=== PATIENT | female | born 1960 | race Caucasian/White ===

== ENCOUNTER 2018-02-11 14:58 | Inpatient (IN) | payer OTHER ==
--- NOTE | 2018-02-11 15:11 | PDOC ---
Rapid Medical Evaluation Time Seen by Provider: 02/11/18 15:01 Medical Evaluation: Allergies Allergy/AdvReac Type Severity Reaction Status Date / Time Latex, Natural Rubber Allergy Verified 02/11/18 15:00 02/11/18 15:01 I have performed a brief in-person evaluation of this patient. The patient presents with a chief complaint of: abdominal pain with nausea and diarrhea. Sent by pmd for admission for pancreatitits. Pertinent physical exam findings are NAD even and unlabored breathing +llqq tenderness I have ordered the following: labs ordered The patient will proceed to Ed for further evaluation Discharge Disposition - Referrals Referrals: Jessica Watts MD [Primary Care Provider] - - Patient Instructions - Post Discharge Activity
[2018-02-11 15:49] LABS: BASO % 0.9 % (0-2.0); EOS % 1.2 % (0-4.5); HEMOGLOBIN 18.5 GM/dL (10.7-15.3); LYMPH % 28.2 % (8-40); MCH 31.9 pg (25.7-33.7); MCHC 34.2 g/dl (32.0-36.0); MEAN CELL VOLUME 93.3 fl (80-96); MEAN PLT VOLUME 9.9 fl (7.5-11.1); MONO % 6.8 % (3.8-10.2); NEUT % 62.9 % (42.8-82.8); PLATELET COUNT 353 K/MM3 (134-434); RBC 5.79 M/mm3 (3.60-5.2); RDW 13.7 % (11.6-15.6); WHITE BLOOD COUNT 19.4 K/mm3 (4.0-10.0)
--- NOTE | 2018-02-11 16:01 | PDOC ---
History of Present Illness - General Chief Complaint: Pain, Acute Stated Complaint: SENT BY PCP Time Seen by Provider: 02/11/18 15:01 - History of Present Illness Initial Comments: 02/11/18 16:01 Pt is a 57 y/o lady with an extensive past medical history of fibromyalgia, Chiari 1 malformation, sciatica, multiple disc herniations, stent placement, COPD, osteoarthritis, ruptured ectopic , PUD, and DM. Pt presents today to [facility] c/o severe left flank pain that has been occurring for 2-3 days. Pain is a 10/10 in severity, sharp in nature, and radiates to pt's left groin and across her entire lower abdomen. Pain was constant until this morning but is now intermittent. Pt endorses nausea and vomiting since the onset of her pain. Has tried pepto-bismol and TUMS with no relief. Pt noted a BS level of 269 at home last night and a BP reading of 196/157. Endorses a 70 lb weight loss in the past year attributed to stress. Denies chest pain, shortness of breath, dizziness, or changes in vision. FH- Father (Lung CA, Rheumatoid arthritis), Mother(NHL, Lung CA) soc Past History - Past Medical History Allergies/Adverse Reactions: Allergies Allergy/AdvReac Type Severity Reaction Status Date / Time Latex, Natural Rubber Allergy Verified 02/11/18 15:00 Home Medications: Ambulatory Orders Simvastatin [Zocor -] 40 mg PO HS 03/25/12 Diazepam 10 mg PO HS 09/28/15 Enalapril Maleate 2.5 mg PO DAILY 09/28/15 Metoprolol Succinate [Toprol XL -] 50 mg PO DAILY 09/28/15 Montelukast Na [Singulair -] 10 mg PO HS PRN 09/28/15 Omeprazole 20 mg PO DAILY 09/28/15 Tizanidine HCl 4 mg PO DAILY PRN 09/28/15 Anemia: No Asthma: Yes Cancer: No Cardiac Disorders: Yes COPD: No CHF: No Diabetes: Yes GI Disorders: Yes (GERD, GB sludge) HTN: Yes Hypercholesterolemia: Yes - Surgical History Appendectomy: Yes Cardiac Surgery: Yes (stent RCA 09/09) Orthopedic Surgery: Yes (ARTHROSCOPY RT.KNEE) - Suicide/Smoking/Psychosocial Hx Smoking Status: Yes Smoking History: Current every day smoker Have you smoked in the past 12 months: Yes Number of Cigarettes Smoked Daily: 10 Information on smoking cessation initiated: No 'Breaking Loose' booklet given: 03/24/17 Hx Alcohol Use: No Drug/Substance Use Hx: Yes Substance Use Type: Opiates Hx Substance Use Treatment: Yes *Physical Exam - Vital Signs Last Vital Signs Temp Pulse Resp BP Pulse Ox 98 F 131 H 22 131/90 95 02/11/18 15:06 02/11/18 15:06 02/11/18 15:06 02/11/18 15:06 02/11/18 15:06 - Physical Exam Comments: 02/11/18 18:46 GEN NAD, AAOx3 HEENT MMM NC/AT RS- CTA B/L CVS RRR NT ND No HSM ABD TTP throughout abdomen, max pain in LLQ. + CVA tenderness left flank. EXT No CCE Pelvic Exam- No discharge, odor, or erythema of cervix. ED Treatment Course - LABORATORY CBC & Chemistry Diagram: 02/11/18 15:28 02/11/18 15:28 - ADDITIONAL ORDERS Additional order review: 02/11/18 15:28 RBC 5.79 H MCV 93.3 MCHC 34.2 RDW 13.7 MPV 9.9 Neutrophils % 62.9 Lymphocytes % 28.2 D Monocytes % 6.8 Eosinophils % 1.2 Basophils % 0.9 Medical Decision Making - Medical Decision Making 02/11/18 16:14 ddx: PUD, Ureterolithiasis, Diverticulitis, Pancreatitis 02/11/18 17:21 Morphine, IVF with LR hydration, zofran for nausea labs and lytes with leukocytosis 19.4 , LFTs normal; lipase WNL Will admit to Medicine. 02/11/18 17:32 Will perform Pelvic Exam with Nurse to r/o PID 02/11/18 18:24 Pelvic examination performed with Nurse Thania. Cervical cultures taken and sent to lab. 02/11/18 18:[address] Floyd, will admit. 02/11/18 18:43 Abd/Pelvis CT w/o contrast-- No acute pathology. *DC/Admit/Observation/Transfer Diagnosis at time of Disposition: Acute abdominal pain, Acute abdomen - Referrals Referrals: Jessica Watts MD [Primary Care Provider] - - Patient Instructions - Post Discharge Activity
[2018-02-11 16:12] LABS: ALBUMIN 4.3 g/dl (3.4-5.0); ALK PHOS 91 U/L (45-117); ANION GAP 9 MMOL/L (8-16); BILIRUBIN,TOTAL 0.6 mg/dL (0.2-1); BLOOD UREA NITROGEN 15 mg/dL (7-18); CHLORIDE 109 mmol/L (98-107); CO2 21 mmol/L (21-32); CREATININE 0.8 mg/dL (0.55-1.3); GLUCOSE,RANDOM 127 mg/dL (74-106); POTASSIUM 4.4 mmol/L (3.5-5.1); SGOT/AST 13 U/L (15-37); SGPT/ALT 17 U/L (13-61); SODIUM 139 mmol/L (136-145); TOT PROT 8.3 g/dl (6.4-8.2)
[2018-02-11] MEDS ORDERED: ACETAMINOPHEN 1000 MG/100 ML VIAL (NON FORMULARY) IVPB ONE (16:12)
--- NOTE | 2018-02-11 16:28 | PDOC ---
Attending Attestation - Resident Resident Name: Derek Cardenas - ED Attending Attestation I have performed the following: I have examined & evaluated the patient, The case was reviewed & discussed with the resident, I agree w/resident's findings & plan - HPI HPI: 02/11/18 16:27 57 y/o lady with an extensive past medical history of fibromyalgia, Chiari 1 malformation, sciatica, multiple disc herniations, stent placement, COPD, osteoarthritis, ruptured ectopic , PUD, and DM presenting with acute worsening of left flank and LLQ pain, nausea and vomiting x [address] Watts. - Physicial Exam PE: 02/11/18 17:35 NAD, well appearing, MMM, nl conjunctiva, anicteric; neck supple. lungs clear, RRR, +abdomen soft, Epigastric and diffuse abdominal tenderness. Left CVAT.. ALEGRIA x4, no focal neuro deficits. No peripheral edema. normal color for ethnicity , WWP. - Medical Decision Making 02/11/18 16:30 57 y/o lady with an extensive past medical history of fibromyalgia, Chiari 1 malformation, sciatica, multiple disc herniations, stent placement, COPD, osteoarthritis, ruptured ectopic , PUD, and DM presenting with acute worsening of left flank and LLQ pain, nausea and vomiting x 2 days. DDx abdominal pain: GERD, PUD, esophageal spasm, pancreatitis, hepatitis, constipation, colitis, gastroenteritis, renal colic, cholecystitis, UTI, pyelonephritis, ileus, SBO, medication side effect, hernia, biliary colic, diverticulitis, mesenteric ischemia. ED course: given analgesia, IVF with LR hydration, zofran labs and lytes with leukocytosis 19K, LFTs normal; lipase normal coags_ normal. trop neg. H/H appears hemoconcentrated, so given IVF hydration getting lactic rectal temp and reeval. blood cx pending. CT a/p pending final results. considering IV abx for suspected intra abdominal infection. dispo: admit to medicine for further management. Dr. Watts primary doctor, admit to hospitalist in evening. 02/11/18 17:38
[2018-02-11] MEDS ORDERED: LACTATED RINGERS SOLUTION 1000 ML INFUS.BAG IV ONE (16:30)
[2018-02-11] MEDS ORDERED: ONDANSETRON 4 MG/2 ML VIAL IVPUSH ONE (16:31)
[2018-02-11 16:46] LABS: INR 1.13 (0.83-1.09); PROTHROMBIN TIME (PATIENT) 12.8 SEC (9.7-13.0)
[2018-02-11 16:48] LABS: ACTIVATED PTT 41.9 SECONDS (25.2-36.5)
[2018-02-11] MEDS ORDERED: morphine CARPU-JECT 4 MG/1 ML DISP.SYRIN IVPUSH ONE (16:50)
[2018-02-11] MEDS ORDERED: MORPHINE SULFATE 2 MG/ML VIAL ONE (16:58)
[2018-02-11] MEDS ORDERED: ONDANSETRON 4 MG/2 ML VIAL ONE ×2 (16:58→20:58)
[2018-02-11] MEDS ORDERED: SODIUM CHLORIDE 0.9% 1000 ML INFUS.BAG IV STA (17:23)
[2018-02-11 17:32] LABS: URINE APPEARANCE CLOUDY; URINE BILIRUBIN NEGATIVE (<2.0 mg/dL); URINE COLOR AMBER; URINE GLUCOSE (UA) NEGATIVE (NEGATIVE); URINE KETONE TRACE (NEGATIVE); URINE NITRITE NEGATIVE (NEGATIVE); URINE UROBILINOGEN NEGATIVE mg/dL (0.2-1.0)
[2018-02-11 17:47] LABS: URINE LEUK ESTERASE 1+ (NEGATIVE); URINE PROTEIN 1+ (NEGATIVE)
[2018-02-11 17:56] LABS: EPI CELLS MODERATE /HPF (FEW); URINE MUCUS MANY
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
[2018-02-11] MEDS ORDERED: morphine SULFATE 4 MG/ML VIAL ONE (20:58)
[2018-02-11] MEDS: ONDANSETRON 4 MG/2 ML VIAL IVPUSH PRN (20:59)
[2018-02-11] MEDS: MORPHINE SULFATE 2 MG/ML VIAL IVPUSH PRN (21:00)
[2018-02-11] MEDS: DEXTROSE 5%-0.45% SALINE 1,000 ML IV SCH (21:05)
[2018-02-11] MEDS ORDERED: HEPARIN NA (PORCINE) 5,000 UNITS/ML 1ML VIAL ONE (22:11)
[2018-02-11] MEDS: HEPARIN NA (PORCINE) 5,000 UNITS/ML 1ML VIAL SQ SCH (22:24)
[2018-02-12] MEDS ORDERED: MORPHINE SULFATE 2 MG/ML VIAL ONE (02:00)
[2018-02-12] MEDS ORDERED: MORPHINE SULFATE 2 MG/ML VIAL IVPUSH ONE (02:00)
[2018-02-12 05:14] VITALS: BMI 31.1
[2018-02-12] MEDS ORDERED: CEFTRIAXONE 1 GM in DEXTROSE 5%-WATER - 50 ML IVPB ONE (08:00)
--- NOTE | 2018-02-12 08:05 | EKG ---
Test Reason : Blood Pressure : / mmHG Vent. Rate : 120 BPM Atrial Rate : 120 BPM P-R Int : 142 ms QRS Dur : 074 ms QT Int : 328 ms P-R-T Axes : 081 -44 066 degrees QTc Int : 463 ms SINUS TACHYCARDIA WITH PREMATURE SUPRAVENTRICULAR COMPLEXES POSSIBLE LEFT ATRIAL ENLARGEMENT LEFT AXIS DEVIATION PULMONARY DISEASE PATTERN ABNORMAL ECG WHEN COMPARED WITH ECG OF 27-MAR-2015 15:22, PREMATURE SUPRAVENTRICULAR COMPLEXES ARE NOW PRESENT VENT. RATE HAS INCREASED BY 60 BPM NONSPECIFIC T WAVE ABNORMALITY NO LONGER EVIDENT IN INFERIOR LEADS Confirmed by BRE VERMA, SUNNY ([id number]) on 02/12/2018 8:05:34 AM Referred By: Confirmed By:SUNNY DÍAZ MD
[2018-02-12] MEDS ORDERED: cefTRIAXone SODIUM 1 GM VIAL ONE (08:22)
[2018-02-12] MEDS ORDERED: DEXTROSE 5%-WATER - 50 ML IVPB ONE (08:22)
[2018-02-12] MEDS: MORPHINE SULFATE 2 MG/ML VIAL IVPUSH PRN (08:26)
[2018-02-12] MEDS: ONDANSETRON 4 MG/2 ML VIAL IVPUSH PRN (08:28)
[2018-02-12] MEDS: HEPARIN NA (PORCINE) 5,000 UNITS/ML 1ML VIAL SQ SCH ×4 (09:02→21:52)
[2018-02-12] MEDS: ENALAPRIL MALEATE 2.5 MG TABLET (FP) PO SCH (09:11)
[2018-02-12 09:17] LABS: BASO % 1.2 % (0-2.0); EOS % 4.7 % (0-4.5); HEMATOCRIT 46.6 % (32.4-45.2); HEMOGLOBIN 15.5 GM/dL (10.7-15.3); LYMPH % 40.5 % (8-40); MCH 31.6 pg (25.7-33.7); MCHC 33.3 g/dl (32.0-36.0); MEAN PLT VOLUME 9.5 fl (7.5-11.1); MONO % 6.6 % (3.8-10.2); PLATELET COUNT 243 K/MM3 (134-434); RDW 13.7 % (11.6-15.6); WHITE BLOOD COUNT 10.6 K/mm3 (4.0-10.0)
--- NOTE | 2018-02-12 09:37 | PN ---
Progress Note (short form) - Note Progress Note: ID consult dictated imp/reccd 57 yo female didnot feel well Thu/- by Thursday had stomach pain and elevated sugars ate a little breakfast and lunch later developed nonbloody diarrhea times 3- with chills no vomiting, +dry heaves no fever no travel no sick contacts came to ED with the above complaints on Thursday- has not eaten since Thursday diarrhea has stopped sexually active no travel no sick contacts post menopausa reports no discomfort with pelvic exam in ED ct scan in ED-pelvic fluid in the culdesac otherwise normal studay no dysuria leukocytosis to 20k still with abdominal pain unclear source of abdominal pain and leukocytosis ?transient gastroenteritis with self resolving diarrhea on rocephin, continue until cultures are back ?ulcer disease, ?uti recently started percocet and meloxicam consider GI evaluation Problem List - Problems (1) Leukocytosis Code(s): D72.829 - ELEVATED WHITE BLOOD CELL COUNT, UNSPECIFIED (2) Acute abdominal pain Code(s): R10.9 - UNSPECIFIED ABDOMINAL PAIN
[2018-02-12 09:44] LABS: ANION GAP 6 MMOL/L (8-16); BLOOD UREA NITROGEN 15 mg/dL (7-18); CALCIUM 9.4 mg/dL (8.5-10.1); CHLORIDE 110 mmol/L (98-107); CO2 25 mmol/L (21-32); CREATININE 0.7 mg/dL (0.55-1.3); GLUCOSE,RANDOM 136 mg/dL (74-106); POTASSIUM 3.9 mmol/L (3.5-5.1); SODIUM 142 mmol/L (136-145)
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
--- NOTE | 2018-02-12 11:32 | PN ---
Progress Note, Physician Chief Complaint: AWAKE ALERT MODERATE DISTRESS ABD PAIN CONTINUES - Current Medication List Current Medications: Active Medications Enalapril Maleate (Vasotec -) 2.5 mg PO DAILY [facility] Last Admin: 02/12/18 09:11 Dose: Not Given Heparin Sodium (Porcine) (Heparin -) 5,000 unit SQ BID [facility] Last Admin: 02/12/18 09:02 Dose: 5,000 unit Dextrose/Sodium Chloride (D5-1/2ns -) 1,000 mls @ 83 mls/hr IV ASDIR [facility] Last Admin: 02/11/18 21:05 Dose: 83 mls/hr Ceftriaxone Sodium 1 gm/ (Dextrose) 50 mls @ 100 mls/hr IVPB DAILY [facility]; Protocol Metoprolol Succinate (Toprol Xl -) 50 mg PO DAILY [facility] Last Admin: 02/12/18 09:11 Dose: Not Given Morphine Sulfate (Morphine Sulfate) 2 mg IVPUSH Q6H PRN PRN Reason: PAIN LEVEL 7 - 10 Last Admin: 02/12/18 08:26 Dose: 2 mg Ondansetron HCl (Zofran Injection) 4 mg IVPUSH Q6H PRN PRN Reason: NAUSEA AND/OR VOMITING Last Admin: 02/12/18 08:28 Dose: 4 mg - Objective Vital Signs: Vital Signs Temperature 97.9 F 02/12/18 08:35 Pulse Rate 60 02/12/18 08:35 Respiratory Rate 16 02/12/18 08:35 Blood Pressure 114/58 L 02/12/18 08:35 O2 Sat by Pulse Oximetry (%) 97 02/11/18 19:28 Constitutional: Yes: Moderate Distress Eyes: Yes: WNL HENT: Yes: WNL Neck: Yes: WNL Cardiovascular: Yes: WNL Respiratory: Yes: WNL Gastrointestinal: Yes: Tenderness Genitourinary: Yes: WNL Musculoskeletal: Yes: Muscle Pain Extremities: Yes: WNL Edema: No Peripheral Pulses WNL: Yes Integumentary: Yes: WNL Wound/Incision: Yes: Clean/Dry Neurological: Yes: Pre-Existing Deficit ...Motor Strength: RUE Psychiatric: Yes: WNL Labs: CBC, BMP 02/12/18 09:03 02/12/18 09:03 INR, PTT INR 1.13 (0.83-1.09) H 02/11/18 15:28 Problem List - Problems (1) Acute abdominal pain Code(s): R10.9 - UNSPECIFIED ABDOMINAL PAIN (2) COPD (chronic obstructive pulmonary disease) Code(s): J44.9 - CHRONIC OBSTRUCTIVE PULMONARY DISEASE, UNSPECIFIED (3) Diabetes mellitus Code(s): E11.9 - TYPE 2 DIABETES MELLITUS WITHOUT COMPLICATIONS (4) Fibromyalgia Code(s): M79.7 - FIBROMYALGIA (5) Leukocytosis Code(s): D72.829 - ELEVATED WHITE BLOOD CELL COUNT, UNSPECIFIED (6) Osteoarthritis Code(s): M19.90 - UNSPECIFIED OSTEOARTHRITIS, UNSPECIFIED SITE (7) PUD (peptic ulcer disease) Code(s): K27.9 - PEPTIC ULC, SITE UNSP, UNSP AC OR CHR, W/O HEMOR OR PERF Assessment/Plan D/W GI DR PRECIADO TO HAVE EGD TODAY KEEP NPO SURGERY FOLLOW UP IV ABX PAIN CONTROL PPI DVT PROPHYLAXIS
[2018-02-12] MEDS ORDERED: PANTOPRAZOLE SODIUM 40 MG VIAL IVPUSH SCH (11:45)
[2018-02-12] MEDS: morphine SULFATE 4 MG/ML VIAL IVPUSH PRN ×3 (13:09→23:23)
--- NOTE | 2018-02-12 13:38 | CONSULT ---
- Consultation REQUESTING PROVIDER: Ronald Doe CONSULT REQUEST: We have been asked to surgically evaluate this patient for an acute surgical abdomen PCP:Jessica Watts HISTORY OF PRESENT ILLNESS: 24-36 hours of generalized ? abdominal pain associated with n/v; not improved w/OTC measures ;s he was referred to the ED by her PCP after office evaluation; she has NOC; pain has improved since admission and dx. w/u was done. 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 Pain statrted after eating cereal. PMHx: nth; asthma; CAD, NIDDM; recent single vessel coronary stenting PSHx: appendectomy and ruptured ectopic. Home Medications Medication Instructions Recorded Simvastatin [Zocor -] 40 mg PO HS 03/25/12 Diazepam 10 mg PO HS 09/28/15 Enalapril Maleate 2.5 mg PO DAILY 09/28/15 Metoprolol Succinate [Toprol XL -] 50 mg PO DAILY 09/28/15 Montelukast Na [Singulair -] 10 mg PO HS PRN 09/28/15 Omeprazole 20 mg PO DAILY PRN 09/28/15 Tizanidine HCl 4 mg PO BID 09/28/15 Albuterol Sulfate Inhaler - 2 puff IH Q4H PRN 02/12/18 [Ventolin HFA Inhaler -] Aspirin [Adult Aspirin] 81 mg PO DAILY 02/12/18 Clopidogrel Bisulfate [Plavix] 75 mg PO DAILY 02/12/18 Ibuprofen 800 mg PO BID PRN 02/12/18 Meloxicam 7.5 mg PO BID 02/12/18 Metformin HCl [Glucophage] 500 mg PO BIDAC 02/12/18 Allergies Allergy/AdvReac Type Severity Reaction Status Date / Time Latex, Natural Rubber Allergy Verified 02/11/18 15:00 PHYSICAL EXAM: GENERAL: Awake, alert, and fully oriented, in no acute distress. HEAD: Normal with no signs of trauma. EYES: PERRL, sclera anicteric, conjunctiva clear. NECK: Normal ROM, supple without lymphadenopathy, JVD, or masses. ABDOMEN: Soft, nontender, not distended, normoactive bowel sounds, no guarding, no rebound, no masses. No organomegaly. No hernias. MUSCULOSKELETAL: Normal ROM at all joints. No bony deformities or tenderness. No CVA tenderness. UPPER EXTREMITIES: 2+ pulses, warm, well-perfused. No cyanosis. Cap refill <2 seconds. No peripheral edema. LOWER EXTREMITIES: 2+ pulses, warm, well-perfused. No calf tenderness. No peripheral edema. NEUROLOGICAL: Normal speech, gait not observed. PSYCH: Cooperative. Good eye contact. Appropriate mood and affect. SKIN: Warm, dry, normal turgor, no rashes or lesions noted. Lipoma over right deltoid ~ 6.0 cm. Vital Signs Temperature 97.9 F 02/12/18 08:35 Pulse Rate 60 02/12/18 08:35 Respiratory Rate 16 02/12/18 08:35 Blood Pressure 114/58 L 02/12/18 08:35 O2 Sat by Pulse Oximetry (%) 97 02/11/18 19:28 Lab Results WBC 10.6 K/mm3 (4.0-10.0) H 02/12/18 09:03 RBC 4.90 M/mm3 (3.60-5.2) 02/12/18 09:03 Hgb 15.5 GM/dL (10.7-15.3) H 02/12/18 09:03 Hct 46.6 % (32.4-45.2) H 02/12/18 09:03 MCV 95.0 fl (80-96) 02/12/18 09:03 MCHC 33.3 g/dl (32.0-36.0) 02/12/18 09:03 RDW 13.7 % (11.6-15.6) 02/12/18 09:03 Plt Count 243 K/MM3 (134-434) D 02/12/18 09:03 Sodium 142 mmol/L (136-145) 02/12/18 09:03 Potassium 3.9 mmol/L (3.5-5.1) 02/12/18 09:03 Chloride 110 mmol/L (98-107) H 02/12/18 09:03 Carbon Dioxide 25 mmol/L (21-32) 02/12/18 09:03 Anion Gap 6 MMOL/L (8-16) L 02/12/18 09:03 BUN 15 mg/dL (7-18) 02/12/18 09:03 Creatinine 0.7 mg/dL (0.55-1.3) 02/12/18 09:03 Random Glucose 136 mg/dL (74-106) H 02/12/18 09:03 Calcium 9.4 mg/dL (8.5-10.1) 02/12/18 09:03 INR 1.13 (0.83-1.09) H 02/11/18 15:28 Imaging w/u to date reviewed IMP: No evidence of an acute surgical abdomen PLAN: As per primary care team. Rajan Montes MD FACS
--- NOTE | 2018-02-12 14:43 | CON.GI ---
Consult Consult Specialty:: GI Reason for Consultation:: epigastric abdomina pain x 3 days - History of Present Illness History of Present Illness: Chart reviewed. A 57F with epigastric, deep, continious, non-radiating, up to 10 /10, deep pain w/o alleviating, or aggravating factors. Onset 3 days ago as mild , non-specific abdominal discomfort w/o any other symptoms. Became severe by Thursday and developed small volume, brown loose stools. No dysphagia, odynophagia, chest pain, SOB, nausea, or vomiting, No melena, or hematochezia. No fever, or jaundice. No history of upper GI inflammatory states. Had incomplete (poor prep) colonoscopy in 2016. Overall, reports no changes in stool caliper, or weight loss. Takes small dose ASA. Denies other chronic NSAIDs , alcohol. [id number] CT/ABDOMEN & PELVIS CT W/O CONTR HISTORY PROVIDED: Rule out pancreatitis TECHNIQUE: Sequential axial images were obtained from the domes of the diaphragm through the symphysis pubis. The study is limited without the use of any contrast material. The lung bases are clear. The pancreas is normal in size and texture with no pancreatic masses identified. There is no evidence of peripancreatic inflammatory changes or fluid collections suspicious for acute/chronic pancreatitis. The liver, spleen, pancreas, adrenal glands and kidneys demonstrate no significant abnormalities. The gallbladder is slightly distended, but clear. There is no evidence of intra-abdominal or retroperitoneal lymphadenopathy or fluid collections. There is no evidence of pneumoperitoneum, bowel obstruction or intra-abdominal abscess. There is no CT evidence of acute appendicitis or diverticulitis. Examination of the pelvis demonstrates no evidence of pelvic masses, fluid collections or lymphadenopathy. Free fluid is identified within the cul-de-sac. IMPRESSION: 1. Normal noncontrast CT scan of the pancreas with no evidence of masses or acute/chronic pancreatitis. 2. Free pelvic fluid, no acute pathology within the abdomen or pelvis. Please see above discussion. CBCD WBC 10.6 K/mm3 (4.0-10.0) H 02/12/18 09:03 RBC 4.90 M/mm3 (3.60-5.2) 02/12/18 09:03 Hgb 15.5 GM/dL (10.7-15.3) H 02/12/18 09:03 Hct 46.6 % (32.4-45.2) H 02/12/18 09:03 MCV 95.0 fl (80-96) 02/12/18 09:03 MCHC 33.3 g/dl (32.0-36.0) 02/12/18 09:03 RDW 13.7 % (11.6-15.6) 02/12/18 09:03 Plt Count 243 K/MM3 (134-434) D 02/12/18 09:03 MPV 9.5 fl (7.5-11.1) 02/12/18 09:03 CMP Sodium 142 mmol/L (136-145) 02/12/18 09:03 Potassium 3.9 mmol/L (3.5-5.1) 02/12/18 09:03 Chloride 110 mmol/L (98-107) H 02/12/18 09:03 Carbon Dioxide 25 mmol/L (21-32) 02/12/18 09:03 Anion Gap 6 MMOL/L (8-16) L 02/12/18 09:03 BUN 15 mg/dL (7-18) 02/12/18 09:03 Creatinine 0.7 mg/dL (0.55-1.3) 02/12/18 09:03 Creat Clearance w eGFR > 60 (>60) 02/12/18 09:03 Calcium 9.4 mg/dL (8.5-10.1) 02/12/18 09:03 Total Bilirubin 0.6 mg/dL (0.2-1) 02/11/18 15:28 AST 13 U/L (15-37) L 02/11/18 15:28 ALT 17 U/L (13-61) 02/11/18 15:28 Alkaline Phosphatase 91 U/L (45-117) 02/11/18 15:28 Total Protein 8.3 g/dl (6.4-8.2) H 02/11/18 15:28 Albumin 4.3 g/dl (3.4-5.0) 02/11/18 15:28 Home Medication List Medication Instructions Recorded Confirmed Type Simvastatin [Zocor -] 40 mg PO HS 03/25/12 02/12/18 History Diazepam 10 mg PO HS 09/28/15 02/12/18 History Enalapril Maleate 2.5 mg PO DAILY 09/28/15 02/12/18 History Metoprolol Succinate [Toprol XL -] 50 mg PO DAILY 09/28/15 02/12/18 History Montelukast Na [Singulair -] 10 mg PO HS PRN 09/28/15 02/11/18 History Omeprazole 20 mg PO DAILY PRN 09/28/15 02/11/18 History Tizanidine HCl 4 mg PO BID 09/28/15 02/12/18 History Albuterol Sulfate Inhaler - 2 puff IH Q4H PRN 02/12/18 02/12/18 History [Ventolin HFA Inhaler -] Aspirin [Adult Aspirin] 81 mg PO DAILY 02/12/18 02/12/18 History Clopidogrel Bisulfate [Plavix] 75 mg PO DAILY 02/12/18 02/12/18 History Ibuprofen 800 mg PO BID PRN 02/12/18 02/12/18 History Meloxicam 7.5 mg PO BID 02/12/18 02/12/18 History Metformin HCl [Glucophage] 500 mg PO BIDAC 02/12/18 02/12/18 History Active Medications Generic Name Dose Route Start Last Admin Trade Name Freq PRN Reason Stop Dose Admin Enalapril Maleate 2.5 mg 02/12/18 10:00 02/12/18 09:11 Vasotec - PO Not Given DAILY [facility] Heparin Sodium (Porcine) 5,000 unit 02/11/18 22:00 02/12/18 10:07 Heparin - SQ Not Given BID [facility] Dextrose/Sodium Chloride 1,000 mls @ 83 mls/hr 02/11/18 19:30 02/11/18 21:05 D5-1/2ns - IV 83 mls/hr ASDIR [facility] Administration Ceftriaxone Sodium 1 gm/ 50 mls @ 100 mls/hr 02/13/18 10:00 Dextrose IVPB DAILY [facility] Protocol Metoprolol Succinate 50 mg 02/12/18 10:00 02/12/18 09:11 Toprol Xl - PO Not Given DAILY [facility] Morphine Sulfate 2 mg 02/11/18 20:52 02/12/18 08:26 Morphine Sulfate IVPUSH 2 mg Q6H PRN Administration PAIN LEVEL 7 - 10 Morphine Sulfate 4 mg 02/12/18 11:32 02/12/18 13:09 Morphine Sulfate IVPUSH 4 mg Q4H PRN Administration PAIN LEVEL 7 - 10 Ondansetron HCl 4 mg 02/11/18 20:53 02/12/18 08:28 Zofran Injection IVPUSH 4 mg Q6H PRN Administration NAUSEA AND/OR VOMITING Pantoprazole Sodium 40 mg 02/12/18 11:45 02/12/18 13:09 Protonix Iv IVPUSH 40 mg DAILY [facility] Administration - History Source History Provided By: Patient, Medical Record - Past Medical History ...LMP: 03/25/12 ...: No - Alcohol/Substance Use Hx Alcohol Use: Yes (rare drink) - Smoking History Smoking history: Current every day smoker Have you smoked in the past 12 months: Yes Aproximately how many cigarettes per day: 10 Home Medications - Allergies Allergies/Adverse Reactions: Allergies Allergy/AdvReac Type Severity Reaction Status Date / Time Latex, Natural Rubber Allergy Verified 02/11/18 15:00 - Home Medications Home Medications: Ambulatory Orders Simvastatin [Zocor -] 40 mg PO HS 03/25/12 Diazepam 10 mg PO HS 09/28/15 Enalapril Maleate 2.5 mg PO DAILY 09/28/15 Metoprolol Succinate [Toprol XL -] 50 mg PO DAILY 09/28/15 Montelukast Na [Singulair -] 10 mg PO HS PRN 09/28/15 Omeprazole 20 mg PO DAILY PRN 09/28/15 Tizanidine HCl 4 mg PO BID 09/28/15 Albuterol Sulfate Inhaler - [Ventolin HFA Inhaler -] 2 puff IH Q4H PRN 02/12/18 Aspirin [Adult Aspirin] 81 mg PO DAILY 02/12/18 Clopidogrel Bisulfate [Plavix] 75 mg PO DAILY 02/12/18 Ibuprofen 800 mg PO BID PRN 02/12/18 Meloxicam 7.5 mg PO BID 02/12/18 Metformin HCl [Glucophage] 500 mg PO BIDAC 02/12/18 Family Disease History - Family Disease History Family Disease History: Other: Mother (gastric ulcer, perforated) Review of Systems Findings/Remarks: as per hPI, ED, H&P Physical Exam-GI Vital Signs: Vital Signs Temperature 98.3 F 02/12/18 14:27 Pulse Rate 56 L 02/12/18 14:27 Respiratory Rate 16 02/12/18 14:27 Blood Pressure 128/63 02/12/18 14:27 O2 Sat by Pulse Oximetry (%) 97 02/11/18 19:28 Constitutional: Yes: Well Nourished, Calm, Anxious, Mild Distress Eyes: Yes: Conjunctiva Clear HENT: Yes: Atraumatic Neck: Yes: Supple Cardiovascular: Yes: Regular Rate and Rhythm Respiratory: Yes: Regular Gastrointestinal Inspection: No: Ascites, Distention ...Palpate: Yes: Guarding, Soft, Tenderness, Epigastium. No: Firm/Rigid Neurological: Yes: Alert, Oriented Labs: CBC, BMP 02/12/18 09:03 02/12/18 09:03 INR, PTT INR 1.13 (0.83-1.09) H 02/11/18 15:28 Laboratory Last Values WBC 10.6 K/mm3 (4.0-10.0) H 02/12/18 09:03 RBC 4.90 M/mm3 (3.60-5.2) 02/12/18 09:03 Hgb 15.5 GM/dL (10.7-15.3) H 02/12/18 09:03 Hct 46.6 % (32.4-45.2) H 02/12/18 09:03 MCV 95.0 fl (80-96) 02/12/18 09:03 MCH 31.6 pg (25.7-33.7) 02/12/18 09:03 MCHC 33.3 g/dl (32.0-36.0) 02/12/18 09:03 RDW 13.7 % (11.6-15.6) 02/12/18 09:03 Plt Count 243 K/MM3 (134-434) D 02/12/18 09:03 MPV 9.5 fl (7.5-11.1) 02/12/18 09:03 Absolute Neuts (auto) 5.0 K/mm3 (1.5-8.0) 02/12/18 09:03 Neutrophils % 47.0 % (42.8-82.8) D 02/12/18 09:03 Lymphocytes % 40.5 % (8-40) H D 02/12/18 09:03 Monocytes % 6.6 % (3.8-10.2) 02/12/18 09:03 Eosinophils % 4.7 % (0-4.5) H D 02/12/18 09:03 Basophils % 1.2 % (0-2.0) 02/12/18 09:03 Nucleated RBC % 0 % (0-0) 02/12/18 09:03 PT with INR 12.80 SEC (9.7-13.0) 02/11/18 15:28 INR 1.13 (0.83-1.09) H 02/11/18 15:28 PTT (Actin FS) 41.9 SECONDS (25.2-36.5) H 02/11/18 15:28 Sodium 142 mmol/L (136-145) 02/12/18 09:03 Potassium 3.9 mmol/L (3.5-5.1) 02/12/18 09:03 Chloride 110 mmol/L (98-107) H 02/12/18 09:03 Carbon Dioxide 25 mmol/L (21-32) 02/12/18 09:03 Anion Gap 6 MMOL/L (8-16) L 02/12/18 09:03 BUN 15 mg/dL (7-18) 02/12/18 09:03 Creatinine 0.7 mg/dL (0.55-1.3) 02/12/18 09:03 Creat Clearance w eGFR > 60 (>60) 02/12/18 09:03 Random Glucose 136 mg/dL (74-106) H 02/12/18 09:03 Lactic Acid 1.2 mmol/L (0.4-2.0) 02/11/18 17:06 Calcium 9.4 mg/dL (8.5-10.1) 02/12/18 09:03 Total Bilirubin 0.6 mg/dL (0.2-1) 02/11/18 15:28 AST 13 U/L (15-37) L 02/11/18 15:28 ALT 17 U/L (13-61) 02/11/18 15:28 Alkaline Phosphatase 91 U/L (45-117) 02/11/18 15:28 Troponin I < 0.02 ng/ml (0.00-0.05) 02/11/18 15:28 Total Protein 8.3 g/dl (6.4-8.2) H 02/11/18 15:28 Albumin 4.3 g/dl (3.4-5.0) 02/11/18 15:28 Lipase 254 U/L (73-393) 02/11/18 16:15 Urine Color Kate 02/11/18 17:12 Urine Appearance Cloudy 02/11/18 17:12 Urine pH 5.0 (5.0-8.0) D 02/11/18 17:12 Ur Specific [place] 1.024 (1.001-1.035) 02/11/18 17:12 Urine Protein 1+ (NEGATIVE) H 02/11/18 17:12 Urine Glucose (UA) Negative (NEGATIVE) 02/11/18 17:12 Urine Ketones Trace (NEGATIVE) H 02/11/18 17:12 Urine Blood Negative (NEGATIVE) 02/11/18 17:12 Urine Nitrite Negative (NEGATIVE) 02/11/18 17:12 Urine Bilirubin Negative (<2.0 mg/dL) 02/11/18 17:12 Urine Urobilinogen Negative mg/dL (0.2-1.0) 02/11/18 17:12 Ur Leukocyte Esterase 1+ (NEGATIVE) H 02/11/18 17:12 Urine WBC (Auto) 21 /hpf (3-5) 02/11/18 17:12 Urine RBC (Auto) 4 /hpf (0-3) 02/11/18 17:12 Ur Epithelial Cells Moderate /HPF (FEW) 02/11/18 17:12 Urine Mucus Many 02/11/18 17:12 Imaging - Results Cat Scan: Report Reviewed Problem List - Problems (1) Leukocytosis Code(s): D72.829 - ELEVATED WHITE BLOOD CELL COUNT, UNSPECIFIED (2) Acute abdominal pain Code(s): R10.9 - UNSPECIFIED ABDOMINAL PAIN Assessment/Plan A 57F with the above presentation and findings. R/o Ulcer disease, gastritis, duodenitis, esophagitis. Doubt pancreatico-biliary etiology at this time. Agree with the initial management. Plan EGD today. The patient is aware she is overdue for screening colonoscopy and should have it done now
--- NOTE | 2018-02-12 15:12 | PROC ---
Endoscopy Procedure Endoscopy procedure completed. Please see scanned procedure report. Mild duodenitis, gastritis and small hiatal hernia w/o evidence of esophagitis noted. Gastric antrum, body and proximal small bowel biopsied. 2 shallow, acute, non-bleeding ulcers were noted in the gastric body and biopsied. lactose free diet as tolerated Carafate 1 gm po qid x 15 days Protonic 40 mg po qam Follow biopsies and stool microbiology Colonoscopy as OP
[2018-02-12] MEDS: SUCRALFATE 1 GM/10 ML UNIT DOSE CUPS PO SCH ×2 (18:15→21:37)
[2018-02-12] MEDS: DEXTROSE 5%-0.45% SALINE 1,000 ML IV SCH (21:39)
[2018-02-13] MEDS: DEXTROSE 5%-0.45% SALINE 1,000 ML IV SCH ×2 (04:11→21:40)
[2018-02-13] MEDS: morphine SULFATE 4 MG/ML VIAL IVPUSH PRN ×4 (05:50→21:39)
[2018-02-13 07:30] LABS: HEMATOCRIT 44.1 % (32.4-45.2); HEMOGLOBIN 14.7 GM/dL (10.7-15.3); MCH 31.6 pg (25.7-33.7); MCHC 33.3 g/dl (32.0-36.0); MEAN CELL VOLUME 94.9 fl (80-96); PLATELET COUNT 225 K/MM3 (134-434); RBC 4.65 M/mm3 (3.60-5.2); RDW 13.5 % (11.6-15.6); WHITE BLOOD COUNT 9.3 K/mm3 (4.0-10.0)
[2018-02-13 08:17] LABS: ALBUMIN 3.2 g/dl (3.4-5.0); ALK PHOS 68 U/L (45-117); ANION GAP 5 MMOL/L (8-16); BILIRUBIN,TOTAL 0.4 mg/dL (0.2-1); BLOOD UREA NITROGEN 8 mg/dL (7-18); CALCIUM 8.7 mg/dL (8.5-10.1); CHLORIDE 110 mmol/L (98-107); CO2 28 mmol/L (21-32); CREATININE 0.6 mg/dL (0.55-1.3); GLUCOSE,RANDOM 133 mg/dL (74-106); POTASSIUM 4.6 mmol/L (3.5-5.1); SGOT/AST 37 U/L (15-37); SGPT/ALT 30 U/L (13-61); SODIUM 142 mmol/L (136-145); TOT PROT 6.4 g/dl (6.4-8.2)
[2018-02-13] MEDS ORDERED: cefTRIAXone SODIUM 1 GM VIAL ONE (08:49)
[2018-02-13] MEDS ORDERED: PT OWN MED DRAWER 7, Y5N ONE (08:49)
[2018-02-13] MEDS ORDERED: DEXTROSE 5%-WATER - 50 ML IVPB ONE (08:50)
[2018-02-13] MEDS: HEPARIN NA (PORCINE) 5,000 UNITS/ML 1ML VIAL SQ SCH ×2 (09:03→21:38)
[2018-02-13] MEDS: SUCRALFATE 1 GM/10 ML UNIT DOSE CUPS PO SCH ×4 (09:03→21:38)
[2018-02-13] MEDS: ENALAPRIL MALEATE 2.5 MG TABLET (FP) PO SCH (09:06)
[2018-02-13] MEDS: PANTOPRAZOLE 40 MG TABLET (FP) PO SCH (09:06)
[2018-02-13] MEDS ORDERED: CEFTRIAXONE 1 GM in DEXTROSE 5%-WATER - 50 ML IVPB SCH (10:00)
--- NOTE | 2018-02-13 14:42 | PN ---
Progress Note (short form) - Note Progress Note: endoscopy shows 2 nonbleeding ulcers still some abdominal discomfort Vital Signs Period Temp Pulse Resp BP Sys/Khanna Pulse Ox Last 24 Hr 97.6 F-98.3 F 52-88 16-20 107-153/61-82 95-100 cor-rrr lungs clear abd soft,mild epigastric pain to palpation ext no edema CBC, BMP 02/13/18 06:00 02/13/18 06:00 Microbiology 02/11/18 17:12 Urine - Urine Clean Catch Urine Culture - Final NO GROWTH OBTAINED 02/11/18 17:30 Blood - Peripheral Venous Blood Culture - Preliminary NO GROWTH OBTAINED AFTER 24 HOURS, INCUBATION TO CONTINUE FOR 4 DAYS. 02/11/18 17:30 Blood - Peripheral Venous Blood Culture - Preliminary NO GROWTH OBTAINED AFTER 24 HOURS, INCUBATION TO CONTINUE FOR 4 DAYS. a/p ulcers leukocytosis resolved no diarrhea cultures negative d/c rocephin Problem List - Problems (1) Leukocytosis Code(s): D72.829 - ELEVATED WHITE BLOOD CELL COUNT, UNSPECIFIED (2) Acute abdominal pain Code(s): R10.9 - UNSPECIFIED ABDOMINAL PAIN
[2018-02-13] MEDS ORDERED: MONTELUKAST NA 10 MG TABLET PO PRN (18:31)
--- NOTE | 2018-02-13 18:34 | PN ---
Progress Note, Physician Chief Complaint: Epigastric pain History of Present Illness: NAD Abdominal pain improved had EGD done yesterday: Mild duodenitis, gastritis and small hiatal hernia w/o evidence of esophagitis noted. Gastric antrum, body and proximal small bowel biopsied. 2 shallow, acute, non-bleeding ulcers were noted in the gastric body and biopsied. - Current Medication List Current Medications: Active Medications Enalapril Maleate (Vasotec -) 2.5 mg PO DAILY [facility] Last Admin: 02/13/18 09:06 Dose: 2.5 mg Heparin Sodium (Porcine) (Heparin -) 5,000 unit SQ BID [facility] Last Admin: 02/13/18 09:03 Dose: 5,000 unit Dextrose/Sodium Chloride (D5-1/2ns -) 1,000 mls @ 83 mls/hr IV ASDIR [facility] Last Admin: 02/13/18 04:11 Dose: 83 mls/hr Metoprolol Succinate (Toprol Xl -) 50 mg PO DAILY [facility] Last Admin: 02/13/18 09:06 Dose: 50 mg Morphine Sulfate (Morphine Sulfate) 2 mg IVPUSH Q6H PRN PRN Reason: PAIN LEVEL 7 - 10 Last Admin: 02/12/18 08:26 Dose: 2 mg Morphine Sulfate (Morphine Sulfate) 4 mg IVPUSH Q4H PRN PRN Reason: PAIN LEVEL 7 - 10 Last Admin: 02/13/18 16:41 Dose: 4 mg Ondansetron HCl (Zofran Injection) 4 mg IVPUSH Q6H PRN PRN Reason: NAUSEA AND/OR VOMITING Last Admin: 02/12/18 08:28 Dose: 4 mg Pantoprazole Sodium (Protonix -) 40 mg PO DAILY [facility] Last Admin: 02/13/18 09:06 Dose: 40 mg Sucralfate (Carafate Oral Suspension -) 1 gm PO QID [facility] Last Admin: 02/13/18 17:39 Dose: 1 gm - Objective Vital Signs: Vital Signs Temperature 98.3 F 02/13/18 14:51 Pulse Rate 69 02/13/18 14:51 Respiratory Rate 20 02/13/18 14:51 Blood Pressure 126/74 02/13/18 14:51 O2 Sat by Pulse Oximetry (%) 95 02/13/18 10:00 Constitutional: Yes: Well Nourished, No Distress, Calm Cardiovascular: Yes: Regular Rate and Rhythm Respiratory: Yes: Regular Gastrointestinal: Yes: Normal Bowel Sounds, Soft, Tenderness, Epigastrium Musculoskeletal: Yes: WNL Extremities: Yes: WNL Edema: No Peripheral Pulses WNL: Yes Neurological: Yes: Alert, Oriented Psychiatric: Yes: Alert, Oriented Labs: CBC, BMP 02/13/18 06:00 02/13/18 06:00 INR, PTT INR 1.13 (0.83-1.09) H 02/11/18 15:28 Problem List - Problems (1) Acute abdominal pain Assessment/Plan: -Seen by GI -EGD: Mild duodenitis, gastritis and small hiatal hernia w/o evidence of esophagitis noted. Gastric antrum, body and proximal small bowel biopsied. 2 shallow, acute, non-bleeding ulcers were noted in the gastric body and biopsied. -Carafate 1 gm qid -lactose free diet Code(s): R10.9 - UNSPECIFIED ABDOMINAL PAIN (2) Fibromyalgia Code(s): M79.7 - FIBROMYALGIA (3) PUD (peptic ulcer disease) Assessment/Plan: -Seen by GI -EGD: Mild duodenitis, gastritis and small hiatal hernia w/o evidence of esophagitis noted. Gastric antrum, body and proximal small bowel biopsied. 2 shallow, acute, non-bleeding ulcers were noted in the gastric body and biopsied. -Carafate 1 gm qid -lactose free diet Code(s): K27.9 - PEPTIC ULC, SITE UNSP, UNSP AC OR CHR, W/O HEMOR OR PERF (4) Unintentional weight loss Assessment/Plan: -Plan for colonoscopy Thursday -Clear liquid diet -Prep ordered for tomorrow Code(s): R63.4 - ABNORMAL WEIGHT LOSS Assessment/Plan see problem list
[2018-02-13] MEDS: ATORVASTATIN CA 40 MG TABLET (FP) PO SCH (21:38)
[2018-02-14] MEDS: morphine SULFATE 4 MG/ML VIAL IVPUSH PRN ×5 (01:51→22:18)
[2018-02-14 08:06] LABS: BASO % 0.6 % (0-2.0); EOS % 3.2 % (0-4.5); HEMATOCRIT 43.7 % (32.4-45.2); HEMOGLOBIN 14.8 GM/dL (10.7-15.3); LYMPH % 42.3 % (8-40); MCH 32.1 pg (25.7-33.7); MEAN CELL VOLUME 94.5 fl (80-96); MONO % 7.2 % (3.8-10.2); NEUT % 46.7 % (42.8-82.8); PLATELET COUNT 236 K/MM3 (134-434); RBC 4.62 M/mm3 (3.60-5.2); RDW 13.4 % (11.6-15.6); WHITE BLOOD COUNT 9.5 K/mm3 (4.0-10.0)
[2018-02-14 08:30] LABS: ANION GAP 8 MMOL/L (8-16); BLOOD UREA NITROGEN 8 mg/dL (7-18); CALCIUM 9.5 mg/dL (8.5-10.1); CHLORIDE 108 mmol/L (98-107); CO2 27 mmol/L (21-32); CREATININE 0.6 mg/dL (0.55-1.3); GLUCOSE,RANDOM 129 mg/dL (74-106); POTASSIUM 4.1 mmol/L (3.5-5.1); SODIUM 143 mmol/L (136-145)
[2018-02-14] MEDS: ENALAPRIL MALEATE 2.5 MG TABLET (FP) PO SCH (09:36)
[2018-02-14] MEDS: MORPHINE SULFATE 2 MG/ML VIAL IVPUSH PRN (09:36)
[2018-02-14] MEDS: SUCRALFATE 1 GM/10 ML UNIT DOSE CUPS PO SCH ×4 (09:36→21:05)
[2018-02-14] MEDS: CLOPIDOGREL BISULFATE 75 MG TABLET (FP) PO SCH (09:36)
[2018-02-14] MEDS: HEPARIN NA (PORCINE) 5,000 UNITS/ML 1ML VIAL SQ SCH ×2 (09:36→21:05)
[2018-02-14] MEDS: PANTOPRAZOLE 40 MG TABLET (FP) PO SCH (09:36)
--- NOTE | 2018-02-14 12:26 | PN ---
Progress Note, Physician Chief Complaint: Epigastric pain History of Present Illness: NAD Abdominal pain improved had EGD done yesterday: Mild duodenitis, gastritis and small hiatal hernia w/o evidence of esophagitis noted. Gastric antrum, body and proximal small bowel biopsied. 2 shallow, acute, non-bleeding ulcers were noted in the gastric body and biopsied. Colonoscopy in AM - Current Medication List Current Medications: Active Medications Atorvastatin Calcium (Lipitor -) 40 mg PO HS [facility] Last Admin: 02/13/18 21:38 Dose: 40 mg Bisacodyl (Dulcolax -) 20 mg PO ONCE ONE Stop: 02/14/18 15:01 Clopidogrel Bisulfate (Plavix -) 75 mg PO DAILY [facility] Last Admin: 02/14/18 09:36 Dose: 75 mg Enalapril Maleate (Vasotec -) 2.5 mg PO DAILY [facility] Last Admin: 02/14/18 09:36 Dose: 2.5 mg Heparin Sodium (Porcine) (Heparin -) 5,000 unit SQ BID [facility] Last Admin: 02/14/18 09:36 Dose: 5,000 unit Dextrose/Sodium Chloride (D5-1/2ns -) 1,000 mls @ 83 mls/hr IV ASDIR [facility] Last Admin: 02/13/18 21:40 Dose: 83 mls/hr Metoprolol Succinate (Toprol Xl -) 50 mg PO DAILY [facility] Last Admin: 02/14/18 09:54 Dose: 50 mg Montelukast Sodium (Singulair -) 10 mg PO HS PRN PRN Reason: breathing Morphine Sulfate (Morphine Sulfate) 2 mg IVPUSH Q6H PRN PRN Reason: PAIN LEVEL 7 - 10 Last Admin: 02/14/18 09:36 Dose: 2 mg Morphine Sulfate (Morphine Sulfate) 4 mg IVPUSH Q4H PRN PRN Reason: PAIN LEVEL 7 - 10 Last Admin: 02/14/18 06:28 Dose: 4 mg Ondansetron HCl (Zofran Injection) 4 mg IVPUSH Q6H PRN PRN Reason: NAUSEA AND/OR VOMITING Last Admin: 02/12/18 08:28 Dose: 4 mg Pantoprazole Sodium (Protonix -) 40 mg PO DAILY [facility] Last Admin: 02/14/18 09:36 Dose: 40 mg Sucralfate (Carafate Oral Suspension -) 1 gm PO QID [facility] Last Admin: 02/14/18 09:36 Dose: 1 gm - Objective Vital Signs: Vital Signs Temperature 98.0 F 02/14/18 05:20 Pulse Rate 59 L 02/14/18 05:20 Respiratory Rate 18 02/14/18 05:20 Blood Pressure 144/64 02/14/18 05:20 O2 Sat by Pulse Oximetry (%) 94 L 02/13/18 21:00 Constitutional: Yes: Well Nourished, No Distress, Calm Cardiovascular: Yes: Regular Rate and Rhythm Respiratory: Yes: Regular Gastrointestinal: Yes: Normal Bowel Sounds, Soft Musculoskeletal: Yes: WNL Extremities: Yes: WNL Neurological: Yes: Alert, Oriented Psychiatric: Yes: Alert, Oriented Labs: CBC, BMP 02/14/18 06:00 02/14/18 06:00 INR, PTT INR 1.13 (0.83-1.09) H 02/11/18 15:28 Problem List - Problems (1) Acute abdominal pain Assessment/Plan: -Seen by GI -EGD: Mild duodenitis, gastritis and small hiatal hernia w/o evidence of esophagitis noted. Gastric antrum, body and proximal small bowel biopsied. 2 shallow, acute, non-bleeding ulcers were noted in the gastric body and biopsied. -Carafate 1 gm qid -lactose free diet Code(s): R10.9 - UNSPECIFIED ABDOMINAL PAIN (2) Fibromyalgia Code(s): M79.7 - FIBROMYALGIA (3) PUD (peptic ulcer disease) Assessment/Plan: -Seen by GI -EGD: Mild duodenitis, gastritis and small hiatal hernia w/o evidence of esophagitis noted. Gastric antrum, body and proximal small bowel biopsied. 2 shallow, acute, non-bleeding ulcers were noted in the gastric body and biopsied. -Carafate 1 gm qid -lactose free diet Code(s): K27.9 - PEPTIC ULC, SITE UNSP, UNSP AC OR CHR, W/O HEMOR OR PERF (4) Unintentional weight loss Assessment/Plan: -Plan for colonoscopy Thursday -Clear liquid diet -Prep ordered Code(s): R63.4 - ABNORMAL WEIGHT LOSS Assessment/Plan see problem list
[2018-02-14] MEDS ORDERED: BISACODYL 5 MG TABLET.DR (FP) PO ONE (15:00)
[2018-02-14] MEDS ORDERED: PEG3350/SOD SULF,BICARB,CL/KCL 4,000 ML SOLN.RECON PO ONE (17:00)
[2018-02-14] MEDS: DEXTROSE 5%-0.45% SALINE 1,000 ML IV SCH ×2 (17:39→21:05)
[2018-02-14] MEDS: ATORVASTATIN CA 40 MG TABLET (FP) PO SCH (21:05)
[2018-02-15] MEDS: morphine SULFATE 4 MG/ML VIAL IVPUSH PRN ×5 (03:31→19:06)
[2018-02-15] MEDS: DEXTROSE 5%-0.45% SALINE 1,000 ML IV SCH ×2 (04:24→21:12)
[2018-02-15] MEDS ORDERED: PT OWN MED DRAWER 7, Y5N ONE (08:52)
--- NOTE | 2018-02-15 08:54 | PN ---
Progress Note, Physician - Current Medication List Current Medications: Active Medications Atorvastatin Calcium (Lipitor -) 40 mg PO HS [facility] Last Admin: 02/14/18 21:05 Dose: 40 mg Clopidogrel Bisulfate (Plavix -) 75 mg PO DAILY [facility] Last Admin: 02/14/18 09:36 Dose: 75 mg Enalapril Maleate (Vasotec -) 2.5 mg PO DAILY [facility] Last Admin: 02/14/18 09:36 Dose: 2.5 mg Heparin Sodium (Porcine) (Heparin -) 5,000 unit SQ BID [facility] Last Admin: 02/14/18 21:05 Dose: 5,000 unit Dextrose/Sodium Chloride (D5-1/2ns -) 1,000 mls @ 83 mls/hr IV ASDIR [facility] Last Admin: 02/15/18 04:24 Dose: 83 mls/hr Metoprolol Succinate (Toprol Xl -) 50 mg PO DAILY [facility] Last Admin: 02/14/18 09:54 Dose: 50 mg Montelukast Sodium (Singulair -) 10 mg PO HS PRN PRN Reason: breathing Morphine Sulfate (Morphine Sulfate) 2 mg IVPUSH Q6H PRN PRN Reason: PAIN LEVEL 7 - 10 Last Admin: 02/14/18 09:36 Dose: 2 mg Morphine Sulfate (Morphine Sulfate) 4 mg IVPUSH Q4H PRN PRN Reason: PAIN LEVEL 7 - 10 Last Admin: 02/15/18 04:23 Dose: 4 mg Ondansetron HCl (Zofran Injection) 4 mg IVPUSH Q6H PRN PRN Reason: NAUSEA AND/OR VOMITING Last Admin: 02/12/18 08:28 Dose: 4 mg Pantoprazole Sodium (Protonix -) 40 mg PO DAILY [facility] Last Admin: 02/14/18 09:36 Dose: 40 mg Sucralfate (Carafate Oral Suspension -) 1 gm PO QID [facility] Last Admin: 02/14/18 21:05 Dose: 1 gm - Objective Vital Signs: Vital Signs Temperature 98.0 F 02/14/18 21:00 Pulse Rate 62 02/15/18 05:25 Respiratory Rate 20 02/15/18 05:25 Blood Pressure 121/73 02/15/18 05:25 O2 Sat by Pulse Oximetry (%) 97 02/14/18 21:00 Cardiovascular: Yes: Regular Rate and Rhythm Respiratory: Yes: Regular, CTA Bilaterally Gastrointestinal: Yes: Normal Bowel Sounds, Soft Labs: CBC, BMP 02/14/18 06:00 02/14/18 06:00 INR, PTT INR 1.13 (0.83-1.09) H 02/11/18 15:28 Assessment/Plan - Problems (1) Acute abdominal pain Assessment/Plan: -Seen by GI -EGD: Mild duodenitis, gastritis and small hiatal hernia w/o evidence of esophagitis noted. Gastric antrum, body and proximal small bowel biopsied. 2 shallow, acute, non-bleeding ulcers were noted in the gastric body and biopsied. -Carafate 1 gm qid -lactose free diet Code(s): R10.9 - UNSPECIFIED ABDOMINAL PAIN (2) Fibromyalgia Code(s): M79.7 - FIBROMYALGIA (3) PUD (peptic ulcer disease) Assessment/Plan: -Seen by GI -EGD: Mild duodenitis, gastritis and small hiatal hernia w/o evidence of esophagitis noted. Gastric antrum, body and proximal small bowel biopsied. 2 shallow, acute, non-bleeding ulcers were noted in the gastric body and biopsied. -Carafate 1 gm qid -lactose free diet Code(s): K27.9 - PEPTIC ULC, SITE UNSP, UNSP AC OR CHR, W/O HEMOR OR PERF (4) Unintentional weight loss Assessment/Plan: -Plan for colonoscopy Today -Npo -Prep ordered Code(s): R63.4 - ABNORMAL WEIGHT LOSS
[2018-02-15] MEDS: SUCRALFATE 1 GM/10 ML UNIT DOSE CUPS PO SCH ×4 (09:02→21:12)
[2018-02-15] MEDS: HEPARIN NA (PORCINE) 5,000 UNITS/ML 1ML VIAL SQ SCH ×2 (09:02→21:12)
[2018-02-15] MEDS: PANTOPRAZOLE 40 MG TABLET (FP) PO SCH (09:02)
[2018-02-15] MEDS: CLOPIDOGREL BISULFATE 75 MG TABLET (FP) PO SCH (09:03)
[2018-02-15] MEDS: ENALAPRIL MALEATE 2.5 MG TABLET (FP) PO SCH (09:03)
--- NOTE | 2018-02-15 12:18 | PROC ---
Endoscopy Procedure Endoscopy procedure completed. Please see scanned procedure report. 2 small polyps were found and removed. Otherwise normal colonoscopy. Resume previous diet. Repeat screening colonoscopy in 3-5 years, or as per pathology results.
[2018-02-15] MEDS: ATORVASTATIN CA 40 MG TABLET (FP) PO SCH (21:12)
[2018-02-16] MEDS: morphine SULFATE 4 MG/ML VIAL IVPUSH PRN ×2 (00:28→07:31)
[2018-02-16 05:08] VITALS: PULSE 66
[2018-02-16] MEDS: HEPARIN NA (PORCINE) 5,000 UNITS/ML 1ML VIAL SQ SCH (09:12)
--- NOTE | 2018-02-16 09:12 | DS ---
Physical Examination Vital Signs: Vital Signs Temperature 98.1 F 02/16/18 05:00 Pulse Rate 66 02/16/18 05:00 Respiratory Rate 18 02/16/18 05:00 Blood Pressure 128/71 02/16/18 05:00 O2 Sat by Pulse Oximetry (%) 95 02/15/18 20:28 Constitutional: Yes: No Distress Eyes: Yes: WNL HENT: Yes: WNL Neck: Yes: WNL Cardiovascular: Yes: WNL Respiratory: Yes: WNL Gastrointestinal: Yes: WNL Musculoskeletal: Yes: Back Pain, Muscle Weakness Extremities: Yes: WNL Edema: No Peripheral Pulses WNL: Yes Integumentary: Yes: WNL Wound/Incision: Yes: Clean/Dry Neurological: Yes: Numbness, Paresthesia, Pre-Existing Deficit ...Motor Strength: LLE, RLE Psychiatric: Yes: Other Labs: CBC, BMP 02/14/18 06:00 02/14/18 06:00 Discharge Summary Reason For Visit: ABD DISCOMFORT IN LEFT FLANK,ACUTE ABDOMEN Current Active Problems Acute abdomen (Acute) Acute abdominal pain (Acute) COPD (chronic obstructive pulmonary disease) (Acute) Diabetes mellitus (Acute) Fibromyalgia (Acute) Leukocytosis (Acute) Leukocytosis (Acute) Osteoarthritis (Acute) PUD (peptic ulcer disease) (Acute) Pyelonephritis (Acute) Sepsis (Acute) Unintentional weight loss (Acute) Procedures: Principal: endoscopy Hospital Course: having multiple gi ulcers and polyps, will need to stop all nsaids and asa, f/u pathology - Instructions Diet, Activity, Other Instructions: stop all NSAIDS see dr broussard to d/w ia about pathology results Referrals: Jessica Broussard MD [Primary Care Provider] - Disposition: HOME - Home Medications Comprehensive Discharge Medication List: Ambulatory Orders Simvastatin [Zocor -] 40 mg PO HS 03/25/12 Diazepam 10 mg PO HS 09/28/15 Enalapril Maleate 2.5 mg PO DAILY 09/28/15 Metoprolol Succinate [Toprol XL -] 50 mg PO DAILY 09/28/15 Montelukast Na [Singulair -] 10 mg PO HS PRN 09/28/15 Tizanidine HCl 4 mg PO BID 09/28/15 Albuterol Sulfate Inhaler - [Ventolin HFA Inhaler -] 2 puff IH Q4H PRN 02/12/18 Clopidogrel Bisulfate [Plavix] 75 mg PO DAILY 02/12/18 Metformin HCl [Glucophage] 500 mg PO BIDAC 02/12/18 Enalapril Maleate [Vasotec -] 2.5 mg PO DAILY tablet 02/16/18 Metoprolol Succinate [Toprol XL -] 50 mg PO DAILY tab.sr.24h 02/16/18 Montelukast Na [Singulair -] 10 mg PO HS PRN tablet 02/16/18 Pantoprazole Sodium [Protonix -] 40 mg PO DAILY #30 tablet.ec 02/16/18 Sucralfate Oral Suspension [Carafate Oral Suspension -] 1 gm PO QID 14 Days #64 ml 02/16/18
[2018-02-16] MEDS: SUCRALFATE 1 GM/10 ML UNIT DOSE CUPS PO SCH ×2 (09:13→13:12)
[2018-02-16] MEDS: PANTOPRAZOLE 40 MG TABLET (FP) PO SCH (09:14)
[2018-02-16] MEDS: CLOPIDOGREL BISULFATE 75 MG TABLET (FP) PO SCH (11:00)
[2018-02-16] MEDS: ENALAPRIL MALEATE 2.5 MG TABLET (FP) PO SCH (11:00)
[2018-02-16 11:24] VITALS: BP 128/88; TEMP 98.6
--- NOTE | 2018-02-16 13:37 | PATH ---
Surgical Pathology Report Patient Name: JONE HOPE [facility]. Rec. #: [id number] /Age/Gender: 1960 (Age: 57) / F Account: [id number] Location: 4 PEDS/ADOL Taken: 02/12/2018 Received: 02/15/2018 Reported: 02/16/2018 Physicians: Elver Lynn M.D. Specimen(s) Received A: BX 2ND PORTION DUODENUM B: BX ANTRUM AND BODY C: BX GASTRIC BODY ULCER Clinical History Epigastric pain Postoperative diagnosis: Duodenitis, gastritis, gastric ulcer Final Diagnosis A. DUODENUM, SECOND PORTION, BIOPSY: DUODENAL MUCOSA WITH MILD CHRONIC DUODENITIS AND PRESERVED VILLOUS ARCHITECTURE. B. STOMACH, ANTRUM AND BODY, BIOPSY: GASTRIC ANTRAL AND BODY MUCOSA WITH MILD CHRONIC GASTRITIS. IMMUNOHISTOCHEMICAL STAIN FOR H. PYLORI IS NEGATIVE. C. STOMACH, BODY, BIOPSY: GASTRIC BODY MUCOSA WITH MILD CHRONIC GASTRITIS AND FOCAL DILATED GLANDS. IMMUNOHISTOCHEMICAL STAIN FOR H. PYLORI IS NEGATIVE. Electronically Signed Pepper Grider M.D. Gross Description A. Received in formalin, labeled "second portion duodenum" is a gomez, irregular portion of soft tissue measuring 0.3 cm. in greatest dimension. The specimen is submitted in toto in one cassette. B. Received in formalin, labeled "antrum and body" are 3 gomez, irregular portions of soft tissue measuring 0.2 and 0.1 cm. in greatest dimension. The specimens are submitted in toto in one cassette. C. Received in formalin, labeled "BX body ulcer" are 2 gomez, irregular portions of soft tissue measuring 0.2 and 0.3 cm. in greatest dimension. The specimens are submitted in toto in one cassette. MLSZ/02/15/2018 sanml/02/15/2018
--- NOTE | 2018-02-19 10:15 | PATH ---
Surgical Pathology Report Patient Name: JONE HOPE [facility]. Rec. #: [id number] /Age/Gender: 1960 (Age: 57) / F Account: [id number] Location: 4 SO PEDS/ADOL Taken: 02/15/2018 Received: 02/15/2018 Reported: 02/19/2018 Physicians: Elver Lynn M.D. Specimen(s) Received A: BX ASCENDING COLON POLYP B: BX TRANSVERSE COLON POLYP Clinical History Unexplained abdominal pain Postoperative diagnosis: Colon polyps, internal hemorrhoids Final Diagnosis A. ASCENDING COLON, POLYP, BIOPSY: SESSILE SERRATED POLYP. B. TRANSVERSE COLON, POLYP, BIOPSY: SESSILE SERRATED POLYP. Electronically Signed Kate Castillo M.D. Gross Description A. Received in formalin, labeled " ascending colon polyp" are 2 gomez, irregular portions of soft tissue each measuring 0.3 cm. in greatest dimension. The specimens are submitted in toto in one cassette. B. Received in formalin, labeled "transverse colon polyp" are 5 gomez, irregular portions of soft tissue ranging in size from 0.1-0.2 cm. in greatest dimension. The specimens are submitted in toto in one cassette. MLCarylZ/02/15/2018 jose/02/15/2018
== END 2018-02-16 14:59 | disposition home or self-care (01) | DRG 383 ==
LOC: JER 14:58 → JERBED 17:45 → J4S 02-12 03:31
PROVIDERS: ADMIT Internal Medicine; ATTEND Family Medicine
PROC: 0DB68ZX Excision of Stomach, Via Natural or Artificial Opening Endoscopic, Diagnostic (ICD-10-PCS; 2018-02-12)
PROC: 0DB98ZX Excision of Duodenum, Via Natural or Artificial Opening Endoscopic, Diagnostic (ICD-10-PCS; principal; 2018-02-12 15:45)
PROC: 0DBK8ZX Excision of Ascending Colon, Via Natural or Artificial Opening Endoscopic, Diagnostic (ICD-10-PCS; 2018-02-15)
PROC: 0DBL8ZX Excision of Transverse Colon, Via Natural or Artificial Opening Endoscopic, Diagnostic (ICD-10-PCS; 2018-02-15)
DX: K25.9 Gastric ulcer, unspecified as acute or chronic, without hemorrhage or perforation (principal); G93.5 Compression of brain; M79.7 Fibromyalgia; M54.30 Sciatica, unspecified side; J44.9 Chronic obstructive pulmonary disease, unspecified; E11.9 Type 2 diabetes mellitus without complications; K44.9 Diaphragmatic hernia without obstruction or gangrene; K29.60 Other gastritis without bleeding; K29.80 Duodenitis without bleeding; R63.4 Abnormal weight loss; K64.8 Other hemorrhoids; Z79.84 Long term (current) use of oral hypoglycemic drugs
CPT/HCPCS: 36415; 71045-TC-FY; 74176-TC; 80048; 80053; 81003; 81015; 82378; 82962; 83036; 83605; 83690; 84484; 85025; 85027; 85610; 85730; 87040; 87081; 87086; 87491; 87591; 88305-TC; 93005; 93010; 99284-25; J1644; J7030

== ENCOUNTER 2018-07-29 10:22 | Day surgery (SDC) | payer OTHER ==
[2018-07-23 12:07] VITALS: BMI 31.8
[2018-07-29] MEDS ORDERED: MIDAZOLAM HCL 2 MG/2 ML SINGLE DOSE VIAL ONE ×2 (12:05→12:24)
[2018-07-29] MEDS ORDERED: BUPIVACAINE HCL/PF 0.5% (5MG/ML) 10 ML VIAL ONE (12:22)
[2018-07-29] MEDS ORDERED: LIDOCAINE HCL 1%, 10 MG/ML (20ML VIAL) ONE (12:22)
[2018-07-29] MEDS ORDERED: BUPIVACAINE HCL/PF (5 MG/ML) 30 ML VIAL IJ ONE (12:30)
[2018-07-29] MEDS ORDERED: LIDOCAINE HCL 1%, 10 MG/ML (50 mL VIAL) IJ ONE (12:30)
[2018-07-29] MEDS ORDERED: ONDANSETRON 4 MG/2 ML VIAL IVPUSH PRN (12:56)
[2018-07-29] MEDS ORDERED: oxyCODONE HCL 5 MG TABLET PO PRN ×2 (12:56)
[2018-07-29] MEDS ORDERED: LACTATED RINGERS SOLUTION 1,000 ML IV SCH (13:00)
[2018-07-29] MEDS ORDERED: oxyCODONE HCL 10 MG SUSTAINED ACTING TABLET ONE (14:01)
--- NOTE | 2018-07-29 14:21 | OP ---
Operative Note - Note: Operative Date: 07/29/18 Pre-Operative Diagnosis: Right Upper arm lipoma Operation: excison of right upper arm lipoma Post-Operative Diagnosis: Same as Pre-op Surgeon: Rajan Montes Squaring Machine Operator: Kate Dillard Anesthesiologist/ACCOUNTING INSTRUCTOR: Lacho Pedroza Anesthesia: Local, MAC (sedation) Specimens Removed: lipoma Estimated Blood Loss (mls): 10 Operative Report Dictated: Yes
--- NOTE | 2018-07-29 14:24 | SURG ---
Surgery Bleach Mixer Note Bleach Mixer: Kate Dillard PA-C Date of Service: 07/29/18 Diagnosis: right upper arm lipoma Procedure: excision of right upper arm lipoma I was present for the entirety of the operative procedure. For further detail, please refer to operative report.
[2018-07-29 15:31] VITALS: BP 117/63; PULSE 60; TEMP 97.8
--- NOTE | 2018-07-30 10:18 | OP ---
DATE OF OPERATION: 07/29/2018 PREOPERATIVE DIAGNOSIS: Lipoma, right upper arm. POSTOPERATIVE DIAGNOSIS: Lipoma, right upper arm. PROCEDURE: Excision of lipoma of right upper arm. SURGEON: Rajan Montes MD CHAIRMAN OF THE BOARD: Kate Dillard PA-C ANESTHESIA: Local with IV sedation. OPERATIVE FINDINGS: Lipoma just at the deltoid region of the right upper extremity. The mass was approximately 7 cm in greatest dimension and partially subfascial. The rest of the findings were unremarkable. PROCEDURE: The patient was placed on the operating room table in supine position with the right arm adducted at the patient's right side. The area over the palpable mass, which was previously marked, was prepped with ChloraPrep and draped in sterile fashion. A timeout was taken, and incision mapped out, and the operative field infiltrated with 1% xylocaine and 0.5% Marcaine in equal concentration. An incision was made with a scalpel and taken down through skin and subcutaneous tissue. The mass was mobilized using blunt dissection and electrocautery down to its pedicle originating below the fascia just at the deltoid. The pedicle was clamped, the mass excised, and sent for pathological exam. The pedicle was ligated with 2-0 Vicryl suture. Hemostasis was checked for and noted to be good and the wound copiously irrigated with sterile saline. The incision was closed in layers with interrupted 2-0 Vicryl for the deep dermis, and 4-0 Monocryl in a subcuticular continuous fashion to reapproximate the skin edges. Steri-Strips, dry dressings, and Tegaderm were placed. The procedure terminated at this point, and the patient transferred to the postanesthesia care unit in stable condition awake and alert. ESTIMATED BLOOD LOSS: 10 mL. REPLACEMENTS: Crystalloid. DRAINS: None. SPECIMENS: Lipoma to Pathology. I, Rajan Montes MD, was physically present in the operating room from the time the patient was placed on the operating room table until she was transferred to the postanesthesia care unit in my accompaniment. MD BELKIS Montalvo/[id number] MTDD
--- NOTE | 2018-08-03 13:58 | PATH ---
Surgical Pathology Report Patient Name: JONE HOPE [facility]. Rec. #: [id number] /Age/Gender: 1960 (Age: 58) / F Account: [id number] Location: [facility] SURGICAL Taken: 07/29/2018 Received: 07/30/2018 Reported: 08/03/2018 Physicians: Rajan Montes MD Specimen(s) Received LIPOMA RIGHT UPPER ARM Clinical History Soft tissue mass right upper arm Final Diagnosis UPPER ARM, RIGHT, LIPOMA, EXCISION: MATURE FIBROADIPOSE TISSUE CONSISTENT WITH LIPOMA. Electronically Signed Pepper Grider M.D. Gross Description Received in formalin labeled "lipoma right upper arm," is a 6.1 x 5.0 x 1.6 cm portion of yellow, lobulated adipose tissue. Sectioning reveals homogeneous yellow, smooth fat. No areas of hemorrhage or necrosis are identified. Grinder Machine Setter sections are submitted in 3 cassettes. /08/02/2018 saudi/08/02/2018
== END 2018-07-29 15:58 | disposition home or self-care (01) ==
LOC: JASU-SURG 10:22
PROVIDERS: ATTEND Surgery
PROC: 0JBD0ZZ Excision of Right Upper Arm Subcutaneous Tissue and Fascia, Open Approach (ICD-10-PCS; principal; 2018-07-29 12:00)
DX: D17.21 Benign lipomatous neoplasm of skin and subcutaneous tissue of right arm (principal)
CPT/HCPCS: 82962; 88304-TC

== ENCOUNTER 2018-08-03 08:00 | Inpatient (IN) | payer OTHER ==
[2018-08-24 10:12] VITALS: BMI 30.2
[2018-08-26] MEDS ORDERED: GENTAMICIN SO4 80 MG/2 ML VIAL ONE ×2 (07:25→07:35)
[2018-08-26] MEDS ORDERED: BENZOIN TINCTURE SWABSTICK TP ONE (07:25)
[2018-08-26] MEDS ORDERED: THROMBIN (BOVINE) 20,000 UNIT VIAL TP ONE ×2 (07:25→07:35)
[2018-08-26] MEDS ORDERED: BUPIVACAINE HCL/PF 0.5% (5MG/ML) 10 ML VIAL ONE (07:35)
[2018-08-26] MEDS ORDERED: LIDOCAINE 1%-EPI 1:100,000 30 ML MDV IJ ONE (07:35)
[2018-08-26] MEDS ORDERED: BACITRACIN 15 GM TUBE TOPICAL OINTMENT ONE (07:35)
[2018-08-26] MEDS ORDERED: LIDOCAINE 1%/EPI 1:100000 (50 ML MULTI DOSE VIAL) INF ONE (08:20)
--- NOTE | 2018-08-26 08:21 | HP ---
History & Physical Update - History History: No Change - Physical Physical: No Change - Assessment Assessment: No Change - Plan Plan: No Change (Full H&P on 08/16/18 in the chart)
[2018-08-26] MEDS ORDERED: PROPOFOL 20 ML ONE ×2 (08:30→08:47)
[2018-08-26] MEDS ORDERED: MIDAZOLAM HCL 2 MG/2 ML SINGLE DOSE VIAL ONE (08:30)
[2018-08-26] MEDS ORDERED: ROCURONIUM BROMIDE 50 MG/5 ML VIAL ONE (08:30)
[2018-08-26] MEDS ORDERED: LIDOCAINE HCL/PF 2% SDV 5ML VIAL ONE (08:42)
[2018-08-26] MEDS ORDERED: ceFAZolin SODIUM 1 GM VIAL ONE (08:50)
[2018-08-26] MEDS ORDERED: SODIUM CHLORIDE 0.9% P/F 10 ML VIAL IJ ONE ×2 (08:50→08:54)
[2018-08-26] MEDS ORDERED: ceFAZolin SODIUM 1 GM VIAL IVPB ONE (08:52)
[2018-08-26] MEDS ORDERED: VANCOMYCIN 1,000 MG VIAL (RESTRICTED TO ID ONLY) ONE (08:54)
[2018-08-26] MEDS ORDERED: ONDANSETRON 4 MG/2 ML VIAL ONE ×2 (08:57→10:27)
[2018-08-26] MEDS ORDERED: DEXAMETHASONE SOD PHOSPHATE 4 MG/1 ML VIAL ONE (08:57)
[2018-08-26] MEDS ORDERED: VANCOMYCIN 1,000 MG VIAL (RESTRICTED TO ID ONLY) IVPB ONE (08:57)
[2018-08-26] MEDS ORDERED: NEOSTIGMINE METHYLSULFATE 0.5 MG/1 ML - 10 ML MDV ONE (10:01)
[2018-08-26] MEDS ORDERED: GLYCOPYRROLATE 0.2 MG/1 ML VIAL ONE (10:01)
[2018-08-26] MEDS ORDERED: PROMETHAZINE HCL 25 MG/1 ML VIAL IVPB PRN (10:38)
[2018-08-26] MEDS ORDERED: DEXAMETHASONE SOD PHOSPHATE 4 MG/1 ML VIAL IVPUSH PRN (10:38)
[2018-08-26] MEDS ORDERED: ONDANSETRON 4 MG/2 ML VIAL IVPUSH PRN (10:38)
[2018-08-26] MEDS ORDERED: diphenhydrAMINE HCL 25 MG CAPSULE (FP) PO PRN (10:40)
[2018-08-26] MEDS ORDERED: HYDROmorphone *PCA* 10MG/50ML DISP.SYRIN PCA SCH ×2 (10:45→14:03)
[2018-08-26] MEDS ORDERED: LACTATED RINGERS SOLUTION 1,000 ML IV SCH (10:45)
[2018-08-26] MEDS ORDERED: LACTATED RINGERS SOLUTION 1,000 ML/1,000 ML INFUS.BAG IV SCH (10:45)
[2018-08-26] MEDS ORDERED: ALBUTEROL SO4 8 GM HFA INHALER IH PRN (10:46)
[2018-08-26] MEDS ORDERED: diazePAM 5 MG TABLET PO PRN (10:46)
--- NOTE | 2018-08-26 11:13 | OP ---
Operative Note - Note: Operative Date: 08/26/18 Pre-Operative Diagnosis: Spinal instabilities, cervical region Operation: C6 corpectomy, Lordosis voodoo, reconstruction with Peek cage and anterior plate Post-Operative Diagnosis: Same as Pre-op Surgeon: Erasmo Solano Escalator Mechanic: Jose Velez Anesthesiologist/AIRCRAFT SEAT UPHOLSTERER: Meet Carlos Anesthesia: General Estimated Blood Loss (mls): 25 Operative Report Dictated: Yes
[2018-08-26] MEDS: DOCUSATE SODIUM 100 MG CAPSULE (FP) PO SCH ×2 (16:57→21:53)
--- NOTE | 2018-08-26 17:14 | CONSULT ---
Consult - History of Present Illness Chief Complaint: came in for neck surgwry History of Present Illness: - - History Source History Provided By: Patient - Past Medical History ...LMP: 03/25/12 ...: No - Alcohol/Substance Use Hx Alcohol Use: Yes (rare drink) - Smoking History Smoking history: Current every day smoker Have you smoked in the past 12 months: Yes Aproximately how many cigarettes per day: 12 Home Medications - Allergies Allergies/Adverse Reactions: Allergies Allergy/AdvReac Type Severity Reaction Status Date / Time NSAIDS (Non-Steroidal Allergy Severe STOMACH Verified 08/26/18 07:40 Anti-Inflamma ULCERS Latex, Natural Rubber Allergy Mild Rash Verified 08/26/18 07:40 lactase [From Lactaid] Allergy Verified 08/26/18 07:40 - Home Medications Home Medications: Ambulatory Orders Simvastatin [Zocor -] 20 mg PO HS 03/25/12 Diazepam 10 mg PO HS PRN 09/28/15 Albuterol Sulfate Inhaler - [Ventolin HFA Inhaler -] 2 puff IH Q4H PRN 02/12/18 Metformin HCl [Glucophage] 500 mg PO BIDAC 02/12/18 Enalapril Maleate [Vasotec -] 2.5 mg PO DAILY tablet 02/16/18 Metoprolol Succinate [Toprol XL -] 50 mg PO DAILY tab.sr.24h 02/16/18 Aspirin 81 mg PO DAILY 07/23/18 Cetirizine HCl 10 mg PO HS 07/23/18 Clopidogrel Bisulfate [Clopidogrel] 75 mg PO DAILY 07/23/18 Duloxetine HCl [Cymbalta -] 20 mg PO BID 07/23/18 Gabapentin 300 mg PO BID 07/23/18 Oxycodone HCl 15 mg PO QID 07/23/18 Sucralfate Oral Suspension [Carafate Oral Suspension -] 1 gm PO BID 07/23/18 Tiotropium Br/Olodaterol HCl [Stiolto Respimat Inhal [place]] 4 gm IH DAILY Calcium Carbonate [Calcium] 500 mg PO DAILY 08/24/18 Ciprofloxacin HCl [Cipro] 500 mg PO BID 08/24/18 Fluticasone Propionate [Flonase Allergy Relief] 9.9 ml NS PRN 08/24/18 [place]-3S/Dha/Epa/Fish Oil [[place]-3 Fish Oil 1,000 mg Sfgl] 1 each PO DAILY 08/24 Family Disease History - Family Disease History Family Disease History: Other: Mother (gastric ulcer, perforated) Physical Exam Vital Signs: Vital Signs Temperature 97.3 F L 08/26/18 16:42 Pulse Rate 52 L 08/26/18 16:42 Respiratory Rate 18 08/26/18 16:42 Blood Pressure 117/61 08/26/18 16:42 O2 Sat by Pulse Oximetry (%) 99 08/26/18 16:38 Problem List - Problems (1) S/P neck surgery, follow-up exam Assessment/Plan: - Note: Operative Date: 08/26/18 Pre-Operative Diagnosis: Spinal instabilities, cervical region Operation: C6 corpectomy, Lordosis mandaen, reconstruction with Peek cage and anterior plate Post-Operative Diagnosis: Same as Pre-op Surgeon: Erasmo Solano Baker Chef: Jose Velez Anesthesiologist/CARDIOLOGY PHYSICIAN ASSISTANT: Meet Carlos Anesthesia: General Estimated Blood Loss (mls): 25 Operative Report Dictated: Yes STONEY on board neck collar pain control Code(s): Z09 - ENCNTR FOR F/U EXAM AFT TRTMT FOR COND OTH THAN MALIG NEOPLM (2) COPD (chronic obstructive pulmonary disease) Assessment/Plan: broncbhodilators Code(s): J44.9 - CHRONIC OBSTRUCTIVE PULMONARY DISEASE, UNSPECIFIED (3) CAD (coronary artery disease) Assessment/Plan: COTNIUE aspirin lipitor plavix abd vasotec Code(s): I25.10 - ATHSCL HEART DISEASE OF [place] CORONARY ARTERY W/O ANG PCTRS
[2018-08-26] MEDS: CEFAZOLIN 1 GM/D5W 1 GM/50 ML BAG IVPB SCH (18:47)
[2018-08-26] MEDS: metFORMIN HCL 500 MG TABLET (FP) PO SCH (18:48)
[2018-08-26] MEDS: GABAPENTIN 300 MG CAPSULE (FP) PO SCH (21:53)
[2018-08-26] MEDS: SUCRALFATE 1 GM/10 ML UNIT DOSE CUPS PO SCH (21:53)
[2018-08-26] MEDS: DULoxetine HCL 20 MG CAPSULE.DR (FP) PO SCH (22:00)
[2018-08-26] MEDS ORDERED: LORATADINE 10 MG TABLET PO SCH (22:00)
[2018-08-26] MEDS ORDERED: ATORVASTATIN CA 10 MG TABLET (FP) PO SCH (22:00)
[2018-08-26] MEDS: HEPARIN NA (PORCINE) 5,000 UNITS/ML 1ML VIAL SQ SCH (22:01)
[2018-08-27] MEDS: CEFAZOLIN 1 GM/D5W 1 GM/50 ML BAG IVPB SCH ×2 (01:32→10:42)
[2018-08-27] MEDS: DOCUSATE SODIUM 100 MG CAPSULE (FP) PO SCH (05:35)
[2018-08-27] MEDS: HEPARIN NA (PORCINE) 5,000 UNITS/ML 1ML VIAL SQ SCH (05:35)
[2018-08-27] MEDS: metFORMIN HCL 500 MG TABLET (FP) PO SCH (06:47)
[2018-08-27 07:08] LABS: HEMOGLOBIN 14.6 GM/dL (10.7-15.3); MCH 29.6 pg (25.7-33.7); MCHC 32.4 g/dl (32.0-36.0); MEAN CELL VOLUME 91.2 fl (80-96); MEAN PLT VOLUME 9.3 fl (7.5-11.1); PLATELET COUNT 327 K/MM3 (134-434); RBC 4.94 M/mm3 (3.60-5.2); RDW 15.7 % (11.6-15.6); WHITE BLOOD COUNT 19.2 K/mm3 (4.0-10.0)
[2018-08-27 07:39] LABS: BLOOD UREA NITROGEN 15 mg/dL (7-18); CHLORIDE 104 mmol/L (98-107); CO2 29 mmol/L (21-32); CREATININE 0.6 mg/dL (0.55-1.3); GLUCOSE,RANDOM 125 mg/dL (74-106); POTASSIUM 4.2 mmol/L (3.5-5.1); SODIUM 140 mmol/L (136-145)
[2018-08-27 07:43] LABS: ANION GAP 8 MMOL/L (8-16)
--- NOTE | 2018-08-27 09:12 | PN ---
Progress Note (short form) - Note Progress Note: POD 2, s/p C6 corpectomy, Lordosis oriental orthodox, reconstruction with Peek cage and anterior plate Pt seen and examined. States she is not doing well as her pain has not been controlled by the AUTOMOTIVE DISMANTLER all night. Reports she feels the AUTOMOTIVE DISMANTLER dosage administered is decreasing with each push of the button. Discussed how AUTOMOTIVE DISMANTLER works with pt, pt continues to insist AUTOMOTIVE DISMANTLER dosage is decreasing with administration. Reuesting PO/ IV meds. Tolerating PO. Has been oob to restroom without issue. Voiding. Denies cp/sob, n/v/d, calf pain/edema, decreased motor/sensory. Vital Signs Temp 97.8 F 08/27/18 08:25 Pulse 63 08/27/18 08:25 Resp 18 08/27/18 08:25 BP 131/73 08/27/18 08:25 Pulse Ox 99 08/26/18 21:00 Intake & Output 08/26/18 08/27/18 08/27/18 23:59 11:59 23:59 Intake Total 1175 1555 50 Output Total 825 20 Balance 350 1535 50 Intake: IV 925 875 LACTATED RINGERS SOLUTION 500 875 1,000 ml In 1,000 ml @ 125 mls/hr IV ASDIR MARIE Rx#:[id number] IVPB 50 50 50 Oral 200 630 Output: Drainage 25 20 Anterior Neck 25 20 Urine 800 Void 800 Other: Voiding Method Toilet Toilet # Unmeasured Voids Void 2 1 CBC, BMP 08/27/18 06:00 08/27/18 06:00 Gen: awake, alert, nad, sitting in chair Neck: [place] J intact, removed for examination. Dressing c/d/i, no hematoma, no ecchymosis or edema noted. JULES intact with <5ml serosanguinous drainage in reservoir. Drain stripped. Resp: Unlabored on RA Neuro: B/L UE cab starter strength 5/5, biceps/triceps/deltoids 5/5 b/l. B/L LE 5/5 dorsiflexion/plantarflexion, knee ext/flex, hip flex. SILT b/l UE/LE. A/P: 58 y/o F w/ Cervical instability, now s/p C6 corpectomy, Lordosis oriental orthodox, reconstruction with Peek cage and anterior plate. Afebrile, VSS. Labs with leuk 19.2k likely due to surgery/intra-op steroid administration. Returned at 1400 for Jules removal. JULES taken off of suction, removed without issue. Tip intact, pt tolerated well. -Anesthesia contacted for d/c AUTOMOTIVE DISMANTLER and new pain regimen -Keep collar in place, may remove for 1 hr per day -OOb ad natalio -Plan for d/c later today d/w attending Dr Lees
--- NOTE | 2018-08-27 09:39 | PN ---
HC Provider Note Provider Note: Pt seen post op day one. Ambulating well, denies n/v, tolerating po well. Reports ADMITTING INTERVIEWER not controlling pain well and expresses desire to be converted to po meds. We had a discussion about doses and ultimately the pain is going to follow up with her outside provider to optimize her meds. D/c ADMITTING INTERVIEWER today Ren Marquez M.D.
[2018-08-27] MEDS ORDERED: CLOPIDOGREL BISULFATE 75 MG TABLET (FP) PO SCH (10:00)
[2018-08-27] MEDS ORDERED: CALCIUM (OYSTER SHELL) 500 MG TABLET (FP) PO SCH (10:00)
[2018-08-27] MEDS ORDERED: FERROUS SO4 325 MG TABLET (FP) PO SCH (10:00)
[2018-08-27] MEDS ORDERED: TIOTROPIUM/OLODATEROL HCL (STIOLTO) 4 GM INHALER IH SCH (10:00)
[2018-08-27] MEDS ORDERED: ASPIRIN 81 MG CHEWABLE TABLETS PO SCH (10:00)
[2018-08-27] MEDS ORDERED: FOLIC ACID 1 MG TABLET (FP) PO SCH (10:00)
[2018-08-27] MEDS ORDERED: OMEGA-3 ACID ETHYL ESTERS (FATTY-ACIDS) 1 GM CAPSULE (FP) PO SCH (10:00)
[2018-08-27] MEDS ORDERED: ENALAPRIL MALEATE 2.5 MG TABLET (FP) PO SCH (10:00)
[2018-08-27] MEDS ORDERED: PT OWN MED DRAWER 7, Y5N ONE (10:35)
[2018-08-27] MEDS: SUCRALFATE 1 GM/10 ML UNIT DOSE CUPS PO SCH (10:40)
[2018-08-27] MEDS: DULoxetine HCL 20 MG CAPSULE.DR (FP) PO SCH (10:40)
[2018-08-27] MEDS: GABAPENTIN 300 MG CAPSULE (FP) PO SCH (10:45)
--- NOTE | 2018-08-27 10:49 | PN ---
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 wants to switch to oral meds - Current Medication List Current Medications: Active Medications Albuterol Sulfate (Ventolin Hfa Inhaler -) 2 puff IH Q4H PRN PRN Reason: SHORT OF BREATH/WHEEZING Aspirin (Asa -) 81 mg PO DAILY [facility] Last Admin: 08/27/18 10:39 Dose: 81 mg Atorvastatin Calcium (Lipitor -) 10 mg PO HS [facility] Last Admin: 08/26/18 21:53 Dose: 10 mg Calcium Carbonate (Os-Joo 500mg -) 500 mg PO DAILY [facility] Last Admin: 08/27/18 10:41 Dose: 500 mg Clopidogrel Bisulfate (Plavix -) 75 mg PO DAILY [facility] Last Admin: 08/27/18 10:45 Dose: 75 mg Dexamethasone Sodium Phosphate (Decadron Injection -) 4 mg IVPUSH ONCE PRN PRN Reason: NAUSEA AND/OR VOMITING Diazepam (Valium -) 10 mg PO HS PRN PRN Reason: ANXIETY Last Admin: 08/27/18 05:35 Dose: 10 mg Diphenhydramine HCl (Benadryl Injection -) 12.5 mg IVPUSH ONCE PRN PRN Reason: FOR ITCHING Diphenhydramine HCl (Benadryl -) 25 mg PO Q6H PRN PRN Reason: FOR ITCHING Docusate Sodium (Colace -) 100 mg PO TID [facility] Last Admin: 08/27/18 05:35 Dose: 100 mg Duloxetine HCl (Cymbalta -) 20 mg PO BID [facility] Last Admin: 08/27/18 10:40 Dose: 20 mg Enalapril Maleate (Vasotec -) 2.5 mg PO DAILY [facility] Last Admin: 08/27/18 10:43 Dose: 2.5 mg Ferrous Sulfate (Feosol -) 325 mg PO DAILY [facility] Last Admin: 08/27/18 10:45 Dose: 325 mg Folic Acid (Folic Acid -) 1 mg PO DAILY [facility] Last Admin: 08/27/18 10:45 Dose: 1 mg Gabapentin (Neurontin -) 300 mg PO BID [facility] Last Admin: 08/27/18 10:45 Dose: 300 mg Heparin Sodium (Porcine) (Heparin -) 5,000 unit SQ TID [facility] Last Admin: 08/27/18 05:35 Dose: 5,000 unit Lactated Ringer's (Lactated Ringers Solution) 1,000 mls @ 125 mls/hr IV ASDIR [facility] Last Admin: 08/26/18 12:00 Dose: 425 mls Cefazolin Sodium (Ancef 1 Gm Premixed Ivpb -) 1 gm in 50 mls @ 100 mls/hr IVPB Q8H-IV [facility] Last Admin: 08/27/18 10:42 Dose: 100 mls/hr Loratadine (Claritin -) 10 mg PO HS [facility] Last Admin: 08/26/18 21:53 Dose: 10 mg Metformin HCl (Glucophage -) 500 mg PO BIDAC [facility] Last Admin: 08/27/18 06:47 Dose: 500 mg Metoprolol Succinate (Toprol Xl -) 50 mg PO DAILY [facility] Last Admin: 08/27/18 10:41 Dose: 50 mg Non-Formulary Medication (Fluticasone Propionate [Flonase Allergy Relief]) 9.9 ml NS PRN [facility] Zrsso-5-Fydx Ethyl Esters (Lovaza -) 1 gm PO DAILY [facility] Last Admin: 08/27/18 10:40 Dose: 1 gm Ondansetron HCl (Zofran Injection) 4 mg IVPUSH Q4H PRN PRN Reason: NAUSEA AND/OR VOMITING Promethazine HCl (Phenergan Injection -) 12.5 mg IVPB Q6H PRN PRN Reason: NAUSEA AND/OR VOMITING Sucralfate (Carafate Oral Suspension -) 1 gm PO BID [facility] Last Admin: 08/27/18 10:40 Dose: 1 gm Tiotropium [place]/Olodaterol (Stiolto Respimat Inhal [place]) 2 puff IH DAILY [facility] - Objective Vital Signs: Vital Signs Temperature 98.1 F 08/27/18 06:17 Pulse Rate 72 08/27/18 06:17 Respiratory Rate 20 08/27/18 06:17 Blood Pressure 142/72 08/27/18 06:17 O2 Sat by Pulse Oximetry (%) 99 08/26/18 21:00 Constitutional: Yes: Calm Neck: Yes: Other (anterior incision drain with serosanginous discharge neck collar) Cardiovascular: Yes: Regular Rate and Rhythm, S1, S2 Respiratory: Yes: CTA Bilaterally Gastrointestinal: Yes: Normal Bowel Sounds, Soft Edema: No Neurological: Yes: Alert, Oriented Labs: CBC, BMP 08/27/18 06:00 08/27/18 06:00 Problem List - Problems (1) S/P neck surgery, follow-up exam Assessment/Plan: - Note: Operative Date: 08/26/18 Pre-Operative Diagnosis: Spinal instabilities, cervical region Operation: C6 corpectomy, Lordosis orthodox, reconstruction with Peek cage and anterior plate Post-Operative Diagnosis: Same as Pre-op Surgeon: Erasmo Solano Coating Engineer: Jose Velez Anesthesiologist/DRIP BOX TENDER: Meet Carlos Anesthesia: General Estimated Blood Loss (mls): 25 Operative Report Dictated: Yes STONEY on board neck collar pain control- stop chief warden pump start oral meds Code(s): Z09 - ENCNTR FOR F/U EXAM AFT TRTMT FOR COND OTH THAN MALIG NEOPLM (2) COPD (chronic obstructive pulmonary disease) Assessment/Plan: broncbhodilators Code(s): J44.9 - CHRONIC OBSTRUCTIVE PULMONARY DISEASE, UNSPECIFIED (3) CAD (coronary artery disease) Assessment/Plan: COTNIUE aspirin lipitor plavix abd vasotec Code(s): I25.10 - ATHSCL HEART DISEASE OF [place] CORONARY ARTERY W/O ANG PCTRS (4) Diabetes mellitus Assessment/Plan: metformin twice a day Code(s): E11.9 - TYPE 2 DIABETES MELLITUS WITHOUT COMPLICATIONS Qualifiers: Diabetes mellitus type: type 2
[2018-08-27 13:36] VITALS: BP 131/73; PULSE 63; TEMP 97.8
== END 2018-08-27 14:45 | disposition home or self-care (01) | DRG 472 ==
LOC: JSAMEDAYSX 08-26 06:23 → J8W 08-26 15:48
PROVIDERS: ADMIT Neurological Surgery; ATTEND Neurological Surgery
PROC: 0RG2070 Fusion of 2 or more Cervical Vertebral Joints with Autologous Tissue Substitute, Anterior Approach, Anterior Column, Open Approach (ICD-10-PCS; 2018-08-26)
PROC: 0RB30ZZ Excision of Cervical Vertebral Disc, Open Approach (ICD-10-PCS; 2018-08-26)
PROC: 00NW0ZZ Release Cervical Spinal Cord, Open Approach (ICD-10-PCS; 2018-08-26)
PROC: B01BZZZ Fluoroscopy of Spinal Cord (ICD-10-PCS; 2018-08-26)
PROC: 4A10X4G Monitoring of Central Nervous Electrical Activity, Intraoperative, External Approach (ICD-10-PCS; 2018-08-26)
PROC: 0RG20A0 Fusion of 2 or more Cervical Vertebral Joints with Interbody Fusion Device, Anterior Approach, Anterior Column, Open Approach (ICD-10-PCS; principal; 2018-08-26 08:00)
DX: M53.2X2 Spinal instabilities, cervical region (principal); M47.12 Other spondylosis with myelopathy, cervical region; M40.40 Postural lordosis, site unspecified; M25.78 Osteophyte, vertebrae; J44.9 Chronic obstructive pulmonary disease, unspecified; I25.10 Atherosclerotic heart disease of native coronary artery without angina pectoris; E11.9 Type 2 diabetes mellitus without complications
CPT/HCPCS: 36415; 72125-TC; 76000-TC-FY; 80048; 82962; 85027; 86850; 86900; 86901; 94010; 94760; 97116-GP; 97161-GP; J1644; J3535

== ENCOUNTER 2018-09-29 12:14 | Inpatient (IN) | payer OTHER ==
--- NOTE | 2018-09-29 14:02 | PDOC ---
History of Present Illness - General Chief Complaint: Pain Stated Complaint: ABD PAIN, NAUSEA/VOMITTING Time Seen by Provider: 09/29/18 13:45 Past History - Past Medical History Allergies/Adverse Reactions: Allergies Allergy/AdvReac Type Severity Reaction Status Date / Time NSAIDS (Non-Steroidal Allergy Severe STOMACH Verified 08/26/18 07:40 Anti-Inflamma ULCERS Latex, Natural Rubber Allergy Mild Rash Verified 08/26/18 07:40 lactase [From Lactaid] Allergy Verified 08/26/18 07:40 Home Medications: Ambulatory Orders Simvastatin [Zocor -] 20 mg PO HS 03/25/12 Diazepam 10 mg PO HS PRN 09/28/15 Albuterol Sulfate Inhaler - [Ventolin HFA Inhaler -] 2 puff IH Q4H PRN 02/12/18 Metformin HCl [Glucophage] 500 mg PO BIDAC 02/12/18 Enalapril Maleate [Vasotec -] 2.5 mg PO DAILY tablet 02/16/18 Metoprolol Succinate [Toprol XL -] 50 mg PO DAILY tab.sr.24h 02/16/18 Aspirin 81 mg PO DAILY 07/23/18 Cetirizine HCl 10 mg PO HS 07/23/18 Clopidogrel Bisulfate [Clopidogrel] 75 mg PO DAILY 07/23/18 Duloxetine HCl [Cymbalta -] 20 mg PO BID 07/23/18 Sucralfate Oral Suspension [Carafate Oral Suspension -] 1 gm PO BID 07/23/18 Tiotropium Br/Olodaterol HCl [Stiolto Respimat Inhal [place]] 4 gm IH DAILY Calcium Carbonate [Calcium] 500 mg PO DAILY 08/24/18 Fluticasone Propionate [Flonase Allergy Relief] 9.9 ml NS PRN 08/24/18 [place]-3S/Dha/Epa/Fish Oil [[place]-3 Fish Oil 1,000 mg Sfgl] 1 each PO DAILY 08/24 Gabapentin 300 mg PO BID #30 capsule 08/27/18 Oxycodone HCl 15 mg PO QID PRN #10 tablet MDD 4 08/27/18 Anemia: No Asthma: Yes Cancer: No Cardiac Disorders: Yes (SC, 1 stent) CVA: No COPD: Yes CHF: No Dementia: No Diabetes: Yes GI Disorders: Yes (GERD, GB sludge) Disorders: No HTN: Yes Hypercholesterolemia: Yes Liver Disease: (2 STOMACH ULCERS FROM [facility] [place]) Seizures: No Thyroid Disease: No - Surgical History Appendectomy: Yes Cardiac Surgery: Yes (stent RCA 09/09) Neurologic Surgery: Yes (CERVICAL SPINE SURGERY) Orthopedic Surgery: Yes (ARTHROSCOPY RT.KNEE) - Immunization History Immunization Up to Date: Yes - Suicide/Smoking/Psychosocial Hx Smoking Status: Yes Smoking History: Current every day smoker Have you smoked in the past 12 months: Yes Number of Cigarettes Smoked Daily: 8 Information on smoking cessation initiated: Yes 'Breaking Loose' booklet given: 08/24/18 Hx Alcohol Use: No Drug/Substance Use Hx: Yes (MARIJUANA) Substance Use Type: Marijuana Hx Substance Use Treatment: Yes *Physical Exam - Vital Signs Last Vital Signs Temp Pulse Resp BP Pulse Ox 98.3 F 100 H 16 126/90 91 L 09/29/18 12:59 09/29/18 12:59 09/29/18 12:59 09/29/18 12:59 09/29/18 12:59 ED Treatment Course - LABORATORY CBC & Chemistry Diagram: 09/29/18 14:21 09/29/18 15:35 *DC/Admit/Observation/Transfer Diagnosis at time of Disposition: Epigastric pain Nausea & vomiting Qualifiers: Vomiting type: unspecified Vomiting Intractability: non-intractable Qualified Code(s): R11.2 - Nausea with vomiting, unspecified - Discharge Dispostion Condition at time of disposition: Stable Decision to Admit order: Yes - Referrals Referrals: Jessica Watts MD [Primary Care Provider] - - Patient Instructions - Post Discharge Activity
[2018-09-29] MEDS ORDERED: ACETAMINOPHEN 1000 MG/100 ML VIAL (NON FORMULARY) IVPB ONE (14:10)
[2018-09-29] MEDS ORDERED: LACTATED RINGERS SOLUTION 1000 ML INFUS.BAG IV ONE ×2 (14:10→17:01)
[2018-09-29] MEDS ORDERED: ACETAMINOPHEN INJECTION 100 ML IVPB ONE (14:12)
[2018-09-29 14:28] LABS: BASO % 1.4 % (0-2.0); EOS % 0.3 % (0-4.5); HEMATOCRIT 53.7 % (32.4-45.2); HEMOGLOBIN 18.3 GM/dL (10.7-15.3); LYMPH % 27.6 % (8-40); MCH 30.5 pg (25.7-33.7); MCHC 34.1 g/dl (32.0-36.0); MEAN CELL VOLUME 89.5 fl (80-96); MEAN PLT VOLUME 9.1 fl (7.5-11.1); MONO % 8.3 % (3.8-10.2); NEUT % 62.4 % (42.8-82.8); PLATELET COUNT 372 K/MM3 (134-434); RDW 15.4 % (11.6-15.6); WHITE BLOOD COUNT 14.5 K/mm3 (4.0-10.0)
--- NOTE | 2018-09-29 15:36 | EKG ---
Test Reason : Blood Pressure : / mmHG Vent. Rate : 073 BPM Atrial Rate : 073 BPM P-R Int : 136 ms QRS Dur : 084 ms QT Int : 426 ms P-R-T Axes : 048 005 041 degrees QTc Int : 469 ms NORMAL SINUS RHYTHM WITH SINUS ARRHYTHMIA POSSIBLE LEFT ATRIAL ENLARGEMENT BORDERLINE ECG WHEN COMPARED WITH ECG OF 11-FEB-2018 15:07, PREMATURE SUPRAVENTRICULAR COMPLEXES ARE NO LONGER PRESENT VENT. RATE HAS DECREASED BY 47 BPM Confirmed by SUNNY DÍAZ MD ([id number]) on 09/29/2018 3:35:54 PM Referred By: Confirmed By:SUNNY DÍAZ MD
[2018-09-29 16:30] LABS: ALBUMIN 3.7 g/dl (3.4-5.0); BILIRUBIN,TOTAL 0.7 mg/dL (0.2-1); CALCIUM 9.7 mg/dL (8.5-10.1); CREATININE 0.6 mg/dL (0.55-1.3); POTASSIUM 4.3 mmol/L (3.5-5.1); TOT PROT 7.9 g/dl (6.4-8.2)
[2018-09-29] MEDS ORDERED: morphine CARPU-JECT 4 MG/1 ML DISP.SYRIN IVPUSH ONE (16:48)
[2018-09-29] MEDS ORDERED: morphine SULFATE 4 MG/ML VIAL ONE (17:05)
--- NOTE | 2018-09-29 17:14 | PDOC ---
Documentation entered by Gail Javier SCRIBE, acting as scribe for Wilfredo Becerra MD. Wilfredo Becerra MD: This documentation has been prepared by the Yaya oliver Victoria, SCRIBE, under my direction and personally reviewed by me in its entirety. I confirm that the documentation accurately reflects all work, treatment, procedures, and medical decision making performed by me. Attending Attestation - Resident Resident Name: [place] - ED Attending Attestation I have performed the following: I have examined & evaluated the patient, The case was reviewed & discussed with the resident, I agree w/resident's findings & plan, Exceptions are as noted - HPI HPI: 09/29/18 14:43 The patient is a 58 year old female with past medical history of hypertension, CAD s/p stenting, history of gastric ulcers, gastritis, hiatal hernia, s/p cervical neck surgery, s/p EGD and colonoscopy Jan (2017) who presents to the ED with 1 week of progressive nausea, vomiting and epigastric abdominal pain. Patient reports multiple episodes of non-bilious, non-bloody emesis, and one episode of loose stools. She reports decreased appetite and inability to hold down any solid foods or water for the last week. She denies any recent sick contacts or recent travel. Denies headache, focal weakness/numbness. Denies any fevers, chills, cough, SOB, chest pain, or urinary complaints. - Physicial Exam PE: 09/29/18 17:07 GENERAL: Awake, alert, and fully oriented, in no acute distress EYES: PERRLA, EOMI, sclera anicteric, conjunctiva clear ENT: ropharynx clear without exudates. Dry MM NECK: Normal ROM, supple, no lymphadenopathy, JVD, or masses LUNGS: Breath sounds equal, clear to auscultation bilaterally. No wheezes, and no crackles HEART: Regular rate and rhythm, normal S1 and S2, no murmurs, rubs or gallops ABDOMEN: Soft, nondistended, diffuse abd ttp, mostly in RUQ and suprapubic areas No guarding, no rebound. No masses. No CVAT EXTREMITIES: Normal range of motion, no edema. No cords, erythema, or tenderness NEUROLOGICAL: Normal speech, cranial nerves intact, equal strength and sensation b/l SKIN: Warm, Dry, normal turgor, no rashes or lesions noted. - Medical Decision Making 09/29/18 15:55 Abdominal Ultrasound as reviewed by Dr. Aleman reports normal gallbladder and biliary tree, mild diffuse fatty infiltration of the liver. 09/29/18 16:29 Chest X-ray as reviewed by Dr. Zapata reports interval postop hardware in the included lower cervical spine. No acute cardiopulmonary disease 09/29/18 17:09 58yo F hx hypertension, CAD s/p stenting, history of gastric ulcers, gastritis, hiatal hernia, s/p cervical neck surgery, s/p EGD and colonoscopy Jan (2017) who presents to the ED with 1 week of progressive nausea, vomiting and epigastric abdominal pain. Vitals unremarkable (inital low O2 sat 91) but on immediate repeat, O2 sat 98% on RA. Exam with diffuse abd ttp. DDx includes cholecystitis vs pancreatitis vs gastroenteritis vs gastritis vs UTI vs appendicitis. Plan -labs -US -CTAP -Symptom control -IVF as pt appears dehydrated Heart Score/ECG Review #1 09/29/18 17:08 Twelve-lead EKG was performed and reviewed by me. Normal sinus rhythm, rate 73. Normal axis. No ST elevations or T-wave inversions.
[2018-09-29] MEDS ORDERED: SODIUM CHLORIDE 1,000 ML IV SCH (17:45)
[2018-09-29] MEDS ORDERED: PATIENT'S OWN MEDICATION (NON-FORMULARY) (Oxycodone Hcl [Oxycodone Hcl] 15 MG) PO PRN (17:46)
[2018-09-29] MEDS ORDERED: ONDANSETRON 4 MG/2 ML VIAL IVPB PRN (17:48)
--- NOTE | 2018-09-29 18:03 | HP ---
Admitting History and Physical - Primary Care Physician PCP: Jessica Watts - Admission Chief Complaint: Epigastric pain with nausea and vomiting History of Present Illness: Patient is a 58 y/o female with past medical history HTN, CAD s/p stenting, Hx of Gastric Ulcers diagnosed on endoscopy 01/2018, gastritis, hiatal hernia, s/p neck cervical surgery. Patient presented to ER complaints of sharp epigastric pain accompanied with nausea, vomiting, and poor appetite. Patient states pain was exacerbated by food and vomitus was bile in color. Denies SOB, chest pain, diarrhea, constipation, blood in stool. History Source: Patient Limitations to Obtaining History: No Limitations - Past Medical History Cardiovascular: Yes: CAD (s/p stent), HTN Gastrointestinal: Yes: Gastritis, Hiatal Hernia ...LMP: 03/25/12 - Past Surgical History Past Surgical History: Yes: Laminectomy - Smoking History Smoking history: Current every day smoker Have you smoked in the past 12 months: Yes Aproximately how many cigarettes per day: 8 - Alcohol/Substance Use Hx Alcohol Use: No - Social History Usual Living Arrangement: Yes: Alone ADL: Independent History of Recent Travel: No Home Medications - Allergies Allergies/Adverse Reactions: Allergies Allergy/AdvReac Type Severity Reaction Status Date / Time NSAIDS (Non-Steroidal Allergy Severe STOMACH Verified 08/26/18 07:40 Anti-Inflamma ULCERS Latex, Natural Rubber Allergy Mild Rash Verified 08/26/18 07:40 lactase [From Lactaid] Allergy Verified 08/26/18 07:40 - Home Medications Home Medications: Ambulatory Orders Simvastatin [Zocor -] 20 mg PO HS 03/25/12 Diazepam 10 mg PO HS PRN 09/28/15 Albuterol Sulfate Inhaler - [Ventolin HFA Inhaler -] 2 puff IH Q4H PRN 02/12/18 Metformin HCl [Glucophage] 500 mg PO BIDAC 02/12/18 Enalapril Maleate [Vasotec -] 2.5 mg PO DAILY tablet 02/16/18 Metoprolol Succinate [Toprol XL -] 50 mg PO DAILY tab.sr.24h 02/16/18 Aspirin 81 mg PO DAILY 07/23/18 Cetirizine HCl 10 mg PO HS 07/23/18 Clopidogrel Bisulfate [Clopidogrel] 75 mg PO DAILY 07/23/18 Duloxetine HCl [Cymbalta -] 20 mg PO BID 07/23/18 Sucralfate Oral Suspension [Carafate Oral Suspension -] 1 gm PO BID 07/23/18 Tiotropium Br/Olodaterol HCl [Stiolto Respimat Inhal [place]] 4 gm IH DAILY Calcium Carbonate [Calcium] 500 mg PO DAILY 08/24/18 Fluticasone Propionate [Flonase Allergy Relief] 9.9 ml NS PRN 08/24/18 [place]-3S/Dha/Epa/Fish Oil [[place]-3 Fish Oil 1,000 mg Sfgl] 1 each PO DAILY 08/24 Gabapentin 300 mg PO BID #30 capsule 08/27/18 Oxycodone HCl 15 mg PO QID PRN #10 tablet MDD 4 08/27/18 Family Disease History - Family Disease History Family Disease History: Other: Mother (gastric ulcer, perforated) Review of Systems - Review of Systems Constitutional: reports: Loss of Appetite, Weakness Eyes: reports: No Symptoms HENT: reports: Throat Pain Neck: reports: No Symptoms Cardiovascular: reports: No Symptoms Respiratory: reports: No Symptoms Gastrointestinal: reports: Abdominal Pain, Nausea, Vomiting Genitourinary: reports: No Symptoms Breasts: reports: No Symptoms Reported Musculoskeletal: reports: No Symptoms Integumentary: reports: No Symptoms Neurological: reports: No Symptoms Endocrine: reports: No Symptoms Hematology/Lymphatic: reports: No Symptoms Psychiatric: reports: No Symptoms Physical Examination Vital Signs: Vital Signs Temperature 98.3 F 09/29/18 12:59 Pulse Rate 68 09/29/18 16:04 Respiratory Rate 20 09/29/18 16:04 Blood Pressure 143/68 09/29/18 16:04 O2 Sat by Pulse Oximetry (%) 99 09/29/18 16:04 Constitutional: Yes: No Distress, Calm Eyes: Yes: Conjunctiva Clear HENT: Yes: Atraumatic Neck: Yes: Supple, Other (scar noted) Cardiovascular: Yes: Regular Rate and Rhythm Respiratory: Yes: Regular, CTA Bilaterally Gastrointestinal: Yes: Normal Bowel Sounds, Soft, Tenderness, Epigastrium Musculoskeletal: Yes: WNL Extremities: Yes: WNL Edema: No Neurological: Yes: Alert, Oriented Psychiatric: Yes: Alert, Oriented Labs: CBC, BMP 09/29/18 14:21 09/29/18 15:35 Imaging - Results Ultrasound: Report Reviewed Problem List - Problems (1) Acute abdominal pain Assessment/Plan: -GI consult -IV hydration -Pantoprazole BID -zofran prn for nausea -clear liquid diet -Abdomen/Pelvic CT scan -Abd US reviewed normal gallbladder and biliary tree, mild diffuse fatty infiltration of liver Code(s): R10.9 - UNSPECIFIED ABDOMINAL PAIN (2) CAD (coronary artery disease) Assessment/Plan: -continue Plavix and Aspirin Code(s): I25.10 - ATHSCL HEART DISEASE OF [place] CORONARY ARTERY W/O ANG PCTRS (3) COPD (chronic obstructive pulmonary disease) Assessment/Plan: -Stiolto -O2 via [place] -bronchodilator -keep SpO2 >90% Code(s): J44.9 - CHRONIC OBSTRUCTIVE PULMONARY DISEASE, UNSPECIFIED (4) Diabetes mellitus Assessment/Plan: -BGM ACHS -Metformin + ISS -HgA1c Code(s): E11.9 - TYPE 2 DIABETES MELLITUS WITHOUT COMPLICATIONS Qualifiers: Diabetes mellitus type: type 2 (5) Leukocytosis Assessment/Plan: -ID on board -WBC 14.5 -UA and UC ordered -CXR unremarkable Code(s): D72.829 - ELEVATED WHITE BLOOD CELL COUNT, UNSPECIFIED Assessment/Plan see problem list dvt ppx
[2018-09-29 20:39] LABS: URINE APPEARANCE CLEAR; URINE BILIRUBIN NEGATIVE (NEGATIVE); URINE COLOR YELLOW; URINE GLUCOSE (UA) NEGATIVE (NEGATIVE)
[2018-09-29 20:40] LABS: PH,URINE 7.5 (5.0-8.0); URINE KETONE NEGATIVE (NEGATIVE); URINE LEUK ESTERASE NEGATIVE (NEGATIVE); URINE NITRITE NEGATIVE (NEGATIVE); URINE PROTEIN NEGATIVE (NEGATIVE); URINE UROBILINOGEN 0.2 mg/dL (0.2-1.0)
[2018-09-29] MEDS ORDERED: ONDANSETRON 4 MG/2 ML VIAL ONE (21:07)
[2018-09-29] MEDS ORDERED: oxyCODONE HCL 5 MG TABLET ONE (22:07)
[2018-09-29] MEDS: ATORVASTATIN CA 10 MG TABLET (FP) PO SCH (22:51)
[2018-09-29] MEDS: DULoxetine HCL 20 MG CAPSULE.DR (FP) PO SCH (22:51)
[2018-09-29] MEDS: GABAPENTIN 300 MG CAPSULE (FP) PO SCH (22:51)
[2018-09-29] MEDS: INSULIN SLIDING SCALE (NOVOLOG) 1 VIAL SQ SCH (22:52)
[2018-09-29] MEDS ORDERED: LORATADINE 10 MG TABLET ONE (22:54)
[2018-09-29] MEDS ORDERED: PANTOPRAZOLE SODIUM 40 MG/100 ML BAG IVPB ONE (22:55)
[2018-09-29] MEDS: LORATADINE 10 MG TABLET PO SCH (23:01)
[2018-09-29] MEDS: PANTOPRAZOLE SODIUM 40 MG VIAL IVPUSH SCH (23:01)
[2018-09-30] MEDS ORDERED: PATIENT'S OWN MEDICATION (NON-FORMULARY) (Diazepam [Diazepam] 10 MG) PO PRN (00:02)
[2018-09-30] MEDS: diazePAM 5 MG TABLET PO PRN ×2 (00:25→21:58)
[2018-09-30] MEDS ORDERED: diazePAM 5 MG TABLET ONE (00:27)
[2018-09-30] MEDS ORDERED: MORPHINE SULFATE 10 MG/1 ML *VIAL ONE (03:36)
[2018-09-30] MEDS: morphine SULFATE 4 MG/ML VIAL IVPUSH PRN ×4 (03:45→20:42)
[2018-09-30] MEDS ORDERED: SUCRALFATE 1 GM/10 ML UNIT DOSE CUPS PO SCH (07:00)
[2018-09-30 07:14] LABS: BASO % 0.8 % (0-2.0); EOS % 1.2 % (0-4.5); HEMATOCRIT 45.1 % (32.4-45.2); HEMOGLOBIN 14.9 GM/dL (10.7-15.3); LYMPH % 45.5 % (8-40); MCH 29.9 pg (25.7-33.7); MEAN CELL VOLUME 90.5 fl (80-96); MEAN PLT VOLUME 8.9 fl (7.5-11.1); MONO % 8.2 % (3.8-10.2); NEUT % 44.3 % (42.8-82.8); PLATELET COUNT 312 K/MM3 (134-434); RBC 4.98 M/mm3 (3.60-5.2); RDW 14.7 % (11.6-15.6); WHITE BLOOD COUNT 11.4 K/mm3 (4.0-10.0)
[2018-09-30 07:33] LABS: ALBUMIN 3.1 g/dl (3.4-5.0); BILIRUBIN,TOTAL 0.7 mg/dL (0.2-1); CALCIUM 8.6 mg/dL (8.5-10.1); CREATININE 0.6 mg/dL (0.55-1.3); MAGNESIUM 2.1 mg/dL (1.8-2.4); PHOSPHOROUS 4.5 mg/dL (2.5-4.9); POTASSIUM 3.8 mmol/L (3.5-5.1); TOT PROT 6.1 g/dl (6.4-8.2)
[2018-09-30] MEDS ORDERED: metFORMIN HCL 500 MG TABLET (FP) ONE (08:59)
[2018-09-30] MEDS ORDERED: SUCRALFATE 1 GM TABLET (FP) ONE (08:59)
[2018-09-30] MEDS: metFORMIN HCL 500 MG TABLET (FP) PO SCH ×2 (09:00→17:10)
[2018-09-30] MEDS: INSULIN SLIDING SCALE (NOVOLOG) 1 VIAL SQ SCH ×4 (09:04→21:53)
[2018-09-30] MEDS ORDERED: morphine SULFATE 4 MG/ML VIAL ONE (09:14)
[2018-09-30] MEDS ORDERED: FLUTICASONE PROP 0.05% 16 GM NASAL SPRAY NS PRN (10:00)
[2018-09-30 10:01] LABS: URINE APPEARANCE CLEAR; URINE BILIRUBIN NEGATIVE (NEGATIVE); URINE COLOR YELLOW; URINE GLUCOSE (UA) NEGATIVE (NEGATIVE); URINE KETONE NEGATIVE (NEGATIVE); URINE LEUK ESTERASE 2+ (NEGATIVE); URINE NITRITE NEGATIVE (NEGATIVE); URINE PROTEIN NEGATIVE (NEGATIVE); URINE UROBILINOGEN 0.2 mg/dL (0.2-1.0)
[2018-09-30] MEDS: CLOPIDOGREL BISULFATE 75 MG TABLET (FP) PO SCH (10:23)
[2018-09-30] MEDS: OMEGA-3 ACID ETHYL ESTERS (FATTY-ACIDS) 1 GM CAPSULE (FP) PO SCH (10:23)
[2018-09-30] MEDS: DULoxetine HCL 20 MG CAPSULE.DR (FP) PO SCH ×2 (10:23→21:52)
[2018-09-30] MEDS: CALCIUM (OYSTER SHELL) 500 MG TABLET (FP) PO SCH (10:23)
[2018-09-30] MEDS: ASPIRIN 81 MG CHEWABLE TABLETS PO SCH (10:23)
[2018-09-30] MEDS: GABAPENTIN 300 MG CAPSULE (FP) PO SCH ×2 (10:23→21:52)
[2018-09-30] MEDS: PANTOPRAZOLE SODIUM 40 MG VIAL IVPUSH SCH (10:24)
[2018-09-30] MEDS: ENALAPRIL MALEATE 2.5 MG TABLET (FP) PO SCH (10:24)
[2018-09-30 10:45] LABS: EPI CELLS 3.2 /HPF (0-5/HPF); URINE BACTERIA 71.8 /hpf (NEGATIVE); URINE RBC 0.8 /hpf (0-4); URINE WBC 13.4 /hpf (0-5)
[2018-09-30 10:46] LABS: URINE CASTS 0.73 /lpf (0-8)
[2018-09-30] MEDS: TIOTROPIUM/OLODATEROL HCL (STIOLTO) 4 GM INHALER IH SCH (11:30)
--- NOTE | 2018-09-30 13:20 | PN ---
Progress Note, Physician Chief Complaint: patient seen and examined says teodora helping for nausea complains of epigasrti pain when she tried to take clears today complaining pain on swallowing - Current Medication List Current Medications: Active Medications Aspirin (Asa -) 81 mg PO DAILY [facility] Last Admin: 09/30/18 10:23 Dose: 81 mg Atorvastatin Calcium (Lipitor -) 10 mg PO HS [facility] Last Admin: 09/29/18 22:51 Dose: 10 mg Calcium Carbonate (Os-Joo 500mg -) 500 mg PO DAILY [facility] Last Admin: 09/30/18 10:23 Dose: 500 mg Clopidogrel Bisulfate (Plavix -) 75 mg PO DAILY [facility] Last Admin: 09/30/18 10:23 Dose: 75 mg Diazepam (Valium -) 10 mg PO HS PRN PRN Reason: ANXIETY Last Admin: 09/30/18 00:25 Dose: 10 mg Duloxetine HCl (Cymbalta -) 20 mg PO BID [facility] Last Admin: 09/30/18 10:23 Dose: 20 mg Enalapril Maleate (Vasotec -) 2.5 mg PO DAILY [facility] Last Admin: 09/30/18 10:24 Dose: 2.5 mg Fluticasone Propionate (Flonase -) 1 spray NS DAILY PRN PRN Reason: NASAL CONGESTION Gabapentin (Neurontin -) 300 mg PO BID [facility] Last Admin: 09/30/18 10:23 Dose: 300 mg Sodium Chloride (Normal Saline -) 1,000 mls @ 50 mls/hr IV ASDIR [facility] Stop: 09/30/18 17:43 Last Admin: 09/29/18 20:15 Dose: 50 mls/hr Insulin Aspart (Novolog Vial Sliding Scale -) 1 vial SQ ACHS [facility]; Protocol Last Admin: 09/30/18 11:30 Dose: Not Given Loratadine (Claritin -) 10 mg PO HS [facility] Last Admin: 09/29/18 23:01 Dose: 10 mg Metformin HCl (Glucophage -) 500 mg PO BIDAC [facility] Last Admin: 09/30/18 09:00 Dose: 500 mg Metoprolol Succinate (Toprol Xl -) 50 mg PO DAILY [facility] Last Admin: 09/30/18 10:24 Dose: 50 mg Morphine Sulfate (Morphine Sulfate) 2 mg IVPUSH Q4H PRN PRN Reason: PAIN LEVEL 7 - 10 Last Admin: 09/30/18 09:26 Dose: 2 mg Non-Formulary Medication (Oxycodone Hcl [Oxycodone Hcl]) 15 mg PO QID PRN PRN Reason: PAIN Last Admin: 09/29/18 22:13 Dose: 15 mg [place]-0-Qm[place] Ethyl Esters (Lovaza -) 1 gm PO DAILY [facility] Last Admin: 09/30/18 10:23 Dose: 1 gm Ondansetron HCl (Zofran Injection) 4 mg IVPB Q8H PRN PRN Reason: NAUSEA Last Admin: 09/29/18 21:18 Dose: 4 mg Pantoprazole Sodium (Protonix Iv) 40 mg IVPUSH BID [facility] Last Admin: 09/30/18 10:24 Dose: 40 mg Sucralfate (Carafate Oral Suspension -) 1 gm PO BIDAC [facility] Last Admin: 09/30/18 09:00 Dose: 1 gm Tiotropium [place]/Olodaterol (Stiolto Respimat Inhal [place]) 2 puff IH DAILY [facility] Last Admin: 09/30/18 11:30 Dose: 2 puff - Objective Vital Signs: Vital Signs Temperature 98.5 F 09/30/18 12:06 Pulse Rate 57 L 09/30/18 12:06 Respiratory Rate 18 09/30/18 12:06 Blood Pressure 121/72 09/30/18 12:06 O2 Sat by Pulse Oximetry (%) 94 L 09/30/18 12:06 Constitutional: Yes: Calm HENT: Yes: Thrush Cardiovascular: Yes: Regular Rate and Rhythm, S1, S2 Respiratory: Yes: CTA Bilaterally Gastrointestinal: Yes: Normal Bowel Sounds, Soft, Tenderness, Epigastrium Edema: No Neurological: Yes: Alert, Oriented Labs: CBC, BMP 09/30/18 06:30 09/30/18 06:30 INR, PTT INR Cancelled 09/29/18 14:21 Problem List - Problems (1) Epigastric pain Assessment/Plan: protnix bid carafate GI eval Code(s): R10.13 - EPIGASTRIC PAIN (2) Nausea & vomiting Assessment/Plan: ct scan reviwed no SBO or diverticultits clear liqids Code(s): R11.2 - NAUSEA WITH VOMITING, UNSPECIFIED Qualifiers: Vomiting type: unspecified Vomiting Intractability: non-intractable Qualified Code(s): R11.2 - Nausea with vomiting, unspecified (3) Thrush, oral Assessment/Plan: nystatin Code(s): B37.0 - CANDIDAL STOMATITIS (4) Bradycardia Assessment/Plan: cardiology evaluation stop metoprolol dose for now Code(s): R00.1 - BRADYCARDIA, UNSPECIFIED (5) Diabetes mellitus Assessment/Plan: metofrmin bid hgba1c 7.2 Code(s): E11.9 - TYPE 2 DIABETES MELLITUS WITHOUT COMPLICATIONS Qualifiers: Diabetes mellitus type: type 2 (6) Leukocytosis Assessment/Plan: trending down ID conuslt urine culture pending maybe related to stress of vomitting repeat UA noted negative leukocyte esterase Code(s): D72.829 - ELEVATED WHITE BLOOD CELL COUNT, UNSPECIFIED (7) CAD (coronary artery disease) Assessment/Plan: will decrase meotprolol dose continue plavix and statin and low dose ACEI Code(s): I25.10 - ATHSCL HEART DISEASE OF [place] CORONARY ARTERY W/O ANG PCTRS
[2018-09-30] MEDS ORDERED: oxyCODONE HCL 5 MG TABLET PO PRN (15:07)
--- NOTE | 2018-09-30 15:48 | CON.GI ---
Consult Consult Specialty:: GI Referred by:: Dr. Watts Reason for Consultation:: Abdominal pain - History of Present Illness Chief Complaint: Abdominal pain History of Present Illness: 58F admitted for inability to eat for 1 week. Also described abdominal pain in multiple areas. Associated nausea. HAD EGD/Colonoscopy performed by Dr. Champion 02/09. Endoscopy revealed multiple antral erosions and duodenitis. Biopsies were negative for h. pylori and celiac disease. Colonoscopy led to the removal of two 5mm serrated adenomas in the right and transverse colon. No assciated diarrhea, rectal bleeding, fevers/chills. Contrast CT scan of the abdomen was unrevealing. Abdominal US unrevealing. It revealed a normal appearing gallbladder without stones. Liver chemistries wnl and amylase/lipase normal. Found sitting up in chair in no distress. She recently underwent C-Spine surgery and is still recovering and using a neck brace. - Past Medical History Cardio/Vascular: Yes: CAD (s/p stent), HTN, Hyperlipdemia Gastrointestinal: Yes: Gastritis, Hiatal Hernia ...LMP: 03/25/12 Endocrine: Yes: Diabetes Mellitus (DM II) - Past Surgical History Past Surgical History: Yes: Appendectomy, Laminectomy Additional Surgical History: Cardiac stent, removal of ectopic - Alcohol/Substance Use Hx Alcohol Use: Yes (in 80's) History of Substance Use: reports: Cocaine (intranasal, in 80's) - Smoking History Smoking history: Current every day smoker Have you smoked in the past 12 months: Yes Aproximately how many cigarettes per day: 8 - Social History ADL: Independent Occupation: Unemployed Place of : [facility] History of Recent Travel: No Home Medications - Allergies Allergies/Adverse Reactions: Allergies Allergy/AdvReac Type Severity Reaction Status Date / Time NSAIDS (Non-Steroidal Allergy Severe STOMACH Verified 08/26/18 07:40 Anti-Inflamma ULCERS Latex, Natural Rubber Allergy Mild Rash Verified 08/26/18 07:40 lactase [From Lactaid] Allergy Verified 08/26/18 07:40 - Home Medications Home Medications: Ambulatory Orders Simvastatin [Zocor -] 20 mg PO HS 03/25/12 Diazepam 10 mg PO HS PRN 09/28/15 Albuterol Sulfate Inhaler - [Ventolin HFA Inhaler -] 2 puff IH Q4H PRN 09/21/18 Metformin HCl [Glucophage] 500 mg PO BIDAC 02/12/18 Enalapril Maleate [Vasotec -] 2.5 mg PO DAILY tablet 02/16/18 Metoprolol Succinate [Toprol XL -] 50 mg PO DAILY tab.sr.24h 02/16/18 Aspirin 81 mg PO DAILY 07/23/18 Cetirizine HCl 10 mg PO HS 07/23/18 Clopidogrel Bisulfate [Clopidogrel] 75 mg PO DAILY 07/23/18 Duloxetine HCl [Cymbalta -] 20 mg PO BID 07/23/18 Sucralfate Oral Suspension [Carafate Oral Suspension -] 1 gm PO BID 07/23/18 Tiotropium Br/Olodaterol HCl [Stiolto Respimat Inhal [place]] 4 gm IH DAILY Calcium Carbonate [Calcium] 500 mg PO DAILY 08/24/18 Fluticasone Propionate [Flonase Allergy Relief] 9.9 ml NS PRN 08/24/18 [place]-3S/Dha/Epa/Fish Oil [[place]-3 Fish Oil 1,000 mg Sfgl] 1 each PO DAILY 08/24 Gabapentin 300 mg PO BID #30 capsule 08/27/18 Oxycodone HCl 15 mg PO QID PRN #10 tablet MDD 4 08/27/18 Family Disease History - Family Disease History Family Disease History: Other: Father (Alive), Mother (: NHL, Lung cancer. h /o gastric ulcer, perforated), Brother (1, does not keep in touch), Sister (1, does not keep in touch) Other Family History: No children Review of Systems - Review of Systems Constitutional: denies: Chills Cardiovascular: denies: Chest Pain Respiratory: denies: SOB Gastrointestinal: reports: Abdominal Pain, Bloating, Nausea. denies: Constipation, Rectal Bleeding, Vomiting Physical Exam-GI Vital Signs: Vital Signs Temperature 97.9 F 09/30/18 14:00 Pulse Rate 54 L 09/30/18 14:00 Respiratory Rate 18 09/30/18 14:00 Blood Pressure 119/66 09/30/18 14:00 O2 Sat by Pulse Oximetry (%) 94 L 09/30/18 12:06 Constitutional: Yes: Calm Eyes: No: Sclera Icterus Cardiovascular: Yes: Bradycardia. No: Murmur Respiratory: Yes: CTA Bilaterally Gastrointestinal Inspection: No: Distention ...Auscultate: Yes: Normoactive Bowel Sounds ...Palpate: Yes: Soft, Tenderness (TTP RUQ > LUQ with + morgan's sign. + TTP upon palpation of left lower ribs) ...Percussion: No: Tympanitic ...Rectal Exam: Yes: Deferred Edema: No Neurological: Yes: Alert Labs: CBC, BMP 09/30/18 06:30 09/30/18 06:30 INR, PTT INR Cancelled 09/29/18 14:21 Hepatic Panel Total Bilirubin 0.7 mg/dL (0.2-1) 09/30/18 06:30 AST 26 U/L (15-37) 09/30/18 06:30 ALT 24 U/L (13-61) 09/30/18 06:30 Alkaline Phosphatase 65 U/L (45-117) 09/30/18 06:30 Albumin 3.1 g/dl (3.4-5.0) L 09/30/18 06:30 Problem List - Problems (1) Abdominal pain Assessment/Plan: Unclear etiology of her various abdominal pain complaints. TTP RUQ with morgan's , however normal appearing gallbladder on US / CT scan Ordered HIDA Ordered UGIS (in setting of recent C-Spine surgery, attempt to avoid interventions that could require manipulation of her neck such as upper endoscopy) Protonix 40mg once daily Evaluation of left sided rib pain per primary team Clear liquids for now Advised smoking cessation Code(s): R10.9 - UNSPECIFIED ABDOMINAL PAIN
[2018-09-30 16:12] VITALS: BMI 31.1
--- NOTE | 2018-09-30 16:18 | CON.CARD ---
Consult Consult Specialty:: cardiology Referred by:: Dr. Barajas Reason for Consultation:: h/o cad, bradycardia - History of Present Illness Chief Complaint: abd pain, nausea, vomiting History of Present Illness: 58 year old woman with pmh HTN, smoker, Gi ulcers, gastritis, hernia, cervical spine surgery, CAD s/p reported stent 08/2017 admitted with abd pain, nausea, vomiting. Pt noted to have mild sinus bradycardia. Pt seen and examined today in nad. denies any chest pain, sob, palpitations, lightheadedness, dizziness, syncope, or near syncope. states her GI symptoms are improving, she is able to tolerate po meds now. - History Source History Provided By: Patient, Medical Record Limitations to Obtaining History: No Limitations - Past Medical History Cardio/Vascular: Yes: CAD (s/p stent), HTN, Hyperlipdemia Gastrointestinal: Yes: Gastritis, Hiatal Hernia ...LMP: 03/25/12 Endocrine: Yes: Diabetes Mellitus (DM II) - Past Surgical History Past Surgical History: Yes: Appendectomy, Laminectomy Additional Surgical History: Cardiac stent, removal of ectopic - Alcohol/Substance Use Hx Alcohol Use: Yes (in 80's) History of Substance Use: reports: Cocaine (intranasal, in 80's) - Smoking History Smoking history: Current every day smoker Have you smoked in the past 12 months: Yes Aproximately how many cigarettes per day: 8 - Social History ADL: Independent Occupation: Unemployed History of Recent Travel: No Home Medications - Allergies Allergies/Adverse Reactions: Allergies Allergy/AdvReac Type Severity Reaction Status Date / Time NSAIDS (Non-Steroidal Allergy Severe STOMACH Verified 08/26/18 07:40 Anti-Inflamma ULCERS Latex, Natural Rubber Allergy Mild Rash Verified 08/26/18 07:40 lactase [From Lactaid] Allergy Verified 08/26/18 07:40 - Home Medications Home Medications: Ambulatory Orders Simvastatin [Zocor -] 20 mg PO HS 03/25/12 Diazepam 10 mg PO HS PRN 09/28/15 Albuterol Sulfate Inhaler - [Ventolin HFA Inhaler -] 2 puff IH Q4H PRN 02/12/18 Metformin HCl [Glucophage] 500 mg PO BIDAC 02/12/18 Enalapril Maleate [Vasotec -] 2.5 mg PO DAILY tablet 02/16/18 Metoprolol Succinate [Toprol XL -] 50 mg PO DAILY tab.sr.24h 02/16/18 Aspirin 81 mg PO DAILY 07/23/18 Cetirizine HCl 10 mg PO HS 07/23/18 Clopidogrel Bisulfate [Clopidogrel] 75 mg PO DAILY 07/23/18 Duloxetine HCl [Cymbalta -] 20 mg PO BID 07/23/18 Sucralfate Oral Suspension [Carafate Oral Suspension -] 1 gm PO BID 07/23/18 Tiotropium Br/Olodaterol HCl [Stiolto Respimat Inhal [place]] 4 gm IH DAILY Calcium Carbonate [Calcium] 500 mg PO DAILY 08/24/18 Fluticasone Propionate [Flonase Allergy Relief] 9.9 ml NS PRN 08/24/18 [place]-3S/Dha/Epa/Fish Oil [[place]-3 Fish Oil 1,000 mg Sfgl] 1 each PO DAILY 08/24 Gabapentin 300 mg PO BID #30 capsule 08/27/18 Oxycodone HCl 15 mg PO QID PRN #10 tablet MDD 4 08/27/18 Family Disease History - Family Disease History Family Disease History: Other: Father (Alive), Mother (: NHL, Lung cancer. h /o gastric ulcer, perforated), Brother (1, does not keep in touch), Sister (1, does not keep in touch) Other Family History: No children Review of Systems - Review of Systems Constitutional: denies: No Symptoms, Chills, Diaphoresis, Fever, Lethargy, Loss of Appetite, Malaise, Night Sweats, Unintentional Wgt. Loss, Weakness, Other Eyes: denies: No Symptoms, Blind Spots, Blurred Vision, Double Vision, Eye Pain , Floaters, Photophobia, Recent Change in Vision, Other HENT: denies: No Symptoms, Difficult Swallowing, Ear Discharge, Ear Pain, Epistaxis, Gingival Bleeding, Hearing Loss, Mouth Swelling, Nasal Congestion, Ocular Prosthesis, Throat Pain, Toothache, Ringing in Ears, Other Neck: denies: No Symptoms, Decreased ROM, Lumps, Pain on Movement, Stiffness, Swollen Glands, Tenderness, Other Cardiovascular: denies: No Symptoms, Chest Pain, Edema, Palpitations, Shortness of Breath, Other Respiratory: denies: No Symptoms, Cough, Exercise Intolerance, Hemoptysis, Orthopnea, PND, Snoring, SOB, SOB on Exertion, Wheezing, Other Gastrointestinal: reports: Abdominal Pain, Nausea, Vomiting. denies: No Symptoms, Bloating, Constipation, Diarrhea, Dysphagia, Indigestion, Melena, Rectal Bleeding, Vomiting Blood, Other Genitourinary: denies: No Symptoms, Burning, Discharge, Dysuria, Flank Pain, Frequency, Hematuria, Incontinence, Lesions, Menses, Pain, Testicular Mass, Testicular Pain, Testicular Swelling, Urgency, Vaginal Bleeding, Other Breasts: denies: No Symptoms Reported, See HPI, Breast Implants, Discharge from Nipple, Lumps, Pain, Skin Changes, Other Musculoskeletal: denies: No Symptoms, Back Pain, Crepitus, Decreased ROM, Extremity Pain, Joint Pain, Joint Swelling, Muscle Pain, Muscle Cramps, Muscle Weakness, Other Integumentary: denies: No Symptoms, Blister, Bruising, Change in Color, Eczema, Erythema, Incision, Lesions, Lump, Pallor, Pruritis, Rash, Wound, Other Neurological: denies: No Symptoms, Change in LOC, Change in Speech, Confusion, Dizziness, Headache, Incoordination, Numbness, Parasthesia, Pre-Existing Deficit , Seizure, Syncope, Tremors, Unsteady Gait, Weakness, Other Endocrine: denies: No Symptoms, Excessive Sweating, Flushing, Increased Hunger, Increased Thirst, Intolerance to Cold, Intolerance to Heat, Unexplained Weight Gain, Unexplained Weight Loss, Other Hematology/Lymphatic: denies: No Symptoms, Easily Bruised, Excessive Bleeding, Swollen Glands, Other Psychiatric: denies: No Symptoms, Altered Sleep Pattern, Anxiety, Depression, Hallucinations, Panic, Paranoia, Suicidal, Other - Risk Factors Known Risk Factors: Yes: Hypercholesterolemia, Hypertension Vital Signs: Vital Signs Temperature 97.9 F 09/30/18 14:00 Pulse Rate 54 L 09/30/18 14:00 Respiratory Rate 18 09/30/18 14:00 Blood Pressure 119/66 09/30/18 14:00 O2 Sat by Pulse Oximetry (%) 94 L 09/30/18 12:06 Constitutional: Yes: No Distress, Calm Eyes: Yes: Conjunctiva Clear, EOM Intact, PERRL HENT: Yes: Atraumatic, Normocephalic Neck: Yes: Supple, Trachea Midline Respiratory: Yes: Regular, CTA Bilaterally. No: Rales, Rhonchi, SOB, Wheezes Gastrointestinal: Yes: Normal Bowel Sounds, Soft, Tenderness. No: Distention Cardiovascular: Yes: Regular Rate and Rhythm. No: Bradycardia, Tachycardia, Pulse Irregular, Gallop, Rub, Varicosities JVD: No Carotid Bruit: No PMI: Non-Displaced Heart Sounds: Yes: S1, S2. No: Split S2, S3, S4, Clicks, Gallop, Rub, Bruit Murmur: No: Systolic Murmur, Diastolic Murmur Extremities: Yes: WNL Edema: No Peripheral Pulses WNL: Yes Neurological: Yes: Alert, Oriented Psychiatric: Yes: Alert, Oriented - Other Data Labs, Other Data: CBC, BMP 09/30/18 06:30 09/30/18 06:30 INR, PTT INR Cancelled 09/29/18 14:21 ekg 09/29/18-nsr 73bpm with sinus arrhythmia Imaging - Results Chest X-ray: Report Reviewed, Image Reviewed EKG: Report Reviewed, Image Reviewed Other: Report Reviewed, Image Reviewed Assessment/Plan 58 y/o female with past medical history HTN, CAD s/p stenting, Hx of Gastric Ulcers diagnosed on endoscopy 01/2018, gastritis, hiatal hernia, s/p neck cervical surgery. Patient presented to ER complaints of sharp epigastric pain accompanied with nausea, vomiting, and poor appetite. Patient states pain was exacerbated by food and vomitus was bile in color. Denies SOB, chest pain, diarrhea, constipation, blood in stool. Sinus bradycardia-mild and asymptomatic -was on Toprol 50mg daily at home which has been held -may also be mildly nickie due to increased vagal tone from GI symptoms -ok to hold metoprolol for now but can be resumed either prior to discharge or on outpatient fup. Can restart at lower dose of 25mg daily and can be titrated as needed as outpatient -no other work up needed at this time CAD-reported stent 08/2017 -no concerning symptoms -on ASA and Plavix and statin -[facility] outpatient fup to determine duration needed of dual anti-platelet therapy as she is >1 year after PCI with stent likely only needs ASA 81mg daily No other inpatient cardiac work up needed at this time. Please call with any additional questions.
[2018-09-30] MEDS: NYSTATIN 500,000 UNITS/5 ML SUSPENSION PO SCH ×2 (17:11→23:31)
[2018-09-30] MEDS ORDERED: NYSTATIN 500,000 UNITS/5 ML SUSPENSION PO SCH (18:00)
[2018-09-30] MEDS: LORATADINE 10 MG TABLET PO SCH (21:52)
[2018-09-30] MEDS: ATORVASTATIN CA 10 MG TABLET (FP) PO SCH (21:52)
[2018-10-01] MEDS: morphine SULFATE 4 MG/ML VIAL IVPUSH PRN ×5 (01:18→21:44)
[2018-10-01] MEDS ORDERED: PT OWN MED DRAWER 7, Y5N ONE ×2 (05:05→12:57)
[2018-10-01] MEDS: NYSTATIN 500,000 UNITS/5 ML SUSPENSION PO SCH ×3 (05:55→18:31)
[2018-10-01] MEDS: metFORMIN HCL 500 MG TABLET (FP) PO SCH ×2 (06:02→17:23)
[2018-10-01] MEDS: INSULIN SLIDING SCALE (NOVOLOG) 1 VIAL SQ SCH ×4 (06:02→22:00)
[2018-10-01] MEDS: TIOTROPIUM/OLODATEROL HCL (STIOLTO) 4 GM INHALER IH SCH (13:02)
[2018-10-01] MEDS: CALCIUM (OYSTER SHELL) 500 MG TABLET (FP) PO SCH (13:04)
[2018-10-01] MEDS: DULoxetine HCL 20 MG CAPSULE.DR (FP) PO SCH ×2 (13:04→21:53)
[2018-10-01] MEDS: CLOPIDOGREL BISULFATE 75 MG TABLET (FP) PO SCH (13:04)
[2018-10-01] MEDS: PANTOPRAZOLE 40 MG TABLET (FP) PO SCH (13:04)
[2018-10-01] MEDS: GABAPENTIN 300 MG CAPSULE (FP) PO SCH ×2 (13:04→21:44)
[2018-10-01] MEDS: ASPIRIN 81 MG CHEWABLE TABLETS PO SCH (13:05)
[2018-10-01] MEDS: ENALAPRIL MALEATE 2.5 MG TABLET (FP) PO SCH (13:05)
[2018-10-01] MEDS: OMEGA-3 ACID ETHYL ESTERS (FATTY-ACIDS) 1 GM CAPSULE (FP) PO SCH (13:05)
--- NOTE | 2018-10-01 16:37 | PN ---
Progress Note, Physician Chief Complaint: Epigastric Pain History of Present Illness: Previous notes and events reviewed awake and alert NAD sts abdominal pain is same and nausea and vomiting have subsided HIDA scan done - Current Medication List Current Medications: Active Medications Aspirin (Asa -) 81 mg PO DAILY [facility] Last Admin: 10/01/18 13:05 Dose: 81 mg Atorvastatin Calcium (Lipitor -) 10 mg PO HS [facility] Last Admin: 09/30/18 21:52 Dose: 10 mg Calcium Carbonate (Os-Joo 500mg -) 500 mg PO DAILY [facility] Last Admin: 10/01/18 13:04 Dose: 500 mg Clopidogrel Bisulfate (Plavix -) 75 mg PO DAILY [facility] Last Admin: 10/01/18 13:04 Dose: 75 mg Diazepam (Valium -) 10 mg PO HS PRN PRN Reason: ANXIETY Last Admin: 09/30/18 21:58 Dose: 10 mg Duloxetine HCl (Cymbalta -) 20 mg PO BID [facility] Last Admin: 10/01/18 13:04 Dose: 20 mg Enalapril Maleate (Vasotec -) 2.5 mg PO DAILY [facility] Last Admin: 10/01/18 13:05 Dose: 2.5 mg Fluticasone Propionate (Flonase -) 1 spray NS DAILY PRN PRN Reason: NASAL CONGESTION Gabapentin (Neurontin -) 300 mg PO BID [facility] Last Admin: 10/01/18 13:04 Dose: 300 mg Insulin Aspart (Novolog Vial Sliding Scale -) 1 vial SQ ACHS [facility]; Protocol Last Admin: 10/01/18 13:05 Dose: Not Given Loratadine (Claritin -) 10 mg PO HS [facility] Last Admin: 09/30/18 21:52 Dose: 10 mg Metformin HCl (Glucophage -) 500 mg PO BIDAC [facility] Last Admin: 10/01/18 06:02 Dose: Not Given Morphine Sulfate (Morphine Sulfate) 4 mg IVPUSH Q4H PRN PRN Reason: PAIN LEVEL 7 - 10 Last Admin: 10/01/18 13:06 Dose: 4 mg Nystatin (Nystatin Oral Suspension -) 500,000 units PO Q6HPO [facility] Last Admin: 10/01/18 13:02 Dose: 500,000 units Efocc-0-Danb Ethyl Esters (Lovaza -) 1 gm PO DAILY [facility] Last Admin: 10/01/18 13:05 Dose: 1 gm Ondansetron HCl (Zofran Injection) 4 mg IVPB Q8H PRN PRN Reason: NAUSEA Last Admin: 09/29/18 21:18 Dose: 4 mg Oxycodone HCl (Roxicodone -) 15 mg PO QID PRN PRN Reason: PAIN LEVEL 1-6 Pantoprazole Sodium (Protonix -) 40 mg PO DAILY [facility] Last Admin: 10/01/18 13:04 Dose: 40 mg Tiotropium [place]/Olodaterol (Stiolto Respimat Inhal [place]) 2 puff IH DAILY [facility] Last Admin: 10/01/18 13:02 Dose: 2 puff - Objective Vital Signs: Vital Signs Temperature 98.4 F 10/01/18 13:55 Pulse Rate 62 10/01/18 13:55 Respiratory Rate 16 10/01/18 13:55 Blood Pressure 120/67 10/01/18 13:55 O2 Sat by Pulse Oximetry (%) 94 L 09/30/18 21:00 Constitutional: Yes: No Distress, Calm Eyes: Yes: Conjunctiva Clear HENT: Yes: Atraumatic Cardiovascular: Yes: Regular Rate and Rhythm Respiratory: Yes: Regular, CTA Bilaterally Gastrointestinal: Yes: Normal Bowel Sounds, Soft, Tenderness (diffuse) Musculoskeletal: Yes: WNL Extremities: Yes: WNL Edema: No Neurological: Yes: Alert, Oriented Psychiatric: Yes: Alert, Oriented Labs: CBC, BMP 09/30/18 06:30 09/30/18 06:30 INR, PTT INR Cancelled 09/29/18 14:21 Microbiology 09/29/18 19:02 Urine - Urine Clean Catch Urine Culture - Final Contaminated: Please Repeat 09/29/18 19:02 Urine - Urine Clean Catch Urine Culture - Final Contaminated: Please Repeat Problem List - Problems (1) Acute abdominal pain Assessment/Plan: -GI on board -Pantoprazole daily -zofran prn for nausea -clear liquid diet -Abdomen/Pelvic CT scan shows few diverticula in colon without evidence of acute diverticulitis, gallbladder is adequately distended without gross intraluminal stones or wall thickening -Abd US reviewed normal gallbladder and biliary tree, mild diffuse fatty infiltration of liver -HIDA scan performed Code(s): R10.9 - UNSPECIFIED ABDOMINAL PAIN (2) CAD (coronary artery disease) Assessment/Plan: -continue Plavix and Aspirin Code(s): I25.10 - ATHSCL HEART DISEASE OF [place] CORONARY ARTERY W/O ANG PCTRS (3) COPD (chronic obstructive pulmonary disease) Assessment/Plan: -Stiolto -O2 via NC -bronchodilator -keep SpO2 >90% Code(s): J44.9 - CHRONIC OBSTRUCTIVE PULMONARY DISEASE, UNSPECIFIED (4) Diabetes mellitus Assessment/Plan: -BGM ACHS -Metformin + ISS -HgA1c 7.2 Code(s): E11.9 - TYPE 2 DIABETES MELLITUS WITHOUT COMPLICATIONS Qualifiers: Diabetes mellitus type: type 2 (5) Leukocytosis Assessment/Plan: -ID on board -WBC 11.4 -afebrile -UA and UC neg -CXR unremarkable Code(s): D72.829 - ELEVATED WHITE BLOOD CELL COUNT, UNSPECIFIED Assessment/Plan see problem list dvt ppx
--- NOTE | 2018-10-01 17:18 | PN.GI ---
GI Progress Note Subjective: Complains of left sided and right sided flank pain Tolerating clears. HIDA negative: gallbladder fills, delayed biliary/enteric tracer transit time - Objective Vital Signs: Vital Signs Temperature 98.4 F 10/01/18 13:55 Pulse Rate 62 10/01/18 13:55 Respiratory Rate 16 10/01/18 13:55 Blood Pressure 120/67 10/01/18 13:55 O2 Sat by Pulse Oximetry (%) 94 L 09/30/18 21:00 Constitutional: Calm Eyes: No: Sclera Icterus Cardiovascular: Yes: Bradycardia Respiratory: Yes: CTA Bilaterally Gastrointestinal Inspection: No: Distention ...Auscultate: Yes: Normoactive Bowel Sounds ...Palpate: Yes: Soft, Tenderness (RUQ / upper abdomen / LUQ) ...Percussion: No: Tympanitic Musculoskeletal: Yes: Other (tenderness upon palpation of the left and right lower posterior aspect of ribs and back / paravertebrals.) Labs: CBC, BMP 09/30/18 06:30 09/30/18 06:30 INR, PTT INR Cancelled 09/29/18 14:21 Problem List - Problems (1) Abdominal pain Assessment/Plan: No vomiting, negative HIDA. Delayed biliary to enteric transit time however the patient is on opiate analgesia and LFT's are normal Tenderness elicited upon palpation of ribs and back bilaterally. ? etiology. ? if neurogenic secondary to thoracic spine discogenic disease. W/U per PMD Was going to advance diet, however, still requiring opiate analgesia Q4 hours. Keep on clears. Code(s): R10.9 - UNSPECIFIED ABDOMINAL PAIN
[2018-10-01] MEDS: ATORVASTATIN CA 10 MG TABLET (FP) PO SCH (21:44)
[2018-10-01] MEDS: LORATADINE 10 MG TABLET PO SCH (21:44)
[2018-10-02] MEDS: diazePAM 5 MG TABLET PO PRN ×2 (02:20→22:14)
[2018-10-02] MEDS: morphine SULFATE 4 MG/ML VIAL IVPUSH PRN ×6 (02:24→23:33)
[2018-10-02] MEDS: NYSTATIN 500,000 UNITS/5 ML SUSPENSION PO SCH ×5 (02:26→23:33)
[2018-10-02] MEDS: metFORMIN HCL 500 MG TABLET (FP) PO SCH ×2 (06:13→17:09)
[2018-10-02 07:17] LABS: HEMATOCRIT 46.5 % (32.4-45.2); HEMOGLOBIN 15.3 GM/dL (10.7-15.3); MCH 29.8 pg (25.7-33.7); MCHC 32.9 g/dl (32.0-36.0); MEAN CELL VOLUME 90.6 fl (80-96); MEAN PLT VOLUME 9.2 fl (7.5-11.1); PLATELET COUNT 289 K/MM3 (134-434); RBC 5.13 M/mm3 (3.60-5.2); RDW 14.8 % (11.6-15.6); WHITE BLOOD COUNT 10.7 K/mm3 (4.0-10.0)
[2018-10-02 07:43] LABS: ALBUMIN 3.1 g/dl (3.4-5.0); BILIRUBIN,TOTAL 0.5 mg/dL (0.2-1); CALCIUM 8.8 mg/dL (8.5-10.1); CREATININE 0.7 mg/dL (0.55-1.3); POTASSIUM 3.7 mmol/L (3.5-5.1); TOT PROT 6.2 g/dl (6.4-8.2)
[2018-10-02] MEDS: PANTOPRAZOLE 40 MG TABLET (FP) PO SCH (10:53)
[2018-10-02] MEDS: CALCIUM (OYSTER SHELL) 500 MG TABLET (FP) PO SCH (10:53)
[2018-10-02] MEDS: GABAPENTIN 300 MG CAPSULE (FP) PO SCH ×3 (10:53→22:14)
[2018-10-02] MEDS: CLOPIDOGREL BISULFATE 75 MG TABLET (FP) PO SCH (10:53)
[2018-10-02] MEDS: ASPIRIN 81 MG CHEWABLE TABLETS PO SCH (10:53)
[2018-10-02] MEDS: DULoxetine HCL 20 MG CAPSULE.DR (FP) PO SCH ×2 (10:54→22:13)
[2018-10-02] MEDS: OMEGA-3 ACID ETHYL ESTERS (FATTY-ACIDS) 1 GM CAPSULE (FP) PO SCH (10:54)
[2018-10-02] MEDS: ENALAPRIL MALEATE 2.5 MG TABLET (FP) PO SCH (10:55)
[2018-10-02] MEDS: TIOTROPIUM/OLODATEROL HCL (STIOLTO) 4 GM INHALER IH SCH (10:55)
--- NOTE | 2018-10-02 12:11 | PN ---
Progress Note, Physician Chief Complaint: Abdominal pain History of Present Illness: NAD c/o epigastric and RUQ tenderness, only on palpation Hx of GI ulcers - Current Medication List Current Medications: Active Medications Aspirin (Asa -) 81 mg PO DAILY [facility] Last Admin: 10/02/18 10:53 Dose: 81 mg Atorvastatin Calcium (Lipitor -) 10 mg PO HS [facility] Last Admin: 10/01/18 21:44 Dose: 10 mg Calcium Carbonate (Os-Joo 500mg -) 500 mg PO DAILY [facility] Last Admin: 10/02/18 10:53 Dose: 500 mg Clopidogrel Bisulfate (Plavix -) 75 mg PO DAILY [facility] Last Admin: 10/02/18 10:53 Dose: 75 mg Diazepam (Valium -) 10 mg PO HS PRN PRN Reason: ANXIETY Last Admin: 10/02/18 02:20 Dose: 10 mg Duloxetine HCl (Cymbalta -) 20 mg PO BID [facility] Last Admin: 10/02/18 10:54 Dose: 20 mg Enalapril Maleate (Vasotec -) 2.5 mg PO DAILY [facility] Last Admin: 10/02/18 10:55 Dose: 2.5 mg Fluticasone Propionate (Flonase -) 1 spray NS DAILY PRN PRN Reason: NASAL CONGESTION Gabapentin (Neurontin -) 300 mg PO BID [facility] Last Admin: 10/02/18 10:53 Dose: 300 mg Insulin Aspart (Novolog Vial Sliding Scale -) 1 vial SQ ACHS [facility]; Protocol Last Admin: 10/01/18 22:00 Dose: Not Given Loratadine (Claritin -) 10 mg PO HS [facility] Last Admin: 10/01/18 21:44 Dose: 10 mg Metformin HCl (Glucophage -) 500 mg PO BIDAC [facility] Last Admin: 10/02/18 06:13 Dose: 500 mg Morphine Sulfate (Morphine Sulfate) 4 mg IVPUSH Q4H PRN PRN Reason: PAIN LEVEL 7 - 10 Last Admin: 10/02/18 10:58 Dose: 4 mg Nystatin (Nystatin Oral Suspension -) 500,000 units PO Q6HPO [facility] Last Admin: 10/02/18 11:02 Dose: 500,000 units Rkajt-1-Civq Ethyl Esters (Lovaza -) 1 gm PO DAILY [facility] Last Admin: 10/02/18 10:54 Dose: 1 gm Ondansetron HCl (Zofran Injection) 4 mg IVPB Q8H PRN PRN Reason: NAUSEA Last Admin: 09/29/18 21:18 Dose: 4 mg Oxycodone HCl (Roxicodone -) 15 mg PO QID PRN PRN Reason: PAIN LEVEL 1-6 Pantoprazole Sodium (Protonix -) 40 mg PO DAILY [facility] Last Admin: 10/02/18 10:53 Dose: 40 mg Tiotropium [place]/Olodaterol (Stiolto Respimat Inhal [place]) 2 puff IH DAILY [facility] Last Admin: 10/02/18 10:55 Dose: Not Given - Objective Vital Signs: Vital Signs Temperature 98.2 F 10/02/18 10:50 Pulse Rate 51 L 10/02/18 10:50 Respiratory Rate 18 10/02/18 10:50 Blood Pressure 120/62 10/02/18 10:50 O2 Sat by Pulse Oximetry (%) 94 L 09/30/18 21:00 Constitutional: Yes: Well Nourished, No Distress, Calm Cardiovascular: Yes: Regular Rate and Rhythm Respiratory: Yes: Regular Gastrointestinal: Yes: Normal Bowel Sounds, Soft, Tenderness (RUQ), Tenderness, Epigastrium Genitourinary: Yes: WNL Musculoskeletal: Yes: Back Pain (chronic) Extremities: Yes: WNL Edema: No Peripheral Pulses WNL: Yes Neurological: Yes: Alert, Oriented Psychiatric: Yes: Alert, Oriented Labs: CBC, BMP 10/02/18 06:59 10/02/18 06:59 INR, PTT INR Cancelled 09/29/18 14:21 Problem List - Problems (1) Chronic back pain Assessment/Plan: -On oxycodone_ Diazepam+ gabapentin -Increase gabapentin to 300 mg po tid -Add lidoderm patch Code(s): M54.9 - DORSALGIA, UNSPECIFIED; G89.29 - OTHER CHRONIC PAIN Assessment/Plan (1) Acute abdominal pain Assessment/Plan: -GI on board -Pantoprazole daily -zofran prn for nausea -Advance diet to full liquids -Abdomen/Pelvic CT scan shows few diverticula in colon without evidence of acute diverticulitis, gallbladder is adequately distended without gross intraluminal stones or wall thickening -Abd US reviewed normal gallbladder and biliary tree, mild diffuse fatty infiltration of liver -HIDA scan Negative Code(s): R10.9 - UNSPECIFIED ABDOMINAL PAIN (2) CAD (coronary artery disease) Assessment/Plan: -continue Plavix and Aspirin Code(s): I25.10 - ATHSCL HEART DISEASE OF [place] CORONARY ARTERY W/O ANG PCTRS (3) COPD (chronic obstructive pulmonary disease) Assessment/Plan: -Stiolto -O2 via [place] -bronchodilator -keep SpO2 >90% Code(s): J44.9 - CHRONIC OBSTRUCTIVE PULMONARY DISEASE, UNSPECIFIED (4) Diabetes mellitus Assessment/Plan: -BGM ACHS -Metformin + ISS -HgA1c 7.2 Code(s): E11.9 - TYPE 2 DIABETES MELLITUS WITHOUT COMPLICATIONS Qualifiers: Diabetes mellitus type: type 2 (5) Leukocytosis Assessment/Plan: -ID on board -WBC 11.4 -afebrile -UA and UC neg -CXR unremarkable Code(s): D72.829 - ELEVATED WHITE BLOOD CELL COUNT, UNSPECIFIED
[2018-10-02] MEDS: INSULIN SLIDING SCALE (NOVOLOG) 1 VIAL SQ SCH ×3 (12:19→22:19)
[2018-10-02] MEDS: LIDOCAINE 5% TOPICAL PATCH TP SCH (12:58)
[2018-10-02] MEDS ORDERED: LIDOCAINE PATCH REMOVAL MC SCH (22:00)
[2018-10-02] MEDS: LORATADINE 10 MG TABLET PO SCH (22:13)
[2018-10-02] MEDS: ATORVASTATIN CA 10 MG TABLET (FP) PO SCH (22:13)
[2018-10-03] MEDS: morphine SULFATE 4 MG/ML VIAL IVPUSH PRN ×3 (03:47→13:02)
[2018-10-03] MEDS: GABAPENTIN 300 MG CAPSULE (FP) PO SCH ×2 (06:35→14:29)
[2018-10-03] MEDS: INSULIN SLIDING SCALE (NOVOLOG) 1 VIAL SQ SCH ×2 (06:35→11:44)
[2018-10-03] MEDS: NYSTATIN 500,000 UNITS/5 ML SUSPENSION PO SCH ×2 (06:35→11:41)
[2018-10-03] MEDS: metFORMIN HCL 500 MG TABLET (FP) PO SCH (06:35)
[2018-10-03] MEDS ORDERED: PT OWN MED DRAWER 7, Y5N ONE ×2 (09:56→10:23)
[2018-10-03] MEDS: CALCIUM (OYSTER SHELL) 500 MG TABLET (FP) PO SCH (10:03)
[2018-10-03] MEDS: DULoxetine HCL 20 MG CAPSULE.DR (FP) PO SCH (10:03)
[2018-10-03] MEDS: LIDOCAINE 5% TOPICAL PATCH TP SCH (10:04)
[2018-10-03] MEDS: PANTOPRAZOLE 40 MG TABLET (FP) PO SCH (10:04)
[2018-10-03] MEDS: OMEGA-3 ACID ETHYL ESTERS (FATTY-ACIDS) 1 GM CAPSULE (FP) PO SCH (10:04)
[2018-10-03] MEDS: CLOPIDOGREL BISULFATE 75 MG TABLET (FP) PO SCH (10:04)
[2018-10-03] MEDS: ASPIRIN 81 MG CHEWABLE TABLETS PO SCH (10:04)
[2018-10-03] MEDS: ENALAPRIL MALEATE 2.5 MG TABLET (FP) PO SCH (10:04)
[2018-10-03] MEDS: TIOTROPIUM/OLODATEROL HCL (STIOLTO) 4 GM INHALER IH SCH (11:36)
[2018-10-03] MEDS ORDERED: methylPREDNISolone NA SUCC 40 MG/1 ML VIAL IVPUSH ONE (12:11)
--- NOTE | 2018-10-03 12:33 | PN ---
Progress Note, Physician Chief Complaint: Abdominal pain History of Present Illness: NAD c/o lower back pain Hx of GI ulcers Wants to go home - Current Medication List Current Medications: Active Medications Aspirin (Asa -) 81 mg PO DAILY [facility] Last Admin: 10/03/18 10:04 Dose: 81 mg Atorvastatin Calcium (Lipitor -) 10 mg PO HS [facility] Last Admin: 10/02/18 22:13 Dose: 10 mg Calcium Carbonate (Os-Joo 500mg -) 500 mg PO DAILY [facility] Last Admin: 10/03/18 10:03 Dose: 500 mg Clopidogrel Bisulfate (Plavix -) 75 mg PO DAILY [facility] Last Admin: 10/03/18 10:04 Dose: 75 mg Diazepam (Valium -) 10 mg PO HS PRN PRN Reason: ANXIETY Last Admin: 10/02/18 22:14 Dose: 10 mg Duloxetine HCl (Cymbalta -) 20 mg PO BID [facility] Last Admin: 10/03/18 10:03 Dose: 20 mg Enalapril Maleate (Vasotec -) 2.5 mg PO DAILY [facility] Last Admin: 10/03/18 10:04 Dose: 2.5 mg Fluticasone Propionate (Flonase -) 1 spray NS DAILY PRN PRN Reason: NASAL CONGESTION Gabapentin (Neurontin -) 300 mg PO TID [facility] Last Admin: 10/03/18 06:35 Dose: 300 mg Insulin Aspart (Novolog Vial Sliding Scale -) 1 vial SQ [facility]; Protocol Last Admin: 10/03/18 11:44 Dose: Not Given Lidocaine (Lidoderm Patch -) 1 patch TP DAILY [facility] Last Admin: 10/03/18 10:04 Dose: 1 patch Loratadine (Claritin -) 10 mg PO HS [facility] Last Admin: 10/02/18 22:13 Dose: 10 mg Metformin HCl (Glucophage -) 500 mg PO BIDAC [facility] Last Admin: 10/03/18 06:35 Dose: 500 mg Miscellaneous (Lidoderm Patch Removal) 1 each MC DAILY@2200 [facility] Last Admin: 10/02/18 22:14 Dose: 1 each Morphine Sulfate (Morphine Sulfate) 4 mg IVPUSH Q4H PRN PRN Reason: PAIN LEVEL 7 - 10 Last Admin: 10/03/18 08:30 Dose: 4 mg Nystatin (Nystatin Oral Suspension -) 500,000 units PO Q6HPO [facility] Last Admin: 10/03/18 11:41 Dose: 500,000 units [id number] Ethyl Esters (Lovaza -) 1 gm PO DAILY [facility] Last Admin: 10/03/18 10:04 Dose: 1 gm Ondansetron HCl (Zofran Injection) 4 mg IVPB Q8H PRN PRN Reason: NAUSEA Last Admin: 09/29/18 21:18 Dose: 4 mg Oxycodone HCl (Roxicodone -) 15 mg PO QID PRN PRN Reason: PAIN LEVEL 1-6 Pantoprazole Sodium (Protonix -) 40 mg PO DAILY [facility] Last Admin: 10/03/18 10:04 Dose: 40 mg Tiotropium Treichlers/Olodaterol (Stiolto Respimat Inhal [place]) 2 puff IH DAILY [facility] Last Admin: 10/03/18 11:36 Dose: 2 puff - Objective Vital Signs: Vital Signs Temperature 98.1 F 10/03/18 08:22 Pulse Rate 77 10/03/18 10:00 Respiratory Rate 20 10/03/18 10:00 Blood Pressure 114/61 10/03/18 10:00 O2 Sat by Pulse Oximetry (%) 100 10/02/18 21:00 Constitutional: Yes: No Distress, Calm, Other (c/o lower back pain) Cardiovascular: Yes: Regular Rate and Rhythm Respiratory: Yes: Regular Gastrointestinal: Yes: Normal Bowel Sounds, Soft Genitourinary: Yes: WNL Musculoskeletal: Yes: Back Pain (chronic) Extremities: Yes: WNL Edema: No Peripheral Pulses WNL: Yes Neurological: Yes: Alert, Oriented Psychiatric: Yes: Alert, Oriented Labs: CBC, BMP 10/02/18 06:59 10/02/18 06:59 INR, PTT INR Cancelled 09/29/18 14:21 Problem List - Problems (1) Chronic back pain Assessment/Plan: -On oxycodone+Diazepam+ gabapentin -Increase gabapentin to 300 mg po tid -Add lidoderm patch -Solumedrol 40 mg IVP once Code(s): M54.9 - DORSALGIA, UNSPECIFIED; G89.29 - OTHER CHRONIC PAIN Assessment/Plan (1) Acute abdominal pain Assessment/Plan: -GI on board -Pantoprazole daily -zofran prn for nausea -Advance diet to full liquids -Abdomen/Pelvic CT scan shows few diverticula in colon without evidence of acute diverticulitis, gallbladder is adequately distended without gross intraluminal stones or wall thickening -Abd US reviewed normal gallbladder and biliary tree, mild diffuse fatty infiltration of liver -HIDA scan Negative Code(s): R10.9 - UNSPECIFIED ABDOMINAL PAIN (2) CAD (coronary artery disease) Assessment/Plan: -continue Plavix and Aspirin Code(s): I25.10 - ATHSCL HEART DISEASE OF [place] CORONARY ARTERY W/O ANG PCTRS (3) COPD (chronic obstructive pulmonary disease) Assessment/Plan: -Stiolto -O2 via NC -bronchodilator -keep SpO2 >90% Code(s): J44.9 - CHRONIC OBSTRUCTIVE PULMONARY DISEASE, UNSPECIFIED (4) Diabetes mellitus Assessment/Plan: -BGM ACHS -Metformin + ISS -HgA1c 7.2 Code(s): E11.9 - TYPE 2 DIABETES MELLITUS WITHOUT COMPLICATIONS Qualifiers: Diabetes mellitus type: type 2 (5) Leukocytosis Assessment/Plan: -ID on board -afebrile -UA and UC neg -CXR unremarkable Code(s): D72.829 - ELEVATED WHITE BLOOD CELL COUNT, UNSPECIFIED
[2018-10-03 14:41] VITALS: BP 108/64; PULSE 72; TEMP 98.7
== END 2018-10-03 15:20 | disposition home or self-care (01) | DRG 392 ==
LOC: JER 12:14 → JERBED 18:51 → J5S 09-30 13:47
PROVIDERS: ADMIT Family Medicine; ATTEND Family Medicine
DX: R10.13 Epigastric pain (principal); B37.0 Candidal stomatitis; I25.10 Atherosclerotic heart disease of native coronary artery without angina pectoris; J44.9 Chronic obstructive pulmonary disease, unspecified; I25.2 Old myocardial infarction; K21.9 Gastro-esophageal reflux disease without esophagitis; E11.9 Type 2 diabetes mellitus without complications; I10 Essential (primary) hypertension; K44.9 Diaphragmatic hernia without obstruction or gangrene; K29.70 Gastritis, unspecified, without bleeding; F17.210 Nicotine dependence, cigarettes, uncomplicated; D72.829 Elevated white blood cell count, unspecified; R00.1 Bradycardia, unspecified; E78.5 Hyperlipidemia, unspecified; M54.9 Dorsalgia, unspecified
CPT/HCPCS: 36415; 71045-TC-FY; 74177-TC; 76705-TC; 78226-TC; 80053; 81003; 82150; 82962; 83036; 83605; 83690; 83735; 84100; 84436; 84443; 84484; 85025; 85027; 87086; 93005; 93010; 99285-25; A9537; J3535; J7030

== ENCOUNTER 2018-10-13 13:07 | Emergency (ER) | payer OTHER ==
--- NOTE | 2018-10-13 13:13 | PDOC ---
Rapid Medical Evaluation Time Seen by Provider: 10/13/18 13:10 Medical Evaluation: Allergies Allergy/AdvReac Type Severity Reaction Status Date / Time NSAIDS (Non-Steroidal Allergy Severe STOMACH Verified 08/26/18 07:40 Anti-Inflamma ULCERS Latex, Natural Rubber Allergy Mild Rash Verified 08/26/18 07:40 lactase [From Lactaid] Allergy Verified 08/26/18 07:40 10/13/18 13:10 I have performed a brief in-person evaluation of this patient. The patient presents with a chief complaint of: R knee pain and swelling, s/p fall "my knee gave out on me and i fell on it" - hx of surgery in 1994, denies fever/NVD Pertinent physical exam findings: +warmth, +edema, +mild ecchymosis to R knee, decreased ROM secondary to pain I have ordered the following: labs, x-ray The patient will proceed to the ED for further evaluation.
[2018-10-13 13:16] VITALS: BP 110/61; PULSE 82; TEMP 98.5; BMI 30.2
--- NOTE | 2018-10-13 15:00 | PDOC ---
History of Present Illness - General Chief Complaint: Pain, Acute Stated Complaint: RT KNEE INJURY Time Seen by Provider: 10/13/18 13:10 - History of Present Illness Initial Comments: 58 year old female with past medical history HTN, CAD s/p stenting, Hx of Gastric Ulcers diagnosed on endoscopy 01/2018, gastritis, hiatal hernia, s/p neck cervical surgery, and right knee arthroscopy (89 years old) with one week of knee pain and swelling after it buckled underneath her. Denies any bony deformity but has swelling despite ice, rest, and elevation. She spoke to her PCP (Dr. Watts) and he suggested she come to the clinic or go to the ER so she chose the ER. She is able to wak with pain and assistance of a doyle. Denies fevers, chills, nausea, vomiting, diarrhea, or other symptoms. 10/13/18 15:33 Past History - Past Medical History Allergies/Adverse Reactions: Allergies Allergy/AdvReac Type Severity Reaction Status Date / Time NSAIDS (Non-Steroidal Allergy Severe STOMACH Verified 10/13/18 13:11 Anti-Inflamma ULCERS Latex, Natural Rubber Allergy Mild Rash Verified 10/13/18 13:11 lactase [From Lactaid] Allergy Verified 10/13/18 13:11 Home Medications: Ambulatory Orders Simvastatin [Zocor -] 20 mg PO HS 03/25/12 Diazepam 10 mg PO HS PRN 09/28/15 Albuterol Sulfate Inhaler - [Ventolin HFA Inhaler -] 2 puff IH Q4H PRN 02/12/18 Metformin HCl [Glucophage] 500 mg PO BIDAC 02/12/18 Enalapril Maleate [Vasotec -] 2.5 mg PO DAILY tablet 02/16/18 Metoprolol Succinate [Toprol XL -] 50 mg PO DAILY tab.sr.24h 02/16/18 Aspirin 81 mg PO DAILY 07/23/18 Cetirizine HCl 10 mg PO HS 07/23/18 Clopidogrel Bisulfate [Clopidogrel] 75 mg PO DAILY 07/23/18 Duloxetine HCl [Cymbalta -] 20 mg PO BID 07/23/18 Sucralfate Oral Suspension [Carafate Oral Suspension -] 1 gm PO BID 07/23/18 Tiotropium Br/Olodaterol HCl [Stiolto Respimat Inhal [place]] 4 gm IH DAILY Calcium Carbonate [Calcium] 500 mg PO DAILY 08/24/18 Fluticasone Propionate [Flonase Allergy Relief] 9.9 ml NS PRN 08/24/18 [place]-3S/Dha/Epa/Fish Oil [[place]-3 Fish Oil 1,000 mg Sfgl] 1 each PO DAILY 08/24 Gabapentin 300 mg PO BID #30 capsule 08/27/18 Oxycodone HCl 15 mg PO QID PRN #10 tablet MDD 4 08/27/18 Diazepam [Valium] 10 mg PO HS PRN tablet MDD 2 10/03/18 Anemia: No Asthma: Yes Cancer: No Cardiac Disorders: Yes (CA, 1 stent) CVA: No COPD: Yes CHF: No Dementia: No Diabetes: Yes GI Disorders: Yes (GERD, GB sludge) Disorders: No HTN: Yes Hypercholesterolemia: Yes Liver Disease: (2 STOMACH ULCERS FROM [facility] 01/2018) Seizures: No Thyroid Disease: No - Surgical History Appendectomy: Yes Cardiac Surgery: Yes (stent RCA 09/09) Neurologic Surgery: Yes (CERVICAL SPINE SURGERY) Orthopedic Surgery: Yes (ARTHROSCOPY RT.KNEE) - Immunization History Immunization Up to Date: Yes - Suicide/Smoking/Psychosocial Hx Smoking Status: Yes Smoking History: Current every day smoker Have you smoked in the past 12 months: Yes Number of Cigarettes Smoked Daily: 10 Information on smoking cessation initiated: No 'Breaking Loose' booklet given: 09/30/18 Hx Alcohol Use: No Drug/Substance Use Hx: No Substance Use Type: None Hx Substance Use Treatment: No Review of Systems - Review of Systems Constitutional: No: Chills, Diaphoresis HEENTM: No: Eye Pain, Blurred Vision, Tearing Respiratory: No: Cough, Orthopnea, Shortness of Breath Cardiac (ROS): No: Chest Pain, Edema, Irregular Heart Rate ABD/GI: No: Diarrhea, Nausea, Vomiting : No: Burning Musculoskeletal: Yes: Back Pain, Joint Pain, Joint Swelling, Joint Stiffness Integumentary: No: Bruising, Erythema Neurological: No: Numbness, Paresthesia Psychiatric: No: Anxiety, Depression Hematologic/Lymphatic: No: Anemia, Blood Clots, Easy Bleeding *Physical Exam - Vital Signs Last Vital Signs Temp Pulse Resp BP Pulse Ox 98.5 F 82 17 110/61 97 10/13/18 13:11 10/13/18 13:11 10/13/18 13:11 10/13/18 13:11 10/13/18 13:11 - Physical Exam General Appearance: Yes: Nourished, Appropriately Dressed. No: Apparent Distress HEENT: positive: EOMI, ESME, Normal ENT Inspection, Normal Voice Neck: positive: Trachea midline, Normal Thyroid, Supple. negative: Tender, Rigid Respiratory/Chest: positive: Lungs Clear, Normal Breath Sounds. negative: Chest Tender, Respiratory Distress, Accessory Muscle Use Cardiovascular: positive: Regular Rhythm, Regular Rate Gastrointestinal/Abdominal: positive: Normal Bowel Sounds, Flat, Soft. negative : Tender Lymphatic: negative: Adenopathy, Tenderness Musculoskeletal: negative: Normal Inspection (Stiff and swollen right knee without bony deformity. Tender over knee cap. Slightly decreased extension and flexion due to pain), Decreased Range of Motion Extremity: positive: Normal Capillary Refill, Normal Inspection, Normal Range of Motion. negative: Tender Integumentary: positive: Normal Color, Dry, Warm Neurologic: positive: Fully Oriented, Alert, Normal Mood/Affect, Normal Response , Motor Strength 5/5 Medical Decision Making - Medical Decision Making 58 year old female with right knee pain after a hyperextension 6 days prior. States that she has rest, iced, and elevated without great relief. Knee XR not showing fracture but this may be a soft tissue injury (ACL tear vs. capsular stretch). Pain and ability to ambulate drastically improved with knee immobilizer and cane. Will DC with follow up with Dr. Mullins as he has already set up follow up with her. 10/13/18 17:27 *DC/Admit/Observation/Transfer Diagnosis at time of Disposition: Knee pain Qualifiers: Chronicity: acute Laterality: right Qualified Code(s): M25.561 - Pain in right knee - Discharge Dispostion Disposition: HOME Condition at time of disposition: Stable - Referrals Referrals: Edmundo Mullins MD [Staff Physician] - Jessica Watts MD [Primary Care Provider] - - Patient Instructions Printed Discharge Instructions: DI for Knee Pain Additional Instructions: Thank you for coming in to the ER Please be sure to follow up with your PMD and Dr Mullins Return to the ER Please use the knee immobilizer as needed, it can be removed Please also use a cane when walking Return to the ER for any worsening pain, swelling, new injury - Post Discharge Activity
--- NOTE | 2018-10-13 16:53 | PDOC ---
Documentation entered by George Stein SCRIBE, acting as scribe for Nano Levy MD. Nano Levy MD: This documentation has been prepared by the Sarita oliver Nirvannie, SCRIBE, under my direction and personally reviewed by me in its entirety. I confirm that the documentation accurately reflects all work, treatment, procedures, and medical decision making performed by me. Attending Attestation - Resident Resident Name: Anthony Ventura - ED Attending Attestation I have performed the following: I have examined & evaluated the patient, The case was reviewed & discussed with the resident, I agree w/resident's findings & plan - HPI HPI: 10/13/18 16:36 The patient is a 58 year old female, with a significant past medical history of HTN, CAD (s/p cardiac stenting), Gastric Ulcers,gastritis, hiatal hernia, s/p neck cervical surgery, and right knee arthroscopy (89) who presents to the emergency department with, 1 week of right knee pain. Patient notes pain onset after her knee buckled under her. Patient has a pending appointment with Dr. Mullins (planned to have right knee replacement). She denies recent fevers, chills, headache or dizziness. She denies recent nausea, vomit, diarrhea or constipation. She denies recent dysuria, frequency, urgency or hematuria. She denies recent chest pain or shortness of breath. Primary Care Physician: Dr. Watts Orthopedist: Dr. Mullins - Physicial Exam PE: 10/13/18 16:37 GENERAL: The patient is in no acute distress. HEAD: Normal with no signs of trauma. LUNGS: Breath sounds equal, clear to auscultation bilaterally. No wheezes, and no crackles. HEART:Regular rate and rhythm, normal S1 and S2 without murmur, rub or gallop. ABDOMEN: Soft, nontender, normoactive bowel sounds. No guarding, no rebound. No masses palpable. EXTREMITIES: Normal range of motion, no edema. Right knee swelling, no deformities, stable to varus/valgus stress NEUROLOGICAL: Cranial nerves II through XII grossly intact. Normal speech. No focal neurological deficits. MUSCULOSKELETAL: see above SKIN: Warm, Dry, normal turgor, no rashes or lesions noted. - Medical Decision Making 10/13/18 16:43 58 yo f presenting with knee pain Pt has a h/o arthritis of the knee Plan is for knee replacement by Dr Mullins (pt pending Medical clearance) Pt felt her knee buckle on thursday and she fell Unable to tell me how she got up to standing pt had had knee pain since then Is concerned about a fracture Xray demonstrates no fracture or dislocation (+) arthritis (+) suprapatellar joint effusion Placed in knee immobilized Will discharge to home *DC/Admit/Observation/Transfer Diagnosis at time of Disposition: Knee pain Qualifiers: Chronicity: acute Laterality: right Qualified Code(s): M25.561 - Pain in right knee - Discharge Dispostion Disposition: HOME Condition at time of disposition: Stable Decision to Admit order: No - Referrals Referrals: Jessica Watts MD [Primary Care Provider] - Edmundo Mullins MD [Staff Physician] - - Patient Instructions Printed Discharge Instructions: DI for Knee Pain Additional Instructions: Thank you for coming in to the ER Please be sure to follow up with your PMD and Dr Mullins Return to the ER Please use the knee immobilizer as needed, it can be removed Please also use a cane when walking Return to the ER for any worsening pain, swelling, new injury - Post Discharge Activity
== END 2018-10-13 17:48 | disposition home or self-care (01) ==
LOC: JER 13:07
PROC: 2W3QX1Z Immobilization of Right Lower Leg using Splint (ICD-10-PCS; principal; 2018-10-13)
DX: M25.561 Pain in right knee (principal); W18.39XA Other fall on same level, initial encounter; Y93.89 Activity, other specified; Y92.89 Other specified places as the place of occurrence of the external cause; F17.210 Nicotine dependence, cigarettes, uncomplicated; I10 Essential (primary) hypertension; J44.9 Chronic obstructive pulmonary disease, unspecified; I25.2 Old myocardial infarction; J45.909 Unspecified asthma, uncomplicated; K21.9 Gastro-esophageal reflux disease without esophagitis
CPT/HCPCS: 29515; 73562-TC-RT-FY; 99281-25

== ENCOUNTER 2020-02-18 16:14 | Emergency (ER) | payer OTHER ==
[2020-02-18 16:33] VITALS: BP 123/78; PULSE 100; TEMP 98.4; BMI 32.7
--- OUTSIDE RECORDS SUMMARY | 2020-02-18 16:45 | XMS ---
:1960 Author Organization [facility] Care Team Providers Name Role Phone Mac Unavailable [phone] Mac Unavailable [phone] Mac Unavailable [phone] Mac Unavailable [phone] Mac Unavailable [phone] Mac Unavailable [phone] Mac Unavailable [phone] Mac Unavailable [phone] Mac Unavailable [phone] Mac Unavailable [phone] Mac Unavailable [phone] Mac Unavailable [phone] [facility] Unavailable [phone] Mac Unavailable [phone] Mac Unavailable [phone] Mac Unavailable [phone] Re-disclosure Warning The records that you are about to access may contain information from federally- assisted alcohol or drug abuse programs. If such information is present, then the following federally mandated warning applies: This information has been disclosed to you from records protected by federal confidentiality rules (42 CFR part 2). The federal rules prohibit you from making any further disclosure of this information unless further disclosure is expressly permitted by the written consent of the person to whom it pertains or as otherwise permitted by 42 CFR part 2. A general authorization for the release of medical or other information is NOT sufficient for this purpose. The Federal rules restrict any use of the information to criminally investigate or prosecute any alcohol or drug abuse patient.The records that you are about to access may contain highly sensitive health information, the redisclosure of which is protected by Article 27-F of the [place] Public Health law. If you continue you may haveaccess to information: Regarding HIV / AIDS; Provided by facilities licensed or operated by the [facility] Office of Mental Health; or Provided by the [facility] Office for People With Developmental Disabilities. If such information is present, then the following [facility] mandated warning applies: This information has been disclosed to you from confidential records which are protected by state law. State law prohibits you from making any further disclosure of this information without the specific written consent of the person to whom it pertains, or as otherwise permitted by law. Any unauthorized further disclosure in violation of state law may result in a fine or residential sentence or both. A general authorization for the release of medical or other information is NOT sufficient authorization for further disclosure. Encounters Encounter Providers Location Date Indications Data Source(s ) Attender: [facility] 01/02/2020 MEDGEN (A mmir Mac 12:00:00 AM EDCarter Watts Ph ysician) [facility] 12:00:00 AM E DT MEDGEN (Ammir Mac Physician) Office Attender: mir Mac 01/02/2020 12:00:00 AM E DT MEDGEN (Ammir Mac Physician) Office Attender: Ammir Mac 01/02/2020 12:00:00 AM E DT MEDGEN (Ammir Mac Physician) Office Attender: Ammir Mac 01/02/2020 12:00:00 AM E DT MEDGEN (Ammir Mac Physician) Office Attender: mir Mac 01/02/2020 12:00:00 AM E DT MEDGEN (Ammir Mac Physician) Office Attender: Ammir Mac 01/02/2020 12:00:00 AM E DT MEDGEN (Ammir Mac Physician) Office Attender: Ammir Mac 01/02/2020 12:00:00 AM E DT MEDGEN (Ammir Mac Physician) Office Attender: Ammir Mac 01/02/2020 12:00:00 AM E DT MEDGEN (Ammir Mac Physician) Office Attender: Ammir Mac 01/02/2020 12:00:00 AM E DT MEDGEN (Ammir Mac Physician) Office Immunizations Vaccine Date Status Description Data Source(s) New in 2011. IIV4 02/10/2019 12:00:00 completed ME DGEN (Ammir Mac AM EDT Physician) Medications Medication Brand Start Product Dose Route [facility] Indications Reaction Description Data Name Date Form Instructions Instructions Source(s) Metformin METFOR 11/23/ TABLET 180 complet METFOR MIN MEDGEN hydrochlori MIN:86 2019 ed (Ammir de 1000 MG 1004 12:00: Mac Oral Tablet 00 AM Physici an) METFORMIN:8 EDT 82207 FREESTYLE 11/16/ 270 complet FREESTYLE MEDGEN LITE TEST 2019 ed LITE TEST IN (A mmir IN VITRO 12:00: VITRO STRIP Ra badi STRIP: 00 AM Physician) EDT SOLIQUA 11/15/ SOLUTION 30 complet SOLIQUA MEDGEN 100/33:1859 2019 ed 100/33 (Ammir 000 12:00: Mac 00 AM Physician) EDT PEN NEEDLES complet PEN NEED LES MEDGEN MISCELLANEO 2019 ed MISCELLANEOU (Ammir US: 12:00: S Mac 00 AM Physician) EDT FREESTYLE complet FREESTYLE MEDGEN FREEDOM KIT 2019 ed FREEDOM KIT ( Ammir W/METER, 12:00: W/METER, Rabad i W/TEST 00 AM W/TEST Physician) STRIP(S): EDT STRIP(S) 24 HR METOPR 08/09/ TABLET, 90 complet METOPROLO L MEDGEN metoprolol OLOL 2019 EXTENDED ed SUCCINATE ER (Ammir succinate SUCCIN 12:00: RELEASE Rab jared 50 MG ATE 00 AM Physician) Extended ER:866 EDT Release 436 Oral Tablet METOPROLOL SUCCINATE ER:[id number] Losartan LOSART 08/09/ TABLET 45 complet LOSARTA N MEDGEN Potassium AN:979 2019 ed (Ammir 25 MG Oral 485 12:00: Mac Tablet 00 AM Physician) LOSARTAN:97 EDT 9485 Aspirin 81 ASPIRI 04/26/ DELAYED 90 complet ASPI RIN MEDGEN MG Delayed N 2019 RELEASE ed ADULT LOW ( Ammir Release ADULT 12:00: TABLET STRENGTH Rab jared Oral Tablet LOW 00 AM Physici an) ASPIRIN STRENG EST ADULT LOW TH:308 STRENGTH:30 416 8416 Simvastatin SIMVAS 04/26/ TABLET 90 complet SIMV ASTATIN MEDGEN 20 MG Oral TATIN: 2019 ed (Ammir Tablet 433803 12:00: Mac SIMVASTATIN 00 AM Physici an) :[id number] EST Enalapril ENALAP 04/26/ TABLET 90 complet ENALAP RIL MEDGEN Maleate 2.5 RIL 2019 ed MALEATE (Ammi r MG Oral MALEAT 12:00: Mac Tablet E:8588 00 AM Physician) ENALAPRIL 04 EST MALEATE:858 804 clopidogrel CLOPID 04/26/ TABLET 90 complet CLOP IDOGREL MEDGEN 75 MG Oral OGREL: 2019 ed (Ammir Tablet 168091 12:00: Mac CLOPIDOGREL 00 AM Physici an) :[id number] EST TRELEGY 02/10/ POWDER 1 complet TRELEGY ME DGEN ELLIPTA:194 2018 ed ELLIPTA (Ammi r 5044 12:00: Mac 00 AM Physician) EDT cetirizine ZYRTEC 01/20/ TABLET 90 complet ZYRTE C MEDGEN hydrochlori :70250 2018 ed (Ammir de 10 MG 26 12:00: Mac Oral Tablet 00 AM Physici an) [Zyrtec] EDT ZYRTEC:1020 026 200 ACTUAT ALBUTE 01/20/ AEROSOL 1 complet ALBU TEROL MEDGEN Albuterol ROL 2018 ed SULFATE HFA (Am darby 0.09 SULFAT 12:00: Mac MG/ACTUAT E 00 AM Physician ) Metered HFA:74 EDT Dose 5679 Inhaler ALBUTEROL SULFATE HFA:006046 Calcium CALCIU 01/20/ TABLET 30 complet CALCIUM + MEDGEN Carbonate M + 2018 ed VITAMIN D (Ammi r 1500 MG / VITAMI 12:00: Mac Cholecalcif N 00 AM Physici an) long 200 D:8095 EDT UNT Oral 33 Tablet CALCIUM + VITAMIN D:128322 gabapentin NEURON 01/20/ CAPSULE 180 complet NEUR ONTIN MEDGEN 300 MG Oral TIN:10 2018 ed (Ammir Capsule 5029 12:00: Mac [Neurontin] 00 AM Physici an) NEURONTIN:1 EDT 46504 Nitroglycer NITROS 07/23/ TABLET 1 complet NITR OSTAT MEDGEN in 0.4 MG TAT:2017 ed (Ammir Sublingual 8039 12:00: Mac Tablet 00 AM Physician) NITROSTAT:1 EST 32034 Insurance Providers Payer name Policy type Policy ID Covered Covered libertarian's Policy P naif / Coverage libertarian ID relationship to [employer] ormation type ramirez AEPOLA [id number] SP [id number] MEDICARE IME MEDICARE [id number] ISSA [id number] SP [id number] MEDICARE Problems, Conditions, and Diagnoses Code Display Name Description Problem Effective Data Type Dates Source(s) D50.9 Iron deficiency IRON DEFICIENCY Problem 11/16/2019 MEDG EN (Ammir anemia, unspecified ANEMIA, UNSPECIFIED 12:00:0 0 AM Mac EDT Physician) R30.0 Dysuria DYSURIA Problem 11/16/2019 MEDGEN (Ammir 12:00:00 AM Mac EDT Physician) R16.0 Hepatomegaly, not HEPATOMEGALY, NOT Problem 11/16/2019 MEDGEN (Ammir elsewhere classified ELSEWHERE 12:00:00 AM Rab jared CLASSIFIED EDT Physician) R53.82 Chronic fatigue, CHRONIC FATIGUE, Problem 10/18/2019 ME DGEN (Ammir unspecified UNSPECIFIED 12:00:00 AM Mac EDT Physician) R00.0 Tachycardia, TACHYCARDIA, Problem 10/18/2019 MEDGEN (Am darby unspecified UNSPECIFIED 12:00:00 AM Mac EDT Physician) F17.210 Nicotine dependence, NICOTINE Problem 04/26/2019 MEDG EN (Ammir cigarettes, DEPENDENCE, 12:00:00 AM Mac uncomplicated CIGARETTES, EST Physician) UNCOMPLICATED L98.9 Disorder of the skin DISORDER OF THE Problem 02/10/2019 MEDGEN (Ammir and subcutaneous SKIN AND 12:00:00 AM Mac tissue, unspecified SUBCUTANEOUS EDT Phy sician) TISSUE, UNSPECIFIED D72.829 Elevated white blood ELEVATED WHITE Problem 02/10/2019 MEDGEN (Ammir cell count, BLOOD CELL COUNT, 12:00:00 AM Rabad i unspecified UNSPECIFIED EDT Physician) J44.9 Chronic obstructive CHRONIC OBSTRUCTIVE Problem 019 MEDGEN (Ammir pulmonary disease, PULMONARY DISEASE, 12:00:00 AM Mac unspecified UNSPECIFIED EDT Physician) Z23 Encounter for ENCOUNTER FOR Problem 02/10/2019 MEDGEN ( Ammir immunization IMMUNIZATION 12:00:00 AM Mac EDT Physician) Z00.00 Encounter for ENCOUNTER FOR Problem 01/20/2019 MEDGEN ( Ammir general adult GENERAL ADULT 12:00:00 AM Mac medical examination MEDICAL EXAMINATION EDT Physician) without abnormal WITHOUT ABNORMAL findings FINDINGS M25.562 Pain in left knee PAIN IN LEFT KNEE Problem 09/06/2018 MEDGEN (Ammir 12:00:00 AM Mac EDT Physician) M25.561 Pain in right knee PAIN IN RIGHT KNEE Problem 9 MEDGEN (Ammir 12:00:00 AM Mac EDT Physician) L30.9 Dermatitis, DERMATITIS, Problem 08/03/2018 MEDGEN (Ammi r unspecified UNSPECIFIED 12:00:00 AM Mac EDT Physician) Z01.818 Encounter for other ENCOUNTER FOR OTHER Problem 019 MEDGEN (Ammir preprocedural PREPROCEDURAL 12:00:00 AM Mac examination EXAMINATION EST Physician) M79.18 MYALGIA, OTHER SITE MYALGIA, OTHER SITE Problem 019 MEDGEN (Ammir 12:00:00 AM Mac EST Physician) J30.9 Allergic rhinitis, ALLERGIC RHINITIS, Problem 8 MEDGEN (Ammir unspecified UNSPECIFIED 12:00:00 AM Mac EST Physician) J44.1 Chronic obstructive CHRONIC OBSTRUCTIVE Problem 018 MEDGEN (Ammir pulmonary disease PULMONARY DISEASE 12:00:00 AM Mac with (acute) WITH (ACUTE) EST Physician) exacerbation EXACERBATION F17.290 Nicotine dependence, NICOTINE Problem 04/06/2018 MEDG EN (Ammir other tobacco DEPENDENCE, OTHER 12:00:00 AM Rab jared product, TOBACCO PRODUCT, EST Physicia n) uncomplicated UNCOMPLICATED M25.511 Pain in right PAIN IN RIGHT Problem 03/08/2018 MEDGEN ( Ammir shoulder SHOULDER 12:00:00 AM Mac EDT Physician) R09.82 Postnasal drip POSTNASAL DRIP Problem 03/08/2018 MEDGEN (Ammir 12:00:00 AM Mac EDT Physician) K63.5 Polyp of colon POLYP OF COLON Problem 02/26/2018 MEDGEN (Ammir 12:00:00 AM Mac EDT Physician) K27.9 Peptic ulcer, site PEPTIC ULCER, SITE Problem 8 MEDGEN (Ammir unspecified, UNSPECIFIED, 12:00:00 AM Mac unspecified as acute UNSPECIFIED EDT Physician) or chronic, without ACUTE OR CHRONIC, hemorrhage or WITHOUT HEMORRHAGE perforation OR PERFORATION Z13.89 Encounter for ENCOUNTER FOR Problem 02/26/2018 MEDGEN ( Ammir screening for other SCREENING FOR OTHER 12:00:0 0 AM Mac disorder DISORDER EDT Physician) E11.9 Type 2 diabetes TYPE 2 DIABETES Problem 02/26/2018 MEDG EN (Ammir mellitus without MELLITUS WITHOUT 12:00:00 AM R anand complications COMPLICATIONS EDT Physicia n) D17.20 Benign lipomatous BENIGN LIPOMATOUS Problem 02/26/2018 MEDGEN (Ammir neoplasm of skin and NEOPLASM OF SKIN 12:00:00 AM Mac subcutaneous tissue AND SUBCUTANEOUS EDT Physician) of unspecified limb TISSUE OF UNSPECIFIED LIMB R10.84 Generalized GENERALIZED Problem 02/11/2018 MEDGEN (Ammi r abdominal pain ABDOMINAL PAIN 12:00:00 AM Rabad i EDT Physician) S83.31XA Tear of articular TEAR OF ARTICULAR Problem 01/13/2018 MEDGEN (Ammir cartilage of right CARTILAGE OF RIGHT 12:00:00 AM Mac knee, current, KNEE, CURRENT, EDT Physic angel) initial encounter INITIAL ENCOUNTER M50.10 Cervical disc CERVICAL DISC Problem 01/13/2018 MEDGEN ( Ammir disorder with DISORDER WITH 12:00:00 AM Mac radiculopathy, RADICULOPATHY, EDT Physic angel) unspecified cervical UNSPECIFIED region CERVICAL REGION E55.9 Vitamin D VITAMIN D Problem 01/13/2018 MEDGEN (Ammir deficiency, DEFICIENCY, 12:00:00 AM Mac unspecified UNSPECIFIED EDT Physician) M13.89 Other specified OTHER SPECIFIED Problem 01/13/2018 MEDG EN (Ammir arthritis, multiple ARTHRITIS, MULTIPLE 12:00:0 0 AM Mac sites SITES EDT Physician) K82.9 Disease of DISEASE OF Problem 12/28/2017 MEDGEN (Ammir gallbladder, GALLBLADDER, 12:00:00 AM Mac unspecified UNSPECIFIED EDT Physician) L30.8 Other specified OTHER SPECIFIED Problem 12/28/2017 MEDG EN (Ammir dermatitis DERMATITIS 12:00:00 AM Mac EDT Physician) K21.9 Gastro-esophageal GASTRO-ESOPHAGEAL Problem 12/28/2017 MEDGEN (Ammir reflux disease REFLUX DISEASE 12:00:00 AM Rabad i without esophagitis WITHOUT ESOPHAGITIS EDT Physician) I25.10 Atherosclerotic ATHEROSCLEROTIC Problem 12/28/2017 MEDG EN (Ammir heart disease of HEART DISEASE OF 12:00:00 AM R anand [place] coronary [place] CORONARY EDT Phys ician) artery without ARTERY WITHOUT angina pectoris ANGINA PECTORIS R63.4 Abnormal weight loss ABNORMAL WEIGHT Problem 11/27/2017 MEDGEN (Ammir LOSS 12:00:00 AM Mac EDT Physician) F41.1 Generalized anxiety GENERALIZED ANXIETY Problem 018 MEDGEN (Ammir disorder DISORDER 12:00:00 AM Mac EDT Physician) L98.8 Other specified OTHER SPECIFIED Problem 10/23/2017 MEDG EN (Ammir disorders of the DISORDERS OF THE 12:00:00 AM R anand skin and SKIN AND EDT Physician) subcutaneous tissue SUBCUTANEOUS TISSUE M48.02 Spinal stenosis, SPINAL STENOSIS, Problem 09/28/2017 ME DGEN (Ammir cervical region CERVICAL REGION 12:00:00 AM Rab jared EDT Physician) Z95.5 Presence of coronary PRESENCE OF Problem 09/16/2017 MED GEN (Ammir angioplasty implant CORONARY 12:00:00 AM Raba di and graft ANGIOPLASTY IMPLANT EDT Physi claudia) AND GRAFT E78.5 Hyperlipidemia, HYPERLIPIDEMIA, Problem 07/23/2017 MEDG EN (Ammir unspecified UNSPECIFIED 12:00:00 AM Mac EST Physician) R07.9 Chest pain, CHEST PAIN, Problem 07/23/2017 MEDGEN (Ammi r unspecified UNSPECIFIED 12:00:00 AM Mac EST Physician) F41.9 Anxiety disorder, ANXIETY DISORDER, Problem 06/30/2017 MEDGEN (Ammir unspecified UNSPECIFIED 12:00:00 AM Mac EST Physician) J20.9 Acute bronchitis, ACUTE BRONCHITIS, Problem 06/24/2017 MEDGEN (Ammir unspecified UNSPECIFIED 12:00:00 AM Mac EST Physician) J11.89 Influenza due to INFLUENZA DUE TO Problem 06/24/2017 ME DGEN (Ammir unidentified UNIDENTIFIED 12:00:00 AM Mac influenza virus with INFLUENZA VIRUS EST Physician) other manifestations WITH OTHER MANIFESTATIONS J01.90 Acute sinusitis, ACUTE SINUSITIS, Problem 06/24/2017 ME DGEN (Ammir unspecified UNSPECIFIED 12:00:00 AM Mac EST Physician) H65.02 Acute serous otitis ACUTE SEROUS OTITIS Problem 017 MEDGEN (Ammir media, left ear MEDIA, LEFT EAR 12:00:00 AM Rab jared EDT Physician) S06.0X0A Concussion without CONCUSSION WITHOUT Problem 7 MEDGEN (Ammir loss of LOSS OF 12:00:00 AM Mac consciousness, CONSCIOUSNESS, EDT Physic angel) initial encounter INITIAL ENCOUNTER S09.90XA Unspecified injury UNSPECIFIED INJURY Problem 7 MEDGEN (Ammir of head, initial OF HEAD, INITIAL 12:00:00 AM R anand encounter ENCOUNTER EDT Physician) J01.00 Acute maxillary ACUTE MAXILLARY Problem 02/26/2017 MEDG EN (Ammir sinusitis, SINUSITIS, 12:00:00 AM Mac unspecified UNSPECIFIED EDT Physician) R07.89 Other chest pain OTHER CHEST PAIN Problem 12/31/2016 ME DGEN (Ammir 12:00:00 AM Mac EDT Physician) F33.1 Major depressive MAJOR DEPRESSIVE Problem 12/01/2016 ME DGEN (Ammir disorder, recurrent, DISORDER, 12:00:00 AM Rab jared moderate RECURRENT, MODERATE EDT Physi claudia) M51.25 Other intervertebral OTHER Problem 09/25/2016 MEDG EN (Ammir disc displacement, INTERVERTEBRAL DISC 12:00:00 AM Mac thoracolumbar region DISPLACEMENT, EDT P hysician) THORACOLUMBAR REGION M50.20 Other cervical disc OTHER CERVICAL DISC Problem 017 MEDGEN (Ammir displacement, DISPLACEMENT, 12:00:00 AM Mac unspecified cervical UNSPECIFIED EDT Phy sician) region CERVICAL REGION M25.462 Effusion, left knee EFFUSION, LEFT KNEE Problem 017 MEDGEN (Ammir 12:00:00 AM Mac EDT Physician) M25.461 Effusion, right knee EFFUSION, RIGHT Problem 09/25/2016 MEDGEN (Ammir KNEE 12:00:00 AM Mac EDT Physician) M23.302 Other meniscus OTHER MENISCUS Problem 09/25/2016 MEDGEN (Ammir derangements, DERANGEMENTS, 12:00:00 AM Mac unspecified lateral UNSPECIFIED LATERAL EDT Physician) meniscus, MENISCUS, unspecified knee UNSPECIFIED KNEE M23.301 Other meniscus OTHER MENISCUS Problem 09/25/2016 MEDGEN (Ammir derangements, DERANGEMENTS, 12:00:00 AM Mac unspecified lateral UNSPECIFIED LATERAL EDT Physician) meniscus, left knee MENISCUS, LEFT KNEE M23.52 Chronic instability CHRONIC INSTABILITY Problem 017 MEDGEN (Ammir of knee, left knee OF KNEE, LEFT KNEE 12:00:00 AM Mac EDT Physician) G89.4 Chronic pain CHRONIC PAIN Problem 04/16/2016 MEDGEN (Am darby syndrome SYNDROME 12:00:00 AM Mac EST Physician) M13.0 Polyarthritis, POLYARTHRITIS, Problem 04/16/2016 MEDGEN (Ammir unspecified UNSPECIFIED 12:00:00 AM Mac EST Physician) I10 Essential (primary) ESSENTIAL (PRIMARY) Problem 016 MEDGEN (Ammir hypertension HYPERTENSION 12:00:00 AM Mac EST Physician) F11.20 Opioid dependence, OPIOID DEPENDENCE, Problem 6 MEDGEN (Ammir uncomplicated UNCOMPLICATED 12:00:00 AM Mac EST Physician) E11.69 Type 2 diabetes TYPE 2 DIABETES Problem 04/16/2016 MEDG EN (Ammir mellitus with other MELLITUS WITH OTHER 12:00:0 0 AM Mac specified SPECIFIED EST Physician) complication COMPLICATION M77.31 Calcaneal spur, CALCANEAL SPUR, Problem 04/08/2016 MEDG EN (Ammir right foot RIGHT FOOT 12:00:00 AM Mac EST Physician) E78.2 Mixed hyperlipidemia MIXED Problem 04/08/2016 MEDG EN (Ammir HYPERLIPIDEMIA 12:00:00 AM Mac EST Physician) M62.830 Muscle spasm of back MUSCLE SPASM OF Problem 04/08/2016 MEDGEN (Ammir BACK 12:00:00 AM Mac EST Physician) M54.9 Dorsalgia, DORSALGIA, Problem 04/08/2016 MEDGEN (Ammir unspecified UNSPECIFIED 12:00:00 AM Mac EST Physician) M51.9 Unspecified UNSPECIFIED Problem 04/08/2016 MEDGEN (Ammi r thoracic, THORACIC, 12:00:00 AM Mac thoracolumbar and THORACOLUMBAR AND EST Physician) lumbosacral LUMBOSACRAL intervertebral disc INTERVERTEBRAL DISC disorder DISORDER M54.6 Pain in thoracic PAIN IN THORACIC Problem 04/08/2016 ME DGEN (Ammir spine SPINE 12:00:00 AM Mac EST Physician) M54.5 Low back pain LOW BACK PAIN Problem 04/08/2016 MEDGEN ( Ammir 12:00:00 AM Mac EST Physician) J44.0 Chronic obstructive CHRONIC OBSTRUCTIVE Problem 016 MEDGEN (Ammir pulmonary disease PULMONARY DISEASE 12:00:00 AM Mac with acute lower WITH ACUTE LOWER EST Ph ysician) respiratory RESPIRATORY infection INFECTION M12.9 Arthropathy, ARTHROPATHY, Problem 04/08/2016 MEDGEN (Am darby unspecified UNSPECIFIED 12:00:00 AM Mac EST Physician) M15.0 Primary generalized PRIMARY GENERALIZED Problem 016 MEDGEN (Ammir (osteo)arthritis (OSTEO)ARTHRITIS 12:00:00 AM R anand EST Physician) F17.200 Nicotine dependence, NICOTINE Problem 04/08/2016 MEDG EN (Ammir unspecified, DEPENDENCE, 12:00:00 AM Mac uncomplicated UNSPECIFIED, EST Physician ) UNCOMPLICATED E11.40 Type 2 diabetes TYPE 2 DIABETES Problem 04/08/2016 MEDG EN (Ammir mellitus with MELLITUS WITH 12:00:00 AM Mac diabetic neuropathy, DIABETIC EST Phys ician) unspecified NEUROPATHY, UNSPECIFIED Surgeries/Procedures Procedure Description Date Indications Data Source(s) Documentation of current 01/02/2020 MED GEN (Ammir Mac medications (procedure) 12:00:00 AM EDT P hysician) Documentation of current 01/02/2020 MED GEN (Ammir Mac medications (procedure) 12:00:00 AM EDT P hysician) Medication Reconciliation 01/02/2020 [place] [facility] (Ammir Mac (procedure) 12:00:00 AM EDT Physician) Documentation of current 01/02/2020 MED GEN (Ammir Mac medications (procedure) 12:00:00 AM EDT P hysician) Documentation of current 11/16/2019 MED GEN (Ammir Mac medications (procedure) 12:00:00 AM EDT P hysician) Documentation of current 11/16/2019 MED GEN (Ammir Mac medications (procedure) 12:00:00 AM EDT P hysician) Documentation of current 11/16/2019 MED GEN (Ammir Mac medications (procedure) 12:00:00 AM EDT P hysician) Documentation of current 11/16/2019 MED GEN (Ammir Mac medications (procedure) 12:00:00 AM EDT P hysician) Documentation of current 11/16/2019 MED GEN (Ammir Mac medications (procedure) 12:00:00 AM EDT P hysician) Documentation of current 11/16/2019 MED GEN (Ammir Mac medications (procedure) 12:00:00 AM EDT P hysician) Documentation of current 11/16/2019 MED GEN (Ammir Mac medications (procedure) 12:00:00 AM EDT P hysician) Documentation of current 11/16/2019 MED GEN (Ammir Mac medications (procedure) 12:00:00 AM EDT P hysician) Medication Reconciliation 11/16/2019 ME DGEN (Ammir Mac (procedure) 12:00:00 AM EDT Physician) Documentation of current 11/16/2019 MED GEN (Ammir Mac medications (procedure) 12:00:00 AM EDT P hysician) Documentation of current 02/10/2019 MED GEN (Ammir Mac medications (procedure) 12:00:00 AM EDT P hysician) Documentation of current 02/10/2019 MED GEN (Ammir Mac medications (procedure) 12:00:00 AM EDT P hysician) Documentation of current 02/10/2019 MED GEN (Ammir Mac medications (procedure) 12:00:00 AM EDT P hysician) Medication Reconciliation 09/06/2018 ME DGEN (Ammir Mac (procedure) 12:00:00 AM EDT Physician) Documentation of current 07/23/2018 MED GEN (Ammir Mac medications (procedure) 12:00:00 AM EST P hysician) Documentation of current 07/23/2018 MED GEN (Ammir Mac medications (procedure) 12:00:00 AM EST P hysician) Documentation of current 07/23/2018 MED GEN (Ammir Mac medications (procedure) 12:00:00 AM EST P hysician) Documentation of current 06/29/2018 MED GEN (Ammir Mac medications (procedure) 12:00:00 AM EST P hysician) Documentation of current 06/29/2018 MED GEN (Ammir Mac medications (procedure) 12:00:00 AM EST P hysician) Documentation of current 06/29/2018 MED GEN (Ammir Mac medications (procedure) 12:00:00 AM EST P hysician) Medication Reconciliation 06/29/2018 ME DGEN (Ammir Mac (procedure) 12:00:00 AM EST Physician) Documentation of current 06/29/2018 MED GEN (Ammir Mac medications (procedure) 12:00:00 AM EST P hysician) Documentation of current 06/02/2018 MED GEN (Ammir Mac medications (procedure) 12:00:00 AM EST P hysician) Documentation of current 06/02/2018 MED GEN (Ammir Mac medications (procedure) 12:00:00 AM EST P hysician) Documentation of current 06/02/2018 MED GEN (Ammir Mac medications (procedure) 12:00:00 AM EST P hysician) Documentation of current 06/02/2018 MED GEN (Ammir Mac medications (procedure) 12:00:00 AM EST P hysician) Documentation of current 06/02/2018 MED GEN (Ammir Mac medications (procedure) 12:00:00 AM EST P hysician) Documentation of current 06/02/2018 MED GEN (Ammir Mac medications (procedure) 12:00:00 AM EST P hysician) Documentation of current 05/04/2018 MED GEN (Ammir Mac medications (procedure) 12:00:00 AM EST P hysician) Documentation of current 05/04/2018 MED GEN (Ammir Mac medications (procedure) 12:00:00 AM EST P hysician) Documentation of current 05/04/2018 MED GEN (Ammir Mac medications (procedure) 12:00:00 AM EST P hysician) Documentation of current 05/04/2018 MED GEN (Ammir Mac medications (procedure) 12:00:00 AM EST P hysician) Documentation of current 05/04/2018 MED GEN (Ammir Mac medications (procedure) 12:00:00 AM EST P hysician) Documentation of current 03/29/2018 MED GEN (Ammir Mac medications (procedure) 12:00:00 AM EST P hysician) Documentation of current 03/29/2018 MED GEN (Ammir Mac medications (procedure) 12:00:00 AM EST P hysician) Documentation of current 03/29/2018 MED GEN (Ammir Mac medications (procedure) 12:00:00 AM EST P hysician) Documentation of current 03/29/2018 MED GEN (Ammir Mac medications (procedure) 12:00:00 AM EST P hysician) Documentation of current 03/29/2018 MED GEN (Ammir Mac medications (procedure) 12:00:00 AM EST P hysician) Documentation of current 03/29/2018 MED GEN (Ammir Mac medications (procedure) 12:00:00 AM EST P hysician) Documentation of current 03/29/2018 MED GEN (Ammir Mac medications (procedure) 12:00:00 AM EST P hysician) Documentation of current 03/29/2018 MED GEN (Ammir Mac medications (procedure) 12:00:00 AM EST P hysician) Documentation of current 03/29/2018 MED GEN (Ammir Mac medications (procedure) 12:00:00 AM EST P hysician) Documentation of current 03/08/2018 MED GEN (Ammir Mac medications (procedure) 12:00:00 AM EDT P hysician) Documentation of current 03/08/2018 MED GEN (Ammir Mac medications (procedure) 12:00:00 AM EDT P hysician) Documentation of current 03/08/2018 MED GEN (Ammir Mac medications (procedure) 12:00:00 AM EDT P hysician) Documentation of current 03/08/2018 MED [facility] (Ammir Mac medications (procedure) 12:00:00 AM EDT P hysician) Documentation of current 03/08/2018 [facility] (Ammir Mac medications (procedure) 12:00:00 AM EDT P hysician) Documentation of current 03/08/2018 [facility] (Ammir Mac medications (procedure) 12:00:00 AM EDT P hysician) Documentation of current 03/08/2018 [facility] (Ammir Mac medications (procedure) 12:00:00 AM EDT P hysician) Documentation of current 03/08/2018 [facility] (Ammir Mac medications (procedure) 12:00:00 AM EDT P hysician) Documentation of current 03/08/2018 [facility] (Ammir Mac medications (procedure) 12:00:00 AM EDT P hysician) Documentation of current 03/08/2018 [facility] (Ammir Mac medications (procedure) 12:00:00 AM EDT P hysician) Documentation of current 02/26/2018 [facility] GEN (Ammir Mac medications (procedure) 12:00:00 AM EDT P hysician) Documentation of current 02/26/2018 [facility] (Ammir Mac medications (procedure) 12:00:00 AM EDT P hysician) Documentation of current 02/26/2018 [facility] (Ammir Mac medications (procedure) 12:00:00 AM EDT P hysician) Colonoscopy (procedure) 02/16/2018 MED[facility] EN (Ammir Mac 12:00:00 AM EDT Physician) Documentation of current 01/13/2018 MED GEN (Ammir Mac medications (procedure) 12:00:00 AM EDT P hysician) Documentation of current 01/13/2018 [facility] (Ammir Mac medications (procedure) 12:00:00 AM EDT P hysician) Documentation of current 01/13/2018 [facility] (Ammir Mac medications (procedure) 12:00:00 AM EDT P hysician) Documentation of current 01/13/2018 [facility] GEN (Ammir Mac medications (procedure) 12:00:00 AM EDT P hysician) Documentation of current 01/13/2018 [facility] GEN (Ammir Mac medications (procedure) 12:00:00 AM EDT P hysician) Documentation of current 01/13/2018 [facility] (Ammir Mac medications (procedure) 12:00:00 AM EDT P hysician) Documentation of current 01/13/2018 [facility] GEN (Ammir Mac medications (procedure) 12:00:00 AM EDT P hysician) Documentation of current 01/13/2018 [facility] GEN (Ammir Mac medications (procedure) 12:00:00 AM EDT P hysician) Documentation of current 01/13/2018 [facility] GEN (Ammir Mac medications (procedure) 12:00:00 AM EDT P hysician) Documentation of current 01/13/2018 [facility] (Ammir Mac medications (procedure) 12:00:00 AM EDT P hysician) Documentation of current 12/28/2017 [facility] (Ammir Mac medications (procedure) 12:00:00 AM EDT P hysician) Documentation of current 12/28/2017 [facility] GEN (Ammir Mac medications (procedure) 12:00:00 AM EDT P hysician) Documentation of current 12/28/2017 [facility] GEN (Ammir Mac medications (procedure) 12:00:00 AM EDT P hysician) Documentation of current 12/28/2017 MED GEN (Ammir Mac medications (procedure) 12:00:00 AM EDT P hysician) Documentation of current 10/23/2017 MED GEN (Ammir Mac medications (procedure) 12:00:00 AM EDT P hysician) Documentation of current 10/23/2017 MED GEN (Ammir Mac medications (procedure) 12:00:00 AM EDT P hysician) Documentation of current 10/23/2017 [facility] GEN (Ammir Mac medications (procedure) 12:00:00 AM EDT P hysician) Documentation of current 10/23/2017 [facility] GEN (Ammir Mac medications (procedure) 12:00:00 AM EDT P hysician) Documentation of current 10/23/2017 MED GEN (Ammir Mac medications (procedure) 12:00:00 AM EDT P hysician) Documentation of current 10/23/2017 MED GEN (Ammir Mac medications (procedure) 12:00:00 AM EDT P hysician) Documentation of current 10/23/2017 MED GEN (Ammir Mac medications (procedure) 12:00:00 AM EDT P hysician) Documentation of current 10/23/2017 MED GEN (Ammir Mac medications (procedure) 12:00:00 AM EDT P hysician) Documentation of current 10/23/2017 [facility] GEN (Ammir Mac medications (procedure) 12:00:00 AM EDT P hysician) Documentation of current 10/23/2017 [facility] GEN (Ammir Mac medications (procedure) 12:00:00 AM EDT P hysician) Documentation of current 10/23/2017 [facility] (Ammir Mac medications (procedure) 12:00:00 AM EDT P hysician) Documentation of current 10/23/2017 [facility] GEN (Ammir Mac medications (procedure) 12:00:00 AM EDT P hysician) Documentation of current 10/23/2017 [facility] GEN (Ammir Mac medications (procedure) 12:00:00 AM EDT P hysician) Documentation of current 10/23/2017 [facility] GEN (Ammir Mac medications (procedure) 12:00:00 AM EDT P hysician) Documentation of current 10/23/2017 [facility] (Ammir Mac medications (procedure) 12:00:00 AM EDT P hysician) OFFICE OUTPATIENT VISIT 25 08/19/2017 Jeri PAL ([facility] MINUTES 12:00:00 AM EDT Physician) ARTHROCENTESIS 08/19/2017 [facility] (Ammir Mac ASPIR&/INJECTION MAJOR 12:00:00 AM EDT Ph ysician) JT/BURSA Documentation of current 07/23/2017 MED GEN (Ammir Mac medications (procedure) 12:00:00 AM EST P hysician) Documentation of current 07/23/2017 [facility] GEN (Ammir Mac medications (procedure) 12:00:00 AM EST P hysician) Documentation of current 07/23/2017 [facility] GEN (Ammir Mac medications (procedure) 12:00:00 AM EST P hysician) Documentation of current 07/23/2017 [facility] GEN (Ammir Mac medications (procedure) 12:00:00 AM EST P hysician) Documentation of current 07/23/2017 [facility] GEN (Ammir Mac medications (procedure) 12:00:00 AM EST P hysician) Documentation of current 07/23/2017 [facility] GEN (Ammir Mac medications (procedure) 12:00:00 AM EST P hysician) Documentation of current 07/23/2017 [facility] GEN (Ammir Mac medications (procedure) 12:00:00 AM EST P hysician) Documentation of current 07/23/2017 [facility] GEN (Ammir Mac medications (procedure) 12:00:00 AM EST P hysician) Documentation of current 07/23/2017 [facility] (Ammir Mac medications (procedure) 12:00:00 AM EST P hysician) Documentation of current 07/23/2017 [facility] GEN (Ammir Mac medications (procedure) 12:00:00 AM EST P hysician) Documentation of current 07/23/2017 [facility] GEN (Ammir Mac medications (procedure) 12:00:00 AM EST P hysician) Documentation of current 07/23/2017 [facility] GEN (Ammir Mac medications (procedure) 12:00:00 AM EST P hysician) Documentation of current 07/23/2017 [facility] GEN (Ammir Mac medications (procedure) 12:00:00 AM EST P hysician) Documentation of current 07/23/2017 [facility] GEN (Ammir Mac medications (procedure) 12:00:00 AM EST P hysician) Documentation of current 07/23/2017 MED GEN (Ammir Mac medications (procedure) 12:00:00 AM EST P hysician) Documentation of current 07/23/2017 [facility] GEN (Ammir Mac medications (procedure) 12:00:00 AM EST P hysician) OFFICE OUTPATIENT VISIT 07/23/2017 Jeri PAL (Ammir Mac MINUTES 12:00:00 AM EST Physician) ARTHROCENTESIS 07/23/2017 [facility] (Ammir Mac ASPIR&/INJECTION MAJOR 12:00:00 AM EST Ph ysician) JT/BURSA OFFICE OUTPATIENT VISIT 04/30/2017 Jeri PAL (Ammir Mac MINUTES 12:00:00 AM EST Physician) ARTHROCENTESIS 04/30/2017 [facility] (Ammir Mac ASPIR&/INJECTION MAJOR 12:00:00 AM EST Ph ysician) JT/BURSA OFFICE OUTPATIENT VISIT 03/26/2017 Jeri PAL (Ammir Mac MINUTES 12:00:00 AM EDT Physician) ARTHROCENTESIS 03/26/2017 [facility] (Ammir Mac ASPIR&/INJECTION MAJOR 12:00:00 AM EDT Ph ysician) JT/BURSA OFFICE OUTPATIENT VISIT 02/26/2017 Jeri KAE (Ammir Mac MINUTES 12:00:00 AM EDT Physician) ARTHROCENTESIS 02/26/2017 [facility] (Ammir Mac ASPIR&/INJECTION MAJOR 12:00:00 AM EDT Ph ysician) JT/BURSA OFFICE OUTPATIENT VISIT 02/05/2017 Jeri KAE (Ammir Mac MINUTES 12:00:00 AM EDT Physician) ARTHROCENTESIS 02/05/2017 [facility] (Ammir Mac ASPIR&/INJECTION MAJOR 12:00:00 AM EDT Ph ysician) JT/BURSA OFFICE OUTPATIENT VISIT 12/31/2016 Jeri KAE (Ammir Mac MINUTES 12:00:00 AM EDT Physician) ARTHROCENTESIS 12/31/2016 [facility] (Ammir Mac ASPIR&/INJECTION MAJOR 12:00:00 AM EDT Ph ysician) JT/BURSA OFFICE OUTPATIENT VISIT 12/26/2016 Jeri KAE (Ammir Mac MINUTES 12:00:00 AM EDT Physician) ARTHROCENTESIS 12/26/2016 [facility] (Ammir Mac ASPIR&/INJECTION MAJOR 12:00:00 AM EDT Ph ysician) JT/BURSA Generalized anxiety 12/01/2016 [facility] ( Ammir Mac disorder 7 item scale 12:00:00 AM EDT Phy sician) (assessment scale) Drugs of abuse screening 12/01/2016 MED GEN (Ammir Mac test (procedure) 12:00:00 AM EDT Physicia n) OFFICE OUTPATIENT VISIT 12/01/2016 Jeri KAE (Ammir Mac MINUTES 12:00:00 AM EDT Physician) ARTHROCENTESIS 12/01/2016 [facility] (Ammir Mac ASPIR&/INJECTION MAJOR 12:00:00 AM EDT Ph ysician) JT/BURSA OFFICE OUTPATIENT VISIT 25 11/20/2016 Jeri PAL (Ammir Mac MINUTES 12:00:00 AM EDT Physician) ARTHROCENTESIS 11/20/2016 [facility] (Ammir Mac ASPIR&/INJECTION MAJOR 12:00:00 AM EDT Ph ysician) JT/BURSA OFFICE OUTPATIENT VISIT 10/24/2016 Jeri PAL (Ammir Mac MINUTES 12:00:00 AM EDT Physician) ARTHROCENTESIS 10/24/2016 [facility] (Ammir Mac ASPIR&/INJECTION MAJOR 12:00:00 AM EDT Ph ysician) JT/BURSA OFFICE OUTPATIENT VISIT 09/25/2016 Jeri PAL (Ammir Mac MINUTES 12:00:00 AM EDT Physician) ARTHROCENTESIS 09/25/2016 [facility] (Ammir Mac ASPIR&/INJECTION MAJOR 12:00:00 AM EDT Ph ysician) JT/BURSA Results ID Date Data Source [id number] 11/17/2019 12:00:00 AM EDT [facility] (Ammir Mac Physician) Name Value Range Interpretation Description Data Sup porting Code Source(s) Document(s ) BILIRUBIN, TOTAL NEGATIVE Normal (applies [facility] to non-numeric (Ammir results) Mac Physician) GLUCOSE UA NEGATIVE Normal (applies [facility] to non-numeric (Ammir results) Mac Physician) Ketones NEGATIVE Normal (applies [facility] [Presence] in to non-numeric (Ammir Blood by Tablet results) Mac Physician) Specific gravity 1.025 SG Normal (applies [facility] of Pericardial units to non-numeric (Ammir fluid by results) Mac Refractometry Physician) Blood [Presence] NEGATIVE Normal (applies [facility] in Urine by to non-numeric (Ammir Visual results) Mac Physician) pH of Lower 5 Ph units Normal (applies [facility] respiratory to non-numeric (Ammir specimen results) Mac Physician) Protein NEGATIVE Normal (applies [facility] [Mass/volume] in to non-numeric (Ammir Lower results) Mac respiratory Physician) specimen Urobilinogen 0-2.0 Normal (applies [facility]GEN [Presence] in to non-numeric (Ammir Urine by results) Mac Automated test Physician) strip Nitrite NEGATIVE Normal (applies [facility] [Presence] in to non-numeric (Ammir Urine by Test results) Mac strip Physician) Leukocyte TRACE Abnormal MEDGEN esterase (applies to (Ammir [Presence] in non-numeric Mac Body fluid by results) Physician) Automated test strip Color of YELLOW Normal (applies [facility] Peritoneal to non-numeric (Ammir dialysis fluid results) Mac Physician) TRANSPARENCY CLOUDY Abnormal [facility]GEN (applies to (Ammir non-numeric Mac results) Physician) WBC`S 6-10 Abnormal [facility]GEN (applies to (Ammir non-numeric Mac results) Physician) RBC`S 0-4 Normal (applies [facility]GEN to non-numeric (Ammir results) Mac Physician) Bacteria FEW Abnormal [facility] [Presence] in (applies to (Ammir Prostatic fluid non-numeric Mac by Light results) Physician) microscopy SQUAMOUS FEW Normal (applies [facility] EPITHELIAL to non-numeric (Ammir results) Mac Physician) MUCOUS FEW Normal (applies [facility] to non-numeric (Ammir results) Mac Physician) Calcium Oxalate FEW Abnormal MEDGEN Crystal (applies to (Ammir non-numeric Mac results) Physician) ID Date Data Source [id number] 11/17/2019 12:00:00 AM EDT [facility] (Ammir Mac Physician) Name Value Range Interpretation Description Data Sup porting Code Source(s) Document(s ) HEPATITIS BS NONREACTIVE Normal (applies [facility] AG SCREEN to non-numeric (Ammir results) Mac Physician) ID Date Data Source [id number] 11/17/2019 12:00:00 AM EDT [facility] (Ammir Mac Physician) Name Value Range Interpretation Description Data Sup porting Code Source(s) Document(s ) HEPATITIS B <3.10 Normal (applies to [facility] (A mmir SURFACE AB (NONREACT non-numeric Mac BRAXTON) results) Physician) ID Date Data Source [id number] 11/17/2019 12:00:00 AM EDT [facility] (Ammir Mac Physician) Name Value Range Interpretation Description Data Sup porting Code Source(s) Document(s ) HEPATITIS A NONREACTIVE Normal (applies [facility] AB to non-numeric (Ammir results) Mac Physician) ID Date Data Source [id number] 11/17/2019 12:00:00 AM EDT [facility] (Ammir Mac Physician) Name Value Range Interpretation Description Data Sup porting Code Source(s) Document(s ) HIV 1,2 NONREACTIVE Normal (applies [facility] AG/AB,4TH to non-numeric (Ammir GENERATION results) Mac Physician) ID Date Data Source [id number] 11/17/2019 12:00:00 AM EDT [facility] (Ammir Mac Physician) Name Value Range Interpretation Description Data Sup porting Code Source(s) Document(s ) ORGANISM Abnormal (applies [facility] to non-numeric (Ammir results) Mac Physician) Comment Normal (applies [facility] [Interpretation] to non-numeric (Ammir Left eye Narrative results) Mac Ophthalmometer Physician) ID Date Data Source [id number] 11/17/2019 12:00:00 AM EDT [facility] (Ammir Mac Physician) Name Value Range Interpretation Description Data Sup porting Code Source(s) Document(s ) HEPATITIS C NONREACTIVE Normal (applies [facility] AB QL to non-numeric (Ammir results) Mac Physician) ID Date Data Source [id number] 11/17/2019 12:00:00 AM EDT [facility] (Ammir Mac Physician) Name Value Range Interpretation Description Data Sup porting Code Source(s) Document(s ) WBC 12.0 Above high normal [facility] 10(3)/uL (Ammir Mac Physician) RBC 5.4 Above high normal [facility] 10(6)/uL (Ammir Mac Physician) Hemoglobin 16.4 g/dL Above high normal [facility] [Mass/volume] (Ammir in Mixed venous Mac blood by Physician) Oximetry Hematocrit 48.8 % Above high normal [facility] [Pure volume (Ammir fraction] of Mac Blood by Physician) Automated count MCV 90.9 fL Normal (applies [facility] to non-numeric (Ammir results) Mac Physician) MCH 31 pg Normal (applies [facility] to non-numeric (Ammir results) Mac Physician) MCHC 34 g/dL Normal (applies [facility] to non-numeric (Ammir results) Mac Physician) RDWCV 13.2 % Normal (applies [facility] to non-numeric (Ammir results) Mac Physician) RDWSD 43.8 fL Normal (applies [facility] to non-numeric (Ammir results) Mac Physician) Platelet Count 344 Normal (applies [facility] 10(3)/uL to non-numeric (Ammir results) Mac Physician) MPV 11.8 fL Normal (applies [facility] to non-numeric (Ammir results) Mac Physician) Neutrophil Abs 7.13 Above high normal [facility] 10(3)/uL (Ammir Mac Physician) Lymphocyte Abs 3.67 Normal (applies [facility] 10(3)/uL to non-numeric (Ammir results) Mac Physician) Monocyte Abs 0.94 Above high normal [facility] 10(3)/uL (Ammir Mac Physician) Eosinophil Abs 0.15 Normal (applies [facility] 10(3)/uL to non-numeric (Ammir results) Mac Physician) Basophil Abs 0.07 Normal (applies [facility] 10(3)/uL to non-numeric (Ammir results) Mac Physician) Immature 0.04 Normal (applies [facility] Granulocyte Abs 10(3)/uL to non-numeric (Ammir results) Mac Physician) Neutrophil % 59.40 % Normal (applies [facility] to non-numeric (Ammir results) Mac Physician) Lymphocyte % 31 % Normal (applies [facility] to non-numeric (Ammir results) Mac Physician) Monocyte % 7.8 % Normal (applies [facility] to non-numeric (Ammir results) Mac Physician) Eosinophil % 1.3 % Normal (applies [facility] to non-numeric (Ammir results) Mac Physician) Basophil % 0.6 % Normal (applies [facility] to non-numeric (Ammir results) Mac Physician) Immature 0.30 % Normal (applies [facility]GEN Granulocyte % to non-numeric (Ammir results) Mac Physician) NRBC % 0.0 % Normal (applies [facility] to non-numeric (Ammir results) Mac Physician) NRBC Abs 0.00 Normal (applies [facility] 10(3)/uL to non-numeric (Ammir results) Mac Physician) ID Date Data Source [id number] 11/06/2019 09:43:00 AM EDT [facility] Name Value Range Interpretation Description Data Sup porting Code Source(s) Document(s ) 2019 Novel [facility] Coronavirus RNA Interpretation Unspecified Specimen Qualitative FRANCES Probe Detection This lab was ordered by [id number] and reported by [facility]. ID Date Data Source [id number] 10/19/2019 12:00:00 AM EDT [facility] (Ammir Mac Physician) Name Value Range Interpretation Description Data Sup porting Code Source(s) Document(s ) NGYN RESULTS Specimen# Normal (applies to MEDGEN ( Ammir [id number] non-numeric Mac 15 results) Physician) ID Date Data Source [id number] 10/19/2019 12:00:00 AM EDT [facility] (Ammir Mac Physician) Name Value Range Interpretation Code Description Data Supporting Source(s) Document(s ) SARS-CoV- 3.80 AU/mL Normal (applies to MEDGEN (Am darby 2 IGG QNT non-numeric Mac results) Physician) SARS-CoV- NEGATIVE Normal (applies to [facility]GEN (Amm ir 2 IGG non-numeric Mac results) Physician) ID Date Data Source [id number] 10/19/2019 12:00:00 AM EDT [facility] (Ammir Mac Physician) Name Value Range Interpretation Description Data Sup porting Code Source(s) Document(s ) GLUCOSE UA >=500 Abnormal MEDGEN (applies to (Ammir non-numeric Mac results) Physician) BILIRUBIN, TOTAL NEGATIVE Normal (applies [facility] to non-numeric (Ammir results) Mac Physician) Ketones NEGATIVE Normal (applies [facility] [Presence] in to non-numeric (Ammir Blood by Tablet results) Mac Physician) Specific gravity 1.020 SG Normal (applies [facility]GEN of Pericardial units to non-numeric (Ammir fluid by results) Mac Refractometry Physician) Blood [Presence] NEGATIVE Normal (applies [facility] in Urine by to non-numeric (Ammir Visual results) Mac Physician) pH of Lower 5 Ph units Normal (applies MEDGEN respiratory to non-numeric (Ammir specimen results) Mac Physician) Protein 30 mg/dL Abnormal [facility] [Mass/volume] in (applies to (Ammir Lower non-numeric Mac respiratory results) Physician) specimen Urobilinogen 0-2.0 Normal (applies [facility]GEN [Presence] in to non-numeric (Ammir Urine by results) Mac Automated test Physician) strip Nitrite NEGATIVE Normal (applies [facility] [Presence] in to non-numeric (Ammir Urine by Test results) Mac strip Physician) Leukocyte TRACE Abnormal MEDGEN esterase (applies to (Ammir [Presence] in non-numeric Mac Body fluid by results) Physician) Automated test strip Color of TAL Abnormal MEDGEN Peritoneal (applies to (Ammir dialysis fluid non-numeric Mac results) Physician) TRANSPARENCY CLOUDY Abnormal MEDGEN (applies to (Ammir non-numeric Mac results) Physician) WBC`S 6-10 Abnormal MEDGEN (applies to (Ammir non-numeric Mac results) Physician) RBC`S 3-5 Abnormal MEDGEN (applies to (Ammir non-numeric Mac results) Physician) Bacteria FEW Abnormal MEDGEN [Presence] in (applies to (Ammir Prostatic fluid non-numeric Mac by Light results) Physician) microscopy SQUAMOUS FEW Normal (applies [facility] EPITHELIAL to non-numeric (Ammir results) Mac Physician) MUCOUS FEW Normal (applies [facility] to non-numeric (Ammir results) Mac Physician) ID Date Data Source [id number] 10/19/2019 12:00:00 AM EDT [facility] (Ammir Mac Physician) Name Value Range Interpretation Description Data Sup porting Code Source(s) Document(s ) TSH,3RD 1.95 Normal (applies to [facility] GENERATION uIU/mL non-numeric (Ammir results) Mac Physician) T4 FREE, 1.55 Normal (applies to [facility] THYROXINE ng/dL non-numeric (Ammir results) Mac Physician) ID Date Data Source [id number] 10/19/2019 12:00:00 AM EDT [facility] (Ammir Mac Physician) Name Value Range Interpretation Description Data Sup porting Code Source(s) Document(s ) Ferritin 99.9 Normal (applies to [facility]GEN (Amm ir [Interpretat ng/mL non-numeric Mac ion] in results) Physician) Blood ID Date Data Source [id number] 10/19/2019 12:00:00 AM EDT [facility] (Ammir Mac Physician) Name Value Range Interpretation Description Data Sup porting Code Source(s) Document(s ) Transferrin 311 mg/dL Normal (applies [facility] [Mass/time] in to non-numeric (Ammir 24 hour Urine results) Mac Physician) TIBC 436.1 Normal (applies [facility]GEN ug/dL to non-numeric (Ammir results) Mac Physician) UIBC 396.1 Above high normal [facility] ug/dL (Ammir Mac Physician) %SATURATION 9.2 % Below low normal [facility] (Ammir Mac Physician) ID Date Data Source [id number] 10/19/2019 12:00:00 AM EDT [facility] (Ammir Mac Physician) Name Value Range Interpretation Description Data Sup porting Code Source(s) Document(s ) FOLATE SERUM 6.8 ng/mL Normal (applies to MEDGEN ( Ammir non-numeric Mac results) Physician) VITAMIN B12 1057 Above high normal MEDGEN (Am darby pg/mL Mac Physician) ID Date Data Source [id number] 10/19/2019 12:00:00 AM EDT [facility] (Ammir Mac Physician) Name Value Range Interpretation Description Data Sup porting Code Source(s) Document(s ) MICROALBUMIN 13.5 Normal (applies [facility] URINE mg/dL to non-numeric (Ammir results) Mac Physician) CREATININE, 172.5 Normal (applies [facility] URINE mg/dL to non-numeric (Ammir results) Mac Physician) MICROALBUMIN/CRE 78.3 Above high normal MEDGE N ATININ RATIO mg/g (Ammir creat Mac Physician) ID Date Data Source [id number] 10/19/2019 12:00:00 AM EDT [facility] (Ammir Mac Physician) Name Value Range Interpretation Description Data Sup porting Code Source(s) Document(s ) VITAMIN D 8.88 Below low normal [facility] (Ammir 25-HYDROXY ng/mL Mac Physician) ID Date Data Source [id number] 10/19/2019 12:00:00 AM EDT [facility] (Ammir Mac Physician) Name Value Range Interpretation Description Data Sup porting Code Source(s) Document(s ) Cholesterol 174 Normal (applies [facility] [Moles/volume] mg/dL to non-numeric (Ammir in Pericardial results) Mac fluid Physician) LDL CALCULATION 74.0 Normal (applies [facility]GEN mg/dL to non-numeric (Ammir results) Mac Physician) HDL CHOLESTEROL 35 mg/dL Below low normal [facility] (Ammir Mac Physician) CHOL/HDL RATIO 4.97 Normal (applies [facility]GEN ratio to non-numeric (Ammir results) Mac Physician) VLDL CALCULATION 65.0 Above high normal MEDGE N mg/dl (Ammir Mac Physician) TRIGLYCERIDES 325 Above high normal [facility]GEN mg/dL (Ammir Mac Physician) ID Date Data Source [id number] 10/19/2019 12:00:00 AM EDT [facility] (Ammir Mac Physician) Name Value Range Interpretation Code Description Data Aretha rce(s) Supporting Document(s ) IRON, 40 ug/dL Below low normal [facility] (Ammir TOTAL Mac Physician) ID Date Data Source [id number] 10/19/2019 12:00:00 AM EDT [facility] (Ammir Mac Physician) Name Value Range Interpretation Description Data Sup porting Code Source(s) Document(s ) WBC 15.0 Above high normal [facility] 10(3)/uL (Ammir Mac Physician) RBC 5.8 Above high normal [facility] 10(6)/uL (Ammir Mac Physician) Hemoglobin 17.9 g/dL Above high normal [facility] [Mass/volume] (Ammir in Mixed venous Mac blood by Physician) Oximetry Hematocrit 53.2 % Above high normal [facility] [Pure volume (Ammir fraction] of Mac Blood by Physician) Automated count MCV 91.4 fL Normal (applies [facility]GEN to non-numeric (Ammir results) Mac Physician) MCH 31 pg Normal (applies [facility]GEN to non-numeric (Ammir results) Mac Physician) MCHC 34 g/dL Normal (applies [facility] to non-numeric (Ammir results) Mac Physician) RDWSD 44.2 fL Normal (applies [facility] to non-numeric (Ammir results) Mac Physician) RDWCV 13.3 % Normal (applies [facility] to non-numeric (Ammir results) Mac Physician) Platelet Count 356 Normal (applies [facility] 10(3)/uL to non-numeric (Ammir results) Mac Physician) MPV 11.2 fL Normal (applies [facility] to non-numeric (Ammir results) Mac Physician) Neutrophil Abs 9.54 Above high normal [facility] 10(3)/uL (Ammir Mac Physician) Lymphocyte Abs 4.23 Above high normal [facility] 10(3)/uL (Ammir Mac Physician) Monocyte Abs 0.98 Above high normal [facility] 10(3)/uL (Ammir Mac Physician) Eosinophil Abs 0.09 Normal (applies [facility] 10(3)/uL to non-numeric (Ammir results) Mac Physician) Basophil Abs 0.07 Normal (applies [facility] 10(3)/uL to non-numeric (Ammir results) Mac Physician) Immature 0.05 Normal (applies [facility]GEN Granulocyte Abs 10(3)/uL to non-numeric (Ammir results) Mac Physician) Neutrophil % 63.70 % Normal (applies [facility] to non-numeric (Ammir results) Mac Physician) Lymphocyte % 28 % Normal (applies [facility] to non-numeric (Ammir results) Mac Physician) Monocyte % 6.6 % Normal (applies [facility] to non-numeric (Ammir results) Mac Physician) Eosinophil % 0.6 % Normal (applies [facility] to non-numeric (Ammir results) Mac Physician) Basophil % 0.5 % Normal (applies [facility] to non-numeric (Ammir results) Mac Physician) Immature 0.30 % Normal (applies [facility] Granulocyte % to non-numeric (Ammir results) Mac Physician) NRBC % 0.0 % Normal (applies [facility] to non-numeric (Ammir results) Mac Physician) NRBC Abs 0.00 Normal (applies [facility] 10(3)/uL to non-numeric (Ammir results) Mac Physician) ID Date Data Source [id number] 10/19/2019 12:00:00 AM EDT [facility] (Ammir Mac Physician) Name Value Range Interpretation Description Data Sup porting Code Source(s) Document(s ) Hemoglobin A1c 11.1 % Above high normal [facility] (Ammir in Blood Mac Physician) ID Date Data Source [id number] 10/19/2019 12:00:00 AM EDT [facility] (Ammir Mac Physician) Name Value Range Interpretation Description Data Sup porting Code Source(s) Document(s ) GLUCOSE 302 Above high normal [facility] NONFASTING,SERUM mg/dL (Ammir Mac Physician) SODIUM, SERUM 138 Normal (applies [facility] mEq/L to non-numeric (Ammir results) Mac Physician) POTASSIUM, SERUM 4.5 Normal (applies [facility] mEq/L to non-numeric (Ammir results) [facility] Physician) CHLORIDE, SERUM 102 Normal (applies [facility] mEq/L to non-numeric (Ammir results) [facility] Physician) Carbon dioxide 24 mEq/L Normal (applies [facility] [VFr/PPres] in to non-numeric (Ammir Gas delivery results) Mac system Physician) Anion gap in 16.5 Normal (applies [facility] Body fluid mEq/L to non-numeric (Ammir results) Mac Physician) BLOOD UREA 9 mg/dL Normal (applies [facility] NITROGEN to non-numeric (Ammir results) Mac Physician) CREATININE, 0.80 Normal (applies [facility] SERUM mg/dL to non-numeric (Ammir results) Mac Physician) CALCIUM, SERUM 10.4 Normal (applies [facility] mg/dL to non-numeric (Ammir results) Mac Physician) TOTAL PROTEIN 7.9 g/dL Normal (applies [facility] to non-numeric (Ammir results) Mac Physician) Microalbumin 5.1 g/dL Normal (applies [facility] [Mass/time] in to non-numeric (Ammir Urine collected results) Mac for unspecified Physician) duration Globulin 2.8 gldl Normal (applies [facility] [Mass/time] in to non-numeric (Ammir 24 hour Urine results) Mac Physician) A/G RATIO 1.82 Normal (applies [facility] g/dl to non-numeric (Ammir results) Mac Physician) BILIRUBIN, TOTAL 0.3 Normal (applies [facility] mg/dL to non-numeric (Ammir results) Mac Physician) ALKALINE 108 U/L Normal (applies [facility] PHOSPHATASE, ALP to non-numeric (Ammir results) Mac Physician) ALT (SGPT) 34 U/L Normal (applies [facility] to non-numeric (Ammir results) Mac Physician) AST 27 U/L Normal (applies [facility] to non-numeric (Ammir results) Mac Physician) EGFR NON AFR 79 Normal (applies [facility] [place] mL/min/1 to non-numeric (Ammir .73m2 results) Mac Physician) EGFR AFR 95 Normal (applies [facility] [place] mL/min/1 to non-numeric (Ammir .73m2 results) Mac Physician) ID Date Data Source [id number] 04/26/2019 12:00:00 AM EST [facility] (Ammir Mac Physician) Name Value Range Interpretation Description Data Sup porting Code Source(s) Document(s ) Amphetamines NEGATIVE Normal (applies [facility] [Presence] in to non-numeric (Ammir Stool results) Mac Physician) BENZODIAZEPINE NEGATIVE Normal (applies [facility] to non-numeric (Ammir results) [facility] Physician) Barbiturates NEGATIVE Normal (applies [facility] [Mass/volume] in to non-numeric (Ammir Serum or Plasma results) Mac Physician) Methadone NEGATIVE Normal (applies [facility] [Mass/volume] in to non-numeric (Ammir Blood results) Mac Physician) Opiates NEGATIVE Normal (applies [facility] [Presence] in to non-numeric (Ammir Unknown substance results) Mac by Confirmatory Physician) method PCP NEGATIVE Normal (applies [facility] (PHENCYCLIDINE) to non-numeric (Ammir results) Mac Physician) Cocaine NEGATIVE Normal (applies [facility] [Presence] in to non-numeric (Ammir Unknown substance results) Mac by Confirmatory Physician) method Cannabinoids POSITIVE Abnormal [facility] [Presence] in (applies to (Ammir Unknown substance non-numeric Mac by Confirmatory results) Physician) method Propoxyphene NEGATIVE Normal (applies [facility] [Presence] in to non-numeric (Ammir Meconium by results) Mac Screen method Physician) Ethanol NEGATIVE Normal (applies [facility] [Mass/volume] in to non-numeric (Ammir Urine collected results) Mac for unspecified Physician) duration CREATININE,URINE 108.1 Normal (applies [facility] mg/dL to non-numeric (Ammir results) Mac Physician) ID Date Data Source [id number] 04/26/2019 12:00:00 AM EST [facility] (Ammir Mac Physician) Name Value Range Interpretation Description Data Sup porting Code Source(s) Document(s ) WBC 16.9 Above high normal [facility] 10(3)/uL (Ammir Mac Physician) RBC 5.4 Above high normal [facility] 10(6)/uL (Ammir Mac Physician) Hemoglobin 17.1 g/dL Above high normal [facility] [Mass/volume] (Ammir in Mixed venous Mac blood by Physician) Oximetry Hematocrit 49.9 % Above high normal [facility] [Pure volume (Ammir fraction] of Mac Blood by Physician) Automated count MCV 92.1 fL Normal (applies [facility] to non-numeric (Ammir results) Mac Physician) MCH 32 pg Normal (applies [facility] to non-numeric (Ammir results) Mac Physician) MCHC 34 g/dL Normal (applies [facility] to non-numeric (Ammir results) Mac Physician) RDWSD 40.7 fL Normal (applies [facility] to non-numeric (Ammir results) Mac Physician) RDWCV 12.2 % Normal (applies [facility] to non-numeric (Ammir results) Mac Physician) Platelet Count 387 Normal (applies [facility] 10(3)/uL to non-numeric (Ammir results) Mac Physician) MPV 11.2 fL Normal (applies [facility] to non-numeric (Ammir results) Mac Physician) Neutrophil Abs 10.64 Above high normal [facility] 10(3)/uL ([facility]mm[facility] Physician) Lymphocyte Abs 5.03 Above high normal [facility] 10(3)/uL (Ammir Mac Physician) Monocyte Abs 0.93 Normal (applies [facility] 10(3)/uL to non-numeric (Ammir results) Mac Physician) Eosinophil Abs 0.20 Normal (applies [facility] 10(3)/uL to non-numeric (Ammir results) Mac Physician) Immature 0.07 Normal (applies [facility] Granulocyte Abs 10(3)/uL to non-numeric (Ammir results) Mac Physician) Basophil Abs 0.09 Above high normal [facility] 10(3)/uL (Ammir Mac Physician) Neutrophil % 63.00 % Normal (applies [facility] to non-numeric (Ammir results) Mac Physician) Lymphocyte % 30 % Normal (applies [facility] to non-numeric (Ammir results) Mac Physician) Monocyte % 5.5 % Normal (applies [facility] to non-numeric (Ammir results) Mac Physician) Eosinophil % 1.2 % Normal (applies [facility] to non-numeric (Ammir results) Mac Physician) Basophil % 0.5 % Normal (applies [facility] to non-numeric (Ammir results) Mac Physician) Immature 0.40 % Normal (applies [facility] Granulocyte % to non-numeric (Ammir results) Mac Physician) NRBC % 0.0 % Normal (applies [facility] to non-numeric (Ammir results) Mac Physician) NRBC Abs 0.00 Normal (applies [facility] 10(3)/uL to non-numeric (Ammir results) Mac Physician) ID Date Data Source [id number] 04/26/2019 12:00:00 AM EST [facility] (Ammir Mac Physician) Name Value Range Interpretation Description Data Sup porting Code Source(s) Document(s ) Hemoglobin A1c 8.5 % Above high normal [facility] (Ammir in Blood Mac Physician) ID Date Data Source [id number] 04/26/2019 12:00:00 AM EST [facility] (Ammir Mac Physician) Name Value Range Interpretation Description Data Sup porting Code Source(s) Document(s ) GLUCOSE 130 Normal (applies [facility] NONFASTING,SERUM mg/dL to non-numeric (Ammir results) Mac Physician) SODIUM, SERUM 140 Normal (applies [facility] mEq/L to non-numeric (Ammir results) Mac Physician) POTASSIUM, SERUM 4.8 Normal (applies [facility] mEq/L to non-numeric (Ammir results) Mac Physician) CHLORIDE, SERUM 106 Normal (applies [facility] mEq/L to non-numeric (Ammir results) Mac Physician) Carbon dioxide 21 mEq/L Below low normal [facility] [VFr/PPres] in (Ammir Gas delivery Mac system Physician) Anion gap in 17.8 Normal (applies [facility] Body fluid mEq/L to non-numeric (Ammir results) Mac Physician) BLOOD UREA 15 mg/dL Normal (applies [facility] NITROGEN to non-numeric (Ammir results) Mac Physician) CALCIUM, SERUM 10.0 Normal (applies [facility] mg/dL to non-numeric (Ammir results) Mac Physician) CREATININE, 0.70 Normal (applies [facility] SERUM mg/dL to non-numeric (Ammir results) Mac Physician) TOTAL PROTEIN 7.7 g/dL Normal (applies [facility] to non-numeric (Ammir results) Mac Physician) Microalbumin 5.2 g/dL Above high normal [facility] [Mass/time] in (Ammir Urine collected Mac for unspecified Physician) duration Globulin 2.5 gldl Normal (applies [facility] [Mass/time] in to non-numeric (Ammir 24 hour Urine results) Mac Physician) A/G RATIO 2.08 Normal (applies [facility] g/dl to non-numeric (Ammir results) Mac Physician) BILIRUBIN, TOTAL 0.4 Normal (applies [facility] mg/dL to non-numeric (Ammir results) Mac Physician) ALKALINE 89 U/L Normal (applies [facility] PHOSPHATASE, ALP to non-numeric (Ammir results) Mac Physician) ALT (SGPT) 23 U/L Normal (applies [facility] to non-numeric (Ammir results) Mac Physician) AST 26 U/L Normal (applies [facility] to non-numeric (Ammir results) Mac Physician) EGFR NON AFR 92 Normal (applies [facility] [place] mL/min/1 to non-numeric (Ammir .73m2 results) Mac Physician) EGFR AFR 111 Normal (applies [facility] [place] mL/min/1 to non-numeric (Ammir .73m2 results) Mac Physician) ID Date Data Source [id number] 08/16/2018 12:00:00 AM EDT [facility] (Ammir Mac Physician) Name Value Range Interpretation Description Data Sup porting Code Source(s) Document(s ) GLUCOSE 194 Above high normal [facility] NONFASTING,SERUM mg/dL (Ammir Mac Physician) SODIUM, SERUM 139 Normal (applies [facility] mEq/L to non-numeric (Ammir results) Mac Physician) POTASSIUM, SERUM C Normal (applies [facility] to non-numeric (Ammir results) Mac Physician) CHLORIDE, SERUM 102 Normal (applies [facility] mEq/L to non-numeric (Ammir results) Mac Physician) Carbon dioxide 29 mEq/L Normal (applies [facility] [VFr/PPres] in to non-numeric (Ammir Gas delivery results) Mac system Physician) Anion gap in Note Normal (applies [facility] Body fluid to non-numeric (Ammir results) Mac Physician) CREATININE, 0.70 Normal (applies [facility] SERUM mg/dL to non-numeric (Ammir results) Mac Physician) BLOOD UREA 12 mg/dL Normal (applies [facility] NITROGEN to non-numeric (Ammir results) Mac Physician) CALCIUM, SERUM 9.2 Normal (applies [facility] mg/dL to non-numeric (Ammir results) Mac Physician) TOTAL PROTEIN 6.7 g/dL Normal (applies [facility] to non-numeric (Ammir results) Mac Physician) Microalbumin 4.2 g/dL Normal (applies [facility] [Mass/time] in to non-numeric (Ammir Urine collected results) Mac for unspecified Physician) duration Globulin 2.5 gldl Normal (applies [facility] [Mass/time] in to non-numeric (Ammir 24 hour Urine results) Mac Physician) A/G RATIO 1.68 Normal (applies [facility] g/dl to non-numeric (Ammir results) Mac Physician) BILIRUBIN, TOTAL 0.1 Below low normal [facility] mg/dL (Ammir Mac Physician) ALKALINE 85 U/L Normal (applies [facility] PHOSPHATASE, ALP to non-numeric (Ammir results) Mac Physician) ALT (SGPT) 15 U/L Normal (applies [facility] to non-numeric (Ammir results) Mac Physician) AST 21 U/L Normal (applies [facility] to non-numeric (Ammir results) Mac Physician) EGFR NON AFR 92 Above high normal [facility] [place] mL/min/1 (Ammir .73m2 Mac Physician) EGFR AFR 111 Above high normal [facility] [place] mL/min/1 (Ammir .73m2 Mac Physician) ID Date Data Source [id number] 08/16/2018 12:00:00 AM EDT [facility] (Ammir Mac Physician) Name Value Range Interpretation Description Data Sup porting Code Source(s) Document(s ) WBC 13.1 Above high normal [facility] 10(3)/uL (Ammir Mac Physician) Hemoglobin 16.1 g/dL Above high normal [facility] [Mass/volume] (Ammir in Mixed venous Mac blood by Physician) Oximetry RBC 5.3 Above high normal [facility] 10(6)/uL (Ammir Mac Physician) Hematocrit 47.5 % Above high normal [facility] [Pure volume (Ammir fraction] of Mac Blood by Physician) Automated count MCV 89.8 fL Normal (applies [facility] to non-numeric (Ammir results) Mac Physician) MCH 30 pg Normal (applies [facility] to non-numeric (Ammir results) Mac Physician) MCHC 34 g/dL Normal (applies [facility] to non-numeric (Ammir results) Mac Physician) RDWSD 46.2 fL Normal (applies [facility] to non-numeric (Ammir results) Mac Physician) RDWCV 14.1 % Normal (applies [facility] to non-numeric (Ammir results) Mac Physician) Platelet Count 366 Normal (applies [facility] 10(3)/uL to non-numeric (Ammir results) Mac Physician) MPV 11.1 fL Normal (applies [facility] to non-numeric (Ammir results) Mac Physician) Neutrophil Abs 8.28 Above high normal [facility] 10(3)/uL (Ammir Mac Physician) Lymphocyte Abs 3.44 Normal (applies [facility] 10(3)/uL to non-numeric (Ammir results) Mac Physician) Monocyte Abs 0.82 Normal (applies [facility] 10(3)/uL to non-numeric (Ammir results) Mac Physician) Eosinophil Abs 0.37 Normal (applies [facility] 10(3)/uL to non-numeric (Ammir results) Mac Physician) Neutrophil % 63.40 % Normal (applies [facility] to non-numeric (Ammir results) Mac Physician) Lymphocyte % 26 % Normal (applies [facility] to non-numeric (Ammir results) Mac Physician) Monocyte % 6.3 % Normal (applies [facility] to non-numeric (Ammir results) Mac Physician) Eosinophil % 2.8 % Normal (applies [facility] to non-numeric (Ammir results) Mac Physician) Basophil % 0.8 % Normal (applies [facility] to non-numeric (Ammir results) Mac Physician) Immature 0.40 % Normal (applies [facility] Granulocyte % to non-numeric (Ammir results) Mac Physician) ID Date Data Source [id number] 08/16/2018 12:00:00 AM EDT [facility] (Ammir Mac Physician) Name Value Range Interpretation Code Description Data Aretha rce(s) Supporting Document(s ) APTT 32.90 sec Normal (applies to [facility] (Amm ir non-numeric results) Mac Physician) ID Date Data Source [id number] 08/16/2018 12:00:00 AM EDT [facility] (Ammir Mac Physician) Name Value Range Interpretation Description Data Sup porting Code Source(s) Document(s ) PROTHROMBIN 12.9 sec Normal (applies [facility] TIME, PT to non-numeric (Ammir results) Mac Physician) INR 0.98 Normal (applies [facility] to non-numeric (Ammir results) Mac Physician) ID Date Data Source [id number] 08/16/2018 12:00:00 AM EDT [facility] (Ammir Mac Physician) Name Value Range Interpretation Description Data Sup porting Code Source(s) Document(s ) GLUCOSE UA NEGATIVE Normal (applies [facility] to non-numeric (Ammir results) Mac Physician) BILIRUBIN, TOTAL NEGATIVE Normal (applies [facility] to non-numeric (Ammir results) Mac Physician) Ketones NEGATIVE Normal (applies [facility] [Presence] in to non-numeric (Ammir Blood by Tablet results) [facility] Physician) Specific gravity 1.018 SG Normal (applies [facility] of Pericardial units to non-numeric (Ammir fluid by results) Mac Refractometry Physician) Blood [Presence] NEGATIVE Normal (applies [facility] in Urine by to non-numeric (Ammir Visual results) Mac Physician) pH of Lower 5 Ph units Normal (applies [facility] respiratory to non-numeric (Ammir specimen results) Mac Physician) Protein NEGATIVE Normal (applies [facility] [Mass/volume] in to non-numeric (Ammir Lower results) Mac respiratory Physician) specimen Urobilinogen 0-2.0 Normal (applies [facility] [Presence] in to non-numeric (Ammir Urine by results) [facility] Automated test Physician) strip Nitrite NEGATIVE Normal (applies [facility] [Presence] in to non-numeric (Ammir Urine by Test results) Mac strip Physician) Leukocyte TRACE Normal (applies [facility] esterase to non-numeric (Ammir [Presence] in results) Mac Body fluid by Physician) Automated test strip Color of YELLOW Normal (applies [facility] Peritoneal to non-numeric (Ammir dialysis fluid results) Mac Physician) TRANSPARENCY SLIGHTLY-CL Normal (applies [facility] OUDY to non-numeric (Ammir results) Mac Physician) RBC`S 0-4 Normal (applies [facility] to non-numeric (Ammir results) Mac Physician) WBC`S 6-10 Normal (applies [facility] to non-numeric (Ammir results) Mac Physician) SQUAMOUS FEW Normal (applies [facility] EPITHELIAL to non-numeric (Ammir results) Mac Physician) MUCOUS FEW Normal (applies [facility] to non-numeric (Ammir results) Mac Physician) ID Date Data Source [id number] 07/22/2018 12:00:00 AM EST [facility] (Ammir Mac Physician) Name Value Range Interpretation Description Data Sup porting Code Source(s) Document(s ) GLUCOSE 176 Above high normal [facility] NONFASTING,SERUM mg/dL (Ammir Mac Physician) SODIUM, SERUM 139 Normal (applies [facility] mEq/L to non-numeric (Ammir results) Mac Physician) CHLORIDE, SERUM 106 Normal (applies [facility] mEq/L to non-numeric (Ammir results) Mac Physician) POTASSIUM, SERUM 4.8 Normal (applies [facility] mEq/L to non-numeric (Ammir results) Mac Physician) Carbon dioxide 23 mEq/L Normal (applies [facility] [VFr/PPres] in to non-numeric (Ammir Gas delivery results) Mac system Physician) Anion gap in 14.8 Normal (applies [facility] Body fluid mEq/L to non-numeric (Ammir results) Mac Physician) BLOOD UREA 14 mg/dL Normal (applies [facility] NITROGEN to non-numeric (Ammir results) Mac Physician) CREATININE, 0.60 Normal (applies [facility] SERUM mg/dL to non-numeric (Ammir results) Mac Physician) CALCIUM, SERUM 9.3 Normal (applies [facility] mg/dL to non-numeric (Ammir results) Mac Physician) TOTAL PROTEIN 7.0 g/dL Normal (applies [facility] to non-numeric (Ammir results) Mac Physician) Microalbumin 4.2 g/dL Normal (applies [facility] [Mass/time] in to non-numeric (Ammir Urine collected results) Mac for unspecified Physician) duration Globulin 2.8 gldl Normal (applies [facility] [Mass/time] in to non-numeric (Ammir 24 hour Urine results) Mac Physician) A/G RATIO 1.50 Normal (applies [facility] g/dl to non-numeric (Ammir results) Mac Physician) BILIRUBIN, TOTAL 0.2 Below low normal [facility] mg/dL (Ammir Mac Physician) ALKALINE 78 U/L Normal (applies [facility] PHOSPHATASE, ALP to non-numeric (Ammir results) Mac Physician) ALT (SGPT) 15 U/L Normal (applies [facility] to non-numeric (Ammir results) Mac Physician) AST 15 U/L Normal (applies [facility] to non-numeric (Ammir results) Mac Physician) EGFR NON AFR 110 Above high normal [facility] [place] mL/min/1 (Ammir .73m2 Mac Physician) EGFR AFR 133 Above high normal [facility] [place] mL/min/1 (Ammir .73m2 Mac Physician) ID Date Data Source [id number] 07/22/2018 12:00:00 AM EST [facility] (Ammir Mac Physician) Name Value Range Interpretation Description Data Sup porting Code Source(s) Document(s ) WBC 12.5 Above high normal [facility] 10(3)/uL (Ammir Mac Physician) RBC 5.3 Above high normal [facility] 10(6)/uL (Ammir Mac Physician) Hemoglobin 15.9 g/dL Above high normal [facility] [Mass/volume] (Ammir in Mixed venous Mac blood by Physician) Oximetry Hematocrit 47.5 % Above high normal [facility] [Pure volume (Ammir fraction] of Mac Blood by Physician) Automated count MCV 89.0 fL Normal (applies [facility] to non-numeric (Ammir results) Mac Physician) MCH 30 pg Normal (applies [facility] to non-numeric (Ammir results) Mac Physician) MCHC 34 g/dL Normal (applies [facility] to non-numeric (Ammir results) Mac Physician) RDWSD 45.1 fL Normal (applies [facility] to non-numeric (Ammir results) Mac Physician) RDWCV 14.2 % Normal (applies [facility] to non-numeric (Ammir results) Mac Physician) Platelet Count 359 Normal (applies [facility] 10(3)/uL to non-numeric (Ammir results) Mac Physician) MPV 11.6 fL Normal (applies [facility] to non-numeric (Ammir results) Mac Physician) Neutrophil Abs 6.45 Normal (applies [facility] 10(3)/uL to non-numeric (Ammir results) Mac Physician) Monocyte Abs 0.78 Normal (applies [facility] 10(3)/uL to non-numeric (Ammir results) Mac Physician) Lymphocyte Abs 4.83 Above high normal [facility] 10(3)/uL (Ammir Mac Physician) Eosinophil Abs 0.28 Normal (applies [facility] 10(3)/uL to non-numeric (Ammir results) Mac Physician) Neutrophil % 51.70 % Normal (applies [facility] to non-numeric (Ammir results) Mac Physician) Lymphocyte % 39 % Normal (applies [facility] to non-numeric (Ammir results) Mac Physician) Monocyte % 6.3 % Normal (applies [facility] to non-numeric (Ammir results) Mac Physician) Eosinophil % 2.2 % Normal (applies [facility] to non-numeric (Ammir results) Mac Physician) Basophil % 0.8 % Normal (applies [facility] to non-numeric (Ammir results) Mac Physician) Immature 0.30 % Normal (applies [facility] Granulocyte % to non-numeric (Ammir results) Mac Physician) ID Date Data Source [id number] 07/22/2018 12:00:00 AM EST [facility] (Ammir Mac Physician) Name Value Range Interpretation Code Description Data Aretha rce(s) Supporting Document(s ) APTT 36.20 sec Above high normal [facility] (Ammi r Mac Physician) ID Date Data Source [id number] 07/22/2018 12:00:00 AM EST [facility] (Ammir Mac Physician) Name Value Range Interpretation Description Data Sup porting Code Source(s) Document(s ) PROTHROMBIN 13.2 sec Normal (applies [facility] TIME, PT to non-numeric (Ammir results) Mac Physician) INR 1.01 Normal (applies [facility] to non-numeric (Ammir results) Mac Physician) ID Date Data Source [id number] 05/04/2018 12:00:00 AM EST [facility] (Ammir Mac Physician) Name Value Range Interpretation Description Data Sup porting Code Source(s) Document(s ) GLUCOSE 184 Above high normal [facility] NONFASTING,SERUM mg/dL (Ammir Mac Physician) SODIUM, SERUM 141 Normal (applies [facility] mEq/L to non-numeric (Ammir results) Mac Physician) POTASSIUM, SERUM 4.7 Normal (applies [facility] mEq/L to non-numeric (Ammir results) Mac Physician) CHLORIDE, SERUM 110 Above high normal [facility] mEq/L (Ammir Mac Physician) Carbon dioxide 22 mEq/L Normal (applies [facility] [VFr/PPres] in to non-numeric (Ammir Gas delivery results) Mac system Physician) Anion gap in 13.7 Normal (applies [facility] Body fluid mEq/L to non-numeric (Ammir results) Mac Physician) BLOOD UREA 13 mg/dL Normal (applies [facility] NITROGEN to non-numeric (Ammir results) Mac Physician) CREATININE, 0.90 Normal (applies [facility] SERUM mg/dL to non-numeric (Ammir results) Mac Physician) CALCIUM, SERUM 9.8 Normal (applies [facility] mg/dL to non-numeric (Ammir results) Mac Physician) TOTAL PROTEIN 7.3 g/dL Normal (applies [facility] to non-numeric (Ammir results) Mac Physician) Microalbumin 4.6 g/dL Normal (applies [facility] [Mass/time] in to non-numeric (Ammir Urine collected results) Mac for unspecified Physician) duration Globulin 2.7 gldl Normal (applies [facility] [Mass/time] in to non-numeric (Ammir 24 hour Urine results) Mac Physician) A/G RATIO 1.70 Normal (applies [facility] g/dl to non-numeric (Ammir results) Mac Physician) BILIRUBIN, TOTAL 0.3 Normal (applies [facility] mg/dL to non-numeric (Ammir results) Mac Physician) ALKALINE 83 U/L Normal (applies [facility] PHOSPHATASE, ALP to non-numeric (Ammir results) Mac Physician) ALT (SGPT) 10 U/L Normal (applies [facility] to non-numeric (Ammir results) Mac Physician) AST 9 U/L Below low normal [facility] (Ammir Mac Physician) EGFR NON AFR 69 Above high normal [facility] [place] mL/min/1 (Ammir .73m2 Mac Physician) EGFR AFR 84 Above high normal [facility] [place] mL/min/1 (Ammir .73m2 Mac Physician) ID Date Data Source [id number] 05/04/2018 12:00:00 AM EST [facility] (Ammir Mac Physician) Name Value Range Interpretation Description Data Sup porting Code Source(s) Document(s ) WBC 13.5 Above high normal [facility] 10(3)/uL (Ammir Mac Physician) RBC 5.6 Above high normal [facility] 10(6)/uL (Ammir Mac Physician) Hemoglobin 17.4 g/dL Above high normal [facility] [Mass/volume] (Ammir in Mixed [facility] venous blood Physician) by Oximetry Hematocrit 50.8 % Above high normal [facility] [Pure volume (Ammir fraction] of Mac Blood by Physician) Automated count MCV 91.4 fL Normal (applies to [facility] non-numeric (Ammir results) Mac Physician) MCH 31 pg Normal (applies to [facility] non-numeric (Ammir results) Mac Physician) MCHC 34 g/dL Normal (applies to [facility] non-numeric (Ammir results) Mac Physician) RDWSD 41.2 fL Normal (applies to [facility] non-numeric (Ammir results) Mac Physician) RDWCV 12.5 % Normal (applies to [facility] non-numeric (Ammir results) Mac Physician) PLT 360 Normal (applies to [facility] 10(3)/uL non-numeric (Ammir results) Mac Physician) MPV 11.9 fL Normal (applies to [facility] non-numeric (Ammir results) Mac Physician) NE# 8.01 Above high normal [facility] 10(3)/uL (Ammir Mac Physician) LY# 4.46 Above high normal [facility] 10(3)/uL (Ammir Mac Physician) MO# 0.83 Normal (applies to [facility] 10(3)/uL non-numeric (Ammir results) Mac Physician) EO# 0.08 Normal (applies to [facility] 10(3)/uL non-numeric (Ammir results) Mac Physician) IG# 0.04 Above high normal [facility] 10(3)/uL (Ammir Mac Physician) NE% 59.20 % Normal (applies to [facility] non-numeric (Ammir results) Mac Physician) LY% 33 % Normal (applies to [facility] non-numeric (Ammir results) Mac Physician) MO% 6.1 % Normal (applies to [facility] non-numeric (Ammir results) Mac Physician) EO% 0.6 % Normal (applies to [facility] non-numeric (Ammir results) Mac Physician) BA% 0.8 % Normal (applies to [facility] non-numeric (Ammir results) Mac Physician) IG% 0.30 % Normal (applies to [facility] non-numeric (Ammir results) Mac Physician) ID Date Data Source [id number] 05/04/2018 12:00:00 AM EST [facility] (Ammir Mac Physician) Name Value Range Interpretation Description Data Sup porting Code Source(s) Document(s ) Hemoglobin A1c 7.2 % Above high normal [facility] (Ammir in Blood Mac Physician) ID Date Data Source [id number] 12/28/2017 12:00:00 AM EDT [facility] (Ammir Mac Physician) Name Value Range Interpretation Description Data Sup porting Code Source(s) Document(s ) Amphetamines NEGATIVE Normal (applies [facility] [Presence] in to non-numeric (Ammir Stool results) Mac Physician) BENZODIAZEPINE POSITIVE Abnormal [facility] (applies to (Ammir non-numeric Mac results) Physician) Barbiturates NEGATIVE Normal (applies [facility] [Mass/volume] in to non-numeric (Ammir Serum or Plasma results) Mac Physician) Methadone POSITIVE Abnormal [facility] [Mass/volume] in (applies to (Ammir Blood non-numeric Mac results) Physician) Opiates NEGATIVE Normal (applies [facility] [Presence] in to non-numeric (Ammir Unknown substance results) Mac by Confirmatory Physician) method PCP NEGATIVE Normal (applies [facility] (PHENCYCLIDINE) to non-numeric (Ammir results) Mac Physician) Cocaine NEGATIVE Normal (applies [facility] [Presence] in to non-numeric (Ammir Unknown substance results) Mac by Confirmatory Physician) method Cannabinoids POSITIVE Abnormal [facility] [Presence] in (applies to (Ammir Unknown substance non-numeric Mac by Confirmatory results) Physician) method Ethanol NEGATIVE Normal (applies [facility] [Mass/volume] in to non-numeric (Ammir Urine collected results) Mac for unspecified Physician) duration Propoxyphene NEGATIVE Normal (applies [facility] [Presence] in to non-numeric (Ammir Meconium by results) Mac Screen method Physician) CREATININE,URINE 191 mg/dL Above high [facility] normal (Ammir Mac Physician) ID Date Data Source [id number] 12/28/2017 12:00:00 AM EDT [facility] (Ammir Mac Physician) Name Value Range Interpretation Description Data Sup porting Code Source(s) Document(s ) CRP, HIGH 4.81 mg/L Above high normal [facility] SENSITIVITY (Ammir Mac Physician) ID Date Data Source [id number] 12/28/2017 12:00:00 AM EDT [facility] (Ammir Mac Physician) Name Value Range Interpretation Code Description Data Supporting Source(s) Document(s ) CREATINE 33 U/L Normal (applies to [facility] (Amm ir KINASE (CK) non-numeric Mac results) Physician) ID Date Data Source [id number] 12/28/2017 12:00:00 AM EDT [facility] (Ammir Mac Physician) Name Value Range Interpretation Code Description Data Aretha rce(s) Supporting Document(s ) ESR 18 mm/hr Normal (applies to [facility] (Amm ir non-numeric results) Mac Physician) ID Date Data Source [id number] 12/28/2017 12:00:00 AM EDT [facility] (Ammir Mac Physician) Name Value Range Interpretation Code Description Data Aretha rce(s) Supporting Document(s ) MYOGLOBIN, <30 Normal (applies to [facility] (Am darby SERUM non-numeric results) Mac Physician) ID Date Data Source [id number] 12/28/2017 12:00:00 AM EDT [facility] (Ammir Mac Physician) Name Value Range Interpretation Code Description Data Aretha rce(s) Supporting Document(s ) Aldolase 18.8 Normal (applies to [facility] (Amm ir [Enzymatic non-numeric Mac activity/mass results) Physician) ] in Red Blood Cells ID Date Data Source [id number] 11/27/2017 12:00:00 AM EDT [facility] (Ammir Mac Physician) Name Value Range Interpretation Description Data Sup porting Code Source(s) Document(s ) ORGANISM Normal (applies [facility] to non-numeric (Ammir results) Mac Physician) Comment Normal (applies [facility] [Interpretation] to non-numeric (Ammir Left eye Narrative results) Mac Ophthalmometer Physician) ID Date Data Source [id number] 11/27/2017 12:00:00 AM EDT [facility] (Ammir Mac Physician) Name Value Range Interpretation Description Data Sup porting Code Source(s) Document(s ) Cholesterol 184 Normal (applies [facility] [Moles/volume] mg/dL to non-numeric (Ammir in Pericardial results) Mac fluid Physician) LDL CALCULATION 94.4 Normal (applies [facility] mg/dL to non-numeric (Ammir results) Mac Physician) CHOL/HDL RATIO 4.84 Normal (applies [facility] ratio to non-numeric (Ammir results) Mac Physician) HDL CHOLESTEROL 38 mg/dL Above high normal [facility] (Ammir Mac Physician) VLDL CALCULATION 51.6 Above high normal [facility] N mg/dl (Ammir Mac Physician) TRIGLYCERIDES 258 Above high normal [facility] mg/dL (Ammir Mac Physician) ID Date Data Source [id number] 11/27/2017 12:00:00 AM EDT [facility] (Ammir Mac Physician) Name Value Range Interpretation Description Data Sup porting Code Source(s) Document(s ) GLUCOSE 134 Normal (applies [facility] NONFASTING,SERUM mg/dL to non-numeric (Ammir results) Mac Physician) SODIUM, SERUM 143 Normal (applies [facility] mEq/L to non-numeric (Ammir results) Mac Physician) POTASSIUM, SERUM 4.8 Normal (applies [facility] mEq/L to non-numeric (Ammir results) Mac Physician) CHLORIDE, SERUM 109 Normal (applies [facility] mEq/L to non-numeric (Ammir results) Mac Physician) Carbon dioxide 28 mEq/L Normal (applies [facility] [VFr/PPres] in to non-numeric (Ammir Gas delivery results) [facility] system Physician) Anion gap in 10.8 Normal (applies [facility] Body fluid mEq/L to non-numeric (Ammir results) Mac Physician) CREATININE, 0.70 Normal (applies [facility] SERUM mg/dL to non-numeric (Ammir results) Mac Physician) BLOOD UREA 13 mg/dL Normal (applies [facility] NITROGEN to non-numeric (Ammir results) Mac Physician) CALCIUM, SERUM 10.0 Normal (applies [facility] mg/dL to non-numeric (Ammir results) Mac Physician) TOTAL PROTEIN 8.0 g/dL Normal (applies [facility] to non-numeric (Ammir results) Mac Physician) Microalbumin 5.0 g/dL Above high normal [facility] [Mass/time] in (Ammir Urine collected Mac for unspecified Physician) duration Globulin 3.0 gldl Normal (applies [facility] [Mass/time] in to non-numeric (Ammir 24 hour Urine results) Mac Physician) A/G RATIO 1.67 Normal (applies [facility] g/dl to non-numeric (Ammir results) Mac Physician) BILIRUBIN, TOTAL 0.3 Normal (applies [facility] mg/dL to non-numeric (Ammir results) Mac Physician) ALKALINE 91 U/L Normal (applies [facility] PHOSPHATASE, ALP to non-numeric (Ammir results) Mac Physician) ALT (SGPT) 15 U/L Normal (applies [facility] to non-numeric (Ammir results) Mac Physician) AST 19 U/L Normal (applies [facility] to non-numeric (Ammir results) Mac Physician) EGFR NON AFR 92 Above high normal [facility] SA[place] mL/min/1 (Ammir .73m2 Mac Physician) EGFR AFR 112 Above high normal [facility] SAUDI [place] mL/min/1 (Ammir .73m2 Mac Physician) ID Date Data Source [id number] 11/27/2017 12:00:00 AM EDT [facility] (Ammir Mac Physician) Name Value Range Interpretation Description Data Sup porting Code Source(s) Document(s ) RBC 5.6 Above high normal [facility] 10(6)/uL (Ammir Mac Physician) WBC 19.3 Above high normal [facility] 10(3)/uL (Ammir Mac Physician) Hemoglobin 17.8 g/dL Above high normal [facility] [Mass/volume] (Ammir in Mixed Mac venous blood Physician) by Oximetry Hematocrit 52.9 % Above high normal [facility] [Pure volume (Ammir fraction] of Mac Blood by Physician) Automated count MCV 94.0 fL Normal (applies to [facility] non-numeric (Ammir results) Mac Physician) MCH 32 pg Normal (applies to [facility] non-numeric (Ammir results) Mac Physician) MCHC 34 g/dL Normal (applies to [facility] non-numeric (Ammir results) Mac Physician) RDWSD 43.6 fL Normal (applies to [facility] non-numeric (Ammir results) Mac Physician) RDWCV 12.9 % Normal (applies to [facility] non-numeric (Ammir results) Mac Physician) PLT 337 Normal (applies to [facility] 10(3)/uL non-numeric (Ammir results) Mac Physician) MPV 11.9 fL Normal (applies to [facility] non-numeric (Ammir results) Mac Physician) NE# 12.78 Above high normal [facility] 10(3)/uL (Ammir Mac Physician) LY# 5.14 Above high normal [facility] 10(3)/uL (Ammir Mac Physician) EO# 0.19 Normal (applies to [facility] 10(3)/uL non-numeric (Ammir results) Mac Physician) MO# 1.00 Above high normal [facility] 10(3)/uL (Ammir Mac Physician) IG# 0.10 Above high normal [facility] 10(3)/uL (Ammir Mac Physician) NE% 66.10 % Normal (applies to [facility] non-numeric (Ammir results) Mac Physician) LY% 27 % Normal (applies to [facility] non-numeric (Ammir results) Mac Physician) MO% 5.2 % Normal (applies to [facility] non-numeric (Ammir results) Mac Physician) EO% 1.0 % Normal (applies to [facility] non-numeric (Ammir results) Mac Physician) BA% 0.6 % Normal (applies to [facility] non-numeric (Ammir results) Mac Physician) IG% 0.50 % Normal (applies to [facility] non-numeric (Ammir results) Mac Physician) ID Date Data Source [id number] 11/27/2017 12:00:00 AM EDT [facility] (Ammir Mac Physician) Name Value Range Interpretation Description Data Sup porting Code Source(s) Document(s ) Hemoglobin A1c 6.3 % Above high normal [facility] (Ammir in Blood Mac Physician) ID Date Data Source [id number] 11/27/2017 12:00:00 AM EDT [facility] (Ammir Mac Physician) Name Value Range Interpretation Description Data Sup porting Code Source(s) Document(s ) GLUCOSE UA NEGATIVE Normal (applies [facility] to non-numeric (Ammir results) Mac Physician) BILIRUBIN, TOTAL NEGATIVE Normal (applies [facility] to non-numeric (Ammir results) Mac Physician) Ketones NEGATIVE Normal (applies [facility] [Presence] in to non-numeric (Ammir Blood by Tablet results) Mac Physician) Specific gravity 1.005 SG Normal (applies [facility] of Pericardial units to non-numeric (Ammir fluid by results) Mac Refractometry Physician) Blood [Presence] NEGATIVE Normal (applies [facility] in Urine by to non-numeric (Ammir Visual results) Mac Physician) pH of Lower 5 Ph units Normal (applies [facility] respiratory to non-numeric (Ammir specimen results) Mac Physician) Protein NEGATIVE Normal (applies [facility] [Mass/volume] in to non-numeric (Ammir Lower results) Mac respiratory Physician) specimen Urobilinogen 0-2.0 Normal (applies [facility] [Presence] in to non-numeric (Ammir Urine by results) Mac Automated test Physician) strip Nitrite NEGATIVE Normal (applies [facility] [Presence] in to non-numeric (Ammir Urine by Test results) Mac strip Physician) Leukocyte SMALL Normal (applies [facility] esterase to non-numeric (Ammir [Presence] in results) Mac Body fluid by Physician) Automated test strip Color of YELLOW Normal (applies [facility] Peritoneal to non-numeric (Ammir dialysis fluid results) Mac Physician) TRANSPARENCY CLOUDY Normal (applies [facility] to non-numeric (Ammir results) Mac Physician) WBC`S 6-10 Normal (applies [facility] to non-numeric (Ammir results) Mac Physician) Bacteria MANY Normal (applies [facility] [Presence] in to non-numeric (Ammir Prostatic fluid results) Mac by Light Physician) microscopy SQUAMOUS FEW Normal (applies [facility] EPITHELIAL to non-numeric (Ammir results) Mac Physician) ID Date Data Source [id number] 11/27/2017 12:00:00 AM EDT [facility] (Ammir Mac Physician) Name Value Range Interpretation Description Data Sup porting Code Source(s) Document(s ) FOLATE SERUM 11.6 Above high normal [facility] (A mmir ng/mL Mac Physician) VITAMIN B12 742 pg/mL Normal (applies to [facility] (A mmir non-numeric Mac results) Physician) ID Date Data Source [id number] 11/27/2017 12:00:00 AM EDT [facility] (Ammir Mac Physician) Name Value Range Interpretation Description Data Sup porting Code Source(s) Document(s ) VITAMIN D 59.9 Normal (applies to [facility] (Amm ir 1.25 pg/mL non-numeric Mac results) Physician) ID Date Data Source [id number] 10/24/2017 12:00:00 AM EDT [facility] (Ammir Mac Physician) Name Value Range Interpretation Description Data Sup porting Code Source(s) Document(s ) WBC 12.5 Above high normal [facility] 10(3)/uL (Ammir Mac Physician) RBC 5.5 Above high normal [facility] 10(6)/uL (Ammir Mac Physician) Hemoglobin 17.3 g/dL Above high normal [facility] [Mass/volume] (Ammir in Mixed Mac venous blood Physician) by Oximetry MCV 92.9 fL Normal (applies to [facility] non-numeric (Ammir results) Mac Physician) Hematocrit 51.4 % Above high normal [facility] [Pure volume (Ammir fraction] of Mac Blood by Physician) Automated count MCH 31 pg Normal (applies to [facility] non-numeric (Ammir results) Mac Physician) MCHC 34 g/dL Normal (applies to [facility] non-numeric (Ammir results) Mac Physician) RDWSD 47.0 fL Normal (applies to [facility] non-numeric (Ammir results) Mac Physician) RDWCV 14.0 % Normal (applies to [facility] non-numeric (Ammir results) Mac Physician) PLT 335 Normal (applies to [facility] 10(3)/uL non-numeric (Ammir results) Mac Physician) MPV 11.1 fL Normal (applies to [facility] non-numeric (Ammir results) Mac Physician) NE# 6.66 Above high normal [facility] 10(3)/uL (Ammir Mac Physician) LY# 4.46 Above high normal [facility] 10(3)/uL (Ammir Mac Physician) MO# 0.90 Normal (applies to [facility] 10(3)/uL non-numeric (Ammir results) Mac Physician) EO# 0.31 Normal (applies to [facility] 10(3)/uL non-numeric (Ammir results) Mac Physician) IG# 0.04 Above high normal [facility] 10(3)/uL (Ammir Mac Physician) LY% 36 % Normal (applies to [facility] non-numeric (Ammir results) Mac Physician) NE% 53.40 % Normal (applies to [facility] non-numeric (Ammir results) Mac Physician) MO% 7.2 % Normal (applies to [facility] non-numeric (Ammir results) Mac Physician) EO% 2.5 % Normal (applies to [facility] non-numeric (Ammir results) Mac Physician) BA% 0.8 % Normal (applies to [facility] non-numeric (Ammir results) Mac Physician) IG% 0.30 % Normal (applies to [facility] non-numeric (Ammir results) Mac Physician) ID Date Data Source [id number] 10/24/2017 12:00:00 AM EDT [facility] (Ammir Mac Physician) Name Value Range Interpretation Description Data Sup porting Code Source(s) Document(s ) HISTOLOGY SEE NOTES Normal (applies to [facility] (Amm ir RESULT non-numeric Mac results) Physician) ID Date Data Source [id number] 07/24/2017 12:00:00 AM EST [facility] (Ammir Mac Physician) Name Value Range Interpretation Code Description Data Supporting Source(s) Document(s ) CREATINE 66 U/L Normal (applies to [facility] (Amm ir KINASE (CK) non-numeric Mac results) Physician) ID Date Data Source [id number] 07/24/2017 12:00:00 AM EST [facility] (Ammir Mac Physician) Name Value Range Interpretation Code Description Data Aretha rce(s) Supporting Document(s ) TROPONIN I <0.01 Normal (applies to [facility] (Am darby non-numeric results) Mac Physician) ID Date Data Source [id number] 07/24/2017 12:00:00 AM EST [facility] (Ammir Mac Physician) Name Value Range Interpretation Description Data Sup porting Code Source(s) Document(s ) Cholesterol 168 Normal (applies [facility] [Moles/volume] mg/dL to non-numeric (Ammir in Pericardial results) Mac fluid Physician) LDL CALCULATION 106.4 Normal (applies [facility] mg/dL to non-numeric (Ammir results) Mac Physician) CHOL/HDL RATIO 4.80 Normal (applies [facility] ratio to non-numeric (Ammir results) Mac Physician) HDL CHOLESTEROL 35 mg/dL Above high normal [facility] (Ammir Mac Physician) VLDL CALCULATION 26.6 Normal (applies [facility] mg/dl to non-numeric (Ammir results) Mac Physician) TRIGLYCERIDES 133 Normal (applies [facility] mg/dL to non-numeric (Ammir results) Mac Physician) ID Date Data Source [id number] 07/24/2017 12:00:00 AM EST [facility] (Ammir Mac Physician) Name Value Range Interpretation Description Data Sup porting Code Source(s) Document(s ) GLUCOSE See Normal (applies [facility] NONFASTING,SERU comment to non-numeric (Ammir M results) Mac Physician) SODIUM, SERUM 141 mEq/L Normal (applies [facility] to non-numeric (Ammir results) Mac Physician) POTASSIUM, 4.8 mEq/L Normal (applies [facility] SERUM to non-numeric (Ammir results) Mac Physician) CHLORIDE, SERUM 111 mEq/L Above high normal [facility] (Ammir Mac Physician) Carbon dioxide 21 mEq/L Below low normal [facility] [VFr/PPres] in (Ammir Gas delivery Mac system Physician) Anion gap in 14 mEq/L Normal (applies [facility] Body fluid to non-numeric (Ammir results) Mac Physician) BLOOD UREA 16 mg/dL Normal (applies [facility] NITROGEN to non-numeric (Ammir results) Mac Physician) CREATININE, 0.50 mg/dL Normal (applies [facility] SERUM to non-numeric (Ammir results) Mac Physician) CALCIUM, SERUM 9.5 mg/dL Normal (applies [facility] to non-numeric (Ammir results) Mac Physician) TOTAL PROTEIN 7.0 g/dL Normal (applies [facility] to non-numeric (Ammir results) Mac Physician) Microalbumin 4.4 g/dL Normal (applies [facility] [Mass/time] in to non-numeric (Ammir Urine collected results) Mac for unspecified Physician) duration Globulin 2.6 gldl Normal (applies [facility] [Mass/time] in to non-numeric (Ammir 24 hour Urine results) Mac Physician) A/G RATIO 1.69 g/dl Normal (applies [facility] to non-numeric (Ammir results) Mac Physician) BILIRUBIN, 0.3 mg/dL Normal (applies [facility] TOTAL to non-numeric (Ammir results) Mac Physician) ALKALINE 73 U/L Normal (applies [facility] PHOSPHATASE, to non-numeric (Ammir ALP results) Mac Physician) ALT (SGPT) 30 U/L Normal (applies [facility] to non-numeric (Ammir results) Mac Physician) AST 33 U/L Normal (applies [facility] to non-numeric (Ammir results) Mac Physician) EGFR NON AFR 136 Above high normal [facility] SA[place] mL/min/1.7 (Ammir 3m2 Mac Physician) EGFR AFR 165 Above high normal [facility] SAUD[place] mL/min/1.7 (Ammir 3m2 Mac Physician) ID Date Data Source [id number] 07/24/2017 12:00:00 AM EST [facility] (Ammir Mac Physician) Name Value Range Interpretation Description Data Sup porting Code Source(s) Document(s ) WBC 12.6 Above high normal [facility] 10(3)/uL (Ammir Mac Physician) RBC 5.2 Above high normal [facility] 10(6)/uL (Ammir Mac Physician) Hematocrit 48.3 % Above high normal [facility] [Pure volume (Ammir fraction] of Mac Blood by Physician) Automated count Hemoglobin 16.3 g/dL Above high normal [facility] [Mass/volume] (Ammir in Mixed Mac venous blood Physician) by Oximetry MCV 93.4 fL Normal (applies to [facility] non-numeric (Ammir results) Mac Physician) MCH 32 pg Normal (applies to [facility] non-numeric (Ammir results) Mac Physician) MCHC 34 g/dL Normal (applies to [facility] non-numeric (Ammir results) Mac Physician) RDWSD 45.7 fL Normal (applies to [facility] non-numeric (Ammir results) Mac Physician) RDWCV 13.2 % Normal (applies to [facility] non-numeric (Ammir results) Mac Physician) PLT 285 Normal (applies to [facility] 10(3)/uL non-numeric (Ammir results) Mac Physician) MPV 11.9 fL Normal (applies to [facility] non-numeric (Ammir results) Mac Physician) NE# 6.89 Above high normal [facility] 10(3)/uL (Ammir Mac Physician) LY# 4.53 Above high normal [facility] 10(3)/uL (Ammir Mac Physician) MO# 0.83 Normal (applies to [facility] 10(3)/uL non-numeric (Ammir results) Mac Physician) IG# 0.05 Above high normal [facility] 10(3)/uL (Ammir Mac Physician) EO# 0.20 Normal (applies to [facility] 10(3)/uL non-numeric (Ammir results) Mac Physician) NE% 54.80 % Normal (applies to [facility] non-numeric (Ammir results) Mac Physician) LY% 36 % Normal (applies to [facility] non-numeric (Ammir results) Mac Physician) MO% 6.6 % Normal (applies to [facility] non-numeric (Ammir results) Mac Physician) EO% 1.6 % Normal (applies to [facility] non-numeric (Ammir results) Mac Physician) BA% 0.6 % Normal (applies to [facility] non-numeric (Ammir results) Mac Physician) IG% 0.40 % Normal (applies to [facility] non-numeric (Ammir results) Mac Physician) ID Date Data Source [id number] 06/24/2017 12:00:00 AM EST [facility] (Ammir Mac Physician) Name Value Range Interpretation Description Data Sup porting Code Source(s) Document(s ) Adenovirus Not Normal (applies [facility] [Presence] in Detected to non-numeric (Ammir Unspecified results) Mac specimen by Physician) Organism specific culture CORONAVIRUS 229E Not Normal (applies [facility] Detected to non-numeric (Ammir results) Mac Physician) CORONAVIRUS HKU1 Not Normal (applies [facility] Detected to non-numeric (Ammir results) Mac Physician) CORONAVIRUS NL63 Not Normal (applies [facility] Detected to non-numeric (Ammir results) Mac Physician) CORONAVIRUS OC43 Not Normal (applies [facility] Detected to non-numeric (Ammir results) Mac Physician) HUMAN Not Normal (applies [facility] METAPNEUMOVIRUS Detected to non-numeric (Ammir results) Mac Physician) HUMAN Not Normal (applies [facility] RHINOVIRUS/ENTERO Detected to non-numeric (Ammir VIRUS results) Mac Physician) INFLUENZA A/H1 Not Normal (applies [facility] Detected to non-numeric (Ammir results) Mac Physician) INFLUENZA A/H3 Not Normal (applies [facility] Detected to non-numeric (Ammir results) Mac Physician) INFLUENZA Not Normal (applies [facility] A/H1-2009 Detected to non-numeric (Ammir results) Mac Physician) INFLUENZA B Not Normal (applies [facility] Detected to non-numeric (Ammir results) Mac Physician) Parainfluenza Not Normal (applies [facility] virus 1 Detected to non-numeric (Ammir [Presence] in results) Mac Unspecified Physician) specimen by Organism specific culture Parainfluenza Not Normal (applies [facility] virus 2 Detected to non-numeric (Ammir [Presence] in results) Mac Unspecified Physician) specimen by Organism specific culture Parainfluenza Not Normal (applies [facility] virus 3 Detected to non-numeric (Ammir [Presence] in results) Mac Unspecified Physician) specimen by Organism specific culture PARAINFLUENZA Not Normal (applies [facility] VIRUS 4 Detected to non-numeric (Ammir results) Mac Physician) Bordetella Not Normal (applies [facility] pertussis Detected to non-numeric (Ammir [Presence] in results) Mac Unspecified Physician) specimen by Organism specific culture RESP.SYNCYTIAL Not Normal (applies [facility] VIRUS Detected to non-numeric (Ammir results) Mac Physician) Chlamydophila Not Normal (applies [facility] pneumoniae Detected to non-numeric (Ammir [Presence] in results) Mac Unspecified Physician) specimen by Organism specific culture Mycoplasma Not Normal (applies [facility] pneumoniae Detected to non-numeric (Ammir [Presence] in results) Mac Unspecified Physician) specimen by Organism specific culture BORDATELLA Not Normal (applies [facility] PARAPERTUSSIS Detected to non-numeric (Ammir results) Mac Physician) ID Date Data Source [id number] 12/26/2016 12:00:00 AM EDT [facility] (Ammir Mac Physician) Name Value Range Interpretation Description Data Sup porting Code Source(s) Document(s ) Thyroglobulin IgG <12 Normal (applies to MED [facility] non-numeric (Ammir results) Mac Physician) ID Date Data Source [id number] 12/26/2016 12:00:00 AM EDT [facility] (Ammir Mac Physician) Name Value Range Interpretation Description Data Sup porting Code Source(s) Document(s ) Thyroid <4 Normal (applies to [facility] (Amm ir Peroxidase IgG non-numeric Mac results) Physician) ID Date Data Source [id number] 12/26/2016 12:00:00 AM EDT [facility] (Ammir Mac Physician) Name Value Range Interpretation Code Description Data Aretha rce(s) Supporting Document(s ) T3 TOTAL 102 ng/dL Normal (applies to [facility] (Amm ir non-numeric Mac results) Physician) ID Date Data Source [id number] 12/26/2016 12:00:00 AM EDT [facility] (Ammir Mac Physician) Name Value Range Interpretation Description Data Sup porting Code Source(s) Document(s ) T4 TOTAL 10 ug/dL Normal (applies to [facility] (Amm ir THYROXINE non-numeric Mac results) Physician) ID Date Data Source [id number] 12/26/2016 12:00:00 AM EDT [facility] (Ammir Mac Physician) Name Value Range Interpretation Description Data Sup porting Code Source(s) Document(s ) T3 FREE 3.00 Normal (applies [facility] TRIIODOTHYRONINE pg/mL to non-numeric (Ammir results) Mac Physician) ID Date Data Source [id number] 12/26/2016 12:00:00 AM EDT [facility] (Ammir Mac Physician) Name Value Range Interpretation Description Data Sup porting Code Source(s) Document(s ) Cholesterol 155 Normal (applies [facility] [Moles/volume] mg/dL to non-numeric (Ammir in Pericardial results) Mac fluid Physician) LDL CALCULATION 77.0 Normal (applies [facility] mg/dL to non-numeric (Ammir results) Mac Physician) CHOL/HDL RATIO 4.31 Normal (applies [facility] ratio to non-numeric (Ammir results) Mac Physician) HDL CHOLESTEROL 36 mg/dL Above high normal [facility] (Ammir Mac Physician) VLDL CALCULATION 42.0 Above high normal [facility] N mg/dl (Ammir Mac Physician) TRIGLYCERIDES 210 Above high normal [facility] mg/dL (Ammir Mac Physician) ID Date Data Source [id number] 12/26/2016 12:00:00 AM EDT [facility] (Ammir Mac Physician) Name Value Range Interpretation Description Data Sup porting Code Source(s) Document(s ) GLUCOSE 97 mg/dL Normal (applies [facility] NONFASTING,SERUM to non-numeric (Ammir results) Mac Physician) SODIUM, SERUM 142 Normal (applies [facility] mEq/L to non-numeric (Ammir results) Mac Physician) POTASSIUM, SERUM 4.9 Normal (applies [facility] mEq/L to non-numeric (Ammir results) Mac Physician) CHLORIDE, SERUM 106 Normal (applies [facility] mEq/L to non-numeric (Ammir results) Mac Physician) Carbon dioxide 22 mEq/L Normal (applies [facility] [VFr/PPres] in to non-numeric (Ammir Gas delivery results) Mac system Physician) Anion gap in 18.9 Above high normal [facility] Body fluid mEq/L (Ammir Mac Physician) BLOOD UREA 16 mg/dL Normal (applies [facility] NITROGEN to non-numeric (Ammir results) Mac Physician) CREATININE, 0.80 Normal (applies [facility] SERUM mg/dL to non-numeric (Ammir results) Mac Physician) CALCIUM, SERUM 11.0 Above high normal [facility] mg/dL (mir Mac Physician) Microalbumin 4.5 g/dL Normal (applies [facility] [Mass/time] in to non-numeric (Ammir Urine collected results) Mac for unspecified Physician) duration TOTAL PROTEIN 7.5 g/dL Normal (applies [facility] to non-numeric (Ammir results) Mac Physician) Globulin 3.0 gldl Normal (applies [facility] [Mass/time] in to non-numeric (Ammir 24 hour Urine results) Mac Physician) A/G RATIO 1.50 Normal (applies [facility] g/dl to non-numeric (Ammir results) Mac Physician) BILIRUBIN, TOTAL 0.2 Below low normal [facility] mg/dL (Ammir Mac Physician) ALKALINE 98 U/L Normal (applies [facility] PHOSPHATASE, ALP to non-numeric (Ammir results) [facility]) ALT (SGPT) 53 U/L Above high normal [facility] (Ammir [facility]) AST 47 U/L Above high normal [facility] (Ammir [facility]) EGFR NON AFR 79 Above high normal [facility] [place] mL/min/1 (Ammir .73m2 [facility]) EGFR AFR 96 Above high normal [facility] [place] mL/min/1 (Ammir .73m2 [facility]) ID Date Data Source [id number] 12/26/2016 12:00:00 AM EDT [facility] (Ammir [facility]) Name Value Range Interpretation Description Data Sup porting Code Source(s) Document(s ) WBC 13.5 Above high normal [facility] 10(3)/uL (Ammir [facility]) RBC 4.9 Normal (applies to [facility] 10(6)/uL non-numeric (Ammir results) [facility]) Hemoglobin 15.5 g/dL Normal (applies to [facility] [Mass/volume] non-numeric (Ammir in Mixed results) Mac venous blood Physician) by Oximetry Hematocrit 46.2 % Normal (applies to [facility] [Pure volume non-numeric (Ammir fraction] of results) Mac Blood by Physician) Automated count MCV 93.5 fL Normal (applies to [facility] non-numeric (Ammir results) [facility]) MCHC 34 g/dL Normal (applies to [facility] non-numeric (Ammir results) [facility]) MCH 31 pg Normal (applies to [facility] non-numeric (Ammir results) [facility]) PLT 269 Normal (applies to [facility] 10(3)/uL non-numeric (Ammir results) [facility]) RDWSD 43.7 fL Normal (applies to [facility] non-numeric (Ammir results) [facility]) RDWCV 13.0 % Normal (applies to [facility] non-numeric (Ammir results) [facility]) MPV 13.0 fL Normal (applies to [facility] non-numeric (Ammir results) [facility]) NE# 7.65 Above high normal [facility] 10(3)/uL (Ammir [facility]) LY# 4.46 Above high normal [facility] 10(3)/uL (Ammir [facility]) MO# 1.02 Above high normal [facility] 10(3)/uL (Ammir [facility]) EO# 0.24 Normal (applies to [facility] 10(3)/uL non-numeric (Ammir results) [facility]) BA# 0.08 Above high normal [facility] 10(3)/uL (Ammir [facility]ician) IG# 0.05 Above high normal [facility] 10(3)/uL (Ammir [facility] Physician) NE% 56.60 % Normal (applies to [facility] non-numeric (Ammir results) [facility]) LY% 33 % Normal (applies to [facility] non-numeric (Ammir results) [facility]) MO% 7.6 % Normal (applies to [facility] non-numeric (Ammir results) [facility]) EO% 1.8 % Normal (applies to [facility] non-numeric (Ammir results) [facility]) BA% 0.6 % Normal (applies to [facility] non-numeric (Ammir results) [facility]ician) IG% 0.40 % Normal (applies to [facility] non-numeric (Ammir results) [facility]) ID Date Data Source [id number] 12/26/2016 12:00:00 AM EDT [facility] (Ammir [facility]) Name Value Range Interpretation Code Description Data Supporting Source(s) Document(s ) GLYCOMARK 1.59 ug/mL Below low normal [facility] (Ammi r [facility]) ID Date Data Source [id number] 12/26/2016 12:00:00 AM EDT [facility] (Ammir [facility]) Name Value Range Interpretation Description Data Sup porting Code Source(s) Document(s ) Hemoglobin A1c 9.7 % Above high normal [facility] (Ammir in Blood [facility]) ID Date Data Source [id number] 12/26/2016 12:00:00 AM EDT [facility] (Ammir [facility]) Name Value Range Interpretation Description Data Sup porting Code Source(s) Document(s ) T4 FREE, 1.03 Normal (applies to [facility] THYROXINE ng/dL non-numeric (Ammir results) [facility]) TSH,3RD 2.25 Normal (applies to [facility] GENERATION uIU/mL non-numeric (Ammir results) [facility]) ID Date Data Source [id number] 12/26/2016 12:00:00 AM EDT [facility] (Ammir [facility]) Name Value Range Interpretation Description Data Sup porting Code Source(s) Document(s ) FOLATE SERUM 23.7 Above high normal [facility] (A mmir ng/mL [facility]) VITAMIN B12 1083 Above high normal [facility] (Am darby pg/mL [facility]) ID Date Data Source [id number] 12/26/2016 12:00:00 AM EDT [facility] (Ammir [facility]) Name Value Range Interpretation Description Data Sup porting Code Source(s) Document(s ) VITAMIN D 51.6 Normal (applies to [facility] (Amm ir 1.25 pg/mL non-numeric Mac results) Physician) Procedure Social History Code Duration Value Status Description Data Source(s ) Smoking 01/02/2020 - Cigarettes: 2 completed - Cigarettes: 2 [facility] (Ammir 12:00:00 AM EDT PACKS PER WEEK. PACKS PER WEEK. 4-5 [facility]) 4-5 CIGARS/DAY CIGARS/DAY - - Alcohol: NONE Alcohol: NONE Smoking 01/02/2020 Unknown if ever completed Unknown if ever [facility] (Ammir 12:00:00 AM EDT smoked smoked [facility] Ph ysician) Vital Signs ID Date Data Source [id number] Name Value Range Interpretation Code Description Data Source(s) Heart rate 81 /min 81 /min [facility] (Ammir [facility]) Inhaled oxygen 95 % 95 % [facility] (Am [place] concentration [facility]) Diastolic blood 70 mm[Hg] 70 mm[Hg] [facility] (A mmir pressure [facility]) Systolic blood 110 mm[Hg] 110 mm[Hg] [facility] (Am [place] pressure [facility]ician) Heart rate 96 /min 96 /min [facility] (Ammir [facility]ician) Body temperature 99.6 F 99.6 F [facility] ( Ammir Mac Physician) Inhaled oxygen 95 % 95 % [facility] (Am [place] concentration [facility]ician) Body mass index 32.9 kg/m2 32.9 kg/m2 [facility] (A mmir (BMI) [Ratio] [facility]ician) Diastolic blood 82 mm[Hg] 82 mm[Hg] [facility] (A mmir pressure [facility]ician) Systolic blood 118 mm[Hg] 118 mm[Hg] [facility] (Am dar[place] pressure [facility]ician) Body weight 180 lb 180 lb [facility] (Ammir [facility] Physician) Body height 62 in 62 in [facility] (Ammir [facility] Physician) Heart rate 110 /min 110 /min [facility] (Ammir [facility] Physician) Inhaled oxygen 95 % 95 % [facility] (Am [place] concentration [facility]ician) Diastolic blood 82 mm[Hg] 82 mm[Hg] [facility] (A mmir pressure [facility]ician) Systolic blood 118 mm[Hg] 118 mm[Hg] [facility] (Am dar[place] pressure [facility]ician) Body weight 171 lb 171 lb [facility] (Ammir [facility] Physician) Heart rate 100 /min 100 /min [facility] (Ammir [facility] Physician) Inhaled oxygen 95 % 95 % [facility] (Am [place] concentration [facility]ician) Diastolic blood 76 mm[Hg] 76 mm[Hg] [facility] (A mmir pressure [facility] Physician) Systolic blood 124 mm[Hg] 124 mm[Hg] [facility] (Am [place] pressure [facility]ician) Body weight 171 lb 171 lb [facility] (Ammir [facility] Physician) Heart rate 70 /min 70 /min [facility] (Ammir [facility] Physician) Inhaled oxygen 94 % 94 % [facility] (Am [place] concentration [facility]ician) Body mass index 32.4 kg/m2 32.4 kg/m2 [facility] (A mmir (BMI) [Ratio] [facility]ician) Diastolic blood 66 mm[Hg] 66 mm[Hg] [facility] (A mmir pressure [facility]ician) Systolic blood 108 mm[Hg] 108 mm[Hg] [facility] (Am [place] pressure [facility]) Body weight 177 lb 177 lb [facility] (Ammir [facility] Physician) Body height 62 in 62 in [facility] (Ammir Mac Physician) Heart rate 68 /min 68 /min [facility] (Ammir [facility] Physician) Inhaled oxygen 96 % 96 % [facility] (Am [place] concentration [facility]ician) Body mass index 30.8 kg/m2 30.8 kg/m2 [facility] (A mmir (BMI) [Ratio] [facility]ician) Diastolic blood 70 mm[Hg] 70 mm[Hg] [facility] (A mmir pressure [facility] Physician) Systolic blood 110 mm[Hg] 110 mm[Hg] [facility] (Am dar[place] pressure [facility] Physician) Body weight 174 lb 174 lb [facility] (Ammir Mac Physician) Body height 63 in 63 in [facility] (Ammir Mac Physician) Heart rate 65 /min 65 /min [facility] (Ammir [facility] Physician) Inhaled oxygen 96 % 96 % [facility] (Am [place] concentration [facility] Physician) Body mass index 30.8 kg/m2 30.8 kg/m2 [facility] (A mmir (BMI) [Ratio] [facility]ician) Diastolic blood 68 mm[Hg] 68 mm[Hg] [facility] (A mmir pressure [facility] Physician) Systolic blood 112 mm[Hg] 112 mm[Hg] [facility] (Am dar[place] pressure [facility] Physician) Body weight 174 lb 174 lb [facility] (Ammir Mac Physician) Body height 63 in 63 in [facility] (Ammir Mac Physician) Heart rate 65 /min 65 /min [facility] (Ammir Mac Physician) Inhaled oxygen 96 % 96 % [facility] (Am [place] concentration [facility] Physician) Body mass index 30.8 kg/m2 30.8 kg/m2 [facility] (A mmir (BMI) [Ratio] [facility] Physician) Diastolic blood 68 mm[Hg] 68 mm[Hg] [facility] (A mmir pressure [facility] Physician) Systolic blood 112 mm[Hg] 112 mm[Hg] [facility] (Am dar[place] pressure [facility] Physician) Body weight 174 lb 174 lb [facility] (Ammir [facility] Physician) Body height 63 in 63 in [facility] (Ammir [facility] Physician) Heart rate 95 /min 95 /min [facility] (Ammir [facility] Physician) Inhaled oxygen 97 % 97 % [facility] (Am [place] concentration [facility]ician) Diastolic blood 80 mm[Hg] 80 mm[Hg] [facility] (A mmir pressure [facility] Physician) Systolic blood 138 mm[Hg] 138 mm[Hg] [facility] (Am dar[place] pressure [facility] Physician) Heart rate 101 /min 101 /min [facility] (Ammir Mac Physician) Inhaled oxygen 95 % 95 % [facility] (Am [place] concentration [facility] Physician) Diastolic blood 86 mm[Hg] 86 mm[Hg] [facility] (A mmir pressure [facility] Physician) Systolic blood 126 mm[Hg] 126 mm[Hg] [facility] (Am [place] pressure [facility] Physician) Body weight 164 lb 164 lb [facility] (Ammir Mac Physician) Heart rate 81 /min 81 /min [facility] (Ammir Mac Physician) Body temperature 98.2 F 98.2 F [facility] ( Ammir Mac Physician) Inhaled oxygen 96 % 96 % [facility] (Am [place] concentration [facility]ician) Diastolic blood 80 mm[Hg] 80 mm[Hg] [facility] (A mmir pressure [facility] Physician) Systolic blood 140 mm[Hg] 140 mm[Hg] [facility] (Am dar[place] pressure [facility]ician) Body weight 163 lb 163 lb [facility] (Ammir [facility] Physician) Heart rate 88 /min 88 /min [facility] (Ammir Mac Physician) Inhaled oxygen 95 % 95 % [facility] (Am [place] concentration [facility]ician) Diastolic blood 80 mm[Hg] 80 mm[Hg] [facility] (A mmir pressure [facility] Physician) Systolic blood 130 mm[Hg] 130 mm[Hg] [facility] (Am dar[place] pressure [facility] Physician) Heart rate 90 /min 90 /min [facility] (Ammir Mac Physician) Inhaled oxygen 95 % 95 % [facility] (Am [place] concentration [facility] Physician) Diastolic blood 84 mm[Hg] 84 mm[Hg] [facility] (A mmir pressure [facility] Physician) Systolic blood 140 mm[Hg] 140 mm[Hg] [facility] (Am dar[place] pressure [facility] Physician) Heart rate 78 /min 78 /min [facility] (Ammir Mac Physician) Inhaled oxygen 95 % 95 % [facility] (Am [place] concentration [facility] Physician) Diastolic blood 76 mm[Hg] 76 mm[Hg] [facility] (A mmir pressure [facility] Physician) Systolic blood 136 mm[Hg] 136 mm[Hg] [facility] (Am dar[place] pressure Mac Physician) Body height 63 in 63 in [facility] (Ammir [facility] Physician) Heart rate 77 /min 77 /min [facility] (Ammir [facility] Physician) Body temperature 97.9 F 97.9 F [facility] ( Ammir Mac Physician) Inhaled oxygen 95 % 95 % [facility] (Am [place] concentration [facility]ician) Body mass index 29 kg/m2 29 kg/m2 [facility] (A mmir (BMI) [Ratio] [facility] Physician) Diastolic blood 78 mm[Hg] 78 mm[Hg] [facility] (A mmir pressure [facility] Physician) Systolic blood 136 mm[Hg] 136 mm[Hg] [facility] (Am dar[place] pressure [facility] Physician) Body weight 164 lb 164 lb [facility] (Ammir Mac Physician) Body height 63 in 63 in [facility] (Ammir [facility] Physician) Heart rate 105 /min 105 /min [facility] (Ammir [facility] Physician) Body temperature 97.9 F 97.9 F [facility] ( Ammir Mac Physician) Inhaled oxygen 96 % 96 % [facility] (Am dar[place] concentration [facility] Physician) Diastolic blood 74 mm[Hg] 74 mm[Hg] [facility] (A mmir pressure [facility] Physician) Systolic blood 110 mm[Hg] 110 mm[Hg] [facility] (Am dar[place] pressure [facility] Physician) Heart rate 73 /min 73 /min [facility] (Ammir Mac Physician) Inhaled oxygen 97 % 97 % [facility] (Am dar[place] concentration [facility] Physician) Diastolic blood 80 mm[Hg] 80 mm[Hg] [facility] (A mmir pressure [facility] Physician) Systolic blood 140 mm[Hg] 140 mm[Hg] [facility] (Am dar[place] pressure [facility] Physician) Body weight 170 lb 170 lb [facility] (Ammir [facility] Physician) Heart rate 74 /min 74 /min [facility] (Ammir [facility] Physician) Inhaled oxygen 95 % 95 % [facility] (Am dar[place] concentration [facility]ician) Body mass index 29.8 kg/m2 29.8 kg/m2 [facility] (A mmir (BMI) [Ratio] [facility]) Diastolic blood 68 mm[Hg] 68 mm[Hg] [facility] (A mmir pressure [facility] Physician) Systolic blood 110 mm[Hg] 110 mm[Hg] [facility] (Am dar[place] pressure [facility]ician) Body weight 163 lb 163 lb [facility] (Ammir [facility] Physician) Body height 62 in 62 in [facility] (Ammir [facility] Physician) Heart rate 86 /min 86 /min [facility] (Ammir [facility] Physician) Inhaled oxygen 95 % 95 % [facility] (Am [place] concentration [facility]ician) Body mass index 29.8 kg/m2 29.8 kg/m2 [facility] (A mmir (BMI) [Ratio] [facility]ician) Diastolic blood 70 mm[Hg] 70 mm[Hg] [facility] (A mmir pressure [facility]ician) Systolic blood 123 mm[Hg] 123 mm[Hg] [facility] (Am dar[place] pressure [facility] Physician) Body weight 163 lb 163 lb [facility] (Ammir [facility] Physician) Body height 62 in 62 in [facility] (Ammir [facility] Physician) Heart rate 72 /min 72 /min [facility] (Ammir [facility] Physician) Inhaled oxygen 96 % 96 % [facility] (Am dar[place] concentration [facility]ician) Body mass index 28.9 kg/m2 28.9 kg/m2 [facility] (A mmir (BMI) [Ratio] [facility]ician) Diastolic blood 70 mm[Hg] 70 mm[Hg] [facility] (A mmir pressure [facility] Physician) Systolic blood 110 mm[Hg] 110 mm[Hg] [facility] (Am dar[place] pressure [facility] Physician) Body weight 158 lb 158 lb [facility] (Ammir [facility] Physician) Body height 62 in 62 in [facility] (Ammir Mac Physician) Heart rate 80 /min 80 /min [facility] (Ammir [facility] Physician) Inhaled oxygen 98 % 98 % [facility] (Am [place] concentration [facility]ician) Diastolic blood 80 mm[Hg] 80 mm[Hg] [facility] (A mmir pressure [facility] Physician) Systolic blood 120 mm[Hg] 120 mm[Hg] [facility] (Am dar[place] pressure [facility] Physician) Heart rate 80 /min 80 /min [facility] (Ammir Mac Physician) Inhaled oxygen 98 % 98 % [facility] (Am dar[place] concentration [facility]ician) Diastolic blood 80 mm[Hg] 80 mm[Hg] [facility] (A mmir pressure [facility] Physician) Systolic blood 120 mm[Hg] 120 mm[Hg] [facility] (Am dar[place] pressure [facility] Physician) Heart rate 76 /min 76 /min [facility] (Ammir Mac Physician) Inhaled oxygen 93 % 93 % [facility] (Am dar[place] concentration [facility] Physician) Diastolic blood 88 mm[Hg] 88 mm[Hg] [facility] (A mmir pressure [facility] Physician) Systolic blood 132 mm[Hg] 132 mm[Hg] [facility] (Am dar[place] pressure [facility] Physician) Body weight 176.4 lb 176.4 lb [facility] (Ammir [facility] Physician) Heart rate 86 /min 86 /min [facility] (Ammir Mac Physician) Respiratory rate 80 /min 80 /min [facility] ( Ammir Mac Physician) Inhaled oxygen 97 % 97 % [facility] (Am dar[place] concentration [facility]ician) Body mass index 30.7 kg/m2 30.7 kg/m2 [facility] (A mmir (BMI) [Ratio] [facility]ician) Diastolic blood 90 mm[Hg] 90 mm[Hg] [facility] (A mmir pressure [facility]ician) Systolic blood 160 mm[Hg] 160 mm[Hg] [facility] (Am dar[place] pressure [facility] Physician) Body weight 168 lb 168 lb [facility] (Ammir Mac Physician) Body height 62 in 62 in [facility] (Ammir Mac Physician) Heart rate 69 /min 69 /min [facility] (Ammir Mac Physician) Inhaled oxygen 95 % 95 % [facility] (Am dar[place] concentration [facility]ician) Diastolic blood 72 mm[Hg] 72 mm[Hg] [facility] (A mmir pressure [facility] Physician) Systolic blood 126 mm[Hg] 126 mm[Hg] [facility] (Am dar[place] pressure [facility] Physician) Body weight 178 lb 178 lb [facility] (Ammir Mac Physician) Heart rate 66 /min 66 /min [facility] (Ammir Mac Physician) Inhaled oxygen 94 % 94 % [facility] (Am dar[place] concentration [facility] Physician) Diastolic blood 76 mm[Hg] 76 mm[Hg] [facility] (A mmir pressure Mac Physician) Systolic blood 130 mm[Hg] 130 mm[Hg] [facility] (Am dar[place] pressure Mac Physician) Heart rate 80 /min 80 /min [facility] (Ammir Mac Physician) Inhaled oxygen 99 % 99 % [facility] (Am dar[place] concentration [facility] Physician) Diastolic blood 80 mm[Hg] 80 mm[Hg] [facility] (A mmir pressure Mac Physician) Systolic blood 120 mm[Hg] 120 mm[Hg] [facility] (Am dar[place] pressure Mac Physician) Heart rate 100 /min 100 /min [facility] (Ammir Mac Physician) Inhaled oxygen 95 % 95 % [facility] (Am dar[place] concentration Mac Physician) Diastolic blood 70 mm[Hg] 70 mm[Hg] [facility] (A mmir pressure Mac Physician) Systolic blood 120 mm[Hg] 120 mm[Hg] [facility] (Am dar[place] pressure Mac Physician) Heart rate 88 /min 88 /min [facility] (Ammir Mac Physician) Body temperature 98.1 F 98.1 F [facility] ( Ammir Mac Physician) Inhaled oxygen 98 % 98 % [facility] (Am dar[place] concentration [facility] Physician) Diastolic blood 80 mm[Hg] 80 mm[Hg] [facility] (A mmir pressure Mac Physician) Systolic blood 130 mm[Hg] 130 mm[Hg] [facility] (Am dar[place] pressure Mac Physician) Heart rate 82 /min 82 /min [facility] (Ammir Mac Physician) Inhaled oxygen 96 % 96 % [facility] (Am dar[place] concentration Mac Physician) Systolic blood 112 mm[Hg] 112 mm[Hg] [facility] (Am dar[place] pressure Mac Physician) Heart rate 68 /min 68 /min [facility] (Ammir Mac Physician) Inhaled oxygen 95 % 95 % [facility] (Am dar[place] concentration Mac Physician) Diastolic blood 80 mm[Hg] 80 mm[Hg] [facility] (A mmir pressure Mac Physician) Systolic blood 120 mm[Hg] 120 mm[Hg] [facility] (Am dar[place] pressure Mac Physician) Diastolic blood 70 mm[Hg] 70 mm[Hg] [facility] (A mmir pressure Mac Physician) Systolic blood 110 mm[Hg] 110 mm[Hg] [facility] (Am dar[place] pressure Mac Physician) Body weight 204 lb 204 lb [facility] (Ammir Mac Physician) Heart rate 74 /min 74 /min [facility] (Ammir Mac Physician) Inhaled oxygen 96 % 96 % [facility] (Am [place] concentration Mac Physician) Diastolic blood 90 mm[Hg] 90 mm[Hg] [facility] (A mmir pressure Mac Physician) Systolic blood 140 mm[Hg] 140 mm[Hg] [facility] (Am dar[place] pressure Mac Physician) Heart rate 80 /min 80 /min [facility] (Ammir Mac Physician) Body temperature 97.7 F 97.7 F [facility] ( Ammir Mac Physician) Inhaled oxygen 98 % 98 % [facility] (Am dar[place] concentration [facility] Physician) Diastolic blood 70 mm[Hg] 70 mm[Hg] [facility] (A mmir pressure [facility] Physician) Systolic blood 130 mm[Hg] 130 mm[Hg] [facility] (Am dar[place] pressure Mac Physician) Body weight 212 lb 212 lb [facility] (Ammir Mac Physician) Heart rate 99 /min 99 /min [facility] (Ammir Mac Physician) Inhaled oxygen 97 % 97 % [facility] (Am [place] concentration [facility] Physician) Diastolic blood 80 mm[Hg] 80 mm[Hg] [facility] (A mmir pressure Mac Physician) Systolic blood 130 mm[Hg] 130 mm[Hg] [facility] (Am dar[place] pressure Mac Physician) Systolic blood 120 mm[Hg] 120 mm[Hg] [facility] (Am dar[place] pressure Mac Physician) Heart rate 70 /min 70 /min [facility] (Ammir Mac Physician) Body temperature 97.7 F 97.7 F [facility] ( Ammir Mac Physician) Inhaled oxygen 96 % 96 % [facility] (Am [place] concentration [facility] Physician) Diastolic blood 70 mm[Hg] 70 mm[Hg] [facility] (A mmir pressure Mac Physician) Heart rate 99 /min 99 /min [facility] (Ammir Mac Physician) Inhaled oxygen 99 % 99 % [facility] (Am dar[place] concentration [facility] Physician) Diastolic blood 80 mm[Hg] 80 mm[Hg] [facility] (A mmir pressure Mac Physician) Systolic blood 130 mm[Hg] 130 mm[Hg] [facility] (Am dar[place] pressure Mac Physician) Respiratory rate 78 /min 78 /min [facility] ( Ammir Mac Physician) Body mass index 38.8 kg/m2 38.8 kg/m2 [facility] (A mmir (BMI) [Ratio] [facility] Physician) Diastolic blood 60 mm[Hg] 60 mm[Hg] [facility] (A mmir pressure Mac Physician) Systolic blood 130 mm[Hg] 130 mm[Hg] [facility] (Am dar[place] pressure Mac Physician) Body weight 212 lb 212 lb [facility] (Ammir Mac Physician) Body height 62 in 62 in [facility] (Ammir Mac Physician) Heart rate 78 /min 78 /min [facility] (Ammir Mac Physician) Inhaled oxygen 92 % 92 % [facility] (Am [place] concentration Mac Physician) Diastolic blood 90 mm[Hg] 90 mm[Hg] [facility] (A mmir pressure Mac Physician) Systolic blood 150 mm[Hg] 150 mm[Hg] [facility] (Am dar[place] pressure Mac Physician) Heart rate 74 /min 74 /min [facility] (Ammir Mac Physician) Body temperature 98.1 F 98.1 F [facility] ( Ammir Mac Physician) Inhaled oxygen 95 % 95 % [facility] (Am dar[place] concentration Mac Physician) Diastolic blood 70 mm[Hg] 70 mm[Hg] [facility] (A mmir pressure Mac Physician) Systolic blood 120 mm[Hg] 120 mm[Hg] [facility] (Am dar[place] pressure Mac Physician) Body weight 212 lb 212 lb [facility] (Ammir Mac Physician) Heart rate 69 /min 69 /min [facility] (Ammir Mac Physician) Body temperature 98.1 F 98.1 F [facility] ( Ammir Mac Physician) Inhaled oxygen 98 % 98 % [facility] (Am [place] concentration [facility] Physician) Diastolic blood 50 mm[Hg] 50 mm[Hg] [facility] (A mmir pressure Mac Physician) Systolic blood 110 mm[Hg] 110 mm[Hg] [facility] (Am dar[place] pressure Mac Physician) Body weight 204 lb 204 lb [facility] (Ammir Mac Physician) Body temperature 98.1 F 98.1 F [facility] ( Ammir Mac Physician) Inhaled oxygen 98 % 98 % [facility] (Am dar[place] concentration [facility] Physician) Body mass index 37.5 kg/m2 37.5 kg/m2 [facility] (A mmir (BMI) [Ratio] Mac Physician) Diastolic blood 70 mm[Hg] 70 mm[Hg] [facility] (A mmir pressure Mac Physician) Systolic blood 140 mm[Hg] 140 mm[Hg] [facility] (Am darby pressure Mac Physician) Body weight 205 lb 205 lb [facility] (Jessica Watts Physician) Body height 62 in 62 in [facility] (Jessica Watts Physician)
--- NOTE | 2020-02-18 17:30 | PDOC ---
History of Present Illness - General Chief Complaint: Edema Stated Complaint: RS ANKLE- ANIMAL BITE Time Seen by Provider: 02/18/20 16:59 History Source: Patient Exam Limitations: No Limitations Past History - Travel History Traveled outside of the country in the last 30 days: No Close contact w/someone who was outside of country & ill: No - Medical History Allergies/Adverse Reactions: Allergies Allergy/AdvReac Type Severity Reaction Status Date / Time NSAIDS (Non-Steroidal Allergy Severe STOMACH Verified 02/18/20 16:26 Anti-Inflamma ULCERS Latex, Natural Rubber Allergy Mild Rash Verified 02/18/20 16:26 lactase [From Lactaid] Allergy Verified 02/18/20 16:26 Home Medications: Ambulatory Orders Simvastatin [Zocor -] 20 mg PO HS 03/25/12 Diazepam 10 mg PO HS PRN 09/28/15 Albuterol Sulfate Inhaler - [Ventolin HFA Inhaler -] 2 puff IH Q4H PRN 02/12/18 Metformin HCl [Glucophage] 500 mg PO BIDAC 02/12/18 Enalapril Maleate [Vasotec -] 2.5 mg PO DAILY tablet 02/16/18 Metoprolol Succinate [Toprol XL -] 50 mg PO DAILY tab.sr.24h 02/16/18 Aspirin 81 mg PO DAILY 07/23/18 Cetirizine HCl 10 mg PO HS 07/23/18 Clopidogrel Bisulfate [Clopidogrel] 75 mg PO DAILY 07/23/18 Duloxetine HCl [Cymbalta -] 20 mg PO BID 07/23/18 Sucralfate Oral Suspension [Carafate Oral Suspension -] 1 gm PO BID 07/23/18 Tiotropium Br/Olodaterol HCl [Stiolto Respimat Inhal [place]] 4 gm IH DAILY 07/23/18 Calcium Carbonate [Calcium] 500 mg PO DAILY 08/24/18 Fluticasone Propionate [Flonase Allergy Relief] 9.9 ml NS PRN 08/24/18 [place]-3S/Dha/Epa/Fish Oil [[place]-3 Fish Oil 1,000 mg Sfgl] 1 each PO DAILY 08/24/18 Gabapentin 300 mg PO BID #30 capsule 08/27/18 oxyCODONE HCL [Oxycodone HCl] 15 mg PO QID PRN #10 tablet MDD 4 08/27/18 Diazepam [Valium] 10 mg PO HS PRN tablet MDD 2 10/03/18 Clindamycin [Cleocin -] 300 mg PO TID #21 capsule 02/18/20 Anemia: No Asthma: Yes Cancer: No Cardiac Disorders: Yes (RI, 1 stent) CVA: No COPD: Yes CHF: No Dementia: No Diabetes: Yes GI Disorders: Yes (GERD, GB sludge) Disorders: No HTN: Yes Hypercholesterolemia: Yes Liver Disease: (2 STOMACH ULCERS FROM [facility] 01/2018) Seizures: No Thyroid Disease: No - Surgical History Appendectomy: Yes Cardiac Surgery: Yes (stent RCA 09/09) Neurologic Surgery: Yes (CERVICAL SPINE SURGERY) Orthopedic Surgery: Yes (ARTHROSCOPY RT.KNEE) - Immunization History Immunization Up to Date: Yes - Psycho-Social/Smoking History Smoking Status: Yes Smoking History: Current every day smoker Have you smoked in the past 12 months: Yes Number of Cigarettes Smoked Daily: 7 Information on smoking cessation initiated: Yes 'Breaking Loose' booklet given: 09/30/18 - Substance Abuse Hx (Audit-C & DAST Scrn) How often the patient has a drink containing alcohol: Never Score: In Men: 4 or > Positive; In Women: 3 or > Positive: 0 Screen Result (Pos requires Nsg. Audit-10AR): Negative In the last yr the pt used illegal drug/Rx for NonMed reason: Yes Score: Yes response is considered Positive: 1 Screen Result (Positive result requires Nsg. DAST-10): Positive Review of Systems - Review of Systems Able to Perform ROS?: Yes Comments:: 02/18/20 17:19 CONSTITUTIONAL: Absent: fever, chills, diaphoresis, generalized weakness, malaise, loss of appetite HEENT: Absent: rhinorrhea, nasal congestion, throat pain, throat swelling, difficulty swallowing, mouth swelling, ear pain, eye pain, visual Changes CARDIOVASCULAR: Absent: chest pain, loss of consciousness, palpitations, irregular heart rate, peripheral edema RESPIRATORY: Absent: cough, shortness of breath, dyspnea with exertion, orthopnea, wheezing, stridor, hemoptysis GASTROINTESTINAL: Absent: abdominal pain, abdominal distension, nausea, vomiting, diarrhea, constipation, melena, hematochezia GENITOURINARY: Absent: dysuria, frequency, urgency, hesitancy, hematuria, flank pain, genital pain MUSCULOSKELETAL: Absent: myalgia, arthralgia, joint swelling SKIN: Present: redness and swelling to the R lower flowers. Absent: rash, itching, pallor HEMATOLOGIC/IMMUNOLOGIC: Absent: easy bleeding, easy bruising, lymphadenopathy, frequent infections ENDOCRINE: Absent: unexplained weight gain, unexplained weight loss, heat intolerance, cold intolerance NEUROLOGIC: Absent: headache, focal weakness or paresthesias, dizziness, unsteady gait, seizure, mental status changes, bladder or bowel incontinence PSYCHIATRIC: Absent: anxiety, depression, suicidal or homicidal ideation, hallucinations. Is the patient limited Malay proficient: No *Physical Exam - Vital Signs Last Vital Signs Temp Pulse Resp BP Pulse Ox 98.4 F 100 H 16 123/78 100 02/18/20 16:27 02/18/20 16:27 02/18/20 16:27 02/18/20 16:02/18/20 16:27 - Physical Exam 02/18/20 17:20 GENERAL: Well developed, well nourished. Awake and alert. No acute distress. HEENT: Normocephalic, atraumatic. PERRLA, EOMI. No conjunctival pallor. Sclera are non- icteric. Moist mucous membranes. Oropharynx is clear. NECK: Supple. Full ROM. No JVD. Carotid pulses 2+ and symmetric, without bruits. No thyromegaly. No lymphadenopathy. CARDIOVASCULAR: Regular rate and rhythm. No murmurs, rubs, or gallops. Distal pulses are 2+ and symmetric. PULMONARY: No evidence of respiratory distress. Lungs clear to auscultation bilaterally. No wheezing, rales or rhonchi. ABDOMINAL: Soft. Non-tender. Non-distended. No rebound or guarding. No organomegaly. Normoactive bowel sounds. MUSCULOSKELETAL Normal range of motion at all joints. No bony deformities or tenderness. No CVA tenderness. EXTREMITIES: No cyanosis. No clubbing. No edema. No calf tenderness. SKIN: Erythema and warmth present to the right lower flowers approximately 2 cm round with a central area of questionable necrosis? Warm and dry. Normal capillary refill. No jaundice. NEUROLOGICAL: Alert, awake, appropriate. Cranial nerves 2-12 intact. No deficits to light touch and temperature in face, upper extremities and lower extremities. No motor deficits in the in face, upper extremities and lower extremities. Normoreflexic in the upper and lower extremities. Normal speech. Toes are down-going bilaterally. Gait is normal without ataxia. PSYCHIATRIC: Cooperative. Good eye contact. Appropriate mood and affect. Medical Decision Making - Medical Decision Making 02/18/20 17:30 The patient is a 59-year-old female past medical history of diabetes, hypertension, hyperlipidemia, COPD, multiple orthopedic surgeries, presents to the ER today for pain and erythema to the right lower leg. She states it start ed suddenly today. She does not remember hitting the leg or sustaining a bug bite. She states that the area is tender to touch and that the redness initially took up more of the leg. She marked the area. She states that since then the area has receded a little bit however the central area is still red and painful. Denies numbness and tingling weakness effect extremity. A/P: Rash On exam there is an area of erythema with swelling and questionable central necrosis. Cellulitis versus a vasculitis. We will treat with clindamycin for possible cellulitis and recommend warm compresses, elevation We will have patient follow-up with her primary care doctor this week. Discharge home I discussed the physical exam findings, ancillary test results and final diagnoses with the patient. I answered all of the patient's questions. The patient was satisfied with the care received and felt comfortable with the discharge plan and treatment plan. The Patient agrees to follow up with the primary care physician/specialist within 24-72 hours. Return precautions were given. Discharge - Discharge Information Problems reviewed: Yes Clinical Impression/Diagnosis: Cellulitis Qualifiers: Site of cellulitis: unspecified site Qualified Code(s): L03.90 - Cellulitis, unspecified Condition: Stable Disposition: HOME - Admission No - Follow up/Referral Referrals: Jessica Watts MD [Primary Care Provider] - - Patient Discharge Instructions Patient Printed Discharge Instructions: DI for Cellulitis -- Adult Additional Instructions: You have cellulitis. This is a skin infection. Please take the Clindamycin as directed for 1 week. Take all the antibiotics even if you feel better. You may use warm water soaks to the area. Please do this approximately 4-5 times a day. Please avoid shaving the skin around the area of redness. Keep the leg elevated at rest. You may take Tylenol as needed for pain. Follow the dosing instructions on the bottle. Please follow up with your primary care doctor in 1 week. Return to the emergency department if you have worsening redness, fevers, in creasing pain, or have any changes in your symptoms. - Post Discharge Activity
== END 2020-02-18 17:39 | disposition home or self-care (01) ==
LOC: JER 16:14 → JERFT 16:14
DX: L03.115 Cellulitis of right lower limb (principal)
CPT/HCPCS: 99282-25

== ENCOUNTER 2020-03-09 11:18 | Emergency (ER) | payer OTHER ==
[2020-03-09 11:31] VITALS: BP 153/77; PULSE 108; TEMP 98.2; BMI 32.9
--- OUTSIDE RECORDS SUMMARY | 2020-03-09 11:54 | XMS ---
:1960 Author Organization [facility] Care Team Providers Name Role Phone Mac, Ammir Unavailable [phone] Mac, Ammir Unavailable [phone] Mac, Ammir Unavailable [phone] Mac, Ammir Unavailable [phone] Mac, Ammir Unavailable [phone] Mac, Ammir Unavailable [phone] Mac, Ammir Unavailable [phone] Mac, Ammir Unavailable [phone] Mac, Ammir Unavailable [phone] Mac, Ammir Unavailable [phone] Mac, Ammir Unavailable [phone] Mac, Ammir Unavailable [phone] Mac, Ammir Unavailable [phone] Mac, Ammir Unavailable [phone] Mac, Ammir Unavailable [phone] Mac, Ammir Unavailable [phone] Re-disclosure Warning The records that [...] is protected by Article 27-F of the [facility] Public Health law. If you continue you may haveaccess to information: Regarding HIV / AIDS; Provided by facilities licensed or operated by the [facility] Office of Mental Health; or Provided by the [facility] Office for People With Developmental Disabilities. If such information is present, then the following [facility] mandated warning applies: This information has [...] law may result in a fine or [place] health [place] facility sentence or both. A general authorization for the release of medical or other information is NOT sufficient authorization for further disclosure. Encounters Encounter Providers Location Date Indications Data Source(s ) [facility] (A mmir Mac 12:00:00 AM EDT Mac Ph ysician) [facility] 01/02/2020 12:00:00 AM E DT [facility] (Ammir Mac Physician) Office Attender: Ammir Mac 01/02/2020 12:00:00 AM E DT [facility] (Ammir Mac Physician) Office Attender: Kaylamir Mac 01/02/2020 12:00:00 AM E DT [facility] (Ammir Mac Physician) Office Attender: Ammir Mca 01/02/2020 12:00:00 AM E DT [facility] (Ammir [...] Brand Start Product Dose Route Administrative Pharmacy [facility] Indications Reaction Description Data Name Date Form Instructions Instructions Source(s) Metformin METFOR 11/23/ TABLET 180 complet METFOR MIN [facility] hydrochlori MIN:86 2019 ed (Ammir de 1000 MG 1004 12:00: Mac Oral Tablet 00 AM Physici an) METFORMIN:8 EDT 16072 FREESTYLE 11/16/ 270 complet FREESTYLE [facility] LITE TEST 2020 ed LITE TEST IN (A mmir IN VITRO 12:00: VITRO STRIP Ra badi STRIP: 00 AM Physician) EDT SOLIQUA 11/15/ SOLUTION 30 complet SOLIQUA [facility] 100/33:1859 2019 ed 100/33 (Ammir 000 12:00: Mac 00 AM Physician) EDT PEN NEEDLES complet PEN NEED LES [facility] MISCELLANEO 2020 ed MISCELLANEOU (Ammir US: 12:00: S Mac 00 AM Physician) EDT FREESTYLE complet FREESTYLE [facility] FREEDOM KIT 2020 ed FREEDOM KIT ( Ammir W/METER, 12:00: W/METER, Rabad i W/TEST 00 AM W/TEST Physician) STRIP(S): EDT STRIP(S) 24 HR METOPR 08/09/ TABLET, 90 complet METOPROLO L [facility] metoprolol OLOL 2020 EXTENDED ed SUCCINATE ER (Ammir succinate SUCCIN 12:00: RELEASE Rab jared 50 MG ATE 00 AM Physician) Extended ER:866 EDT Release 436 Oral Tablet METOPROLOL SUCCINATE ER:[id number] Losartan LOSART // TABLET 45 complet LOSARTA N [facility] Potassium [...] MG Oral TATIN: 2019 ed (Ammir Tablet 332443 12:00: Mac SIMVASTATIN 00 AM Physici an) :[id number] EST Enalapril ENALAP 04/26/ TABLET 90 complet ENALAP RIL [facility] Maleate 2.5 RIL 2019 ed MALEATE (Ammi r MG Oral MALEAT 12:00: Mac Tablet E:8588 00 AM Physician) ENALAPRIL 04 EST MALEATE:858 804 clopidogrel CLOPID 04/26/ TABLET 90 complet CLOP IDOGREL [facility] 75 MG Oral OGREL: 2019 ed (Ammir Tablet [id number] 12:00: Mac CLOPIDOGREL 00 AM Physici an) :[id number] EST TRELEGY 02/10/ POWDER 1 complet TRELEGY ME DGEN ELLIPTA:194 2019 ed ELLIPTA (Ammi r 5044 12:00: Mac 00 AM Physician) EDT cetirizine ZYRTEC 01/20/ TABLET 90 complet ZYRTE C [facility] hydrochlori :87181 2018 ed (Ammir de 10 MG 26 12:00: Mac Oral Tablet 00 AM Physici an) [Zyrtec] EDT ZYRTEC:1020 026 200 ACTUAT ALBUTE 01/20/ AEROSOL 1 complet ALBU TEROL [facility] Albuterol ROL 2019 ed SULFATE HFA (Am darby 0.09 SULFAT 12:00: Mac MG/ACTUAT E 00 AM Physician ) Metered HFA:74 EDT Dose 5679 Inhaler ALBUTEROL SULFATE HFA:492904 Calcium CALCIU 01/20/ TABLET 30 complet CALCIUM + [facility] Carbonate M + 2019 ed VITAMIN D (Ammi r 1500 MG / VITAMI 12:00: Mac Cholecalcif N 00 AM Physici an) long 200 D:8095 EDT UNT Oral 33 Tablet CALCIUM + VITAMIN D:908877 gabapentin NEURON 01/20/ CAPSULE 180 complet NEUR ONTIN [facility] 300 MG Oral TIN:10 2019 ed (Ammir Capsule 5029 12:00: Mac [Neurontin] 00 AM Physici an) NEURONTIN:1 EDT 84670 Insurance Providers Payer name Policy type Policy ID Covered Covered green party's Policy P naif / Coverage green party ID relationship to [employer] ormation type gonzalez AETFARAZ [id number] SP [id number] MEDICARE AGUSTÍN MEDICARE [id number] SP [id number] AETNA [id number] SP [id number] MEDICARE Problems, Conditions, and Diagnoses Code Display Name Description Problem Type Effective Data Sour ce(s) Dates D50.9 Iron deficiency IRON DEFICIENCY Problem 11/16/2019 [facility] EN (Ammir anemia, unspecified ANEMIA, 12:00:00 AM Raba di UNSPECIFIED EDT Physician) R30.0 Dysuria DYSURIA Problem 11/16/2019 [facility] (Ammir 12:00:00 AM Mac EDT Physician) R16.0 Hepatomegaly, not HEPATOMEGALY, NOT Problem 11/16/2019 [facility] (Ammir elsewhere ELSEWHERE 12:00:00 AM Mac classified CLASSIFIED EDT Physician) R53.82 Chronic fatigue, CHRONIC FATIGUE, Problem 10/18/2019 ME DGEN (Ammir unspecified UNSPECIFIED 12:00:00 AM Mac EDT Physician) R00.0 Tachycardia, TACHYCARDIA, Problem 10/18/2019 [facility] (Am darby unspecified UNSPECIFIED 12:00:00 AM Mac EDT Physician) F17.210 Nicotine NICOTINE Problem 04/26/2019 [facility] (Ammir dependence, DEPENDENCE, 12:00:00 AM Mac cigarettes, CIGARETTES, EST Physician) uncomplicated UNCOMPLICATED L98.9 Disorder of the DISORDER OF THE Problem 02/10/2019 [facility] EN (Ammir skin and SKIN AND 12:00:00 AM Mac subcutaneous SUBCUTANEOUS EDT Physician) tissue, unspecified TISSUE, UNSPECIFIED D72.829 Elevated white ELEVATED WHITE Problem 02/10/2019 [facility] (Ammir blood cell count, BLOOD CELL COUNT, 12:00:00 AM Mac unspecified UNSPECIFIED EDT Physician) J44.9 Chronic obstructive CHRONIC Problem 02/10/2019 MEDGE N (Ammir pulmonary disease, OBSTRUCTIVE 12:00:00 AM Raba di unspecified PULMONARY DISEASE, EDT Physi claudia) UNSPECIFIED Z23 Encounter for ENCOUNTER FOR Problem 02/10/2019 [facility] ( Ammir immunization IMMUNIZATION 12:00:00 AM Mac EDT Physician) Z00.00 Encounter for ENCOUNTER FOR Problem 01/20/2019 [facility] ( Ammir general adult GENERAL ADULT 12:00:00 AM Mac medical examination MEDICAL EDT Physi claudia) without abnormal EXAMINATION findings WITHOUT ABNORMAL FINDINGS Surgeries/Procedures Procedure Description Date Indications Data Source(s) Documentation of current 01/02/2020 [facility] (Ammir Mac medications (procedure) 12:00:00 AM EDT P hysician) Documentation of current 01/02/2020 [facility] (Ammir Mac medications (procedure) 12:00:00 AM EDT P hysician) Medication Reconciliation 01/02/2020 ME D[facility] (Ammir Mac (procedure) 12:00:00 AM [...] medications (procedure) 12:00:00 AM EDT P hysician) Results ID Date Data Source [id number] 11/17/2019 12:00:00 AM EDT [facility] (Ammir Mac Physician) Name Value Range Interpretation Description Data Sup porting Code Source(s) Document(s ) BILIRUBIN, TOTAL NEGATIVE Normal (applies [facility] to non-numeric (Ammir results) Mca Physician) GLUCOSE UA NEGATIVE Normal (applies [facility] [...] Mac results) Physician) ID Date Data Source [id number] 11/17/2019 12:00:00 AM EDT [facility] (Ammir Mac Physician) Name Value Range Interpretation Description Data Sup porting Code Source(s) Document(s ) HEPATITIS BS NONREACTIVE Normal (applies [facility] AG SCREEN to non-numeric (Ammir results) Mac Physician) ID Date Data Source [id number] 11/17/2019 12:00:00 AM EDT [facility] (Ammir Mac Physician) Name Value Range Interpretation Description Data Sup porting Code Source(s) Document(s ) HEPATITIS B <3.10 Normal (applies to [facility] (A mmir SURFACE AB (NONREACT non-numeric Mac BRAXTON) results) Physician) ID Date Data Source [id number] 11/17/2019 12:00:00 AM EDT [facility] (Ammir Mac Physician) Name Value Range Interpretation Description Data Sup porting Code Source(s) Document(s ) HEPATITIS A NONREACTIVE Normal (applies [facility] AB to non-numeric (Ammir results) Mac Physician) ID Date Data Source [id number] 11/17/2019 12:00:00 AM EDT [facility] (Ammir Mac Physician) Name Value Range Interpretation Description Data Sup porting Code Source(s) Document(s ) HIV 1,2 NONREACTIVE Normal (applies [facility] AG/AB,4TH to non-numeric (Ammir GENERATION results) Mac Physician) ID Date Data Source [id number] 11/17/2019 12:00:00 AM EDT [facility] (Ammir Mac Physician) Name Value Range Interpretation Description Data Sup porting Code Source(s) Document(s ) ORGANISM Abnormal (applies [facility] to non-numeric (Ammir results) Mac Physician) Comment Normal (applies [facility] [Interpretation] to non-numeric (Ammir Left eye Narrative results) Mac Ophthalmometer Physician) ID Date Data Source [id number] 11/17/2019 12:00:00 AM EDT [facility] (Ammir Mac Physician) Name Value Range Interpretation Description Data Sup porting Code Source(s) Document(s ) HEPATITIS C NONREACTIVE Normal (applies [facility] AB QL to non-numeric (Ammir results) Mac Physician) ID Date Data Source [id number] 11/17/2019 12:00:00 AM EDT [facility] (Ammir Mac [...] results) Mac Physician) ID Date Data Source [id number] 11/06/2019 09:43:00 AM EDT [facility] Name Value Range Interpretation Description Data Sup porting Code Source(s) Document(s ) 2019 Novel [facility] Coronavirus RNA Interpretation Unspecified Specimen Qualitative FRANCES Probe Detection This lab was ordered by [id number] and reported by [facility]. ID Date Data Source [id number] 10/19/2019 12:00:00 AM EDT [facility] (Ammir Mac Physician) Name Value Range Interpretation Description Data Sup porting Code Source(s) Document(s ) NGYN RESULTS Specimen# Normal (applies to [facility] ( Ammir [id number] non-numeric Mac 15 results) Physician) ID Date Data Source [id number] 10/19/2019 12:00:00 AM EDT [facility] (Ammir Mac Physician) Name Value Range Interpretation Code Description Data Supporting Source(s) Document(s ) SARS-CoV- 3.80 AU/mL Normal (applies to [facility] (Am darby 2 IGG QNT non-numeric Mac results) Physician) SARS-CoV- NEGATIVE Normal (applies to [facility] (Amm ir 2 IGG non-numeric Mac results) Physician) ID Date Data Source [id number] 10/19/2019 12:00:00 AM EDT [facility] (Ammir Mac [...] results) Mac Physician) ID Date Data Source [id number] 10/19/2019 12:00:00 AM EDT [facility] (Ammir Mac Physician) Name Value Range Interpretation Description Data Sup porting Code Source(s) Document(s ) TSH,3RD 1.95 Normal (applies to [facility] GENERATION uIU/mL non-numeric (Ammir results) Mac Physician) T4 FREE, 1.55 Normal (applies to [facility] THYROXINE ng/dL non-numeric (Ammir results) Mac Physician) ID Date Data Source [id number] 10/19/2019 12:00:00 AM EDT [facility] (Ammir Mac Physician) Name Value Range Interpretation Description Data Sup porting Code Source(s) Document(s ) Ferritin 99.9 Normal (applies to [facility] (Amm ir [Interpretat ng/mL non-numeric Mac ion] in results) Physician) Blood ID Date Data Source [id number] 10/19/2019 12:00:00 AM EDT [facility] (Ammir Mac [...] (Ammir Mac Physician) ID Date Data Source [id number] 10/19/2019 12:00:00 AM EDT [facility] (Ammir Mac Physician) Name Value Range Interpretation Description Data Sup porting Code Source(s) Document(s ) FOLATE SERUM 6.8 ng/mL Normal (applies to [facility] ( Ammir non-numeric Mac results) Physician) VITAMIN B12 1057 Above high normal [facility] (Am darby pg/mL Mac Physician) ID Date Data Source [id number] 10/19/2019 12:00:00 AM EDT [facility] (Ammir Mac [...] creat Mac Physician) ID Date Data Source [id number] 10/19/2019 12:00:00 AM EDT [facility] (Ammir Mac Physician) Name Value Range Interpretation Description Data Sup porting Code Source(s) Document(s ) VITAMIN D 8.88 Below low normal [facility] (Ammir 25-HYDROXY ng/mL Mac Physician) ID Date Data Source [id number] 10/19/2019 12:00:00 AM EDT [facility] (Ammir Mac [...] (Ammir Mac Physician) ID Date Data Source [id number] 10/19/2019 12:00:00 AM EDT [facility] (Ammir Mac Physician) Name Value Range Interpretation Code Description Data Aretha rce(s) Supporting Document(s ) IRON, 40 ug/dL Below low normal [facility] (Ammir TOTAL Mac Physician) ID Date Data Source [id number] 10/19/2019 12:00:00 AM EDT [facility] (Ammir Mac [...] results) Mac Physician) ID Date Data Source [id number] 10/19/2019 12:00:00 AM EDT [facility] (Ammir Mac Physician) Name Value Range Interpretation Description Data Sup porting Code Source(s) Document(s ) Hemoglobin A1c 11.1 % Above high normal [facility] (Ammir in Blood Mac Physician) ID Date Data Source [id number] 10/19/2019 12:00:00 AM EDT [facility] (Ammir Mac [...] EGFR NON AFR 79 Normal (applies [facility] AZERBAIJANI mL/min/1 to non-numeric (Ammir .73m2 results) Mac Physician) EGFR AFR 95 Normal (applies [facility] AZERBAIJANI mL/min/1 to non-numeric (Ammir .73m2 results) Mac Physician) ID Date Data Source [id number] 04/26/2019 12:00:00 AM EST [facility] (Ammir Mac [...] results) Mac Physician) ID Date Data Source [id number] 04/26/2019 12:00:00 AM EST [facility] (Ammir Mac [...] 10.64 Above high normal [facility] 10(3)/uL (Ammir Mac Physician) Lymphocyte Abs 5.03 Above high normal [...] results) Mac Physician) ID Date Data Source [id number] 04/26/2019 12:00:00 AM EST [facility] (Ammir Mac Physician) Name Value Range Interpretation Description Data Sup porting Code Source(s) Document(s ) Hemoglobin A1c 8.5 % Above high normal [facility] (Ammir in Blood Mac Physician) ID Date Data Source [id number] 04/26/2019 12:00:00 AM EST [facility] (Ammir Mac [...] EGFR NON AFR 92 Normal (applies [facility] AZERBAIJANI mL/min/1 to non-numeric (Ammir .73m2 results) Mac Physician) EGFR AFR 111 Normal (applies [facility] AZERBAIJANI mL/min/1 to non-numeric (Ammir .73m2 results) Mac Physician) Procedure Social History Code Duration Value [...]
[2020-03-09] MEDS ORDERED: KETOROLAC TROMETHAMINE 60 MG/2 ML VIAL IM ONE (12:28)
[2020-03-09] MEDS ORDERED: DEXAMETHASONE SOD PHOSPHATE 10 MG/1 ML VIAL IM ONE (12:29)
[2020-03-09] MEDS ORDERED: KETOROLAC TROMETHAMINE 60 MG/2 ML VIAL ONE (12:30)
[2020-03-09] MEDS ORDERED: DEXAMETHASONE SOD PHOSPHATE 10 MG/1 ML VIAL ONE (12:30)
--- NOTE | 2020-03-09 12:34 | PDOC ---
History of Present Illness - General Chief Complaint: Chronic pain Stated Complaint: BACK PAIN Time Seen by Provider: 03/09/20 12:19 History Source: Patient - History of Present Illness Timing/Duration: other Past History - Medical History Allergies/Adverse Reactions: Allergies Allergy/AdvReac Type Severity Reaction Status Date / Time NSAIDS (Non-Steroidal Allergy Severe STOMACH Verified 03/09/20 11:25 Anti-Inflamma ULCERS Latex, Natural Rubber Allergy Mild Rash Verified 03/09/20 11:25 lactase [From Lactaid] Allergy Verified 03/09/20 11:25 Home Medications: Ambulatory Orders Simvastatin [Zocor -] 20 mg PO HS 03/25/12 Diazepam 10 mg PO HS PRN 09/28/15 Albuterol Sulfate Inhaler - [Ventolin HFA Inhaler -] 2 puff IH Q4H PRN 02/12/18 Metformin HCl [Glucophage] 500 mg PO BIDAC 02/12/18 Enalapril Maleate [Vasotec -] 2.5 mg PO DAILY tablet 02/16/18 Metoprolol Succinate [Toprol XL -] 50 mg PO DAILY tab.sr.24h 02/16/18 Aspirin 81 mg PO DAILY 07/23/18 Cetirizine HCl 10 mg PO HS 07/23/18 Clopidogrel Bisulfate [Clopidogrel] 75 mg PO DAILY 07/23/18 Duloxetine HCl [Cymbalta -] 20 mg PO BID 07/23/18 Sucralfate Oral Suspension [Carafate Oral Suspension -] 1 gm PO BID 07/23/18 Tiotropium Br/Olodaterol HCl [Stiolto Respimat Inhal [place]] 4 gm IH DAILY 07/23/18 Calcium Carbonate [Calcium] 500 mg PO DAILY 08/24/18 Fluticasone Propionate [Flonase Allergy Relief] 9.9 ml NS PRN 08/24/18 [place]-3S/Dha/Epa/Fish Oil [[place]-3 Fish Oil 1,000 mg Sfgl] 1 each PO DAILY 08/24/18 Gabapentin 300 mg PO BID #30 capsule 08/27/18 oxyCODONE HCL [Oxycodone HCl] 15 mg PO QID PRN #10 tablet MDD 4 08/27/18 Diazepam [Valium] 10 mg PO HS PRN tablet MDD 2 10/03/18 Clindamycin [Cleocin -] 300 mg PO TID #21 capsule 02/18/20 Anemia: No Asthma: Yes Cancer: No Cardiac Disorders: Yes (NE, 1 stent) CVA: No COPD: Yes CHF: No Dementia: No Diabetes: Yes GI Disorders: Yes (GERD, GB sludge) Disorders: No HTN: Yes Hypercholesterolemia: Yes Liver Disease: (2 STOMACH ULCERS FROM [facility] 01/2018) Seizures: No Thyroid Disease: No - Surgical History Appendectomy: Yes Cardiac Surgery: Yes (stent RCA 09/09) Neurologic Surgery: Yes (CERVICAL SPINE SURGERY) Orthopedic Surgery: Yes (ARTHROSCOPY RT.KNEE) - Immunization History Immunization Up to Date: Yes - Psycho-Social/Smoking History Smoking Status: Yes Smoking History: Current every day smoker Have you smoked in the past 12 months: Yes Number of Cigarettes Smoked Daily: 0 Information on smoking cessation initiated: Yes 'Breaking Loose' booklet given: 09/30/18 - Substance Abuse Hx (Audit-C & DAST Scrn) How often the patient has a drink containing alcohol: Never Score: In Men: 4 or > Positive; In Women: 3 or > Positive: 0 Screen Result (Pos requires Nsg. Audit-10AR): Negative In the last yr the pt used illegal drug/Rx for NonMed reason: Yes Score: Yes response is considered Positive: 1 Screen Result (Positive result requires Nsg. DAST-10): Positive Review of Systems - Review of Systems Constitutional: No: Chills, Fever ABD/GI: No: Nausea, Vomiting, Abdominal cramping : No: Dysuria, Hematuria Musculoskeletal: Yes: Back Pain. No: Neck Pain Neurological: No: Numbness, Tingling, Weakness *Physical Exam - Vital Signs Last Vital Signs Temp Pulse Resp BP Pulse Ox 98.2 F 108 H 18 153/77 96 03/09/20 11:26 03/09/20 11:26 03/09/20 11:26 03/09/20 11:26 03/09/20 11:26 - Physical Exam General Appearance: Yes: Appropriately Dressed. No: Apparent Distress HEENT: positive: Normal Voice Neck: positive: Supple Respiratory/Chest: negative: Respiratory Distress Gastrointestinal/Abdominal: positive: Soft. 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 Waldrop of neurosurgery next week to discuss possible surgery in the [facility], here with her usual mid back pain x several days. Tylenol not helping for pain. No acute trauma. No acute sensory changes, lower extremity weakness, bowel or bladder incontinence or saddle anesthesia. see exam Acute on chronic thoracic back pain Known DJD and disc bulges on MRI earlier this month at [facility] and scheduled to see neurosurgery for consultation next week No acute neuro symptoms Tylenol not relieving pain at home Unable to take oral NSAIDs or steroids given significant GI history Dose of Decadron and Toradol injection given in ED DC to follow-up with neurosurgery as already scheduled Discharge - Discharge Information Problems reviewed: Yes Clinical Impression/Diagnosis: Chronic back pain Qualifiers: Back pain location: thoracic back pain Back pain laterality: unspecified Qualified Code(s): M54.6 - Pain in thoracic spine; G89.29 - Other chronic pain Condition: Improved Disposition: HOME - Follow up/Referral Referrals: Jessica Watts MD [Primary Care Provider] - - Patient Discharge Instructions Additional Instructions: You were given a dose of Toradol and Decadron here Please follow-up with neurosurgery as already scheduled - Post Discharge Activity
== END 2020-03-09 12:36 | disposition home or self-care (01) ==
LOC: JERFT 11:18 → JER 11:18 → JERFT 12:36
PROC: 3E0233Z Introduction of Anti-inflammatory into Muscle, Percutaneous Approach (ICD-10-PCS; principal; 2020-03-09)
PROC: 3E023GC Introduction of Other Therapeutic Substance into Muscle, Percutaneous Approach (ICD-10-PCS; 2020-03-09)
DX: G89.29 Other chronic pain (principal)
CPT/HCPCS: 99284-25; J1100

== ENCOUNTER 2020-05-08 06:16 | Inpatient (IN) | payer OTHER ==
[2020-05-07 08:48] VITALS: BMI 32.9
[2020-05-08] MEDS ORDERED: VANCOMYCIN 1,000 MG VIAL (RESTRICTED TO ID ONLY) ONE ×2 (07:12→09:05)
[2020-05-08] MEDS ORDERED: GENTAMICIN SO4 80 MG/2 ML VIAL ONE (07:12)
[2020-05-08] MEDS ORDERED: BUPIVACAINE LIPOSOME/PF (EXPAREL) 266 MG/20 ML VIAL ONE (07:12)
[2020-05-08] MEDS ORDERED: LIDOCAINE 1%/EPI 1:100000 (50 ML MULTI DOSE VIAL) ONE (07:12)
[2020-05-08] MEDS ORDERED: THROMBIN (BOVINE) 5,000 UNIT VIAL TP ONE ×2 (07:13→09:35)
[2020-05-08] MEDS ORDERED: MIDAZOLAM HCL 2 MG/2 ML SINGLE DOSE VIAL ONE ×2 (07:26→08:27)
[2020-05-08] MEDS ORDERED: ROCURONIUM BROMIDE 50 MG/5 ML SYRINGE ONE ×2 (07:26→09:04)
[2020-05-08] MEDS ORDERED: fentaNYL CITRATE 250 MCG/5 ML VIAL ONE (07:26)
[2020-05-08] MEDS ORDERED: PROPOFOL 20 ML ONE (07:26)
[2020-05-08] MEDS ORDERED: SUCCINYLCHOLINE CHLORIDE 200 MG/10 ML SYRINGE ONE (07:26)
[2020-05-08] MEDS ORDERED: ONDANSETRON 4 MG/2 ML VIAL ONE (07:27)
[2020-05-08] MEDS ORDERED: LIDOCAINE HCL/PF 2% SDV 5ML VIAL ONE (07:27)
[2020-05-08] MEDS ORDERED: DEXAMETHASONE SOD PHOSPHATE 4 MG/1 ML VIAL ONE (07:27)
[2020-05-08] MEDS ORDERED: morphine SULFATE/PF 0.5 MG/ML (2cc Syringe - QUVA) ONE (08:02)
[2020-05-08] MEDS ORDERED: LIDOCAINE 1%/EPI 1:100000 (20 ML MULTI DOSE VIAL) IJ ONE ×3 (08:06→09:11)
[2020-05-08] MEDS ORDERED: ceFAZolin SODIUM 1 GM VIAL IVPB ONE (08:30)
[2020-05-08] MEDS ORDERED: VANCOMYCIN 1,000 MG VIAL (RESTRICTED TO ID ONLY) IVPB ONE ×3 (08:30→10:55)
[2020-05-08] MEDS ORDERED: SEVOFLURANE 250 ML BTL ONE (08:42)
[2020-05-08] MEDS ORDERED: ceFAZolin SODIUM 1 GM VIAL ONE ×3 (09:05→23:34)
[2020-05-08] MEDS ORDERED: GENTAMICIN SO4 80 MG/2 ML VIAL IVPB ONE (09:36)
[2020-05-08] MEDS ORDERED: BACITRACIN 50,000 UNITS VIAL TP ONE ×3 (09:39→10:55)
[2020-05-08] MEDS ORDERED: BUPIVACAINE LIPOSOME/PF (EXPAREL) 266 MG/20 ML VIAL NR ONE ×2 (09:43→10:56)
[2020-05-08] MEDS ORDERED: BUPIVACAINE HCL/PF 0.5% (5MG/ML) 10 ML VIAL IJ ONE ×2 (09:43→10:56)
[2020-05-08] MEDS ORDERED: NEOSTIGMINE METHYLSULFATE 0.5 MG/1 ML - 10 ML MDV ONE (11:25)
[2020-05-08] MEDS ORDERED: GLYCOPYRROLATE 0.2 MG/1 ML VIAL ONE (11:26)
[2020-05-08] MEDS ORDERED: ONDANSETRON 4 MG/2 ML VIAL IVPUSH PRN ×3 (12:32→12:43)
[2020-05-08] MEDS ORDERED: morphine SULFATE/PF 0.5 MG/ML (2cc Syringe - QUVA) IT ONE (12:34)
[2020-05-08] MEDS ORDERED: NALOXONE HCL 0.4 MG/ML VIAL IVPUSH PRN (12:34)
[2020-05-08] MEDS ORDERED: oxyCODONE HCL 5 MG TABLET PO PRN ×2 (12:34)
[2020-05-08] MEDS ORDERED: diphenhydrAMINE HCL 25 MG CAPSULE (FP) PO PRN (12:43)
[2020-05-08] MEDS ORDERED: LACTATED RINGERS SOLUTION 1,000 ML/1,000 ML INFUS.BAG IV SCH (12:45)
[2020-05-08] MEDS ORDERED: LACTATED RINGERS SOLUTION 1,000 ML IV SCH (12:45)
[2020-05-08] MEDS ORDERED: ALBUTEROL SO4 HFA INHALER IH PRN (12:49)
[2020-05-08] MEDS: SODIUM CHLORIDE 1,000 ML IV SCH (13:50)
[2020-05-08] MEDS: HYDROmorphone *PCA* 10MG/50ML DISP.SYRIN PCA SCH (13:50)
[2020-05-08] MEDS ORDERED: HYDROmorphone *PCA* 10MG/50ML DISP.SYRIN ONE (14:17)
[2020-05-08] MEDS ORDERED: CEFAZOLIN 1 GM/D5W 1 GM/50 ML BAG IVPB SCH (16:00)
[2020-05-08] MEDS: DOCUSATE SODIUM 100 MG CAPSULE (FP) PO SCH ×2 (16:49→22:06)
[2020-05-08] MEDS ORDERED: DEXTROSE 5%-WATER - 50 ML IVPB ONE ×2 (16:57→23:34)
[2020-05-08] MEDS: INSULIN SLIDING SCALE (NOVOLOG) 1 VIAL SQ SCH ×2 (17:21→22:18)
[2020-05-08] MEDS: ACETAMINOPHEN 325 MG TABLET (FP) PO SCH ×2 (17:21→23:45)
[2020-05-08] MEDS: CEFAZOLIN 1 GM in DEXTROSE 5%-WATER - 1 GM/50 ML IVPB IVPB SCH (17:21)
[2020-05-08] MEDS ORDERED: guaiFENesin/D-M SUGAR-FREE/ACLHOL-FREE 118 ML BOTTLE PO PRN (18:21)
[2020-05-08] MEDS: NICOTINE 21 MG/24 HOURS TOPICAL PATCH TD SCH (18:45)
[2020-05-08] MEDS ORDERED: DOCUSATE SODIUM 100 MG CAPSULE (FP) PO SCH (22:00)
[2020-05-08] MEDS: LORATADINE 10 MG TABLET PO SCH (22:04)
[2020-05-08] MEDS: HEPARIN NA (PORCINE) 5,000 UNITS/ML 1ML VIAL SQ SCH (22:07)
[2020-05-08] MEDS: diazePAM 5 MG TABLET PO SCH (22:07)
[2020-05-08] MEDS: ATORVASTATIN CA 40 MG TABLET (FP) PO SCH (22:07)
[2020-05-09] MEDS: CEFAZOLIN 1 GM in DEXTROSE 5%-WATER - 1 GM/50 ML IVPB IVPB SCH ×3 (00:10→17:31)
[2020-05-09] MEDS: DOCUSATE SODIUM 100 MG CAPSULE (FP) PO SCH ×3 (06:00→21:54)
[2020-05-09] MEDS: ACETAMINOPHEN 325 MG TABLET (FP) PO SCH ×3 (06:00→17:30)
[2020-05-09] MEDS: HEPARIN NA (PORCINE) 5,000 UNITS/ML 1ML VIAL SQ SCH ×3 (06:15→21:55)
[2020-05-09] MEDS: INSULIN SLIDING SCALE (NOVOLOG) 1 VIAL SQ SCH ×4 (08:02→22:10)
[2020-05-09 08:23] LABS: HEMATOCRIT 35.2 % (32.4-45.2); HEMOGLOBIN 11.5 GM/dL (10.7-15.3); MCH 30.6 pg (25.7-33.7); MCHC 32.5 g/dl (32.0-36.0); MEAN CELL VOLUME 94.2 fl (80-96); MEAN PLT VOLUME 9.9 fl (7.5-11.1); PLATELET COUNT 292 K/MM3 (134-434); RBC 3.74 M/mm3 (3.60-5.2); RDW 14.4 % (11.6-15.6); WHITE BLOOD COUNT 15.1 K/mm3 (4.0-10.0)
[2020-05-09 08:29] LABS: BLOOD UREA NITROGEN 12.7 mg/dL (7-18)
[2020-05-09 08:30] LABS: CALCIUM 8.6 mg/dL (8.5-10.1)
[2020-05-09 08:32] LABS: CREATININE 0.8 mg/dL (0.55-1.3)
[2020-05-09] MEDS ORDERED: ceFAZolin SODIUM 1 GM VIAL ONE ×2 (09:51→17:27)
[2020-05-09] MEDS ORDERED: DEXTROSE 5%-WATER - 50 ML IVPB ONE ×2 (09:51→17:28)
[2020-05-09] MEDS: diazePAM 5 MG TABLET PO SCH ×2 (10:03→21:54)
[2020-05-09] MEDS: NICOTINE 21 MG/24 HOURS TOPICAL PATCH TD SCH (10:04)
[2020-05-09] MEDS ORDERED: oxyCODONE HCL 10 MG SUSTAINED ACTING TABLET PO SCH (12:34)
[2020-05-09] MEDS: HYDROmorphone *PCA* 10MG/50ML DISP.SYRIN PCA SCH (14:06)
[2020-05-09] MEDS: SODIUM CHLORIDE 1,000 ML IV SCH (14:43)
[2020-05-09] MEDS: LORATADINE 10 MG TABLET PO SCH (21:54)
[2020-05-09] MEDS: ATORVASTATIN CA 40 MG TABLET (FP) PO SCH (21:54)
[2020-05-10] MEDS ORDERED: ceFAZolin SODIUM 1 GM VIAL ONE ×3 (01:54→16:58)
[2020-05-10] MEDS ORDERED: DEXTROSE 5%-WATER - 50 ML IVPB ONE ×3 (01:54→16:58)
[2020-05-10] MEDS: CEFAZOLIN 1 GM in DEXTROSE 5%-WATER - 1 GM/50 ML IVPB IVPB SCH ×3 (02:32→17:03)
[2020-05-10] MEDS: DOCUSATE SODIUM 100 MG CAPSULE (FP) PO SCH ×3 (06:37→21:49)
[2020-05-10] MEDS: HEPARIN NA (PORCINE) 5,000 UNITS/ML 1ML VIAL SQ SCH ×3 (06:37→21:49)
[2020-05-10] MEDS: ACETAMINOPHEN 325 MG TABLET (FP) PO SCH ×4 (06:37→17:04)
[2020-05-10] MEDS: INSULIN SLIDING SCALE (NOVOLOG) 1 VIAL SQ SCH ×4 (06:38→21:57)
[2020-05-10] MEDS: HYDROmorphone *PCA* 10MG/50ML DISP.SYRIN PCA SCH ×3 (08:15→17:02)
[2020-05-10] MEDS ORDERED: morphine SULFATE/PF 0.5 MG/ML (2cc Syringe - QUVA) IT ONE (08:33)
[2020-05-10] MEDS ORDERED: HYDROmorphone *PCA* 10MG/50ML DISP.SYRIN PCA SCH (08:33)
[2020-05-10] MEDS ORDERED: SODIUM CHLORIDE 1,000 ML IV SCH (08:33)
[2020-05-10] MEDS ORDERED: ONDANSETRON 4 MG/2 ML VIAL IVPUSH PRN (08:33)
[2020-05-10] MEDS ORDERED: NALOXONE HCL 0.4 MG/ML VIAL IVPUSH PRN (08:33)
[2020-05-10] MEDS ORDERED: diphenhydrAMINE HCL 25 MG CAPSULE (FP) PO PRN (08:33)
[2020-05-10] MEDS ORDERED: ALBUTEROL SO4 HFA INHALER IH PRN (08:33)
[2020-05-10] MEDS ORDERED: guaiFENesin/D-M SUGAR-FREE/ACLHOL-FREE 118 ML BOTTLE PO PRN (08:33)
[2020-05-10] MEDS: NICOTINE 21 MG/24 HOURS TOPICAL PATCH TD SCH (09:51)
[2020-05-10] MEDS ORDERED: diazePAM 5 MG TABLET PO SCH (10:00)
[2020-05-10] MEDS ORDERED: diazePAM 5 MG TABLET PO ONE (11:10)
[2020-05-10] MEDS: SODIUM CHLORIDE 1,000 ML IV SCH (11:57)
[2020-05-10] MEDS ORDERED: PCA PUMP NR ONE (12:17)
[2020-05-10] MEDS ORDERED: HYDROmorphone HCL CARPU-JECT 2 MG/1 ML DISP.SYRIN IVPB PRN (12:29)
[2020-05-10] MEDS: ATORVASTATIN CA 40 MG TABLET (FP) PO SCH (21:46)
[2020-05-10] MEDS: diazePAM 5 MG TABLET PO SCH (21:46)
[2020-05-10] MEDS: LORATADINE 10 MG TABLET PO SCH (21:46)
[2020-05-11] MEDS ORDERED: ceFAZolin SODIUM 1 GM VIAL ONE ×3 (02:28→17:06)
[2020-05-11] MEDS ORDERED: DEXTROSE 5%-WATER - 50 ML IVPB ONE ×3 (02:28→17:06)
[2020-05-11] MEDS: CEFAZOLIN 1 GM in DEXTROSE 5%-WATER - 1 GM/50 ML IVPB IVPB SCH ×4 (02:35→18:42)
[2020-05-11] MEDS: HEPARIN NA (PORCINE) 5,000 UNITS/ML 1ML VIAL SQ SCH ×3 (06:12→22:36)
[2020-05-11] MEDS: DOCUSATE SODIUM 100 MG CAPSULE (FP) PO SCH ×3 (06:12→22:36)
[2020-05-11] MEDS: ACETAMINOPHEN 325 MG TABLET (FP) PO SCH (06:21)
[2020-05-11] MEDS: INSULIN SLIDING SCALE (NOVOLOG) 1 VIAL SQ SCH ×4 (06:27→22:37)
[2020-05-11 07:31] LABS: BASO % 0.6 % (0-2.0); EOS % 0.6 % (0-4.5); HEMATOCRIT 33.3 % (32.4-45.2); HEMOGLOBIN 11.1 GM/dL (10.7-15.3); LYMPH % 20.8 % (8-40); MCH 30.9 pg (25.7-33.7); MCHC 33.1 g/dl (32.0-36.0); MEAN CELL VOLUME 93.2 fl (80-96); MEAN PLT VOLUME 9.9 fl (7.5-11.1); MONO % 8.8 % (3.8-10.2); NEUT % 69.2 % (42.8-82.8); PLATELET COUNT 246 K/MM3 (134-434); RBC 3.58 M/mm3 (3.60-5.2); RDW 13.8 % (11.6-15.6); WHITE BLOOD COUNT 10.5 K/mm3 (4.0-10.0)
[2020-05-11 07:43] LABS: POTASSIUM 4.1 mmol/L (3.5-5.1)
[2020-05-11 07:52] LABS: ALBUMIN 2.7 g/dl (3.4-5.0); BLOOD UREA NITROGEN 5.2 mg/dL (7-18); CALCIUM 8.4 mg/dL (8.5-10.1)
[2020-05-11 07:55] LABS: CREATININE 0.5 mg/dL (0.55-1.3)
[2020-05-11 07:57] LABS: BILIRUBIN,TOTAL 0.5 mg/dL (0.2-1)
[2020-05-11] MEDS: NICOTINE 21 MG/24 HOURS TOPICAL PATCH TD SCH (09:30)
[2020-05-11] MEDS: diazePAM 5 MG TABLET PO SCH ×2 (09:30→20:28)
[2020-05-11] MEDS ORDERED: LIDOCAINE PATCH REMOVAL MC SCH (10:15)
[2020-05-11] MEDS: GABAPENTIN 100 MG CAPSULE PO SCH ×3 (11:12→20:27)
[2020-05-11] MEDS: SODIUM CHLORIDE 1,000 ML IV SCH (12:08)
[2020-05-11] MEDS: ACETAMINOPHEN 500 MG TABLET (FP) PO SCH ×2 (12:09→18:41)
[2020-05-11] MEDS: HYDROmorphone *PCA* 10MG/50ML DISP.SYRIN PCA SCH (12:25)
[2020-05-11] MEDS: LIDOCAINE 5% TOPICAL PATCH TP SCH (14:08)
[2020-05-11] MEDS: DULoxetine HCL 30 MG CAPSULE.DR PO ONE (20:28)
[2020-05-11] MEDS ORDERED: MORPHINE SULFATE 2 MG/ML VIAL IVPB ONE (21:43)
[2020-05-11] MEDS: ATORVASTATIN CA 40 MG TABLET (FP) PO SCH ×2 (22:27→22:38)
[2020-05-11] MEDS: LORATADINE 10 MG TABLET PO SCH ×2 (22:27→22:38)
[2020-05-12] MEDS: ACETAMINOPHEN 500 MG TABLET (FP) PO SCH ×4 (01:00→22:06)
[2020-05-12] MEDS ORDERED: ceFAZolin SODIUM 1 GM VIAL ONE ×3 (01:43→16:27)
[2020-05-12] MEDS ORDERED: DEXTROSE 5%-WATER - 50 ML IVPB ONE ×3 (01:44→16:27)
[2020-05-12] MEDS: ONDANSETRON 4 MG/2 ML VIAL IVPUSH PRN ×2 (02:01→09:00)
[2020-05-12] MEDS: CEFAZOLIN 1 GM in DEXTROSE 5%-WATER - 1 GM/50 ML IVPB IVPB SCH ×3 (02:02→16:38)
[2020-05-12] MEDS ORDERED: MORPHINE SULFATE 2 MG/ML VIAL IVPUSH ONE (02:54)
[2020-05-12] MEDS ORDERED: MORPHINE SULFATE 2 MG/ML VIAL ONE (02:58)
[2020-05-12] MEDS: DOCUSATE SODIUM 100 MG CAPSULE (FP) PO SCH ×3 (06:37→22:07)
[2020-05-12] MEDS: HEPARIN NA (PORCINE) 5,000 UNITS/ML 1ML VIAL SQ SCH ×3 (06:37→22:07)
[2020-05-12] MEDS: GABAPENTIN 100 MG CAPSULE PO SCH ×3 (06:38→22:06)
[2020-05-12] MEDS: LIDOCAINE 5% TOPICAL PATCH TP SCH (09:57)
[2020-05-12] MEDS: NICOTINE 21 MG/24 HOURS TOPICAL PATCH TD SCH (09:57)
[2020-05-12] MEDS: diazePAM 5 MG TABLET PO SCH ×2 (09:57→22:06)
[2020-05-12] MEDS: HYDROmorphone HCl 2 MG/ML VIAL IVPB PRN (09:58)
[2020-05-12 11:58] LABS: BASO % 0.1 % (0-2.0); HEMATOCRIT 30.2 % (32.4-45.2); HEMOGLOBIN 10.2 GM/dL (10.7-15.3); MCH 31.2 pg (25.7-33.7); MCHC 33.8 g/dl (32.0-36.0); MEAN CELL VOLUME 92.1 fl (80-96); MEAN PLT VOLUME 9.8 fl (7.5-11.1); MONO % 6.9 % (3.8-10.2); PLATELET COUNT 245 K/MM3 (134-434); RBC 3.28 M/mm3 (3.60-5.2); RDW 13.7 % (11.6-15.6)
[2020-05-12 12:17] LABS: POTASSIUM 3.6 mmol/L (3.5-5.1)
[2020-05-12 12:19] LABS: ALBUMIN 2.5 g/dl (3.4-5.0); BLOOD UREA NITROGEN 6.3 mg/dL (7-18); CALCIUM 8.1 mg/dL (8.5-10.1)
[2020-05-12 12:23] LABS: CREATININE 0.4 mg/dL (0.55-1.3)
[2020-05-12 12:24] LABS: BILIRUBIN,TOTAL 0.4 mg/dL (0.2-1)
[2020-05-12] MEDS: INSULIN SLIDING SCALE (NOVOLOG) 1 VIAL SQ SCH ×2 (14:22→22:16)
[2020-05-12] MEDS: SIMETHICONE 80 MG TAB.CHEW (FP) PO SCH ×2 (17:17→22:05)
[2020-05-12] MEDS: LORATADINE 10 MG TABLET PO SCH (22:05)
[2020-05-12] MEDS: ATORVASTATIN CA 40 MG TABLET (FP) PO SCH (22:05)
[2020-05-12] MEDS: PANTOPRAZOLE 40 MG TABLET PO SCH (22:05)
[2020-05-12] MEDS: SODIUM CHLORIDE 1,000 ML IV SCH (22:16)
[2020-05-13] MEDS: ACETAMINOPHEN 500 MG TABLET (FP) PO SCH ×4 (02:30→20:00)
[2020-05-13] MEDS: HYDROmorphone HCl 2 MG/ML VIAL IVPB PRN ×2 (03:14→12:26)
[2020-05-13] MEDS ORDERED: ceFAZolin SODIUM 1 GM VIAL ONE ×3 (04:01→15:30)
[2020-05-13] MEDS ORDERED: DEXTROSE 5%-WATER - 50 ML IVPB ONE ×3 (04:01→15:31)
[2020-05-13] MEDS: CEFAZOLIN 1 GM in DEXTROSE 5%-WATER - 1 GM/50 ML IVPB IVPB SCH ×3 (04:03→16:46)
[2020-05-13] MEDS: DOCUSATE SODIUM 100 MG CAPSULE (FP) PO SCH ×3 (06:15→21:47)
[2020-05-13] MEDS: HEPARIN NA (PORCINE) 5,000 UNITS/ML 1ML VIAL SQ SCH ×3 (06:15→21:48)
[2020-05-13] MEDS: GABAPENTIN 100 MG CAPSULE PO SCH ×3 (06:15→21:47)
[2020-05-13] MEDS: INSULIN SLIDING SCALE (NOVOLOG) 1 VIAL SQ SCH ×4 (06:23→21:58)
[2020-05-13] MEDS: NICOTINE 21 MG/24 HOURS TOPICAL PATCH TD SCH (10:05)
[2020-05-13] MEDS: SIMETHICONE 80 MG TAB.CHEW (FP) PO SCH ×4 (10:05→21:48)
[2020-05-13] MEDS: PANTOPRAZOLE 40 MG TABLET PO SCH ×2 (10:05→21:47)
[2020-05-13] MEDS: diazePAM 5 MG TABLET PO SCH ×2 (10:05→21:51)
[2020-05-13] MEDS: LIDOCAINE 5% TOPICAL PATCH TP SCH (10:06)
[2020-05-13] MEDS ORDERED: PT OWN MED DRAWER 7, Y5N ONE (13:53)
[2020-05-13] MEDS: metroNIDAZOLE 250 MG TABLET PO SCH ×2 (14:09→21:48)
[2020-05-13] MEDS: DULoxetine HCL 30 MG CAPSULE.DR PO SCH (18:01)
[2020-05-13] MEDS: LORATADINE 10 MG TABLET PO SCH (21:47)
[2020-05-13] MEDS: ATORVASTATIN CA 40 MG TABLET (FP) PO SCH (21:48)
[2020-05-14] MEDS ORDERED: DEXTROSE 5%-WATER - 50 ML IVPB ONE ×2 (00:29→09:18)
[2020-05-14] MEDS ORDERED: ceFAZolin SODIUM 1 GM VIAL ONE ×2 (00:29→09:18)
[2020-05-14] MEDS: CEFAZOLIN 1 GM in DEXTROSE 5%-WATER - 1 GM/50 ML IVPB IVPB SCH ×2 (01:00→09:30)
[2020-05-14] MEDS: ACETAMINOPHEN 500 MG TABLET (FP) PO SCH ×2 (01:00→08:07)
[2020-05-14 03:24] VITALS: TEMP 97.3
[2020-05-14] MEDS: DOCUSATE SODIUM 100 MG CAPSULE (FP) PO SCH (06:55)
[2020-05-14] MEDS: INSULIN SLIDING SCALE (NOVOLOG) 1 VIAL SQ SCH ×2 (06:55→12:08)
[2020-05-14] MEDS: metroNIDAZOLE 250 MG TABLET PO SCH (06:56)
[2020-05-14] MEDS: GABAPENTIN 100 MG CAPSULE PO SCH (06:56)
[2020-05-14] MEDS: HEPARIN NA (PORCINE) 5,000 UNITS/ML 1ML VIAL SQ SCH (06:56)
[2020-05-14 08:59] VITALS: BP 139/71; PULSE 6
[2020-05-14] MEDS: LIDOCAINE 5% TOPICAL PATCH TP SCH (09:30)
[2020-05-14] MEDS: NICOTINE 21 MG/24 HOURS TOPICAL PATCH TD SCH (09:31)
[2020-05-14] MEDS: DULoxetine HCL 30 MG CAPSULE.DR PO ONE (09:31)
[2020-05-14] MEDS: SIMETHICONE 80 MG TAB.CHEW (FP) PO SCH (09:31)
[2020-05-14] MEDS: DULoxetine HCL 30 MG CAPSULE.DR PO SCH (09:32)
[2020-05-14] MEDS: PANTOPRAZOLE 40 MG TABLET PO SCH (09:33)
[2020-05-14] MEDS: diazePAM 5 MG TABLET PO SCH ×2 (09:34→09:35)
[2020-05-14] MEDS ORDERED: POLYETHYLENE GLYCOL 3350 119 GM BTL PO SCH (10:00)
[2020-05-14] MEDS ORDERED: GABAPENTIN 300 MG CAPSULE PO SCH (11:34)
[2020-05-14] MEDS: SODIUM CHLORIDE 1,000 ML IV SCH (12:07)
[2020-05-14] MEDS ORDERED: SENNOSIDES 8.6MG TABLET (FP) PO SCH (22:00)
== END 2020-05-14 12:46 | disposition home health service (06) | DRG 460 ==
LOC: JICU-2 06:16 → J2C 07:12 → EDSTATUS 08:00 → J4W 16:07
PROVIDERS: ADMIT Neurological Surgery; ATTEND Family Medicine
PROC: 00NX0ZZ Release Thoracic Spinal Cord, Open Approach (ICD-10-PCS; 2020-05-08)
PROC: 0PB40ZZ Excision of Thoracic Vertebra, Open Approach (ICD-10-PCS; 2020-05-08)
PROC: 0PS404Z Reposition Thoracic Vertebra with Internal Fixation Device, Open Approach (ICD-10-PCS; 2020-05-08)
PROC: 00U20KZ Supplement Dura Mater with Nonautologous Tissue Substitute, Open Approach (ICD-10-PCS; 2020-05-08)
PROC: 00Q20ZZ Repair Dura Mater, Open Approach (ICD-10-PCS; 2020-05-08)
PROC: 0JX70ZB Transfer Back Subcutaneous Tissue and Fascia with Skin and Subcutaneous Tissue, Open Approach (ICD-10-PCS; 2020-05-08)
PROC: B01BZZZ Fluoroscopy of Spinal Cord (ICD-10-PCS; 2020-05-08)
PROC: 4A1004G Monitoring of Central Nervous Electrical Activity, Intraoperative, Open Approach (ICD-10-PCS; 2020-05-08)
PROC: 0RG7071 Fusion of 2 to 7 Thoracic Vertebral Joints with Autologous Tissue Substitute, Posterior Approach, Posterior Column, Open Approach (ICD-10-PCS; principal; 2020-05-08 08:00)
DX: M47.24 Other spondylosis with radiculopathy, thoracic region (principal); G97.0 Cerebrospinal fluid leak from spinal puncture; J98.11 Atelectasis; G97.41 Accidental puncture or laceration of dura during a procedure; M48.04 Spinal stenosis, thoracic region; I10 Essential (primary) hypertension; I25.10 Atherosclerotic heart disease of native coronary artery without angina pectoris; F17.210 Nicotine dependence, cigarettes, uncomplicated; E11.9 Type 2 diabetes mellitus without complications; J44.9 Chronic obstructive pulmonary disease, unspecified; E66.9 Obesity, unspecified; Z68.32 Body mass index [BMI] 32.0-32.9, adult; K59.00 Constipation, unspecified; E78.5 Hyperlipidemia, unspecified; Y83.9 Surgical procedure, unspecified as the cause of abnormal reaction of the patient, or of later complication, without mention of misadventure at the time of the procedure
CPT/HCPCS: 36415; 72128-TC; 74178-TC; 76000-TC-FY; 80048; 80053; 82962; 85025; 85027; 86850; 86900; 86901; 93005; 93010; 94010; 94760; 97116-GP; 97161-GP; J1644; Q9967

== ENCOUNTER 2020-06-04 16:36 | Inpatient (IN) | payer OTHER ==
[2020-06-04] MEDS ORDERED: ACETAMINOPHEN 1000 MG/100 ML VIAL (NON FORMULARY) IVPB ONE (19:28)
[2020-06-04] MEDS ORDERED: ACETAMINOPHEN INJECTION 100 ML IVPB ONE (20:33)
[2020-06-04 21:05] LABS: BASO % 1.1 % (0-2.0); EOS % 0.4 % (0-4.5); HEMATOCRIT 37.9 % (32.4-45.2); HEMOGLOBIN 12.4 GM/dL (10.7-15.3); LYMPH % 27.5 % (8-40); MCH 28.9 pg (25.7-33.7); MCHC 32.6 g/dl (32.0-36.0); MEAN CELL VOLUME 88.6 fl (80-96); MEAN PLT VOLUME 8.6 fl (7.5-11.1); MONO % 7.3 % (3.8-10.2); NEUT % 63.7 % (42.8-82.8); PLATELET COUNT 630 K/MM3 (134-434); RBC 4.28 M/mm3 (3.60-5.2); RDW 14.7 % (11.6-15.6); WHITE BLOOD COUNT 11.2 K/mm3 (4.0-10.0)
[2020-06-04 21:29] LABS: POTASSIUM 4.5 mmol/L (3.5-5.1)
[2020-06-04 21:31] LABS: ALBUMIN 3.2 g/dl (3.4-5.0); BLOOD UREA NITROGEN 6.5 mg/dL (7-18); CALCIUM 9.5 mg/dL (8.5-10.1)
[2020-06-04 21:35] LABS: CREATININE 0.6 mg/dL (0.55-1.3)
[2020-06-04 21:36] LABS: BILIRUBIN,TOTAL 0.6 mg/dL (0.2-1); TOT PROT 7.7 g/dl (6.4-8.2)
[2020-06-04 23:32] LABS: URINE APPEARANCE Error; URINE BILIRUBIN NEGATIVE (NEGATIVE); URINE COLOR YELLOW; URINE GLUCOSE (UA) NEGATIVE (NEGATIVE); URINE KETONE NEGATIVE (NEGATIVE); URINE LEUK ESTERASE NEGATIVE (NEGATIVE); URINE NITRITE NEGATIVE (NEGATIVE); URINE PROTEIN NEGATIVE (NEGATIVE); URINE UROBILINOGEN 0.2 mg/dL (0.2-1.0)
[2020-06-05] MEDS ORDERED: morphine CARPU-JECT 4 MG/1 ML DISP.SYRIN IVPUSH ONE (00:11)
[2020-06-05] MEDS ORDERED: morphine SULFATE 4 MG/ML VIAL ONE (00:14)
[2020-06-05] MEDS ORDERED: PIPERACILLIN/TAZOBACTAM 4.5 GM VIAL IVPB ONE (01:23)
[2020-06-05] MEDS ORDERED: KETOROLAC TROMETHAMINE 15 MG/ML VIAL IVPUSH STA (01:47)
[2020-06-05] MEDS ORDERED: KETOROLAC TROMETHAMINE 15 MG/ML VIAL ONE (02:17)
[2020-06-05] MEDS ORDERED: PIPERACILLIN/TAZOB 4.5 GM 4.5 GM/100 ML BAG IVPB ONE (02:18)
[2020-06-05] MEDS ORDERED: ALBUTEROL SO4 HFA INHALER IH PRN (02:54)
[2020-06-05] MEDS ORDERED: DOCUSATE SODIUM 100 MG CAPSULE (FP) PO ONE (06:09)
[2020-06-05] MEDS ORDERED: ACETAMINOPHEN 325 MG TABLET (FP) ONE ×2 (06:32→12:18)
[2020-06-05] MEDS: ACETAMINOPHEN 325 MG TABLET (FP) PO PRN ×3 (06:34→18:07)
[2020-06-05] MEDS: DOCUSATE SODIUM 100 MG CAPSULE (FP) PO SCH ×3 (06:35→21:40)
[2020-06-05] MEDS ORDERED: PT OWN MED DRAWER 7, Y5N ONE (06:58)
[2020-06-05 07:14] LABS: HEMOGLOBIN 11.8 GM/dL (10.7-15.3); MCH 28.9 pg (25.7-33.7); MCHC 32.8 g/dl (32.0-36.0); MEAN PLT VOLUME 8.7 fl (7.5-11.1); PLATELET COUNT 519 K/MM3 (134-434); RBC 4.08 M/mm3 (3.60-5.2); RDW 14.6 % (11.6-15.6); WHITE BLOOD COUNT 11.9 K/mm3 (4.0-10.0)
[2020-06-05 07:31] LABS: BLOOD UREA NITROGEN 8.8 mg/dL (7-18); CALCIUM 8.7 mg/dL (8.5-10.1)
[2020-06-05 07:35] LABS: CREATININE 0.5 mg/dL (0.55-1.3)
[2020-06-05] MEDS ORDERED: GABAPENTIN 100 MG CAPSULE ONE (07:39)
[2020-06-05] MEDS: GABAPENTIN 300 MG CAPSULE PO SCH ×3 (08:21→21:40)
[2020-06-05] MEDS: INSULIN SLIDING SCALE (NOVOLOG) 1 VIAL SQ SCH ×4 (08:21→21:44)
[2020-06-05] MEDS ORDERED: ASPIRIN 81 MG CHEWABLE TABLETS ONE (09:21)
[2020-06-05] MEDS ORDERED: PANTOPRAZOLE 40 MG TABLET ONE (09:21)
[2020-06-05] MEDS ORDERED: diazePAM 5 MG TABLET ONE (09:21)
[2020-06-05] MEDS ORDERED: DULoxetine HCL 30 MG CAPSULE.DR PO ONE (09:22)
[2020-06-05] MEDS ORDERED: PIPERACILLIN/TAZOB 2.25 GM 2.25 GM/50 ML BAG IVPB ONE (09:22)
[2020-06-05] MEDS: LOSARTAN POTASSIUM 25 MG TABLET PO SCH (09:46)
[2020-06-05] MEDS: ASPIRIN 81 MG CHEWABLE TABLETS PO SCH (09:46)
[2020-06-05] MEDS: DULoxetine HCL 30 MG CAPSULE.DR PO SCH (09:46)
[2020-06-05] MEDS: NICOTINE 21 MG/24 HOURS TOPICAL PATCH TD SCH (09:47)
[2020-06-05] MEDS: diazePAM 5 MG TABLET PO SCH ×2 (09:47→21:38)
[2020-06-05] MEDS: PANTOPRAZOLE 40 MG TABLET PO SCH ×2 (09:47→21:40)
[2020-06-05] MEDS: POLYETHYLENE GLYCOL 3350 119 GM BTL PO SCH (09:47)
[2020-06-05] MEDS ORDERED: CLOPIDOGREL BISULFATE 75 MG TABLET (FP) PO SCH (10:00)
[2020-06-05] MEDS ORDERED: PIPERACILLIN/TAZOB 2.25 GM 2.25 GM in DEXTROSE 5%-WATER - 50 ML IVPB SCH (10:00)
[2020-06-05 14:12] VITALS: BMI 32.3
[2020-06-05] MEDS: BACLOFEN 10 MG TABLET (FP) PO SCH ×2 (14:50→21:40)
[2020-06-05] MEDS ORDERED: ACETAMINOPHEN 1000 MG/100 ML VIAL (NON FORMULARY) IVPB ONE (19:10)
[2020-06-05] MEDS ORDERED: INSULIN (NOVOLOG) ASPART 100 UNITS/ML 10ML VIAL ONE (21:15)
[2020-06-05] MEDS: ATORVASTATIN CA 40 MG TABLET (FP) PO SCH (21:40)
[2020-06-05] MEDS: SENNOSIDES 8.6MG TABLET (FP) PO SCH (21:41)
[2020-06-06] MEDS: ACETAMINOPHEN 325 MG TABLET (FP) PO PRN ×3 (00:54→16:53)
[2020-06-06] MEDS: GABAPENTIN 300 MG CAPSULE PO SCH ×3 (05:41→21:25)
[2020-06-06] MEDS: BACLOFEN 10 MG TABLET (FP) PO SCH ×3 (05:41→21:25)
[2020-06-06] MEDS: DOCUSATE SODIUM 100 MG CAPSULE (FP) PO SCH ×3 (05:41→21:24)
[2020-06-06] MEDS: INSULIN SLIDING SCALE (NOVOLOG) 1 VIAL SQ SCH ×4 (06:35→21:23)
[2020-06-06 08:03] LABS: INR 1.34 (0.83-1.09); PROTHROMBIN TIME (PATIENT) 16.1 SEC (9.7-13.0)
[2020-06-06] MEDS: NICOTINE 21 MG/24 HOURS TOPICAL PATCH TD SCH (09:48)
[2020-06-06] MEDS: ASPIRIN 81 MG CHEWABLE TABLETS PO SCH (09:50)
[2020-06-06] MEDS: LOSARTAN POTASSIUM 25 MG TABLET PO SCH (09:50)
[2020-06-06] MEDS: diazePAM 5 MG TABLET PO SCH ×2 (09:50→21:25)
[2020-06-06] MEDS: PANTOPRAZOLE 40 MG TABLET PO SCH ×2 (09:50→21:25)
[2020-06-06] MEDS: DULoxetine HCL 30 MG CAPSULE.DR PO SCH (09:50)
[2020-06-06] MEDS: POLYETHYLENE GLYCOL 3350 119 GM BTL PO SCH (09:52)
[2020-06-06 15:02] LABS: URINE AMPHETAMINES NEGATIVE ng/ml (CUTOFF=500)
[2020-06-06 15:03] LABS: PHENCYCLIDINE,URINE NEGATIVE ng/ml (CUTOFF=25)
[2020-06-06 15:04] LABS: COCAINE, UR NEGATIVE ng/ml (CUTOFF=300); METHADONE, UR NEGATIVE ng/ml (CUTOFF=300); URINE BARBITURATES NEGATIVE ng/ml (CUTOFF=200)
[2020-06-06 15:09] LABS: OPIATES, URI POSITIVE ng/ml (CUTOFF=300); URINE BENZODIAZEPINES POSITIVE ng/ml (CUTOFF=200)
[2020-06-06] MEDS: ATORVASTATIN CA 40 MG TABLET (FP) PO SCH (21:25)
[2020-06-06] MEDS: SENNOSIDES 8.6MG TABLET (FP) PO SCH (21:25)
[2020-06-07] MEDS: ACETAMINOPHEN 325 MG TABLET (FP) PO PRN ×4 (01:09→23:00)
[2020-06-07] MEDS: INSULIN SLIDING SCALE (NOVOLOG) 1 VIAL SQ SCH ×4 (06:45→21:18)
[2020-06-07] MEDS: DOCUSATE SODIUM 100 MG CAPSULE (FP) PO SCH ×3 (06:45→21:18)
[2020-06-07] MEDS: GABAPENTIN 300 MG CAPSULE PO SCH ×3 (06:45→21:15)
[2020-06-07] MEDS: BACLOFEN 10 MG TABLET (FP) PO SCH ×3 (06:45→21:16)
[2020-06-07] MEDS: NICOTINE 21 MG/24 HOURS TOPICAL PATCH TD SCH (09:09)
[2020-06-07] MEDS: ASPIRIN 81 MG CHEWABLE TABLETS PO SCH (09:09)
[2020-06-07] MEDS: PANTOPRAZOLE 40 MG TABLET PO SCH ×2 (09:09→21:15)
[2020-06-07] MEDS: LOSARTAN POTASSIUM 25 MG TABLET PO SCH (09:09)
[2020-06-07] MEDS: diazePAM 5 MG TABLET PO SCH ×2 (09:09→21:15)
[2020-06-07] MEDS: POLYETHYLENE GLYCOL 3350 119 GM BTL PO SCH (09:13)
[2020-06-07] MEDS: DULoxetine HCL 30 MG CAPSULE.DR PO SCH (09:27)
[2020-06-07] MEDS: ATORVASTATIN CA 40 MG TABLET (FP) PO SCH (21:15)
[2020-06-07] MEDS: SENNOSIDES 8.6MG TABLET (FP) PO SCH (21:16)
[2020-06-08] MEDS: GABAPENTIN 300 MG CAPSULE PO SCH ×5 (06:18→21:20)
[2020-06-08] MEDS: BACLOFEN 10 MG TABLET (FP) PO SCH ×3 (06:18→21:19)
[2020-06-08] MEDS: DOCUSATE SODIUM 100 MG CAPSULE (FP) PO SCH ×3 (06:19→21:19)
[2020-06-08] MEDS: INSULIN SLIDING SCALE (NOVOLOG) 1 VIAL SQ SCH ×4 (06:24→21:21)
[2020-06-08] MEDS: diazePAM 5 MG TABLET PO SCH ×2 (09:08→21:19)
[2020-06-08] MEDS: ASPIRIN 81 MG CHEWABLE TABLETS PO SCH (09:08)
[2020-06-08] MEDS: LIDOCAINE 5% TOPICAL PATCH TP SCH (09:09)
[2020-06-08] MEDS: LOSARTAN POTASSIUM 25 MG TABLET PO SCH (09:09)
[2020-06-08] MEDS: PANTOPRAZOLE 40 MG TABLET PO SCH ×2 (09:10→21:19)
[2020-06-08] MEDS: DULoxetine HCL 30 MG CAPSULE.DR PO SCH (09:10)
[2020-06-08] MEDS: NICOTINE 21 MG/24 HOURS TOPICAL PATCH TD SCH (09:11)
[2020-06-08] MEDS: POLYETHYLENE GLYCOL 3350 119 GM BTL PO SCH (09:12)
[2020-06-08] MEDS: methylPREDNISolone NA SUCC 40 MG/1 ML VIAL IVPUSH SCH (13:33)
[2020-06-08] MEDS: ACETAMINOPHEN 500 MG TABLET (FP) PO PRN (16:02)
[2020-06-08] MEDS: ATORVASTATIN CA 40 MG TABLET (FP) PO SCH (21:19)
[2020-06-08] MEDS: SENNOSIDES 8.6MG TABLET (FP) PO SCH (21:20)
[2020-06-08] MEDS: LIDOCAINE PATCH REMOVAL MC SCH (21:20)
[2020-06-08] MEDS: KETOROLAC TROMETHAMINE 15 MG/ML VIAL IVPUSH PRN (21:26)
[2020-06-09] MEDS: ACETAMINOPHEN 500 MG TABLET (FP) PO PRN (03:00)
[2020-06-09] MEDS: DOCUSATE SODIUM 100 MG CAPSULE (FP) PO SCH ×3 (06:02→22:52)
[2020-06-09] MEDS: INSULIN SLIDING SCALE (NOVOLOG) 1 VIAL SQ SCH ×4 (06:05→22:57)
[2020-06-09] MEDS: BACLOFEN 10 MG TABLET (FP) PO SCH ×3 (06:06→22:51)
[2020-06-09] MEDS: NICOTINE 21 MG/24 HOURS TOPICAL PATCH TD SCH (09:02)
[2020-06-09] MEDS: LIDOCAINE 5% TOPICAL PATCH TP SCH (09:02)
[2020-06-09] MEDS: methylPREDNISolone NA SUCC 40 MG/1 ML VIAL IVPUSH SCH (09:03)
[2020-06-09] MEDS: DULoxetine HCL 30 MG CAPSULE.DR PO SCH (09:04)
[2020-06-09] MEDS: LOSARTAN POTASSIUM 25 MG TABLET PO SCH (09:04)
[2020-06-09] MEDS: PANTOPRAZOLE 40 MG TABLET PO SCH ×2 (09:04→22:52)
[2020-06-09] MEDS: GABAPENTIN 300 MG CAPSULE PO SCH ×4 (09:04→22:51)
[2020-06-09] MEDS: diazePAM 5 MG TABLET PO SCH ×2 (09:05→22:51)
[2020-06-09] MEDS: ASPIRIN 81 MG CHEWABLE TABLETS PO SCH (09:05)
[2020-06-09] MEDS: POLYETHYLENE GLYCOL 3350 119 GM BTL PO SCH (09:06)
[2020-06-09] MEDS: KETOROLAC TROMETHAMINE 15 MG/ML VIAL IVPUSH PRN (12:10)
[2020-06-09] MEDS: ATORVASTATIN CA 40 MG TABLET (FP) PO SCH (22:52)
[2020-06-09] MEDS: SENNOSIDES 8.6MG TABLET (FP) PO SCH (22:53)
[2020-06-09] MEDS: LIDOCAINE PATCH REMOVAL MC SCH (22:53)
[2020-06-10] MEDS: KETOROLAC TROMETHAMINE 15 MG/ML VIAL IVPUSH PRN ×2 (00:21→14:38)
[2020-06-10] MEDS: ACETAMINOPHEN 500 MG TABLET (FP) PO PRN (02:29)
[2020-06-10] MEDS: DOCUSATE SODIUM 100 MG CAPSULE (FP) PO SCH ×3 (06:45→22:54)
[2020-06-10] MEDS: BACLOFEN 10 MG TABLET (FP) PO SCH ×3 (06:45→22:57)
[2020-06-10] MEDS: INSULIN SLIDING SCALE (NOVOLOG) 1 VIAL SQ SCH ×4 (06:52→23:01)
[2020-06-10] MEDS: ASPIRIN 81 MG CHEWABLE TABLETS PO SCH (10:08)
[2020-06-10] MEDS: methylPREDNISolone NA SUCC 40 MG/1 ML VIAL IVPUSH SCH (10:08)
[2020-06-10] MEDS: GABAPENTIN 300 MG CAPSULE PO SCH ×4 (10:09→22:57)
[2020-06-10] MEDS: LOSARTAN POTASSIUM 25 MG TABLET PO SCH (10:10)
[2020-06-10] MEDS: DULoxetine HCL 30 MG CAPSULE.DR PO SCH (10:10)
[2020-06-10] MEDS: PANTOPRAZOLE 40 MG TABLET PO SCH ×2 (10:10→22:57)
[2020-06-10] MEDS: diazePAM 5 MG TABLET PO SCH ×2 (10:10→22:56)
[2020-06-10] MEDS: NICOTINE 21 MG/24 HOURS TOPICAL PATCH TD SCH (10:11)
[2020-06-10] MEDS: LIDOCAINE 5% TOPICAL PATCH TP SCH (10:11)
[2020-06-10] MEDS: POLYETHYLENE GLYCOL 3350 119 GM BTL PO SCH (10:12)
[2020-06-10] MEDS: LIDOCAINE PATCH REMOVAL MC SCH (22:54)
[2020-06-10] MEDS: ATORVASTATIN CA 40 MG TABLET (FP) PO SCH (22:57)
[2020-06-10] MEDS: SENNOSIDES 8.6MG TABLET (FP) PO SCH (22:58)
[2020-06-11] MEDS: KETOROLAC TROMETHAMINE 15 MG/ML VIAL IVPUSH PRN ×2 (01:34→21:33)
[2020-06-11] MEDS: DOCUSATE SODIUM 100 MG CAPSULE (FP) PO SCH ×3 (06:48→21:36)
[2020-06-11] MEDS: BACLOFEN 10 MG TABLET (FP) PO SCH ×3 (06:48→21:36)
[2020-06-11] MEDS: INSULIN SLIDING SCALE (NOVOLOG) 1 VIAL SQ SCH ×4 (06:48→21:33)
[2020-06-11] MEDS: DULoxetine HCL 30 MG CAPSULE.DR PO SCH (10:26)
[2020-06-11] MEDS: PANTOPRAZOLE 40 MG TABLET PO SCH ×2 (10:26→21:36)
[2020-06-11] MEDS: LOSARTAN POTASSIUM 25 MG TABLET PO SCH (10:26)
[2020-06-11] MEDS: ASPIRIN 81 MG CHEWABLE TABLETS PO SCH (10:26)
[2020-06-11] MEDS: GABAPENTIN 300 MG CAPSULE PO SCH ×4 (10:26→21:34)
[2020-06-11] MEDS: diazePAM 5 MG TABLET PO SCH ×2 (10:26→21:35)
[2020-06-11] MEDS: LIDOCAINE 5% TOPICAL PATCH TP SCH (10:27)
[2020-06-11] MEDS: NICOTINE 21 MG/24 HOURS TOPICAL PATCH TD SCH (10:27)
[2020-06-11] MEDS: methylPREDNISolone NA SUCC 40 MG/1 ML VIAL IVPUSH SCH (10:27)
[2020-06-11] MEDS: POLYETHYLENE GLYCOL 3350 119 GM BTL PO SCH (10:28)
[2020-06-11] MEDS ORDERED: KETOROLAC TROMETHAMINE 10 MG TABLET PO PRN (13:41)
[2020-06-11] MEDS: ATORVASTATIN CA 40 MG TABLET (FP) PO SCH (21:35)
[2020-06-11] MEDS: SENNOSIDES 8.6MG TABLET (FP) PO SCH (21:35)
[2020-06-11] MEDS: LIDOCAINE PATCH REMOVAL MC SCH (21:36)
[2020-06-12] MEDS: ACETAMINOPHEN 500 MG TABLET (FP) PO PRN ×2 (00:38→13:58)
[2020-06-12] MEDS: DOCUSATE SODIUM 100 MG CAPSULE (FP) PO SCH ×2 (05:43→13:54)
[2020-06-12] MEDS: INSULIN SLIDING SCALE (NOVOLOG) 1 VIAL SQ SCH ×3 (06:00→16:50)
[2020-06-12] MEDS: BACLOFEN 10 MG TABLET (FP) PO SCH ×2 (06:00→13:54)
[2020-06-12] MEDS ORDERED: predniSONE 20 MG TABLET (UD) PO SCH (10:00)
[2020-06-12] MEDS: LIDOCAINE 5% TOPICAL PATCH TP SCH (10:01)
[2020-06-12] MEDS: NICOTINE 21 MG/24 HOURS TOPICAL PATCH TD SCH (10:02)
[2020-06-12] MEDS: GABAPENTIN 300 MG CAPSULE PO SCH ×3 (10:02→17:25)
[2020-06-12] MEDS: DULoxetine HCL 30 MG CAPSULE.DR PO SCH (10:02)
[2020-06-12] MEDS: LOSARTAN POTASSIUM 25 MG TABLET PO SCH (10:02)
[2020-06-12] MEDS: KETOROLAC TROMETHAMINE 15 MG/ML VIAL IVPUSH PRN (10:02)
[2020-06-12] MEDS: PANTOPRAZOLE 40 MG TABLET PO SCH (10:02)
[2020-06-12] MEDS: ASPIRIN 81 MG CHEWABLE TABLETS PO SCH (10:03)
[2020-06-12] MEDS: POLYETHYLENE GLYCOL 3350 119 GM BTL PO SCH (10:03)
[2020-06-12] MEDS: diazePAM 5 MG TABLET PO SCH (10:04)
[2020-06-12] MEDS ORDERED: KETOROLAC TROMETHAMINE 10 MG TABLET PO PRN (12:59)
[2020-06-12 14:57] VITALS: BP 148/62; PULSE 62; TEMP 98.3
[2020-06-12] MEDS ORDERED: KETOROLAC TROMETHAMINE 15 MG/ML VIAL IVPUSH ONE (16:15)
== END 2020-06-12 19:15 | DRG 948 ==
LOC: JER 16:36 → JERBED 06-05 00:44 → J7W 06-05 13:34
PROVIDERS: ADMIT Hospitalist; ATTEND Family Medicine
DX: G89.18 Other acute postprocedural pain (principal); E78.5 Hyperlipidemia, unspecified; I10 Essential (primary) hypertension; E11.9 Type 2 diabetes mellitus without complications; E66.9 Obesity, unspecified; Z68.32 Body mass index [BMI] 32.0-32.9, adult; D72.829 Elevated white blood cell count, unspecified; I25.10 Atherosclerotic heart disease of native coronary artery without angina pectoris; M54.6 Pain in thoracic spine
CPT/HCPCS: 36415; 71046-TC-FY; 80048; 80053; 80307; 81003; 82962; 83036; 83605; 85025; 85027; 85610; 87040; 87086; 93005; 93010; 97116-GP; 97161-GP; 99285-25; C9803; J0131; J0475; U0003

== ENCOUNTER 2021-01-22 14:06 | Inpatient (IN) | payer OTHER ==
[2021-01-22] MEDS ORDERED: MAG HYDROX/AL HYDROX/SIMETH 30 ML UNIT-DOSE CUP PO ONE (15:17)
[2021-01-22] MEDS ORDERED: ACETAMINOPHEN 1000 MG/100 ML VIAL (NON FORMULARY) IVPB ONE (15:17)
[2021-01-22] MEDS ORDERED: FAMOTIDINE 20 MG/50 ML IVPB 20 MG/50 ML MG IVPB ONE ×2 (15:17→15:50)
[2021-01-22] MEDS ORDERED: LACTATED RINGERS SOLUTION 1000 ML INFUS.BAG IV ONE (15:17)
[2021-01-22] MEDS ORDERED: ONDANSETRON 4 MG/2 ML VIAL IVPUSH ONE ×2 (15:26→16:35)
[2021-01-22] MEDS ORDERED: SUCRALFATE 1 GM/10 ML UNIT DOSE CUPS PO ONE (15:26)
[2021-01-22] MEDS ORDERED: MAG HYDROX/AL HYDROX/SIMETH 30 ML UNIT-DOSE CUP ONE (15:49)
[2021-01-22] MEDS ORDERED: ACETAMINOPHEN INJECTION 100 ML IVPB ONE ×2 (15:49→22:56)
[2021-01-22] MEDS ORDERED: SUCRALFATE 1 GM TABLET (FP) ONE (15:49)
[2021-01-22] MEDS ORDERED: ONDANSETRON 4 MG/2 ML VIAL ONE ×3 (15:50→22:56)
[2021-01-22 16:41] LABS: INR 1.13 (0.83-1.09); PROTHROMBIN TIME (PATIENT) 13.8 SEC (9.7-13.0)
[2021-01-22 16:43] LABS: ACTIVATED PTT 25.8 SECONDS (25.2-36.5)
[2021-01-22 16:46] LABS: CHLORIDE 101 mmol/L (98-107); SODIUM 136 mmol/L (136-145)
[2021-01-22 16:48] LABS: CALCIUM 9.6 mg/dL (8.5-10.1)
[2021-01-22 16:49] LABS: ALBUMIN 3.6 g/dl (3.4-5.0); ANION GAP 10 MMOL/L (8-16); BLOOD UREA NITROGEN 16.8 mg/dL (7-18); CO2 25 mmol/L (21-32); GLUCOSE,RANDOM 241 mg/dL (74-106); LIPASE 333 U/L (73-393)
[2021-01-22 16:51] LABS: CREATININE 0.8 mg/dL (0.55-1.3)
[2021-01-22 16:52] LABS: SGOT/AST 15 U/L (15-37); SGPT/ALT 27 U/L (13-61)
[2021-01-22 16:53] LABS: BILIRUBIN,TOTAL 0.4 mg/dL (0.2-1)
[2021-01-22 16:54] LABS: ALK PHOS 105 U/L (45-117)
[2021-01-22] MEDS ORDERED: morphine CARPU-JECT 4 MG/1 ML DISP.SYRIN IVPUSH ONE (18:27)
[2021-01-22] MEDS ORDERED: morphine SULFATE 4 MG/ML VIAL ONE ×2 (18:30→23:49)
[2021-01-22 19:19] LABS: BASO % 0.6 % (0-2.0); EOS % 0.5 % (0-4.5); HEMATOCRIT 44.4 % (32.4-45.2); LYMPH % 28.3 % (8-40); MCHC 33.8 g/dl (32.0-36.0); MEAN CELL VOLUME 85.7 fl (80-96); MEAN PLT VOLUME 9.1 fl (7.5-11.1); MONO % 8.3 % (3.8-10.2); NEUT % 62.3 % (42.8-82.8); PLATELET COUNT 362 10^3/uL (134-434); RBC 5.18 M/mm3 (3.60-5.2); RDW 15.1 % (11.6-15.6); WHITE BLOOD COUNT 13.5 K/mm3 (4.0-10.0)
[2021-01-22] MEDS ORDERED: ONDANSETRON 4 MG/2 ML VIAL IVPUSH PRN (21:30)
[2021-01-22] MEDS ORDERED: ALBUTEROL SO4 HFA INHALER IH PRN (21:34)
[2021-01-22] MEDS ORDERED: PANTOPRAZOLE 40 MG TABLET PO SCH (22:00)
[2021-01-22] MEDS: SODIUM CHLORIDE 1,000 ML IV SCH (22:03)
[2021-01-22] MEDS ORDERED: ATORVASTATIN CA 40 MG TABLET (FP) ONE (22:12)
[2021-01-22] MEDS ORDERED: GABAPENTIN 100 MG CAPSULE ONE (22:12)
[2021-01-22] MEDS ORDERED: SENNOSIDES 8.6MG TABLET (FP) PO ONE (22:12)
[2021-01-22] MEDS ORDERED: PANTOPRAZOLE 40 MG TABLET ONE (22:12)
[2021-01-22] MEDS ORDERED: DULoxetine HCL 30 MG CAPSULE.DR PO ONE (22:13)
[2021-01-22 22:28] LABS: PH,URINE 5.5 (5.0-8.0); URINE APPEARANCE CLEAR; URINE BILIRUBIN NEGATIVE (NEGATIVE); URINE COLOR YELLOW; URINE GLUCOSE (UA) TRACE (NEGATIVE); URINE KETONE 1+ (NEGATIVE); URINE LEUK ESTERASE NEGATIVE (NEGATIVE); URINE NITRITE NEGATIVE (NEGATIVE); URINE PROTEIN TRACE (NEGATIVE); URINE UROBILINOGEN 0.2 mg/dL (0.2-1.0)
[2021-01-22] MEDS: GABAPENTIN 300 MG CAPSULE PO SCH (22:32)
[2021-01-22] MEDS: DULoxetine HCL 30 MG CAPSULE.DR PO SCH (22:32)
[2021-01-22] MEDS: ATORVASTATIN CA 40 MG TABLET (FP) PO SCH (22:32)
[2021-01-22] MEDS: SENNOSIDES 8.6MG TABLET (FP) PO SCH (22:33)
[2021-01-22] MEDS: ACETAMINOPHEN 1000 MG/100 ML VIAL (NON FORMULARY) IVPB PRN (23:05)
[2021-01-22] MEDS: morphine SULFATE 4 MG/ML VIAL IVPUSH PRN (23:56)
[2021-01-23 02:02] VITALS: BMI 34.3
[2021-01-23] MEDS: morphine SULFATE 4 MG/ML VIAL IVPUSH PRN ×5 (04:31→23:10)
[2021-01-23] MEDS: ACETAMINOPHEN 1000 MG/100 ML VIAL (NON FORMULARY) IVPB PRN (05:00)
[2021-01-23 08:11] LABS: BASO % 0.8 % (0-2.0); EOS % 2.4 % (0-4.5); HEMATOCRIT 40.1 % (32.4-45.2); HEMOGLOBIN 13.6 GM/dL (10.7-15.3); LYMPH % 39.5 % (8-40); MCH 29.2 pg (25.7-33.7); MCHC 33.9 g/dl (32.0-36.0); MEAN CELL VOLUME 86.3 fl (80-96); MEAN PLT VOLUME 8.9 fl (7.5-11.1); MONO % 8.4 % (3.8-10.2); NEUT % 48.9 % (42.8-82.8); PLATELET COUNT 304 10^3/uL (134-434); RBC 4.65 M/mm3 (3.60-5.2); RDW 14.9 % (11.6-15.6); WHITE BLOOD COUNT 9.3 K/mm3 (4.0-10.0)
[2021-01-23 08:41] LABS: CALCIUM 8.8 mg/dL (8.5-10.1)
[2021-01-23 08:42] LABS: BLOOD UREA NITROGEN 12.7 mg/dL (7-18)
[2021-01-23 08:45] LABS: CREATININE 0.6 mg/dL (0.55-1.3)
[2021-01-23 08:47] LABS: BILIRUBIN,TOTAL 0.3 mg/dL (0.2-1); TOT PROT 6.5 g/dl (6.4-8.2)
[2021-01-23] MEDS: PANTOPRAZOLE SODIUM 40 MG VIAL IVPUSH SCH ×2 (09:35→23:54)
[2021-01-23] MEDS: GABAPENTIN 300 MG CAPSULE PO SCH ×2 (10:47→23:54)
[2021-01-23] MEDS: ASPIRIN 81 MG CHEWABLE TABLETS PO SCH (10:47)
[2021-01-23] MEDS: NICOTINE 21 MG/24 HOURS TOPICAL PATCH TD SCH (10:47)
[2021-01-23] MEDS: LOSARTAN POTASSIUM 25 MG TABLET PO SCH (10:47)
[2021-01-23] MEDS: CLOPIDOGREL BISULFATE 75 MG TABLET (FP) PO SCH (10:47)
[2021-01-23] MEDS: SODIUM CHLORIDE 1,000 ML IV SCH (17:02)
[2021-01-23] MEDS: METOCLOPRAMIDE HCL 10 MG TABLET (FP) PO SCH (17:02)
[2021-01-23] MEDS: DULoxetine HCL 30 MG CAPSULE.DR PO SCH (23:54)
[2021-01-23] MEDS: ATORVASTATIN CA 40 MG TABLET (FP) PO SCH (23:54)
[2021-01-23] MEDS: SENNOSIDES 8.6MG TABLET (FP) PO SCH (23:54)
[2021-01-24] MEDS: morphine SULFATE 4 MG/ML VIAL IVPUSH PRN ×3 (03:27→12:55)
[2021-01-24] MEDS: METOCLOPRAMIDE HCL 10 MG TABLET (FP) PO SCH ×2 (06:12→10:31)
[2021-01-24] MEDS: CLOPIDOGREL BISULFATE 75 MG TABLET (FP) PO SCH (09:00)
[2021-01-24] MEDS: PANTOPRAZOLE SODIUM 40 MG VIAL IVPUSH SCH (09:00)
[2021-01-24] MEDS: LOSARTAN POTASSIUM 25 MG TABLET PO SCH (09:00)
[2021-01-24] MEDS: ASPIRIN 81 MG CHEWABLE TABLETS PO SCH (09:00)
[2021-01-24] MEDS: NICOTINE 21 MG/24 HOURS TOPICAL PATCH TD SCH (09:00)
[2021-01-24] MEDS: GABAPENTIN 300 MG CAPSULE PO SCH (09:00)
[2021-01-24 14:03] VITALS: BP 136/82; PULSE 79; TEMP 97.5
[2021-01-24] MEDS ORDERED: PANTOPRAZOLE 40 MG TABLET PO SCH (22:00)
== END 2021-01-24 14:29 | disposition home health service (06) | DRG 392 ==
LOC: JER 14:06 → JERBED 19:28 → J7W 01-23 01:28
PROVIDERS: ADMIT Internal Medicine; ATTEND Family Medicine
DX: K29.70 Gastritis, unspecified, without bleeding (principal); E11.65 Type 2 diabetes mellitus with hyperglycemia; I10 Essential (primary) hypertension; J45.909 Unspecified asthma, uncomplicated; J44.9 Chronic obstructive pulmonary disease, unspecified; K76.0 Fatty (change of) liver, not elsewhere classified; R63.4 Abnormal weight loss; I25.10 Atherosclerotic heart disease of native coronary artery without angina pectoris; E78.5 Hyperlipidemia, unspecified; D72.829 Elevated white blood cell count, unspecified; R10.13 Epigastric pain; R11.2 Nausea with vomiting, unspecified; F17.210 Nicotine dependence, cigarettes, uncomplicated; E66.9 Obesity, unspecified; Z68.34 Body mass index [BMI] 34.0-34.9, adult; Z98.61 Coronary angioplasty status
CPT/HCPCS: 36415; 71045-TC-FY; 74177-TC; 80053; 80061; 81003; 82962; 83036; 83690; 84484; 85025; 85610; 85730; 87086; 93005; 93010; 99285-25; C9803; J0131; Q9967; U0003; U0005

== ENCOUNTER 2022-05-08 13:05 | Emergency (ER) | payer OTHER ==
[2022-05-08 13:40] VITALS: RESP 18; TEMP 98.2; BMI 29.4
[2022-05-08] MEDS ORDERED: LACTATED RINGERS SOLUTION 1000 ML INFUS.BAG IV ONE ×2 (15:16→21:23)
[2022-05-08] MEDS ORDERED: ACETAMINOPHEN 1000 MG/100 ML BAG IVPB ONE (15:16)
[2022-05-08] MEDS ORDERED: FAMOTIDINE 20 MG/50 ML IVPB 20 MG/50 ML MG IVPB ONE ×4 (15:19→21:30)
[2022-05-08] MEDS ORDERED: ONDANSETRON 4 MG/2 ML VIAL IVPUSH ONE (15:19)
[2022-05-08] MEDS ORDERED: MAG HYDROX/AL HYDROX/SIMETH 30 ML UNIT-DOSE CUP PO ONE (15:19)
[2022-05-08] MEDS ORDERED: MAG HYDROX/AL HYDROX/SIMETH 30 ML UNIT-DOSE CUP ONE (15:27)
[2022-05-08] MEDS ORDERED: ONDANSETRON 4 MG/2 ML VIAL ONE (15:27)
[2022-05-08] MEDS ORDERED: ACETAMINOPHEN INJECTION 100 ML IVPB ONE (15:27)
[2022-05-08 16:42] LABS: BASO % 0.3 % (0-2.0); HEMOGLOBIN 13.3 GM/dL (10.7-15.3); LYMPH % 22.6 % (8-40); MCH 26.3 pg (25.7-33.7); MCHC 32.3 g/dl (32.0-36.0); MEAN CELL VOLUME 81.5 fl (80-96); MEAN PLT VOLUME 9.5 fl (7.5-11.1); MONO % 7.2 % (3.8-10.2); NEUT % 69.9 % (42.8-82.8); PLATELET COUNT 344 10^3/uL (134-434); RBC 5.04 M/mm3 (3.60-5.2); RDW 19.9 % (11.6-15.6); WHITE BLOOD COUNT 13.9 K/mm3 (4.0-10.0)
[2022-05-08 17:04] LABS: ALBUMIN 3.5 g/dl (3.4-5.0); CALCIUM 9.2 mg/dL (8.5-10.1)
[2022-05-08 17:07] LABS: CREATININE 0.5 mg/dL (0.55-1.3)
[2022-05-08 17:09] LABS: BILIRUBIN,TOTAL 0.4 mg/dL (0.2-1); TOT PROT 6.8 g/dl (6.4-8.2)
[2022-05-08] MEDS ORDERED: morphine CARPU-JECT 4 MG/1 ML DISP.SYRIN IVPUSH ONE (17:54)
[2022-05-08] MEDS ORDERED: morphine SULFATE 4 MG/ML VIAL ONE (17:56)
[2022-05-08 18:06] VITALS: BP 138/96; PULSE 55
[2022-05-08 19:44] LABS: EPI CELLS 6 /uL (0-25.1); HYALINE CASTS 0 /uL (0-3.1); PH,URINE 6.5 (5.0-8.0); URINE APPEARANCE CLEAR; URINE BACTERIA 175 /uL (0-1359); URINE BILIRUBIN NEGATIVE (NEGATIVE); URINE COLOR YELLOW; URINE GLUCOSE (UA) NEGATIVE (NEGATIVE); URINE KETONE 1+ (NEGATIVE); URINE LEUK ESTERASE TRACE (NEGATIVE); URINE NITRITE NEGATIVE (NEGATIVE); URINE PROTEIN NEGATIVE (NEGATIVE); URINE RBC 27 /uL (0-23.9); URINE UROBILINOGEN 0.2 mg/dL (0.2-1.0); URINE WBC 22 /uL (0-25.8)
[2022-05-08 20:41] LABS: URINE CRYSTALS NEGATIVE /hpf
[2022-05-09] MEDS ORDERED: KETOROLAC TROMETHAMINE 15 MG/ML VIAL ONE (01:41)
[2022-05-09] MEDS ORDERED: ACETAMINOPHEN 1000 MG/100 ML BAG IVPB ONE (01:41)
[2022-05-09] MEDS ORDERED: ACETAMINOPHEN INJECTION 100 ML IVPB ONE (01:41)
== END 2022-05-09 02:37 | disposition home or self-care (01) ==
LOC: JER 13:05 → SUPCPDRO 13:05 → JER 05-09 02:37
PROC: 3E033GC Introduction of Other Therapeutic Substance into Peripheral Vein, Percutaneous Approach (ICD-10-PCS; principal; 2022-05-08)
DX: R10.13 Epigastric pain (principal); R11.2 Nausea with vomiting, unspecified
CPT/HCPCS: 36415; 71045-TC-FY; 74177-TC; 76705-TC; 80053; 81003; 83690; 84484; 85025; 87077; 87086; 93005; 93010; 99285-25; Q9967

== ENCOUNTER 2023-01-05 15:49 | Inpatient (IN) | payer OTHER ==
[2023-01-05] MEDS ORDERED: FAMOTIDINE 20 MG/50 ML IVPB 20 MG/50 ML MG IVPB ONE ×2 (16:50→17:00)
[2023-01-05] MEDS ORDERED: ONDANSETRON 4 MG/2 ML VIAL IVPUSH ONE (16:50)
[2023-01-05] MEDS ORDERED: SODIUM CHLORIDE 1,000 ML IV STA (16:50)
[2023-01-05] MEDS ORDERED: ACETAMINOPHEN 1000 MG/100 ML BAG IVPB ONE (16:53)
[2023-01-05] MEDS ORDERED: ACETAMINOPHEN INJECTION 100 ML IVPB ONE (16:59)
[2023-01-05] MEDS ORDERED: ONDANSETRON 4 MG/2 ML VIAL ONE (17:00)
[2023-01-05 17:36] LABS: VENOUS BASE EXCESS -2.5 mmol/L (-2-2); VENOUS PCO2 41.9 mmHg (38-52); VENOUS PH 7.356 (7.310-7.410)
[2023-01-05 17:39] LABS: BASO % 0.8 % (0-2.0); EOS % 0.2 % (0-4.5); HEMATOCRIT 51.1 % (32.4-45.2); HEMOGLOBIN 17.2 GM/dL (10.7-15.3); LYMPH % 31.3 % (8-40); MCH 29.5 pg (25.7-33.7); MCHC 33.6 g/dl (32.0-36.0); MEAN CELL VOLUME 87.7 fl (80-96); MEAN PLT VOLUME 8.8 fl (7.5-11.1); MONO % 9.1 % (3.8-10.2); NEUT % 58.6 % (42.8-82.8); PLATELET COUNT 396 10^3/uL (134-434); RBC 5.83 M/mm3 (3.60-5.2); RDW 14.6 % (11.6-15.6); WHITE BLOOD COUNT 18.9 K/mm3 (4.0-10.0)
[2023-01-05 17:46] LABS: INR 1.3 (0.83-1.09)
[2023-01-05 17:49] LABS: ACTIVATED PTT 33.2 SECONDS (25.2-36.5)
[2023-01-05 18:02] LABS: POTASSIUM 3.6 mmol/L (3.5-5.1)
[2023-01-05 18:05] LABS: ALBUMIN 4.5 g/dl (3.4-5.0); BLOOD UREA NITROGEN 14.6 mg/dL (7-18); CALCIUM 10.1 mg/dL (8.5-10.1)
[2023-01-05 18:07] LABS: CREATININE 1.1 mg/dL (0.55-1.3)
[2023-01-05 18:08] LABS: PHOSPHOROUS 4.5 mg/dL (2.5-4.9)
[2023-01-05 18:09] LABS: TOT PROT 8.2 g/dl (6.4-8.2)
[2023-01-05 18:10] LABS: BILIRUBIN,TOTAL 0.7 mg/dL (0.2-1)
[2023-01-05 18:35] LABS: EPI CELLS 10 /uL (0-25.1); HYALINE CASTS 2 /uL (0-3.1); PH,URINE 5.5 (5.0-8.0); URINE APPEARANCE CLEAR; URINE BACTERIA 291 /uL (0-1359); URINE BILIRUBIN NEGATIVE (NEGATIVE); URINE COLOR YELLOW; URINE GLUCOSE (UA) NEGATIVE (NEGATIVE); URINE KETONE TRACE (NEGATIVE); URINE LEUK ESTERASE 3+ (NEGATIVE); URINE NITRITE NEGATIVE (NEGATIVE); URINE PROTEIN NEGATIVE (NEGATIVE); URINE UROBILINOGEN 0.2 mg/dL (0.2-1.0); URINE WBC 122 /uL (0-25.8)
[2023-01-05 18:50] LABS: LACTIC ACID 3.2 mmol/L (0.4-2.0)
[2023-01-05 18:54] LABS: URINE RBC 54 /uL (0-23.9)
[2023-01-05] MEDS ORDERED: SODIUM CHLORIDE 1,000 ML IV ONE (20:14)
[2023-01-05] MEDS ORDERED: CEFTRIAXONE 1 GM in DEXTROSE 5%-WATER - 100 ML IVPB ONE (21:23)
[2023-01-05] MEDS ORDERED: CEFTRIAXONE 1 GM/50 ML BAG ONE (21:55)
[2023-01-05] MEDS ORDERED: METHOCARBAMOL 500 MG TABLET PO ONE (23:28)
[2023-01-05] MEDS ORDERED: METHOCARBAMOL 500 MG TABLET ONE (23:33)
[2023-01-06] MEDS ORDERED: LIDOCAINE 5% TOPICAL PATCH TP ONE (00:03)
[2023-01-06] MEDS ORDERED: LIDOCAINE 5% TOPICAL PATCH ONE (00:07)
[2023-01-06] MEDS ORDERED: PANTOPRAZOLE SODIUM 40 MG VIAL IVPUSH ONE (00:43)
[2023-01-06] MEDS ORDERED: PANTOPRAZOLE SODIUM 40 MG/100 ML BAG IVPB ONE (01:19)
[2023-01-06] MEDS: DEXTROSE 5%-0.45% SALINE 1,000 ML IV SCH ×2 (01:28→23:47)
[2023-01-06] MEDS: ACETAMINOPHEN 1000 MG/100 ML BAG IVPB PRN ×2 (03:11→17:50)
[2023-01-06] MEDS ORDERED: morphine SULFATE 4 MG/ML VIAL IVPUSH ONE (04:45)
[2023-01-06 07:43] VITALS: BMI 29.5
[2023-01-06 08:27] LABS: BASO % 0.6 % (0-2.0); HEMATOCRIT 39.8 % (32.4-45.2); HEMOGLOBIN 13.4 GM/dL (10.7-15.3); LYMPH % 40.4 % (8-40); MCH 29.3 pg (25.7-33.7); MCHC 33.6 g/dl (32.0-36.0); MEAN CELL VOLUME 87.2 fl (80-96); MONO % 9.6 % (3.8-10.2); NEUT % 47.4 % (42.8-82.8); PLATELET COUNT 277 10^3/uL (134-434); RBC 4.56 M/mm3 (3.60-5.2); RDW 14.4 % (11.6-15.6); WHITE BLOOD COUNT 11.2 K/mm3 (4.0-10.0)
[2023-01-06 08:35] LABS: POTASSIUM 3.4 mmol/L (3.5-5.1)
[2023-01-06 08:43] LABS: CREATININE 0.6 mg/dL (0.55-1.3)
[2023-01-06 08:44] LABS: BILIRUBIN,TOTAL 0.4 mg/dL (0.2-1)
[2023-01-06 08:47] LABS: BLOOD UREA NITROGEN 11.5 mg/dL (7-18)
[2023-01-06 09:01] LABS: ALBUMIN 3.2 g/dl (3.4-5.0); CALCIUM 8.5 mg/dL (8.5-10.1)
[2023-01-06] MEDS: PANTOPRAZOLE SODIUM 40 MG VIAL IVPUSH SCH (10:08)
[2023-01-06] MEDS: CLOPIDOGREL BISULFATE 75 MG TABLET (FP) PO SCH (10:08)
[2023-01-06] MEDS: CEFTRIAXONE 1 GM in DEXTROSE 5%-WATER - 50 ML IVPB SCH (10:08)
[2023-01-06] MEDS: NICOTINE 14 MG/24 HOURS TOPICAL PATCH TD SCH (10:11)
[2023-01-06] MEDS: LOSARTAN POTASSIUM 50 MG TABLET PO SCH (10:12)
[2023-01-06] MEDS ORDERED: POLYETHYLENE GLYCOL 3350 255 GM BTL PO ONE (10:15)
[2023-01-06] MEDS: LIPASE/PROTEASE/AMYLASE 36,000 UNIT CAPSULE PO SCH ×2 (12:20→17:48)
[2023-01-06] MEDS: RIFAXIMIN 550 MG TABLET PO SCH ×2 (13:49→23:07)
[2023-01-06] MEDS: MAGNESIUM HYDROX 2400MG/30ML ORAL SUSPENSION 30 ML CUP PO SCH (23:02)
[2023-01-06] MEDS: ATORVASTATIN CA 40 MG TABLET (FP) PO SCH (23:07)
[2023-01-06] MEDS: LIDOCAINE PATCH REMOVAL MC SCH (23:13)
[2023-01-07] MEDS: RIFAXIMIN 550 MG TABLET PO SCH ×3 (05:26→21:58)
[2023-01-07 08:20] LABS: MCH 30.2 pg (25.7-33.7); MCHC 33.4 g/dl (32.0-36.0); MEAN CELL VOLUME 90.4 fl (80-96); MEAN PLT VOLUME 9.2 fl (7.5-11.1); PLATELET COUNT 293 10^3/uL (134-434); RBC 4.98 M/mm3 (3.60-5.2); RDW 14.2 % (11.6-15.6)
[2023-01-07 08:28] LABS: POTASSIUM 3.7 mmol/L (3.5-5.1)
[2023-01-07 08:31] LABS: ALBUMIN 3.5 g/dl (3.4-5.0)
[2023-01-07 08:34] LABS: CREATININE 0.6 mg/dL (0.55-1.3)
[2023-01-07 08:36] LABS: BILIRUBIN,TOTAL 0.5 mg/dL (0.2-1); TOT PROT 6.6 g/dl (6.4-8.2)
[2023-01-07] MEDS: CEFTRIAXONE 1 GM in DEXTROSE 5%-WATER - 50 ML IVPB SCH (09:05)
[2023-01-07] MEDS: LOSARTAN POTASSIUM 50 MG TABLET PO SCH (09:06)
[2023-01-07] MEDS: PANTOPRAZOLE SODIUM 40 MG VIAL IVPUSH SCH (09:06)
[2023-01-07] MEDS: MAGNESIUM HYDROX 2400MG/30ML ORAL SUSPENSION 30 ML CUP PO SCH ×3 (09:06→22:03)
[2023-01-07] MEDS: CLOPIDOGREL BISULFATE 75 MG TABLET (FP) PO SCH (09:06)
[2023-01-07] MEDS: NICOTINE 14 MG/24 HOURS TOPICAL PATCH TD SCH (09:10)
[2023-01-07] MEDS: LIPASE/PROTEASE/AMYLASE 36,000 UNIT CAPSULE PO SCH ×3 (10:59→17:35)
[2023-01-07] MEDS: POLYETHYLENE GLYCOL (HEALTHYLAX) 3350 17 GM PACKET PO SCH ×3 (14:00→22:03)
[2023-01-07] MEDS: ATORVASTATIN CA 40 MG TABLET (FP) PO SCH (21:58)
[2023-01-07] MEDS: LIDOCAINE PATCH REMOVAL MC SCH (21:58)
[2023-01-07] MEDS: ACETAMINOPHEN 500 MG TABLET (FP) PO PRN (22:28)
[2023-01-07] MEDS ORDERED: ACETAMINOPHEN 1000 MG/100 ML BAG IVPB ONE (23:14)
[2023-01-08] MEDS: RIFAXIMIN 550 MG TABLET PO SCH ×3 (06:04→21:08)
[2023-01-08] MEDS: POLYETHYLENE GLYCOL (HEALTHYLAX) 3350 17 GM PACKET PO SCH ×3 (06:04→21:04)
[2023-01-08] MEDS: LIPASE/PROTEASE/AMYLASE 36,000 UNIT CAPSULE PO SCH ×3 (07:39→17:31)
[2023-01-08] MEDS: CEFTRIAXONE 1 GM in DEXTROSE 5%-WATER - 50 ML IVPB SCH (09:51)
[2023-01-08] MEDS: PANTOPRAZOLE SODIUM 40 MG VIAL IVPUSH SCH (09:51)
[2023-01-08] MEDS: LOSARTAN POTASSIUM 50 MG TABLET PO SCH (09:57)
[2023-01-08] MEDS: CLOPIDOGREL BISULFATE 75 MG TABLET (FP) PO SCH (09:57)
[2023-01-08] MEDS: NICOTINE 14 MG/24 HOURS TOPICAL PATCH TD SCH (09:57)
[2023-01-08] MEDS: MAGNESIUM HYDROX 2400MG/30ML ORAL SUSPENSION 30 ML CUP PO SCH ×2 (09:57→21:06)
[2023-01-08 12:28] LABS: CALCIUM 8.7 mg/dL (8.5-10.1); MAGNESIUM 2.2 mg/dL (1.8-2.4); POTASSIUM 3.8 mmol/L (3.5-5.1)
[2023-01-08 12:29] LABS: ALBUMIN 3.5 g/dl (3.4-5.0)
[2023-01-08 12:32] LABS: CREATININE 0.6 mg/dL (0.55-1.3)
[2023-01-08 12:33] LABS: BILIRUBIN,TOTAL 0.4 mg/dL (0.2-1); TOT PROT 6.5 g/dl (6.4-8.2)
[2023-01-08] MEDS: ACETAMINOPHEN 500 MG TABLET (FP) PO PRN (21:06)
[2023-01-08] MEDS: ATORVASTATIN CA 40 MG TABLET (FP) PO SCH (21:12)
[2023-01-09] MEDS: LIDOCAINE PATCH REMOVAL MC SCH (05:28)
[2023-01-09] MEDS: POLYETHYLENE GLYCOL (HEALTHYLAX) 3350 17 GM PACKET PO SCH ×2 (06:27→13:03)
[2023-01-09] MEDS: RIFAXIMIN 550 MG TABLET PO SCH ×2 (06:27→13:23)
[2023-01-09] MEDS: LIPASE/PROTEASE/AMYLASE 36,000 UNIT CAPSULE PO SCH ×2 (09:03→12:17)
[2023-01-09] MEDS: LOSARTAN POTASSIUM 50 MG TABLET PO SCH (09:51)
[2023-01-09] MEDS: PANTOPRAZOLE SODIUM 40 MG VIAL IVPUSH SCH (09:53)
[2023-01-09] MEDS: NICOTINE 14 MG/24 HOURS TOPICAL PATCH TD SCH (09:53)
[2023-01-09] MEDS ORDERED: KETAMINE HCL 500 MG/10 ML VIAL ONE (10:58)
[2023-01-09] MEDS: MAGNESIUM HYDROX 2400MG/30ML ORAL SUSPENSION 30 ML CUP PO SCH (12:17)
[2023-01-09] MEDS: CLOPIDOGREL BISULFATE 75 MG TABLET (FP) PO SCH (12:17)
[2023-01-09 16:00] VITALS: BP 143/56; PULSE 60; RESP 19; TEMP 98.5
== END 2023-01-09 17:54 | disposition home or self-care (01) | DRG 391 ==
LOC: JER 15:49 → JERBED 22:24 → J4W 01-06 01:46
PROVIDERS: ADMIT Student in an Organized Health Care Education/Training Program; ATTEND Family Medicine
PROC: 0DB68ZX Excision of Stomach, Via Natural or Artificial Opening Endoscopic, Diagnostic (ICD-10-PCS; principal; 2023-01-09 15:00)
DX: K29.60 Other gastritis without bleeding (principal); I21.A1 Myocardial infarction type 2; E87.20 Acidosis, unspecified; N39.0 Urinary tract infection, site not specified; J44.9 Chronic obstructive pulmonary disease, unspecified; E11.9 Type 2 diabetes mellitus without complications; I25.10 Atherosclerotic heart disease of native coronary artery without angina pectoris; I10 Essential (primary) hypertension; E78.5 Hyperlipidemia, unspecified; Z87.11 Personal history of peptic ulcer disease; K21.9 Gastro-esophageal reflux disease without esophagitis; M79.7 Fibromyalgia; D64.9 Anemia, unspecified; K44.9 Diaphragmatic hernia without obstruction or gangrene; D72.829 Elevated white blood cell count, unspecified; I25.2 Old myocardial infarction; E86.0 Dehydration
CPT/HCPCS: 0241U-QW; 36415; 71046-TC-FY; 74174-TC; 80053; 80061; 81003; 82010; 82803; 82962; 83605; 83690; 83735; 84100; 84443; 84484; 85025; 85027; 85610; 85730; 87040; 87086; 88305-TC; 93005; 93010; 99285-25